=== PATIENT | female | born 2000 | race Caucasian/White ===

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

== ENCOUNTER → 2018-01-20 12:46 | Outpatient (CLI) | payer BC, SELFPAY ==
--- NOTE | 2018-01-20 12:46 | DT_ITS ---
This patient was seen during an EMR downtime January 18, 2018 - January 25, 2018. This patient may have a combination of paper and electronic documentation or all paper documentation. All documentation is viewable within the e-chart portion of [employer] for each patient visit.
[2018-01-23 13:07] LABS: Chlamydia Trachomatis by PCR Negative (Negative); Neisserai gonorrhoeae by PCR Negative (Negative); Probe Check PASS; Sample Adequacy Control PASS; Specimen Processing Control PASS
== END ==
PROVIDERS: Visit Provider Nurse Practitioner Women's Health
DX: R30.0 Dysuria (principal); N89.8 Other specified noninflammatory disorders of vagina
CPT/HCPCS: 87070; 87086; 87205; 87491; 87591

== ENCOUNTER → 2018-04-21 18:37 | Outpatient (CLI) | payer BC, SELFPAY | PROVIDERS: Family Provider Family Medicine; PCP Family Medicine; Visit Provider Nurse Practitioner Women's Health | DX: N76.0 Acute vaginitis (principal) | CPT/HCPCS: 87070; 87077; 87186; 87205 ==

== ENCOUNTER → 2018-07-06 14:50 | Outpatient (CLI) | payer BC, SELFPAY ==
[2018-04-29 12:59] VITALS: BMI 19.3
== END ==
PROVIDERS: Family Provider Family Medicine; PCP Family Medicine; Referring Provider Nurse Practitioner Adult Health; Visit Provider Nurse Practitioner Adult Health
DX: R30.0 Dysuria (principal)
CPT/HCPCS: 87070; 87081; 87205

== ENCOUNTER → 2018-07-15 11:22 | Outpatient (CLI) | payer BC, SELFPAY ==
[2018-07-15 15:30] LABS: Color, Urine Yellow (Yellow); Glucose, Dipstick Normal (Normal); Ketone-Dipstick Negative (Negative); Leukocyte Esterase-Dipstick 100 /ul (Negative); Nitrite-Dipstick Negative (Negative); Occult Blood-Urine 150 /ul (Negative); Protein-Dipstick 15 mg/dl (Negative); Urine Bilirubin Dipstick Negative (Negative); Urine Clarity Sl. Cloudy (Clear); Urine Urobilinogen Normal (Normal)
--- OUTSIDE RECORDS SUMMARY | 2018-09-09 14:13 | XMS RPT_ITS | Clinical Summary ---
:2000 Author Organization [facility] Address [address] [place] [address] Phone Care Team Providers Name Role Phone NICKY Nowak RN, Eleanor Thomas Unavailable Unavailable Conditions or Problems Problem Name Problem Onset Status Entry Provider Comment Standard Annotate Code Date Date Description Recurrent UTI 561372912 Active Magdalena Kim Recurrent (SNOMED 04/21 04/[address]) MD tract infection Vaginal [id number] Active Magdalena E Vaginal discharge (SNOMED 04/21 04/[address]) Condyloma 550119531 Active Magdalena Kim Genital acuminata, (SNOMED 04/21 04/[address]) MD Encounter for [id number] Active Magdalena E Gynecologic gynecological (SNOMED 04/21 04/[address]) (general) (routine) with abnormal findings Medications Medication Instructions Start Stop Generic Name NDC Provider Date Date DEPO-PROVERA im q 3 months MEDROXYPROGESTERONE [id number] Magdalena Kim 150 MG/ML /05 ACETATE Marcanthony SUSP DEPO-PROVERA MEDROXYPROGESTERONE [id number] Kallie Malagon 150 MG/ML /05 ACETATE Crowder SUSP Medications Administered No information available. Allergies, Adverse Reactions, Alerts Observed no known allergies at Results Date Name Value Unit Range Flag Description Office Visit: est annual HEMOCCULT not done Hemoglobin.gastrointestinal [Presence] in Stool FALLRSAGNES No Fall risk assessment MEDS REVIEW Done Documentation of current medications (procedure) SMOK STATUS Current every day Tobacco use [facility] smoker Microbiology: (P) Culture, Genital Comprehensive [id number] . GE use only - for [employer] import when terms are not otherwise specified Plan of Care Type Date Detail Pending order *CUV - Culture, VAG/CX Comprehensive Pending order *CUV - Culture, VAG/CX Comprehensive Procedures Code Procedure Name Date Entry Date [id number] Destruction of lesion(s), vulva; simple Vital Signs Date Name Value Unit Description BMI (Body Mass Index) 22.97 kg/m2 Body Mass Index [Ratio] Body Temperature 98.6 [degF] temperature E&M Body Temperature 37.00 Darlene temperature in centigrade E&M BP Diastolic 82 mm[Hg] blood pressure, diastolic - 8462-4 BP Systolic 124 mm[Hg] blood pressure, systolic - 8480-6 Heart Rate 93 /min pulse rate E&M - 8867-4 Height 62 [in_us] height E&M - 8302-2 Height 157.48 cm height in centimeters E&M Respiratory Rate 16 /min respiratory rate E&M - 9279-1 Weight Measured 125.6 [lb_av] weight E&M - 3141-9 Weight Measured 56.97 kg weight in kilograms E&M
--- OUTSIDE RECORDS SUMMARY | 2018-09-09 14:13 | XMS RPT_ITS ---
:2000 Author Organization OHIP Support Name Relationship Address Phone NABIL CHAND Unavailable [address] + [place] [address] JERRYS BAR GRILLE Unavailable [address] + [place] [address] JAGRUTI, NABIL Unavailable [address] + [place] [address] JERRYS CAFE BAR Unavailable [address] + [place] [address] JAGRUTI, NABIL Unavailable [address] + [place] [address] JERRYS BAR GRILLE Unavailable [address] + [place] [address] JAGRUTI, NABIL Unavailable [address] + [place] [address] JERRYS BAR GRILLE Unavailable [address] + [place] [address] JAGRUTI, NABIL Unavailable [address] + [place] [address] JERRYS BAR GRILLE Unavailable [address] + [place] [address] JAGRUTI, NABIL Unavailable [address] + [place] [address] ULTA BEAUTY Unavailable [address] + [place] [address] U Unavailable Unavailable Unavailable JAGRUTI, NABIL Unavailable [address] + [place] [address] ULTA BEAUTY Unavailable [address] + [place] [address] ULTA BEAUTY Un[address] + [place] [address] ULTA BEAUTY Un[address] + [place] [address] ULTA BEAUTY Unavailable [address] + [place] [address] JAGRUTI, NABIL Unavailable [address] + [place] [address] JAGRUTI, NABIL Unavailable [address] + [address] [place] [address] JAGRUTI, NABIL Unavailable [address] + [place] [address] JAGRUTI, NABIL Unavailable [address] + [place] [address] JAGRUTI, NABIL Unavailable [address] + [address] [place] [address] JAGRUTI, NABIL Unavailable [address] + [place] [address] JAGRUTI, NABIL Unavailable [address] + [place] [address] JAGRUTI, NABIL Unavailable [address] + [address] [place] [address] JAGRUTI, NABIL Unavailable [address] + [place] [address] JAGRUTI, NABIL Unavailable [address] + [place] [address] JAGRUTI, NABIL Unavailable [address] + [address] [place] [address] JAGRUTI, NABIL Unavailable [address] + [place] [address] [address]TA BEAUTY Un[address] + [place] [address] ULTA BEAUTY Un[address] + [place] [address] JAGRUTI, NABIL Unavailable [address] + [place] [address] JAGRUTI, NABIL Unavailable [address] + [address] [place] [address] JAGRUTI, NABIL Unavailable [address] + [place] [address] ULTA BEAUTY Unavailable [address] + [place] [address] ULTA BEAUTY Un[address] + [place] [address] ULTA BEAUTY Un[address] + [place] [address] JAGRUTI, NABIL Unavailable [address] + [place] [address] JAGRUTI, NABIL Unavailable [address] + [address] [place] [address] JAGRUTI, NABIL Unavailable [address] + [place] [address] Care Team Providers Name Role Phone MINESH GASPAR, DR. NOAH Vo Primary Care Unavailable LEDA YANEZ Attending Unavailable JAREK DONIS MD, JR. Attending Unavailable MINESH GASPAR, DR. NOAH Vo Primary Care Unavailable KAYE ROJAS, DR. RAMIREZ Attending Unavailable MINESH GASPAR, DR. NOAH Vo Primary Care Unavailable KAYE ROJAS, DR. RAMIREZ Attending Unavailable MINESH GASPAR, DR. NOAH Vo Primary Care Unavailable JAREK DONIS MD, JR. Attending Unavailable MINESH GASPAR, DR. NOAH Vo Primary Care Unavailable DAMIAN GASPAR, DR. ZAMUDIO Attending Unavailable DAMIAN GASPAR, DR. ZAMUDIO Referring Unavailable MINESH , DR. NOAH Vo Primary Care Unavailable Robotham, Jennie Attending Unavailable Robotseema, Jennie Referring Unavailable Jarek Donis Jr. Primary Care Unavailable Robotham, Jennie Attending Unavailable Robotham, Jennie Referring Unavailable Jarek Donis Jr. Primary Care Unavailable Magdalena Quintanilla Attending Unavailable Nicholas, Diaz Referring Unavailable Nicholas, Diaz Primary Care Unavailable Magdalena Quintanilla Attending Unavailable Nicholas, Diaz Primary Care Unavailable Corina Pedersen Attending Unavailable NuviaCorina fink Attending Unavailable Nicholas, Diaz Referring Unavailable Nicholas, Diaz Primary Care Unavailable NuviaCorina fink Attending Unavailable Nicholas, Diaz Referring Unavailable Nicholas, Diaz Primary Care Unavailable NuviaCorina fink Attending Unavailable Nicholas, Diaz Primary Care Unavailable [place], Corina Referring Unavailable Raza Otoole Attending Unavailable Nicholas, Diaz Referring Unavailable Nicholas, Diaz Primary Care Unavailable Elisa Painting Attending Unavailable Tickton, Elisa Referring Unavailable Diaz Nicholas Primary Care Unavailable Tickton, Elisa Attending Unavailable RorolicocareyMala Primary Care Unavailable Nuvia, Corina Attending Unavailable Diaz Nicholas Referring Unavailable Nuvia, Corina Attending Unavailable Nuvia, Corina Referring Unavailable Stevan Valdes, Jarek Primary Care Unavailable Robotham, Jennie Attending Unavailable Robotham, Jennie Referring Unavailable Stevan Valdse, Jarek Primary Care Unavailable Robotham, Jennie Attending Unavailable Stevan Valdes, Jarek Referring Unavailable PROBLEMS PROBLEMS DATE TYPE CONDITION / CODE ATTENDING STATUS SOURCE 07/20/2018 Unknown R59.9 - Enlarged Nuvia, Corina Active [place] lymph nodes, Community unspecified / Hospital R59.9(ICD-10) Repository 07/06/2018 Unknown R30.0 - Dysuria / [place]ick[place], Active [place] R30.0(ICD-10) [facility] Repository 04/29/2018 Unknown J32.9 - Chronic WyRaza gomez Active [place] sinusitis, Community unspecified / Hospital J32.9(ICD-10) Repository 04/22/2018 Unknown N76.0 - Acute [place], Corina Active [place] vaginitis / Community N76.0(ICD-10) Hospital Repository 09/29/2017 Unknown N89.8 - Other Marcanthony, Active [place] specified [facility] disorders of vagina / Repository N89.8(ICD-10) PROCEDURES PROCEDURES No Procedure Records FoundRESULTS RESULTS OPERATIVE REPORT - Observed: 08/02/2018 Status: F Source: [place] [facility] 10:46 AM [facility] REPOSITORY [facility] Medical Records Department [address] [place] [address] Operative Report - Endoscopy MR#: [id number] Acct: [id number] Name: KAYCE CHAND Rep #: [id number] : 2000 18 From: Jennie Okeefe MD PCP: Jarek Donis Jr., MD Status: [facility] Patient Name: Kayce Chand Procedure Date: 08/02/2018 10:17 AM Date of : 2000 Age: 18 Procedure: Colonoscopy Indications: Weight loss, bilateral inguinal adenopathy Providers: Jennie Okeefe MD Referring MD: Jarek Donis Jr. Patient Profile: This is a 18 year old female. Last Colonoscopy: none. The patient's first colonoscopy is today. Complications: No immediate complications. Procedure: Pre-Anesthesia Assessment: - Prior to the procedure, a History and Physical was performed, and patient medications and allergies were reviewed. The patient's tolerance of previous anesthesia was also reviewed. The risks and benefits of the procedure and the sedation options and risks were discussed with the patient. All questions were answered, and informed consent was obtained. Prior Anticoagulants: The patient has taken no previous anticoagulant or antiplatelet agents. ASA Grade Assessment: I - A normal, healthy patient. After reviewing the risks and benefits, the patient was deemed in satisfactory condition to undergo the procedure. After I obtained informed consent, the scope was passed under direct vision. Throughout the procedure, the patient's blood pressure, pulse, and oxygen saturations were monitored continuously. The pediatric colonoscope was introduced through the anus and advanced to the cecum, identified by the appendiceal orifice, IC valve and transillumination. The colonoscopy was performed without difficulty. The patient tolerated the procedure well. The quality of the bowel preparation was good. Scope In: 10:18:54 AM Scope Withdrawal Time 0 hours 5 minutes 36 seconds Scope Out: 10:35:34 AM Total Procedure Duration Time 0 hours 16 minutes 40 seconds Findings: The perianal and digital rectal examinations were normal. The entire examined colon appeared normal on direct and retroflexion views. Impression: - The entire examined colon is normal on direct and retroflexion views. - No specimens collected. Recommendation: - Discharge patient to home. - Continue present medications. - Repeat colonoscopy at age 45/50 for screening depending on what the screening age is in the future for screening purposes. Procedure Code(s): --- Professional --- 85862, Colonoscopy, flexible; diagnostic, including collection of specimen(s) by brushing or washing, when performed (separate procedure) Diagnosis Code(s): --- Professional --- R63.4, Abnormal weight loss CPT copyright 2017 [employer] [place] [employer]. All rights reserved. The codes documented in this report are preliminary and upon energy efficient site manager review may be revised to meet current compliance requirements. MD Jennie Ruffin MD 08/02/2018 10:45:48 AM This report has been signed electronically. Number of Addenda: 0 Note Initiated On: 08/02/2018 10:17 AM 08/02/18 1046 Date Jennie Okeefe MD Cosigner Signature: Date (if indicated) CC: Jarek Donis Jr., MD; Jennie Okeefe MD Date Dictated: 08/02/18 1017 Date Transcribed: Feeder Driver: TR Signed OPERATIVE REPORT - Observed: 08/02/2018 Status: F Source: [place] [facility] 10:42 AM [facility] REPOSITORY [facility] Medical Records Department [address] [place] [address] Operative Report - Endoscopy MR#: [id number] Acct: [id number] Name: KAYCE CHAND Rep #: [id number] : 2000 18 From: Jennie Okeefe MD PCP: Jarek Donis Jr., MD Status: REG [facility] Patient Name: Kayce Chand Procedure Date: 08/02/2018 10:01 AM Date of : 2000 Age: 18 Procedure: Upper GI endoscopy Indications: Weight loss Providers: Jennie Okeefe MD Referring MD: Jarek Donis Jr. Medicines: Monitored Anesthesia Care Patient Profile: This is a 18 year old female. Complications: No immediate complications. Procedure: Pre-Anesthesia Assessment: - Prior to the procedure, a History and Physical was performed, and patient medications and allergies were reviewed. The patient's tolerance of previous anesthesia was also reviewed. The risks and benefits of the procedure and the sedation options and risks were discussed with the patient. All questions were answered, and informed consent was obtained. Prior Anticoagulants: The patient has taken no previous anticoagulant or antiplatelet agents. ASA Grade Assessment: I - A normal, healthy patient. After reviewing the risks and benefits, the patient was deemed in satisfactory condition to undergo the procedure. After obtaining informed consent, the endoscope was passed under direct vision. Throughout the procedure, the patient's blood pressure, pulse, and oxygen saturations were monitored continuously. The gastroscope was introduced through the mouth, and advanced to the second part of duodenum. The upper GI endoscopy was accomplished without difficulty. The patient tolerated the procedure well. Scope In: 10:09:57 AM Scope Out: 10:14:43 AM Total Procedure Duration Time 0 hours 4 minutes 46 seconds Findings: Biopsies for histology were taken with a cold forceps in the second portion of the duodenum for evaluation of celiac disease. Minimal inflammation characterized by erythema was found in the gastric antrum. Biopsies were taken with a cold forceps for histology. Biopsies were taken with a cold forceps for Helicobacter pylori cultures. The esophagus was normal. The exam was otherwise without abnormality. Impression: - Gastritis. Biopsied. - Normal esophagus. - The examination was otherwise normal. - Biopsies were taken with a cold forceps for evaluation of celiac disease. Recommendation: - Await pathology results. - Discharge patient to home. - Continue present medications. Procedure Code(s): --- Professional --- 13104, Esophagogastroduodenoscopy, flexible, transoral; with biopsy, single or multiple Diagnosis Code(s): --- Professional --- K29.70, Gastritis, unspecified, without bleeding R63.4, Abnormal weight loss CPT copyright 2017 [employer] [place] [employer]. All rights reserved. The codes documented in this report are preliminary and upon energy efficient site manager review may be revised to meet current compliance requirements. MD Jennie Ruffin MD 08/02/2018 10:41:33 AM This report has been signed electronically. Number of Addenda: 0 Note Initiated On: 08/02/2018 10:01 AM 08/02/18 1041 Date Jennie Okeefe MD Cosigner Signature: Date (if indicated) CC: Jarek Donis Jr., MD; Jennie Okeefe MD Date Dictated: 08/02/18 1001 Date Transcribed: Feeder Driver: TR Signed EGD (PICK SITE) Observed: 08/02/2018 Status: F Source: [place] 10:15 AM [facility] REPOSITORY Patient: KAYCE CHAND : 2000 () Acct Num: [id number] Phys: Sary LO,Jennie Unit Num: [id number] Loc: EN Specimen: [id number] Received: 08/02/18 - 1323 Spec Type: EGD BIOPSY TISSUES 1 TISSUES: A. Duodenum, NOS B. Gastric mucous membrane COMMENT A. There is no evidence of celiac sprue. B. The results of immunohistochemistry for Helicobacter pylori will be reported separately ([id number]). GROSS DESCRIPTION A - Received in fixative is one container labeled with the patient's name and designated duodenal biopsy. The specimen consists of one irregular fragment of light cordero soft tissue that measures 0.5 x 0.3 x 0.1 cm. The specimen is totally submitted in one cassette. B - Received in fixative is one container labeled with the patient's name and designated antral biopsy. The specimen consists of one irregular fragment of light cordero soft tissue that measures 0.2 x 0.2 x 0.1 cm. The specimen is totally submitted in one cassette. / AM:amadeo 08/02/18 TC:5 CPT: 56456 x2 HEADER OPERATION: Colonoscopy, EGD ([facility]) PRE-OP DIAGNOSIS: Weight loss TISSUE SUBMITTED: A. Duodenal biopsy, rule out celiac and rule out sprue, B. Antral biopsy MICROSCOPIC DESCRIPTION Slides are reviewed. MICROSCOPIC DIAGNOSIS A. Duodenum, biopsy: No pathologic change. See comment. B. Gastric antrum, biopsy: Mild chronic inflammation. AM:amadeo 08/03/18 Signed Hector Ivey, DO 08/03/18 <signature on file> Performed By: #### PEGD #### [facility] [place], [address] ,URINE Collected: 08/02/2018 Status: F Source: [place] 9:10 AM [facility] REPOSITORY TYPE CODE TESTS RESULT OUT OF REFERENCE UNITS RANGE LAB L400.8000 Negative Normal HCGUQUAL Negative Result Comment: Very dilute urine specimens, as indicated by a low specific gravity, may not contain customer service representative teller levels of hCG. If is still suspected, a first morning urine specimen should be collected 48 hours later and tested. Performed By: #### L400.7600 #### [facility] [address] [place], [address] EXT NON VASC Observed: 07/26/2018 Status: F Source: [place] LIMITED/SOFT TISS 11:08 AM [facility] REPOSITORY [facility] Imaging Services [address] [place] [address] Ext Non Vasc Limited/Soft Tiss MR#: [id number] Acct: [id number] Name: KAYCE CHAND Rep #: [id number] : 2000 F 18 From: Raza Dick MD PCP: Jarek Donis Jr., MD Status: REG CLI Study: Ext Non Vasc Limited/Soft Tiss Date of Exam: 07/26/18 Exam# [id number] Ordering Dr: Jennie Okeefe MD STUDY: SUPERFICIAL ULTRASOUND - BILATERAL INGUINAL REGIONS. REASON FOR EXAM: Female, 18 years old. Inguinal lymphadenopathy. TECHNIQUE: A superficial ultrasound was performed with real- time and static gaytan-scale imaging. COMPARISON: None. FINDINGS: There is a 1.4 x 1.4 cm lymph node in the left inguinal region at the site of the patient's palpable lump. There is a 2.0 x 1.3 cm adjacent left inguinal lymph node. There are 2 lymph nodes noted in the right inguinal region, measuring 1.9 x 1.2 cm and 1.2 x 0.7 cm. US/Ext Non Vasc Limited/Soft Tiss IMPRESSION: Mild bilateral inguinal lymphadenopathy. Electronically Signed: Raza Dick, at 22:00 EST Tel , Service support , CC: Jarek Donis Jr., MD; Jennie Okeefe MD Feeder Driver: Signed SURGERY VISIT REPORT Observed: 07/26/2018 Status: F Source: [place] 8:12 AM [facility] REPOSITORY [facility] [address] [place] [address] OFFICE VISIT Date of Service: 07/23/18 MR#: [id number] Acct: [id number] Name: KAYCE CHAND Rep #: [id number] : 2000 Provider: Jennie Okeefe MD Age/Sex: 18/F Location: [facility] Status: Signed Intake Vital Signs07/23/18 Body Mass Index (BMI) 19.3 07/23/18 Height 5 ft 2 in 07/23/18 Weight: 106 lb Intake Visit Reasons: Enlarged groin lymph nodes Chief Complaint: congestion Doggy Daycare Activities Director Required: No Is patient in pain?: No Allergies erythromycin base Adverse Reaction (Intermediate, Verified 07/23/18 11:10) stomach pain, vomiting Medications tizanidine 4 mg capsule 4 mg PO TID PRN 04/21/18 [History Confirmed 07/23/18] metronidazole 500 mg tablet 500 mg PO BID #14 tab 04/23/18 [Rx Confirmed 07/23/18] medroxyprogesterone 150 mg/mL intramuscular syringe 150 mg IM [id number] #1 ml 06/08/18 [Rx Confirmed 07/23/18] nystatin 100,000 unit/gram topical cream 1 applic TOPICAL BID PRN #15 g 07/20/18 [Rx Confirmed 07/23/18] triamcinolone acetonide 0.5 % topical cream 1 applic TOPICAL BID #15 g 07/20/18 [Rx Confirmed 07/23/18] [facility] Medical History Hemorrhoids (Acute) Constipation (Acute) Nausea (Acute) Abdominal pain (Acute) Anxiety and depression (Acute) sudden weight loss (Acute) Fatigue (Acute) unexplained bruises (Acute) neck/back pain (Acute) Severe headache (Acute) Surgical History History of ear surgery (Resolved) H/O sinus surgery (Resolved) History of esophagogastroduodenoscopy (EGD) (Resolved) Social History Smoking Status: Current every day smoker alcohol intake: never substance use type: does not use caffeine: Yes what type of physical activity do you participate in: aerobics frequency: 1-2 times per week seatbelt use: always do you feel safe at home: Yes additional 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 Patient states that she noticed the right groin lump about 1 month ago but states is gotten a little bit larger. On 07/06 patient was diagnosed with a UTI and seen her PCP and was given a shot of Rocephin along with a Z-Rodney and Flagyl. Patient did follow-up and on the she was also given Bactrim for her UTI. A couple days ago patient did go see Dr. Akhil Gaitan and again had a urine culture and other cultures done. The urine culture only showed lactobacillus and is only 50-80,000 she still states she has a little bit of hesitation denies any blood in her urine denies any increased frequency. Patient states her pain in her lower abdomen is about 3/10 which is better and she is also been taking cranberry. She does come to feel somewhat of a vaginal heaviness. Patient had a vaginal culture that stayed normal vaginal stef isolated no yeast and Gardnerella are neisseria or beta hemolytic streptococcus isolated. states she has bowel movements about every other day denies any blood states she has a hemorrhoid. Patient and her mother also concern of her weight loss that has been unintentional. Patient used to weigh between 125 and 130 currently she is 106 and about a 2-month. Patient states that she does eat she is little bit of a picky eater but does eat an appropriate amount of food. Patient has not had an ultrasound done of her inguinal nodes. Has never had a colonoscopy or EGD and denies any family history of colon cancer or GI cancer. ROS General General: Yes weight change and fatigue; no colon cancer or breast cancer Gastro Gastrointestinal: Yes abdominal pain, No diarrhea, Yes constipation, No blood in stool, No acid reflux, Yes hemorrhoids, No ulcers, No gallbladder problem, No black,tarry stools, Yes nausea or vomiting (No vomiting) Exam Const General: cooperative, comfortable, no acute distress [facility] Head: atraumatic GI Inspection: non-distended Palpation: soft, no guarding, no hernias, tender (Mild tenderness palpation of the lower appendectomy), other (Patient does have bilateral inguinal adenopathy with the largest nodes being on the left to about 1 cm in width maybe about half a centimeter in height) Skin Other: No abnormal skin lesions that by member feed her on her legs or abdomen there is a very small mid back mole was about 5 mm slightly raised Assessment AND Plan Problems 1. Inguinal lymphadenopathy R59.0 2. Weight loss, non-intentional R63.4 Plan Patient's previous U TI appears to be adequately treated as her last culture only showed 50-80K lactobacillus. Will review other cultures taken by Dr. Quintanilla as well. We will schedule an ultrasound of bilateral inguinal lymph nodes. I have discussed the above with the patient. I have offered the patient EGD colonoscopy for evaluation weight loss. We will plan to schedule once the ultrasound inguinal lymph nodes are resulted. I have explained the risks/benefits of the procedure and described the procedure. I have discussed the risks with the patient, including but not limited to: infection, bleeding, perforation of the GI tract requiring emergency surgery, inability to complete the procedure, injury to any internal organs, complications of anesthesia, etc. - the patient understands and agrees to proceed. I have answered all the patient's questions to the patient's satisfaction and the patient has no further questions. The patient has been given instructions for the colon cleansing preparation. 1 day clears, MiraLAX Dulcolax Jennie Okeefe M.D. Pager: [phone] [facility] [address] [place] [address], [facility], [address] [place] [address] Office: [phone] Plan Detail Follow Up We will schedule bilateral inguinal ultrasound and plan for an EGD and colonoscopy due to her weight loss Coding Level of Care Code Off vis,new,level 4 Diagnoses Inguinal lymphadenopathy R59.0 Weight loss, non-intentional R63.4 Time Spent (min) 45 07/26/18 0812 <Electronically signed by Jennie Okeefe MD> Date Jennie Okeefe MD Cosigner Signature: Date (if applicable) CC: Jarek Donis Jr., MD; Magdalena Quintanilla MD CT/NG [facility] BY PCR Collected: 07/20/2018 Status: F Source: [place] 6:41 PM [facility] REPOSITORY TYPE CODE TESTS RESULT OUT OF RANGE REFERENCE UNITS LAB L8200.2100 Negative Normal Chlam Negative Trac PCR LAB L8200.2200 Negative Normal NG by Negative PCR Performed By: #### L8200.2000 #### [facility] [address] [place], [place], [address] Observed: 07/20/2018 Status: F Source: [place] CULTURE, GENITAL 6:41 PM [facility] COMPREHENSIVE REPOSITORY Reason for Exam: vaginitis Gram Stain Score = 1 Interpretation: 0-3 Normal, 4-6 Intermediate, 7-10 Positive BV Gram Stain 4+ Gram positive rods Rare Gram negative rods No Gram negative diplococci No Yeast Like Organisms 1+ White Blood Cells Gent Cult Comp Normal vaginal stef isolated. No yeast, Gardnerella, Neisseria or beta-hemolytic Streptococcus isolated. Performed By: #### M100.1600 #### [facility] [address] [place], [address] Observed: 07/20/2018 Status: F Source: [place] CULTURE, URINE 6:41 PM [facility] REPOSITORY Urine Culture There are no CLSI standards for interpretation of this Drug/Organism combination. ORGANISM 1: Lactobacillus species [place] Count 50,000-80,000 Performed By: #### M100.0650 #### [facility] [address] [place], [address] VISUAL COMMUNICATIONS INSTRUCTOR OFFICE VISIT Observed: 07/20/2018 Status: F Source: [place] REPORT 2:48 PM [facility] REPOSITORY [facility] [address] [place], [place] [address] OFFICE VISIT Date of Service: 07/20/18 MR#: [id number] Acct: [id number] Name: KAYCE CHAND Rep #: [id number] : 2000 Provider: TANNER Pedersen Age/Sex: 18/F Location: [facility] Status: Signed Intake Vital Signs07/20/18 Body Mass Index (BMI) 19.3 07/20/18 Height 5 ft 2 in 07/20/18 Weight: 106 lb 07/20/18 Body Mass Index (BMI) 19.3 07/20/18 Blood Pressure 118/80 Intake Visit Reasons: Issue with yeast infection/UTI/Swollen lymph Doggy Daycare Activities Director Required: No Accompanied by: Mother Is patient in pain?: Yes (aching, burning, itching and pressure) Pain scale (1-10): 7 Allergies erythromycin base Adverse Reaction (Intermediate, Verified 07/20/18 13:53) stomach pain, vomiting Medications tizanidine 4 mg capsule 4 mg PO TID PRN 04/21/18 [History Confirmed 04/29/18] metronidazole 500 mg tablet 500 mg PO BID #14 tab 04/23/18 [Rx Confirmed 04/29/18] medroxyprogesterone 150 mg/mL intramuscular syringe 150 mg IM [id number] #1 ml 06/08/18 [Rx] nystatin 100,000 unit/gram topical cream 1 applic TOPICAL BID PRN #15 g 07/20/18 [Rx Confirmed 07/20/18] triamcinolone acetonide 0.5 % topical cream 1 applic TOPICAL BID #15 g 07/20/18 [Rx Confirmed 07/20/18] Is last menstrual period known: No Post menopausal: No Patient : No : No PFSH Medical History Anxiety and depression (Acute) Fatigue (Acute) Severe headache (Acute) neck/back pain (Acute) sudden weight loss (Acute) unexplained bruises (Acute) Surgical History H/O sinus surgery (Resolved) History of ear surgery (Resolved) History of esophagogastroduodenoscopy (EGD) (Resolved) Social History Smoking Status: Current every day smoker alcohol intake: never substance use type: does not use caffeine: Yes what type of physical activity do you participate in: aerobics frequency: 1-2 times per week seatbelt use: always do you feel safe at home: Yes 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 She was seen 07/06/18 by this office and had negative vaginal cultures but due to significance of symptoms treated for yeast. She then went to PCP for worsening vaginal irritation with cracking of skin and the enlarged lymph node. States no cultures or serum testing was done but was given antibiotic by enjection-thinks rocephin and also EryC. She had vomiting from EryC. She then was given Bactrim for UTI. She is still taking Bactrim. She has had new sexual partner in last 2 months. Pregancy History 0 Elective abortions Hx Para Spontaneous abortions Exam Const General: no acute distress Nutritional Appearance: well nourished Orientation: oriented x3 General: bladder normal to palpation External Female Exam: normal external appearance, normal appearance of the urethra Urethra: normal appearance of the urethra Speculum Exam - Vagina: normal appearance of the vagina (minimal erythema with small amount yellow to white milky discharge), normal vaginal discharge, nontender, no lesions Speculum Exam - Cervix: normal appearance of the cervix, other (smooth, nonfriable) Bimanual Exam- Vagina AND Uterus: bladder normal to palpation, normal bimanual exam, uterine size normal, uterine shape normal, uterine mobility normal, uterus non-tender Bimanual Exam- Adnexa, other: normal adnexae, no adnexal masses, adnexae non-tender Other: 2cm enlarged lymph node left groin Assessment AND Plan Problems 1. Vaginal itching N89.8 2. Screen for STD (sexually transmitted disease) Z11.3 3. Enlarged lymph node R59.9 Plan Sesar BV, trich, GCC and comp vaginal culture. Call results tomorrow CBC Triamcinilone and nystatin Rx RTO prn Orders Orders: Medications New: Coding Level of Care Code Off vis,est,level 3 Diagnoses Vaginal itching N89.8 Screen for STD (sexually transmitted disease) Z11.3 Enlarged lymph node R59.9 07/20/18 1448 <Electronically signed by Corina DUNCANC> Date Corina Pedersen NP-C Cosigner Signature: Date (if applicable) CC: CBC W/DIFF, AUTOMATED Collected: 07/20/2018 Status: F Source: [place] 2:32 PM [facility] REPOSITORY TYPE CODE TESTS RESULT OUT OF RANGE REFERENCE UNITS LAB L100.1000 4.4-11.0 K/mm3 Normal WBC 5.5 LAB L100.1200 4.2-5.4 M/mm3 Normal RBC 4.99 LAB L100.1300 12.0-15.0 g/dl Normal HGB 15.0 LAB L100.1400 37-47 % Normal HCT 45.2 LAB L100.1500 81-99 fL Normal MCV 90.6 LAB L100.1600 27.0-32.0 pg Normal MCH 30.1 LAB L100.1700 32-36 g/gl Normal MCHC 33.2 LAB L100.1810 11.6-14.6 % Normal RDW CV 13.4 LAB L100.1820 35.1-43.9 fl High RDW SD 44.1 LAB L100.1900 150-450 K/mm3 Normal PLT 244 LAB L100.2000 6.2-12.0 fl Normal MPV 9.9 LAB L100.2100 47-70 % Low NEUT% 42.3 LAB L100.2200 19-41 % High LY% 45.3 LAB L100.2300 0-10 % Normal MONO% 9.3 LAB L100.2400 0-5 % Normal EO% 2.2 LAB L100.2500 0-1 % Normal BASO% 0.7 LAB L100.2550 0.0-0.9 % Normal IM GRAN % 0.200 Result Comment: IG% - Immature Granulocytes (promyelocytes, myelocytes and metamyelocytes) > 1% indicates that a LEFT SHIFT is Present. LAB L100.2620 2.0-7.7 X10 3/uL Normal Absolute Neut 2.3 LAB L100.2720 0.83-4.51 X10 3/ul Normal Absolute Lymph 2.49 Performed By: #### L100.0100 #### [facility] [address]. [place], [place], [address] URINALYSIS, ROUTINE Collected: 07/15/2018 Status: F Source: [place] (DIPSTICK) 11:32 AM [facility] REPOSITORY Order Comment: How was Urine Obtained? DRILL PRESS OPERATOR TO SPECIFY TYPE CODE TESTS RESULT OUT OF RANGE REFERENCE UNITS LAB L400.3000 Yellow COLOR Normal Yellow LAB L400.3050 Clear Normal CLARITY Sl. Cloudy LAB L400.3200 Normal mg/dl Normal GLUCOSE, UR Normal LAB L400.3300 Negative mg/dL Normal BILIRUBIN URINE Negative LAB L400.3400 Negative mg/dl Normal KETONE UR Negative LAB L400.3465 1.002-1.030 Normal SP.GR. DIPSTX 1.020 LAB L400.3550 5.0 - 8.0 pH UR Normal 6.0 LAB L400.3600 Negative mg/dl High PROT 15 DIPSTX LAB L400.3700 Normal mg/dl Normal UROBILI Normal LAB L400.3750 Negative Normal NITRITE UR Negative LAB L400.3780 Negative /ul High OCCULT BLOOD-UR 150 LAB L400.3800 Negative /ul High LEUK ESTERASE 100 Performed By: #### L400.2010 #### [facility] [address] [place], [place], [address] Observed: 07/06/2018 Status: F Source: [place] CULTURE, GENITAL 11:20 AM [facility] COMPREHENSIVE REPOSITORY Gram Stain Score = 0 Interpretation: 0-3 Normal, 4-6 Intermediate, 7-10 Positive BV Gram Stain 4+ Gram positive rods No Gram negative diplococci No Yeast Like Organisms No White Blood Cells Gent Cult Comp Normal vaginal stef isolated. No yeast, Gardnerella, Neisseria or beta-hemolytic Streptococcus isolated. Performed By: #### M100.1600 #### [facility] [address] [place], [place], [address] URGENT CARE VISIT Observed: 04/29/2018 Status: F Source: [place] REPORT 1:22 PM [facility] REPOSITORY [facility] [address] [place] [address] OFFICE VISIT Date of Service: 04/29/18 MR#: [id number] Acct: [id number] Name: KAYCE CHAND Rep #: [id number] : 2000 Provider: Raza RUCKER Age/Sex: 18/F Location: [facility] Status: Signed Intake Vital Signs04/29/18 Height 5 ft 2 in 04/29/18 Weight: 106 lb 04/29/18 Body Mass Index (BMI) 19.3 04/29/18 Blood Pressure 108/74 Intake Visit Reasons: SORE THROAT, FEVER, COUGH Chief Complaint: congestion Doggy Daycare Activities Director Required: No Accompanied by: mother Is patient in pain?: No Allergies No Known Allergies Allergy (Verified 04/29/18 13:02) Medications medroxyprogesterone 150 mg/mL intramuscular syringe 150 mg IM [id number] 09/28/17 [History Confirmed 04/29/18] tizanidine 4 mg capsule 4 mg PO TID PRN 04/21/18 [History Confirmed 04/29/18] metronidazole 500 mg tablet 500 mg PO BID #14 tab 04/23/18 [Rx Confirmed 04/29/18] amoxicillin 500 mg capsule 1,000 mg PO BID 10 Days #40 cap 04/29/18 [Rx Confirmed 04/29/18] [facility] Medical History Anxiety and depression (Acute) Fatigue (Acute) Severe headache (Acute) neck/back pain (Acute) sudden weight loss (Acute) unexplained bruises (Acute) Surgical History H/O sinus surgery (Resolved) History of ear surgery (Resolved) History of esophagogastroduodenoscopy (EGD) (Resolved) Social History Smoking Status: Current every day smoker alcohol intake: never substance use type: does not use caffeine: Yes what type of physical activity do you participate in: aerobics frequency: 1-2 times per week seatbelt use: always do you feel safe at home: Yes 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 No complaints of fever, sweats, rash, chest pain/shortness of breath, cough. No other members in household with similar signs or symptoms. She is a non-smoker with immunizations up-to-date as she so notes. Additionally, patient notes having history of approximately 20 pound weight loss over the course of the last 6 months for unexplained reasons. She states she has been trying to eat more and attempt to gain weight but only continues to lose weight. She states she has been evaluated by her primary care physician as well as drapery examiner to include diagnostics and lab work all of which reveal unremarkable and noncontributory results regarding her weight loss, she so states. He only chronic medication that she is currently on is Depo-Provera which she states she started about a year and half ago. Additionally, she does note having history of scalp psoriasis but is unsure if she was worked up from a rheumatologic standpoint. She notes no new anxiety/stressors/mental health issues as well. ROS Const Constitutional: No other (ROS negative 10 other than as noted above) Exam Const General: cooperative, healthy appearing, no acute distress Nutritional Appearance: average body habitus Orientation: alert, awake, oriented x3 HENMT Head: normal to inspection Ears: hearing grossly normal bilaterally, external ears normal, TM's normal bilaterally, EAC's normal Nose: external nose normal, nares normal, septum normal, no nasal discharge Face and sinus: normal facial exam, face symmetric, sinus tenderness frontal Mouth: oral mucosae normal, lip normal, oropharynx normal, tongue normal Teeth and gingiva: dentition normal, gingiva normal Throat: uvula midline, tonsils normal, posterior oropharynx normal, postnasal drainage (Scant purulent) Eyes General: appearance normal, both eyes and all related structures Neck Neck: normal visual inspection, full ROM, no meningeal signs, supple, lymphadenopathy (Bilateral anterior cervical nodes tender to palpation with trace swelling) Neck mass: No Thyroid: thyroid normal Chest Chest palpation AND inspection: normal inspection of the chest Resp Effort AND Inspection: normal respiratory effort, able to speak in complete sentences, symmetric chest movement, no cough Auscultation: Bilateral: Clear to Auscultation Cardio Palpation: normal PMI Rate: regular rate Rhythm: regular rhythm Heart Sounds: S1 normal, S2 normal, no gallops, no murmurs, no rubs Pulses: radial pulses present GI Inspection: normal to inspection Palpation: soft, nontender, no guarding Skin General: no rashes or lesions noted Neuro General: alert, awake, oriented x3, gait normal Cognition: normal cognition Speech: speech normal Gait: normal gait Motor: muscle tone normal throughout Sensory Exam: no sensory deficits noted Extrem General: normal to inspection Psych Appearance: grossly normal Mental Status: mental status grossly normal Mood: congruent mood Affect: normal affect Speech and Movement: speech and movement normal Attitude: cooperative Thought Process: normal Thought Content: normal Judgment: judgment good Assessment AND Plan Problems 1. Sinusitis J32.9 Plan Oxacillin as prescribed today. Clear fluids, rest, Tylenol, warm facial compresses as needed for symptomatic relief Follow-up PCP in 3-5 days should symptoms not improve, sooner should symptoms worsen or any other concerns develop. Regarding weight loss as patient and mother described, recommend patient to inquire with PCP or drapery examiner for additional diagnostics and testing which would be appropriate in their recommendations. Patient and mom state acknowledging understanding all the above. This note was generated with [employer] dictation software. It may contain incorrect words, spelling, and punctuation that were not noted in checking the note before signing. Medications New: Coding Level of Care Code Off vis,new,level 3 Diagnoses Sinusitis J32.9 04/29/18 1322 <Electronically signed by Raza RUCKER> Date Raaz RUCKER Cosigner Signature: Date (if applicable) CC: Observed: 04/21/2018 Status: F Source: [place] CULTURE, GENITAL 6:37 PM [facility] REPOSITORY Reason for Exam: vulvovaginitis Gram Stain Score = 0 Interpretation: 0-3 Normal, 4-6 Intermediate, 7-10 Positive BV Gram Stain 1+ White Blood Cells 4+ Gram positive rods Gent Cult Comp NEISSERIA GONORRHOEAE is NOT isolated. ORGANISM 1: Streptococcus agalactiae (B) Amount Growth Rare ORGANISM 2: Gardnerella vaginalis Amount Growth 3+ Streptococcus agalactiae (B): REACTION Ampicillin $ <=0.25 S Benzylpenicillin NF <=0.06 S Ceftriaxone $ <=0.12 S Clindamycin $$ >=1 R Inducable Clindamycin Resistan - Linezolid $$$$ <=2 S Vancomycin $ 0.5 S (NF) indicates non-formulary drug at [facility]. Approval by Infectious Disease Specialist required before non-formulary drugs may be ordered and/or dispensed. * CLSI guidelines does not recommend testing of cephalosporins. This interpretation is deduced from Beta-lactam/penicillin results. Performed By: #### M100.1600 #### [facility] [address] [place], [address] VISUAL COMMUNICATIONS INSTRUCTOR OFFICE VISIT Observed: 04/21/2018 Status: F Source: [place] REPORT 2:27 PM [facility] REPOSITORY [facility] [address] [place] [address] OFFICE VISIT Date of Service: 04/21/18 MR#: [id number] Acct: [id number] Name: KAYCE CHAND Rep #: [id number] : 2000 Provider: TANNER Pedersen Age/Sex: 18/F Location[place] [facility] [place] Status: Signed Intake Vital Signs04/21/18 Height 5 ft 2 in 04/21/18 Weight: 107 lb 6 oz 04/21/18 Body Mass Index (BMI) 19.6 04/21/18 Blood Pressure 101/71 Intake Visit Reasons: YEAST INFECTION? Doggy Daycare Activities Director Required: No Is patient in pain?: Yes Pain scale (1-10): 7 Allergies No Known Allergies Allergy (Verified 04/21/18 13:47) Medications medroxyprogesterone 150 mg/mL intramuscular syringe 150 mg IM [id number] 09/28/17 [History Confirmed 04/21/18] tizanidine 4 mg capsule 4 mg PO TID PRN 04/21/18 [History Confirmed 04/21/18] Is last menstrual period known: No Post menopausal: No Patient : No : No PFSH Medical History Anxiety and depression (Acute) Surgical History H/O sinus surgery (Resolved) History of ear surgery (Resolved) History of esophagogastroduodenoscopy (EGD) (Resolved) Social History Smoking Status: Current every day smoker alcohol intake: never substance use type: does not use caffeine: Yes what type of physical activity do you participate in: aerobics frequency: 1-2 times per week seatbelt use: always do you feel safe at home: Yes 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 OTC monistat caused increased burning. She took 1 tablet of her mom's diflucan yesterday without improvement. States not sexually active since prior to STD testing done in January 2018-negative. Pregancy History 0 Elective abortions Hx Para Spontaneous abortions Exam External Female Exam: erythema Speculum Exam - Vagina: abnormal vaginal discharge white, vaginal erythema Speculum Exam - Cervix: normal appearance of the cervix Bimanual Exam- Vagina AND Uterus: normal bimanual exam, uterine size normal, uterus non-tender Bimanual Exam- Adnexa, other: normal adnexae, no adnexal masses, adnexae non-tender Assessment AND Plan Problems 1. Vulvovaginitis N76.0 Plan SESAR BV, trich and comp vag culture OTC cortaid, A AND D ointment prn Call culture results. Medications Discontinued: Coding Level of Care Code Off vis,est,level 3 Diagnoses Vulvovaginitis N76.0 04/21/18 1427 <Electronically signed by Corina NORIEGA> Date Corina Pedersen [employer]MON [employer] VESSEL OPERATOR-C Cosigner Signature: Date (if applicable) CC: FINAL SURGICAL Observed: 03/08/2018 Status: F Source: [facility] PATHOLOGY REPORT 11:58 [facility] [place] REPOSITORY . Pathology Reports Accession: Collected Date/Time: Received Date/Time: Pathologist: [id number] 03/08/2018 11:58 EDT 03/09/2018 08:10 EDT MD SOPHY GRACE Final Surgical Pathology Report DIAGNOSIS: A) DUODENUM, BIOPSY -- SMALL INTESTINAL EPITHELIUM WITH FOCAL, MILD CHRONIC INFLAMMATION AND VERY FOCAL SUBTOTAL VILLOUS BLUNTING (SEE COMMENT). Comment: Overall the villous architecture is normal with only very rare foci of villous blunting. Very early celiac disease cannot be entirely excluded and clinical correlation with serologic studies is recommended. There is no morphologic evidence of Whipple's disease. B) STOMACH, BIOPSY -- FOCAL, VERY MILD NONSPECIFIC CHRONIC GASTRITIS. IMMUNOHISTOCHEMICAL STAIN (WITH APPROPRIATE CONTROL) FOR H. PYLORI ORGANISMS IS NEGATIVE COMMENT: [facility]# [id number] CLINICAL INFORMATION: Procedure: EGD WITH GASTRIC AND DUODENAL BIOPSIES Preoperative diagnosis: WEIGHT LOSS / EPIGASTRIC PAIN Postoperative diagnosis: SAME SPECIMEN: A DUODENUM, BX - R/O CELIAC/WHIPPLE B STOM, BX - GASTRIC - R/O GASTRITIS GROSS DESCRIPTION: A. Received in formalin labeled duodenal biopsies are 4 cordero glistening soft tissues ranging from 0.2-0.6 cm. TS -1 B. Received in formalin labeled gastric biopsies are 2 cordero glistening soft tissues, 0.3 and 0.5 cm. TS -1 Dictated by Michelle RUCKER ([facility]) MICROSCOPIC DESCRIPTION: A&B) Slides reviewed. Electronically Signed by Pathology Report verified by [facility] Electronically signed by SOPHY GRACE MD Sign out Date: 03/10/2018 16:19 Performing Lab: [facility], [address] [place] [address] Performed By: #### SPFR #### [place] [address] [address] [place] [address] XR SPINE CERVICAL 2 Observed: 03/02/2018 Status: F Source: [facility] OR 3 VIEWS 11:37 AM [facility] REPOSITORY ORIGINAL XR SPINE CERVICAL 2 OR 3 VIEWS CLINICAL STATEMENT: pain COMPARISON: None FINDINGS:No acute fracture or subluxation is identified. Vertebral body alignment is maintained. The disc spaces are maintained. No facet arthropathy is identified. The atlantoaxial relationship is norm al. The prevertebral soft tissues are unremarkable. IMPRESSION:Normal exam. Interpreted By: Richelle Diaz MD Preliminary Report By: Richelle Diaz MD Electronically Signed By: Richelle Diaz MD Dictated Date: 03/02/2018 3:09:23 PM Prelim Date: 03/02/2018 3:09:23 PM Sign Date: 03/02/2018 3:10:51 PM CMP Collected: 2018 Status: F Source: [facility] 11:29 AM [facility] REPOSITORY TYPE CODE TESTS RESULT OUT OF REFERENCE UNITS RANGE LAB GLU(LOINC) 70-105 mg/dL Glucose Level 104 LAB NA(LOINC) 136-146 mEq/L Sodium Level 140 LAB K(LOINC) 3.5-5.1 mEq/L Potassium Level 4.7 LAB CL(LOINC) 98-107 mEq/L Chloride 106 LAB CO2(LOINC) 22-29 mEq/L CO2 22 LAB EBAL(LOINC mEq/L ) Electrolyte Balance 12.0 LAB BUN(LOINC) 7.0-18.0 mg/dL BUN High 21.7 LAB CRE(LOINC) 0.6-1.2 mg/dL Creatinine Lvl (s) 0.8 LAB BC(LOINC) 7-27 ratio BUN/Creatinine 27 Ratio LAB CA(LOINC) 8.4-10.2 mg/dL Calcium Lvl 9.8 LAB PROT(LOINC 6.0-8.3 G/dL ) Total Protein 7.1 LAB ALB(LOINC) 3.5-5.0 G/dL Albumin Level 5.0 LAB GLB(LOINC) G/dL Globulin 2.1 LAB AG(LOINC) 1.1-2.5 ratio A/G Ratio 2.4 LAB BILT(LOINC 0.2-1.0 mg/dL ) Bili Total 0.4 LAB AP(LOINC) 40-135 IU/L Alk Phos 56 LAB AST(LOINC) 10-40 IU/L AST/SGOT 12 LAB ALT(LOINC) 10-35 IU/L ALT/SGPT 19 Performed By: #### AMARILYS FARFAND, CRP #### [address] [address] #### GFR, CMP #### [address] [address] .GFR Collected: 2018 Status: F Source: [facility] 11:29 AM [facility] REPOSITORY TYPE CODE TESTS RESULT OUT OF REFERENCE UNITS RANGE LAB GFRAA(LOINC ml/min/1.73 ) sqm GFR >60 Citizen Of The [place] Result Comment: GFR Population mean for , Non- Americans Ages 20-29 = 116 mL/min/1.73 sq.m. Ages 30-39 = 107 mL/min/1.73 sq.m. Ages 40-49 = 99 mL/min/1.73 sq.m. Ages 50-59 = 93 mL/min/1.73 sq.m. Ages 60-69 = 85 mL/min/1.73 sq.m. Ages 70+ = 75 mL/min/1.73 sq.m. Chronic Kidney Disease: Less than 60 mL/min/1.73 square meters End Stage Renal Disease: Less than 15 mL/min/1.73 square meters LAB GFRNO(LOINC) ml/min/1.73sqm GFR Non- >60 Result Comment: GFR Population mean for , Non- Americans Ages 20-29 = 116 mL/min/1.73 sq.m. Ages 30-39 = 107 mL/min/1.73 sq.m. Ages 40-49 = 99 mL/min/1.73 sq.m. Ages 50-59 = 93 mL/min/1.73 sq.m. Ages 60-69 = 85 mL/min/1.73 sq.m. Ages 70+ = 75 mL/min/1.73 sq.m. Chronic Kidney Disease: Less than 60 mL/min/1.73 square meters End Stage Renal Disease: Less than 15 mL/min/1.73 square meters Performed By: #### ENDO, GLIAD, CRP #### [place] [address] #### GFR, CMP #### [address] [address] ENDO Collected: 2018 Status: F Source: [facility] 11:29 AM [facility] REPOSITORY TYPE CODE TESTS RESULT OUT OF RANGE REFERENCE UNITS LAB ENDO(LOINC) TGT Ab <20.0 (IGA) Result Comment: Effective 05/10/2007: Evaluation of Transglutaminase Ab (IgA) results: Negative: Less than 20 Weak positive: 20 to 30 Positive: Greater than 30 Transglutaminase Ab is present in approximately 95% to 100% of patients with celiac disease and 80% of patients with dermatitis herpetiformis. The antibody is rarely found in other conditions. Transglutaminase Ab levels will decrease or increase depending on the removal or reintroduction of gluten into the diet. Patients who are IgA deficient develop celiac disease more frequently than individuals who have an intact IgA system. Therefore, gliadin and transglutaminase IgA antibodies may be absent in patients with celiac disease. IgG antibodies to gliadin are especially helpful in IgA deficient patients. These test results were obtained with the [employer] QUANTA Lite h-tTG IgA OSCAR. h-tTG IgA values obtained with different manufacturers' assay methods may not be used interchangeably. Performed By: #### ENDO, GLIAD, CRP #### [place] [address] #### GFR, CMP #### [address] [address] CRP Collected: 2018 Status: F Source: [facility] 11:29 [facility] [place] REPOSITORY TYPE CODE TESTS RESULT OUT OF REFERENCE UNITS RANGE LAB CRP(LOINC) <=0.80 mg/dL C-Reactive 0.11 Protein Performed By: #### ENDO, GLIAD, CRP #### [place] [address] #### GFR, CMP #### [address] [address] GLIAD Collected: 2018 Status: F Source: [facility] 11:29 [facility] [place] REPOSITORY TYPE CODE TESTS RESULT OUT OF REFERENCE UNITS RANGE LAB GLG(LOINC) Gliadin Ab IgG <20 Result Comment: Gliadin IgG and IgA Ab Interpretation (effective 07/12/07): Result Units Negative <20 Weak Positive 20-30 Moderate to Strong Positive >30 Both IgG and IgA antibodies to gliadin are present in most patients with celiac disease (CD). However, antibody to gliadin may be present in Crohn's disease, dermatitis herpetiformis or in subjects with no clinical evidence of intestinal disease. In healthy individuals with a family history of CD, the antibodies may precede the clinical onset of disease in approximately 25% of the subjects. Gliadin antibody levels will decrease or increase depending on the removal or reintroduction of gluten into the diet. Patients who are IgA deficient develop celiac disease more frequently than individuals who have an intact IgA system. Therefore, gliadin and transglutaminase IgA antibodies may be absent in patients with celiac disease. IgG antibodies to gliadin are especially helpful in IgA deficient patients. A negative result indicates no gliadin antibody or levels below the negative cut-off of the assay. Results of this assay should be used in conjunction with clinical findings and other serological tests. These test results were obtained with the [employer] QUANTA Lite Gliadin IgG II and Gliadin IgA II. Gliadin values obtained with different manufacturers' assay methods may not be used interchangeably. LAB GLA(LOINC) Gliadin Ab IgA <20 Result Comment: Gliadin IgG and IgA Ab Interpretation (effective 07/12/07): Result Units Negative <20 Weak Positive 20-30 Moderate to Strong Positive >30 Both IgG and IgA antibodies to gliadin are present in most patients with celiac disease (CD). However, antibody to gliadin may be present in Crohn's disease, dermatitis herpetiformis or in subjects with no clinical evidence of intestinal disease. In healthy individuals with a family history of CD, the antibodies may precede the clinical onset of disease in approximately 25% of the subjects. Gliadin antibody levels will decrease or increase depending on the removal or reintroduction of gluten into the diet. Patients who are IgA deficient develop celiac disease more frequently than individuals who have an intact IgA system. Therefore, gliadin and transglutaminase IgA antibodies may be absent in patients with celiac disease. IgG antibodies to gliadin are especially helpful in IgA deficient patients. A negative result indicates no gliadin antibody or levels below the negative cut-off of the assay. Results of this assay should be used in conjunction with clinical findings and other serological tests. These test results were obtained with the [employer] QUANTA Lite Gliadin IgG II and Gliadin IgA II. Gliadin values obtained with different manufacturers' assay methods may not be used interchangeably. Performed By: ####

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
--- OUTSIDE RECORDS SUMMARY | 2018-09-09 14:13 | XMS RPT_ITS ---
:2000 Author Organization [facility], [facility] Address [address] [place] [address] Phone Care Team Providers Name Role Phone Magdalena Quintanilla MD Unavailable Conditions or Problems Problem Name Problem Onset Status Entry Provider Comment Standard Annotate Code Date Date Description Recurrent UTI [id number] Active Magdalena Kim Recurrent (SNOMED 04/21 04/[address]) tract infection Vaginal 223500434 Active Magdalena Kim Vaginal discharge (SNOMED 04/21 04/[address]) Condyloma 252494432 Active Magdalena Kim Genital acuminata, (SNOMED 04/21 04/[address] [place] [address]) MD Encounter for [id number] Active Magdalena Kim Gynecologic gynecological (SNOMED 04/21 04/[address] [place] [address]) (general) (routine) with abnormal findings Medications Medication Instructions Start Stop Generic Name [facility] Provider Date Date DEPO-PROVERA im q 3 months MEDROXYPROGESTERONE [id number] Magdalena Kim 150 MG/ML /05 ACETATE [place] SUSP DEPO-PROVERA MEDROXYPROGESTERONE [phone] Kallie Malagon 150 MG/ML /05 ACETATE Crowder SUSP Medications Administered No information available. Allergies, Adverse Reactions, Alerts Observed no known allergies at Results Date Name Value Unit Range Flag Description Office Visit: est annual HEMOCCULT not done Hemoglobin.gastrointestinal [Presence] in Stool FALLRSKASSES No Fall risk assessment MEDS REVIEW Done Documentation of current medications (procedure) SMOK STATUS Current every day Tobacco use [facility] smoker Plan of Care Type Date Detail Appointment 02:10 PM Magdalena Quintanilla MD, [address], [place], [address], Pending order *CUV - Culture, VAG/CX Comprehensive Procedures Code Procedure Name Date Entry Date CPT-04380 Destruction of lesion(s), vulva; simple Vital Signs [...]
--- OUTSIDE RECORDS SUMMARY | 2018-09-09 14:13 | XMS RPT_ITS | Clinical Summary ---
:2000 Author Organization [facility] Address [address] [place] [address] Phone Care Team Providers Name Role Phone NICKY Nowak RN, Eleanor Thomas Unavailable Unavailable Conditions or Problems Problem Name Problem Onset Status Entry Provider Comment Standard Annotate Code Date Date Description Recurrent UTI [id number] Active Magdalena Kim Recurrent (SNOMED 04/21 04/[address]) MD tract infection Vaginal 060685516 Active Magdalena E Vaginal discharge (SNOMED 04/21 04/[address]) Condyloma 813730078 Active Magdalena Kim Genital acuminata, (SNOMED 04/21 04/[address]) MD Encounter for [id number] Active Magdalena E Gynecologic gynecological (SNOMED 04/21 04/[address] [address]) (general) (routine) with abnormal findings Medications Medication Instructions Start Stop Generic Name NDC Provider Date Date DEPO-PROVERA im q 3 months MEDROXYPROGESTERONE [id number] Magdalena Kim 150 MG/ML /05 ACETATE Marcanthony SUSP DEPO-PROVERA MEDROXYPROGESTERONE [phone] Kallie Malagon 150 MG/ML /05 ACETATE Crowder SUSP Medications Administered No information available. Allergies, Adverse Reactions, Alerts Observed no known allergies at Results Date Name Value Unit Range Flag Description Office Visit: est annual HEMOCCULT not done Hemoglobin.gastrointestinal [Presence] in Stool FALLRSAGNES No Fall risk assessment MEDS REVIEW Done Documentation of current medications (procedure) SMOK STATUS Current every day Tobacco use [facility] smoker Microbiology: Culture, Genital Comprehensive ZZ-GE-unk Neisseria or beta-hemolytic GE use only - for Streptococcus isolated. LinkLogic import when terms are not otherwise specified Plan of Care Type Date Detail Pending order *CUV - Culture, VAG/CX Comprehensive Pending order *CUV - Culture, VAG/CX Comprehensive Procedures Code Procedure Name Date Entry Date CPT-40974 Destruction of lesion(s), vulva; simple Vital Signs [...]
--- OUTSIDE RECORDS SUMMARY | 2018-09-09 14:13 | XMS RPT_ITS | Clinical Summary ---
:2000 Author Organization [facility], [facility] Address [address] [place] [address] Phone Care Team Providers Name Role Phone Magdalena Quintanilla MD Unavailable Conditions or Problems Problem Name Problem Onset Status Entry Provider Comment Standard Annotate Code Date Date Description Recurrent UTI [id number] Active Magdalena Kim Recurrent (SNOMED 04/21 04/[address]) tract infection Vaginal 756812962 Active Magdalena Kim Vaginal discharge (SNOMED 04/21 04/[address]) Condyloma 278722629 Active Magdalena Kim Genital acuminata, (SNOMED 04/21 04/[address]) MD Encounter for 76330499 Active Magdalena Kim Gynecologic gynecological (SNOMED 04/21 04/[address] [place] [address]) (general) (routine) with abnormal findings Medications Medication Instructions Start Stop Generic Name [facility] Provider Date Date DEPO-PROVERA im q 3 months MEDROXYPROGESTERONE [id number] Magdalena Kim 150 MG/ML /05 ACETATE Shemaranthjacinto SUSP DEPO-PROVERA MEDROXYPROGESTERONE [phone] Kallie Malagon 150 MG/ML /05 ACETATE Crowder SUSP Medications Administered No information available. Allergies, Adverse Reactions, Alerts Observed no known allergies at Results Date Name Value Unit Range Flag Description Office Visit: est annual HEMOCCULT not done Hemoglobin.gastrointestinal [Presence] in Stool FALLRSKASSES No Fall risk assessment MEDS REVIEW Done Documentation of current medications (procedure) SMOK STATUS Current every day Tobacco use [facility] smoker Microbiology: (P) Culture, Genital Comprehensive SHIRAZ-GILBERT-shruthik . GE use only - for LinkLogic import when terms are not otherwise specified Plan of Care Type Date Detail Pending order *CUV - Culture, VAG/CX Comprehensive Pending order *CUV - Culture, VAG/CX Comprehensive Procedures Code Procedure Name Date Entry Date CPT-61001 Destruction of lesion(s), vulva; simple Vital Signs [...]
== END ==
PROVIDERS: Nurse Practitioner Family; Family Provider Family Medicine; PCP Family Medicine; Visit Provider Nurse Practitioner Adult Health
DX: N39.0 Urinary tract infection, site not specified (principal)
CPT/HCPCS: 81002

== ENCOUNTER → 2018-07-20 14:26 | Outpatient (CLI) | payer BC, SELFPAY ==
[2018-07-20 13:55] VITALS: BMI 19.3
[2018-07-20 14:53] LABS: Absolute Lymphocyte Count 2.49 X10^3/ul (0.83-4.51); Absolute Neutrophil Count 2.3 X10^3/uL (2.0-7.7); Basophil# 0.04 X10^3/uL; Basophil% 0.7 % (0-1); Eosinophil# 0.12 X10^3/uL; Eosinophils% 2.2 % (0-5); Hematocrit 45.2 % (37-47); Lymphocyte # 2.49 X10^3/ul (4.0); Lymphocyte % 45.3 % (19-41); Mean Corp Hgb Conc 33.2 g/gl (32-36); Mean Corpuscular Hgb 30.1 pg (27.0-32.0); Mean Corpuscular Volume 90.6 fL (81-99); Mean Platelet Vol. 9.9 fl (6.2-12.0); Monocyte# 0.51 X10^3/uL; Monocyte% 9.3 % (0-10); Neutrophil # 2.33 X10^3/uL (2.7-7.7); Neutrophil % 42.3 % (47-70); POSITIVE COUNT NO; POSITIVE DIFFERENTIAL NO; POSITIVE MORPHOLOGY NO; Platelet Count 244 K/mm3 (150-450); RBC Distribution Width CV 13.4 % (11.6-14.6); RBC Distribution Width SD 44.1 fl (35.1-43.9); Red Blood Count 4.99 M/mm3 (4.2-5.4); White Blood Count 5.5 K/mm3 (4.4-11.0)
[2018-07-20 21:26] LABS: Chlamydia Trachomatis by PCR Negative (Negative); Neisserai gonorrhoeae by PCR Negative (Negative); Probe Check PASS; Sample Adequacy Control PASS; Specimen Processing Control PASS
== END ==
PROVIDERS: Family Provider Internal Medicine; PCP Internal Medicine; Referring Provider Nurse Practitioner Women's Health; Visit Provider Nurse Practitioner Women's Health
DX: R59.9 Enlarged lymph nodes, unspecified (principal); N89.8 Other specified noninflammatory disorders of vagina; Z11.3 Encounter for screening for infections with a predominantly sexual mode of transmission
CPT/HCPCS: 36415; 85025; 87070; 87086; 87088; 87205; 87491; 87591

== ENCOUNTER → 2018-07-26 11:07 | Outpatient (CLI) | payer BC, SELFPAY ==
[2018-07-20 13:55] VITALS: BMI 19.3
[2018-07-23 11:16] VITALS: BMI 19.3
--- NOTE | 2018-07-26 11:08 | US_ITS ---
STUDY: SUPERFICIAL ULTRASOUND - BILATERAL INGUINAL REGIONS. REASON FOR EXAM: Female, 18 years old. Inguinal lymphadenopathy. TECHNIQUE: A superficial ultrasound was performed with real-time and static gaytan-scale imaging. COMPARISON: None. FINDINGS: There is a 1.4 x 1.4 cm lymph node in the left inguinal region at the site of the patient's palpable lump. There is a 2.0 x 1.3 cm adjacent left inguinal lymph node. There are 2 lymph nodes noted in the right inguinal region, measuring 1.9 x 1.2 cm and 1.2 x 0.7 cm. US/Ext Non Vasc Limited/Soft Tiss IMPRESSION: Mild bilateral inguinal lymphadenopathy. Electronically Signed: Raza Dick, at 22:00 EST Tel , Service support ,
== END ==
PROVIDERS: Family Provider Internal Medicine; PCP Internal Medicine; Referring Provider Surgery; Visit Provider Surgery
DX: R59.9 Enlarged lymph nodes, unspecified (principal)
CPT/HCPCS: 76882

== ENCOUNTER 2018-08-02 08:54 | Day surgery (SDC) | payer BC, SELFPAY ==
--- NOTE | 2018-08-02 | IMM_PTH ---
PATIENT: EZE HERNADEZ LOC: EN U#:[id number] AGE/SX: 18/F ROOM: RE08/02/[address]: Dr. Jennie Okeefe MD : 2000 BED: DIS: 08/02/2018 SPEC #: [id number] RECD: 08/03/18 13:33 STATUS: KATIE REQ #: [id number] BRAULIO: 08/02/18 00:[address]: Jennie Okeefe DEPT: IMMUNOHISTOCHEMISTRY RECD BY: Katlyn Atkinson ENTERED: 08/03/18 13:34 SP TYPE: IMMUNO OTHR DR: Dr. Jarek Calles Jr., MD Tissues: B - Stomach, NOS Procedures: H Pylori (initial) PHYSICIAN & INSTITUTION [place] [address] SPECIMEN INFORMATION: Tissue Source: B - Antral biopsy Clinical Info: Weight loss Specimen Number: [id number] CPT code: 38517 METHODOLOGY: Deparaffinized sections of prefer/formalin-fixed tissue or PAP/DQ stained slides are incubated with monoclonal/polyclonal antibodies/oligonucleotide probes. Localization is made via biotin free immunoperoxidase method. Appropriate controls are performed and reacted as expected. Results on target cell population are indicated in the following table: RESULTS: ANTIBODY / CLONE RESULT Block B H Pylori (polyclonal) negative These tests were developed and their performance characteristics determined by [facility]. They may not have been cleared or approved by the U.S. Food and Drug Administration. The FDA has determined that such clearance or approval is not necessary. INTERPRETATION: A. Antral biopsy: Negative for Helicobacter pylori organisms. AM:amadeo 08/05/18
[2018-08-02 09:26] VITALS: BP 110/66; PULSE 89; RESP 16; TEMP 37; O2SAT 99; BMI 18.8
[2018-08-02 09:47] LABS: Internal QC Validated? YES +Cl - CLEAR BKGD; Pregnancy, Urine Negative Negative
--- NOTE | 2018-08-02 10:15 | EGD_PTH ---
PATIENT: EZE HERNADEZ LOC: EN U#:[id number] AGE/SX: 18/F ROOM: RE08/02/[address]: [address]. Jennie Okeefe MD : 2000 BED: DIS: 08/02/2018 SPEC #: [id number] RECD: 08/02/18 13:23 STATUS: KATIE LISA #: [id number] BRAULIO: 08/02/18 10:[address]: Jennie Okeefe DEPT: SURGICAL PATHOLOGY RECD BY: Yelena Rudolph ENTERED: 08/02/18 13:38 SP TYPE: EGD BIOPSY JAMARI DR: Dr. Jarek Calles Jr., MD Tissues: A - Duodenum, NOS B - Gastric mucous membrane Procedures: Surgery Specimen Level IV HEADER OPERATION: Colonoscopy, EGD ([facility]) PRE-OP DIAGNOSIS: Weight loss TISSUE SUBMITTED: A. Duodenal biopsy, rule out celiac and rule out elpidio BBalbir Antral biopsy MICROSCOPIC DIAGNOSIS A. Duodenum, biopsy: No pathologic change. See comment. B. Gastric antrum, biopsy: Mild chronic inflammation. AM:amadeo 08/03/18 COMMENT A. There is no evidence of celiac sprue. B. The results of immunohistochemistry for Helicobacter pylori will be reported separately ([id number]). MICROSCOPIC DESCRIPTION Slides are reviewed. GROSS DESCRIPTION A - Received in fixative is one container labeled with the patient's name and designated duodenal biopsy. The specimen consists of one irregular fragment of light cordero soft tissue that measures 0.5 x 0.3 x 0.1 cm. The specimen is totally submitted in one cassette. B - Received in fixative is one container labeled with the patient's name and designated antral biopsy. The specimen consists of one irregular fragment of light cordero soft tissue that measures 0.2 x 0.2 x 0.1 cm. The specimen is totally submitted in one cassette. / AM:amadeo 08/02/18 TC:5 CPT: 13516 x2
[2018-08-02 10:40] VITALS: BP 110/66; BP 126/73; PULSE 87; RESP 16; TEMP 36.2; O2SAT 100
--- NOTE | 2018-08-02 10:42 | OP.ENDO_ITS ---
Patient Name: Kayce Haq Procedure Date: 08/02/2018 10:01 AM Date of : 2000 Age: 18 Procedure: Upper GI endoscopy Indications: Weight loss Providers: Jennie Okeefe MD Referring MD: Jarek Calles Jr. Medicines: Monitored Anesthesia Care Patient Profile: This is a 18 year old female. Complications: No immediate complications. Procedure: Pre-Anesthesia Assessment: - Prior to the procedure, a History and Physical was performed, and patient medications and allergies were reviewed. The patient's tolerance of previous anesthesia was also reviewed. The risks and benefits of the procedure and the sedation options and risks were discussed with the patient. All questions were answered, and informed consent was obtained. Prior Anticoagulants: The patient has taken no previous anticoagulant or antiplatelet agents. ASA Grade Assessment: I - A normal, healthy patient. After reviewing the risks and benefits, the patient was deemed in satisfactory condition to undergo the procedure. After obtaining informed consent, the endoscope was passed under direct vision. Throughout the procedure, the patient's blood pressure, pulse, and oxygen saturations were monitored continuously. The gastroscope was introduced through the mouth, and advanced to the second part of duodenum. The upper GI endoscopy was accomplished without difficulty. The patient tolerated the procedure well. Scope In: 10:09:57 AM Scope Out: 10:14:43 AM Total Procedure Duration Time 0 hours 4 minutes 46 seconds Findings: Biopsies for histology were taken with a cold forceps in the second portion of the duodenum for evaluation of celiac disease. Minimal inflammation characterized by erythema was found in the gastric antrum. Biopsies were taken with a cold forceps for histology. Biopsies were taken with a cold forceps for Helicobacter pylori cultures. The esophagus was normal. The exam was otherwise without abnormality. Impression: - Gastritis. Biopsied. - Normal esophagus. - The examination was otherwise normal. - Biopsies were taken with a cold forceps for evaluation of celiac disease. Recommendation: - Await pathology results. - Discharge patient to home. - Continue present medications. Procedure Code(s): --- Professional --- 92771, Esophagogastroduodenoscopy, flexible, transoral; with biopsy, single or multiple Diagnosis Code(s): --- Professional --- K29.70, Gastritis, unspecified, without bleeding R63.4, Abnormal weight loss CPT copyright 2017 [employer]. All rights reserved. The codes documented in this report are preliminary and upon death surveys coder review may be revised to meet current compliance requirements. MD Jennie Ruffin MD 08/02/2018 10:41:33 AM This report has been signed electronically. Number of Addenda: 0 Note Initiated On: 08/02/2018 10:01 AM
[2018-08-02 10:45] VITALS: BP 108/68; BP 110/66; PULSE 84; RESP 16; O2SAT 98
--- NOTE | 2018-08-02 10:46 | OP.ENDO_ITS ---
Patient Name: Kayce Haq Procedure Date: 08/02/2018 10:17 AM Date of : 2000 Age: 18 Procedure: Colonoscopy Indications: Weight loss, bilateral inguinal adenopathy Providers: Jennie Okeefe MD Referring MD: Jarek Calles Jr. Patient Profile: This is a 18 year old female. Last Colonoscopy: none. The patient's first colonoscopy is today. Complications: No immediate complications. Procedure: Pre-Anesthesia Assessment: - Prior to the procedure, a History and Physical was performed, and patient medications and allergies were reviewed. The patient's tolerance of previous anesthesia was also reviewed. The risks and benefits of the procedure and the sedation options and risks were discussed with the patient. All questions were answered, and informed consent was obtained. Prior Anticoagulants: The patient has taken no previous anticoagulant or antiplatelet agents. ASA Grade Assessment: I - A normal, healthy patient. After reviewing the risks and benefits, the patient was deemed in satisfactory condition to undergo the procedure. After I obtained informed consent, the scope was passed under direct vision. Throughout the procedure, the patient's blood pressure, pulse, and oxygen saturations were monitored continuously. The pediatric colonoscope was introduced through the anus and advanced to the cecum, identified by the appendiceal orifice, IC valve and transillumination. The colonoscopy was performed without difficulty. The patient tolerated the procedure well. The quality of the bowel preparation was good. Scope In: 10:18:54 AM Scope Withdrawal Time 0 hours 5 minutes 36 seconds Scope Out: 10:35:34 AM Total Procedure Duration Time 0 hours 16 minutes 40 seconds Findings: The perianal and digital rectal examinations were normal. The entire examined colon appeared normal on direct and retroflexion views. Impression: - The entire examined colon is normal on direct and retroflexion views. - No specimens collected. Recommendation: - Discharge patient to home. - Continue present medications. - Repeat colonoscopy at age 45/50 for screening depending on what the screening age is in the future for screening purposes. Procedure Code(s): --- Professional --- 41173, Colonoscopy, flexible; diagnostic, including collection of specimen(s) by brushing or washing, when performed (separate procedure) Diagnosis Code(s): --- Professional --- R63.4, Abnormal weight loss CPT copyright 2017 [employer]. All rights reserved. The codes documented in this report are preliminary and upon personal financial advisor review may be revised to meet current compliance requirements. MD Jennie Ruffin MD 08/02/2018 10:45:48 AM This report has been signed electronically. Number of Addenda: 0 Note Initiated On: 08/02/2018 10:17 AM
[2018-08-02 10:50] VITALS: BP 103/66; BP 110/66; PULSE 79; RESP 16; O2SAT 100
[2018-08-02 10:55] VITALS: BP 108/64; BP 110/66; PULSE 77; RESP 16; TEMP 36.2; O2SAT 100
[2018-08-02 11:13] VITALS: BP 110/66
--- OUTSIDE RECORDS SUMMARY | 2018-11-03 20:10 | XMS RPT_ITS | Clinical Summary ---
:2000 Author Organization [facility], [facility] Address [address] [place] [address] Phone Care Team Providers Name Role Phone Magdalena Quintanilla MD Unavailable Conditions or Problems Problem Name Problem Onset Status Entry Provider Comment Standard Annotate Code Date Date Description Recurrent UTI [id number] Active Magdalena Kim Recurrent (SNOMED 04/21 04/[address]) tract infection Vaginal 690127233 Active Magdalena Kim Vaginal discharge (SNOMED 04/21 04/[address]) Condyloma 029403163 Active Magdalena Kim Genital acuminata, (SNOMED 04/21 04/[address]) MD Encounter for [id number] Active Magdalena Kim Gynecologic gynecological (SNOMED 04/21 04/[address] [place] [address]) (general) (routine) with abnormal findings Medications Medication Instructions Start Stop Generic Name [facility] Provider Date Date DEPO-PROVERA im q 3 months MEDROXYPROGESTERONE [id number] Magdalena Kim 150 MG/ML /05 ACETATE Shemaranthjacinto SUSP DEPO-PROVERA MEDROXYPROGESTERONE [phone] Kallie Malagon 150 MG/ML /05 ACETATE Crowder SUSP Medications Administered No information available. Allergies, Adverse Reactions, Alerts Observed no known allergies at Results Date Name Value Unit Range Flag Description Office Visit: est annual HEMOCCULT not done Hemoglobin.gastrointestinal [Presence] in Stool FALLRSKASSES No Fall risk assessment MEDS REVIEW Done Documentation of current medications (procedure) SMOK STATUS Current every day Tobacco use [facility] smoker Microbiology: (P) Culture, Genital Comprehensive ZBrandon-GILBERT-shruthik . GE use only - for LinkLogic import when terms are not otherwise specified Plan of Care Type Date Detail Pending order *CUV - Culture, VAG/CX Comprehensive Pending order *CUV - Culture, VAG/CX Comprehensive Procedures Code Procedure Name Date Entry Date CPT-30166 Destruction of lesion(s), vulva; simple Vital Signs [...]
--- OUTSIDE RECORDS SUMMARY | 2018-11-03 20:10 | XMS RPT_ITS | Clinical Summary ---
:2000 Author Organization [facility], [facility] Address [address] [place] [address] Phone Care Team Providers Name Role Phone Magdalena Quintanilla MD Unavailable Conditions or Problems Problem Name Problem Onset Status Entry Provider Comment Standard Annotate Code Date Date Description Recurrent UTI 015970227 Active Magdalena Kim Recurrent (SNOMED 04/21 04/[address]) tract infection Vaginal 512689138 Active Magdalena Kim Vaginal discharge (SNOMED 04/21 04/[address]) Condyloma 235467920 Active Magdalena Kim Genital acuminata, (SNOMED 04/21 04/[address] [place] [address]) MD Encounter for 02033286 Active Magdalena Kim Gynecologic gynecological (SNOMED 04/21 04/[address] [place] [address]) (general) (routine) with abnormal findings Medications Medication Instructions Start Stop Generic Name [facility] Provider Date Date DEPO-PROVERA im q 3 months MEDROXYPROGESTERONE [id number] Magdalena Kim 150 MG/ML /05 ACETATE [place] SUSP DEPO-PROVERA MEDROXYPROGESTERONE [id number] Kallie Malagon 150 MG/ML /05 ACETATE Crowder SUSP Medications Administered No information available. Allergies, Adverse Reactions, Alerts Observed no known allergies at Results Date Name Value Unit Range Flag Description Office Visit: est annual HEMOCCULT not done Hemoglobin.gastrointestinal [Presence] in Stool FALLRSKASSES No Fall risk assessment MEDS REVIEW Done Documentation of current medications (procedure) SMOK STATUS Current every day Tobacco use [facility] smoker Plan of Care Type Date Detail Appointment 02:10 PM Magdalena Quintanilla MD, [address], [place], [address], Pending order *CUV - Culture, VAG/CX Comprehensive Procedures Code Procedure Name Date Entry Date CPT-04480 Destruction of lesion(s), vulva; simple Vital Signs [...]
--- OUTSIDE RECORDS SUMMARY | 2018-11-03 20:10 | XMS RPT_ITS | Clinical Summary ---
:[address] [facility] Address [address] [place] [address] Phone Care Team Providers Name Role Phone NICKY Nowak RN, Eleanor Thomas Unavailable Unavailable Conditions or Problems Problem Name Problem Onset Status Entry Provider Comment Standard Annotate Code Date Date Description Recurrent UTI [id number] Active Magdalena Kim Recurrent (SNOMED 04/21 04/[address]) MD tract infection Vaginal 081649449 Active Magdalena E Vaginal discharge (SNOMED 04/21 04/[address]) Condyloma 548507604 Active Magdalena Kim Genital acuminata, (SNOMED 04/21 04/[address]) MD Encounter for 03952141 Active Magdalena E Gynecologic gynecological (SNOMED 04/21 04/[address] [address]) (general) (routine) with abnormal findings Medications Medication Instructions Start Stop Generic Name NDC Provider Date Date DEPO-PROVERA im q 3 months MEDROXYPROGESTERONE [id number] Magdalena Kim 150 MG/ML /05 ACETATE Marcanthony SUSP DEPO-PROVERA MEDROXYPROGESTERONE [id number] Kallie Malagon 150 MG/ML /05 ACETATE Crowder SUSP Medications Administered No information available. Allergies, Adverse Reactions, Alerts Observed no known allergies at Results Date Name Value Unit Range Flag Description Office Visit: est annual HEMOCCULT not done Hemoglobin.gastrointestinal [Presence] in Stool FALLRSAGNES No Fall risk assessment MEDS REVIEW Done Documentation of current medications (procedure) SMOK STATUS Current every day Tobacco use [facility] smoker Microbiology: (P) Culture, Genital Comprehensive ZZ-GE-unk . GE use only - for LinkLogic import when terms are not otherwise specified Plan of Care Type Date Detail Pending order *CUV - Culture, VAG/CX Comprehensive Pending order *CUV - Culture, VAG/CX Comprehensive Procedures Code Procedure Name Date Entry Date CPT-32362 Destruction of lesion(s), vulva; simple Vital Signs [...]
--- OUTSIDE RECORDS SUMMARY | 2018-11-03 20:10 | XMS RPT_ITS | Clinical Summary ---
:2000 Author Organization [facility], [facility] Address [address] [place] [address] Phone Care Team Providers Name Role Phone Magdalena Quintanilla MD Unavailable Conditions or Problems Problem Name Problem Onset Status Entry Provider Comment Standard Annotate Code Date Date Description Recurrent UTI 294437525 Active Magdalena Kim Recurrent (SNOMED 04/21 04/[address]) tract infection Vaginal 678169392 Active Magdalena Kim Vaginal discharge (SNOMED 04/21 04/[address]) Condyloma 242500026 Active Magdalena Kim Genital acuminata, (SNOMED 04/21 04/[address]) MD Encounter for 62237423 Active Magdalena Kim Gynecologic gynecological (SNOMED 04/21 04/[address] [place] [address]) (general) (routine) with abnormal findings Medications Medication Instructions Start Stop Generic Name [facility] Provider Date Date DEPO-PROVERA im q 3 months MEDROXYPROGESTERONE [id number] Magdalena Kim 150 MG/ML /05 ACETATE Shemaranthjacinto SUSP DEPO-PROVERA MEDROXYPROGESTERONE [phone] Kallie Malagon 150 MG/ML /05 ACETATE Crowder SUSP Medications Administered No information available. Allergies, Adverse Reactions, Alerts Observed no known allergies at Results Date Name Value Unit Range Flag Description Office Visit: est annual HEMOCCULT not done Hemoglobin.gastrointestinal [Presence] in Stool FALLRSKASSES No Fall risk assessment MEDS REVIEW Done Documentation of current medications (procedure) SMOK STATUS Current every day Tobacco use [facility] smoker Microbiology: (P) Culture, Genital Comprehensive SHIRAZ-GILBERT-shruthik . GE use only - for LinkLogic import when terms are not otherwise specified Plan of Care Type Date Detail Pending order *CUV - Culture, VAG/CX Comprehensive Pending order *CUV - Culture, VAG/CX Comprehensive Procedures Code Procedure Name Date Entry Date CPT-11178 Destruction of lesion(s), vulva; simple Vital Signs [...]
--- OUTSIDE RECORDS SUMMARY | 2018-11-03 20:10 | XMS RPT_ITS | Clinical Summary ---
:2000 Author Organization [facility] Address [address] [place] [address] Phone Care Team Providers Name Role Phone NICKY Nowak RN, Eleanor Thomas Unavailable Unavailable Conditions or Problems Problem Name Problem Onset Status Entry Provider Comment Standard Annotate Code Date Date Description Recurrent UTI 776920959 Active Magdalena Kim Recurrent (SNOMED 04/21 04/[address]) MD tract infection Vaginal 768488014 Active Magdalena E Vaginal discharge (SNOMED 04/21 04/[address]) Condyloma 027870750 Active Magdalena Kim Genital acuminata, (SNOMED 04/21 04/[address]) MD Encounter for 18809923 Active Magdalena E Gynecologic gynecological (SNOMED 04/21 04/[address] [address]) (general) (routine) with abnormal findings Medications Medication Instructions Start Stop Generic Name N[facility] Provider Date Date DEPO-PROVERA im q 3 months MEDROXYPROGESTERONE [id number] Magdalena Kim 150 MG/ML /05 ACETATE Marcanthony SUSP DEPO-PROVERA MEDROXYPROGESTERONE [id number] Kallie Malagon 150 MG/ML /05 ACETATE Crowder SUSP Medications Administered No information available. Allergies, Adverse Reactions, Alerts Observed no known allergies at Results Date Name Value Unit Range Flag Description Office Visit: est annual HEMOCCULT not done Hemoglobin.gastrointestinal [Presence] in Stool FALLRSAGNES No Fall risk assessment MEDS REVIEW Done Documentation of current medications (procedure) SMOK STATUS Current every day Tobacco use [facility] smoker Microbiology: Culture, Genital Comprehensive ZZ-GE-unk Neisseria or beta-hemolytic GE use only - for Streptococcus isolated. LinkLogic import when terms are not otherwise specified Plan of Care Type Date Detail Pending order *CUV - Culture, VAG/CX Comprehensive Pending order *CUV - Culture, VAG/CX Comprehensive Procedures Code Procedure Name Date Entry Date CPT-91484 Destruction of lesion(s), vulva; simple Vital Signs [...]
--- OUTSIDE RECORDS SUMMARY | 2018-11-03 20:11 | XMS RPT_ITS ---
:2000 Author Organization [place] Support Name Relationship Address Phone NABIL CHAND Unavailable [address] + [place] [address] JERRYS BAR GRILLE Unavailable [address] + [place] [address] JAGRUTI, NABIL Unavailable [address] + [place] [address] JERRYS BAR GRILLE Unavailable [address] + [place] [address] JAGRUTI, NABIL Unavailable [address] [facility] [address] + [place] [address] JERRYS BAR GRILLE Unavailable [address] + [place] [address] JAGRUTI, NABIL Unavailable [address] + [place] [address] JERRYS BAR GRILLE Unavailable [address] + [place] [address] JAGRUTI, NABIL Unavailable [address] + [place] [address] JERRYS BAR GRILLE Unavailable [address] + [place] [address] JAGRUTI, NABIL Unavailable [address] + [place] [address] JERRYS BAR GRILLE Unavailable [address] + [place] [address] JAGRUTI, NABIL Unavailable [address] + [place] [address] JERRYS BAR GRILLE Unavailable [address] + [place] [address] JAGRUTI, NABIL Unavailable [address] + [place] [address] JERRYS BAR GRILLE Unavailable [address] + [place] [address] JAGRUTI, NABIL Unavailable [address] + [place] [address] JERRYS BAR GRILLE Unavailable [address] + [place] [address] JAGRUTI, NABIL Unavailable [address] + [place] [address] JERRYS CAFE BAR Unavailable [address] + [place] [address] JAGRUTI, NABIL Unavailable [address] + [place] [address] JERRYS CAFE BAR Unavailable [address] + [place] [address] JAGRUTI, NABIL Unavailable [address] + [place] [address] JERRYS BAR GRILLE Unavailable [address] + [place] [address] JAGRUTI, NABIL Unavailable [address] + [place] [address] JERRYS BAR GRILLE Unavailable [address] + [place] [address] JAGRUTI, NABIL Unavailable [address] + [place] [address] JERRYS BAR GRILLE Unavailable [address] + [place] [address] JAGRUTI, NABIL Unavailable [address] + [place] [address] ULTA BEAUTY Unavailable [address] + [place] [address] U Unavailable Unavailable Unavailable JAGRUTI, NABIL Unavailable [address] + [place] [address] [address]TA BE[address]Y Un[address] + [place] [address] [address] BE[address]Y Un[address] + [place] [address] [address]TA BE[address]Y Un[address] + [place] [address] [address] BE[address]Y Un[address] + [place] [address] JAGRUTI, NABIL Unavailable [address] + [place] [address] JAGRUTI, NABIL Unavailable [address] + [address] [place] [address] JAGRUTI, NABIL Unavailable [address] + [place] [address] JAGRUTI, NABIL Unavailable [address] + [place] [address] JAGRUTI, NABIL Unavailable [address] + [address] [place] [address] JAGRUTI, NABIL Unavailable [address] + [place] [address] JAGRUTI, NABIL Unavailable [address] + [place] [address] JAGRUTI, NABIL Unavailable [address] + [address] [place] [address] JAGRUTI, NABIL Unavailable [address] + [place] [address] JAGRUTI, NABIL Unavailable [address] + [place] [address] JAGRUTI, NABIL Unavailable [address] + [address] [place] [address] JAGRUTI, NABIL Unavailable [address] + [place] [address] ULTA BEAUTY Unavailable [address] + [place] [address] [address]Y Un[address] + [place] [address] JAGRUTI, NABIL Unavailable [address] + [place] [address] JAGRUTI, NABIL Unavailable [address] + [address] [place] [address] JAGRUTI, NABIL Unavailable [address] + [place] [address] ULTA BEAUTY Unavailable [address] + [place] [address] ULTA BEAUTY Unavailable [address] + [place] [address] ULTA BEAUTY Unavailable [address] + [place] [address] Care Team Providers Name Role Phone GAGANDEEP LO, TRAVIS Swanson JR. Attending Unavailable MINESH DO, DR. NOAH Vo Primary Care Unavailable KAYE ROJAS, DR. RAMIREZ Attending Unavailable MINESH DO, DR. NOAH Vo Primary Care Unavailable KAYE ROJAS, DR. RAMIREZ Attending Unavailable MINESH DO, DR. NOAH Vo Primary Care Unavailable TRAVIS DONIS MD, JR. Attending Unavailable MINESH DO, DR. NOAH Vo Primary Care Unavailable KNAPIC DO, DR. ZAMUDIO Attending Unavailable KNAPIC DO, DR. ZAMUDIO Referring Unavailable MINESH DO, DR. NOAH Vo Primary Care Unavailable Robotham, Jennie Attending Unavailable Robotham, Jennie Referring Unavailable Donis Jr., Travis Primary Care Unavailable Robotham, Jennie Attending Unavailable Robotham, Jennie Referring Unavailable Donis Jr., Travis Primary Care Unavailable Robotham, Jennie Attending Unavailable Robotham, Jennie Referring Unavailable Donis Jr., Travis Primary Care Unavailable Robotham, Jennie Consulting Unavailable Robotham, Jennie Attending Unavailable Robotham, Jennie Attending Unavailable Robotham, Jennie Referring Unavailable Donis Jr., Travis Primary Care Unavailable Rei Renteria Attending Unavailable Donis Jr., Travis Referring Unavailable DexterRei albright Attending Unavailable Dexter, Rei Referring Unavailable Donis Jr., Travis Primary Care Unavailable Robotham, Jennie Attending Unavailable Robotham, Jennie Referring Unavailable Donis Jr., Travis Primary Care Unavailable Rei Renteria Consulting Unavailable Dexter Rei Attending Unavailable Donis Jr., Travis Referring Unavailable DexterRei albright Attending Unavailable Dexter, Rei Referring Unavailable Donis Jr., Travis Primary Care Unavailable Donis Jr., Travis Primary Care Unavailable Lynsey Dillonus Attending Unavailable Magdalena Quintanilla Attending Unavailable Nicholas, Diaz Referring Unavailable Nicholas, Diaz Primary Care Unavailable Magdalena Quintanilla Attending Unavailable Nicholas, Diaz Primary Care Unavailable Corina Pedersen Attending Unavailable Corina Pedersen Attending Unavailable Nicholas, Diaz Referring Unavailable Nicholas, Diaz Primary Care Unavailable Nuvia, Corina Attending Unavailable Nicholas, Diaz Referring Unavailable Nicholas, Daiz Primary Care Unavailable [place], Corina Attending Unavailable Nicholas, Diaz Primary Care Unavailable [place], Corina Referring Unavailable Raza Otoole Attending Unavailable Nicholas, Diaz Referring Unavailable Nicholas, Diaz Primary Care Unavailable Tickton, Elisa Attending Unavailable Tickton, Elisa Referring Unavailable Nicholas, Diaz Primary Care Unavailable Tickton, Elisa Attending Unavailable Jollcarey, Mala Primary Care Unavailable [place], Corina Attending Unavailable Nicholas, Diaz Referring Unavailable [place], Corina Attending Unavailable Nuvia, Corina Referring Unavailable Donis Jr., Travis Primary Care Unavailable Robotham, Jennie Attending Unavailable Robotham, Jennie Referring Unavailable Donis Jr., Travis Primary Care Unavailable Robotham, Jennie Attending Unavailable Donis Jr., Travis Referring Unavailable PROBLEMS PROBLEMS DATE TYPE CONDITION / CODE ATTENDING STATUS SOURCE 09/02/2018 Unknown R10.9 - Unspecified Ungur, Remus Active [facility] abdominal pain / Community R10.9(ICD-10) Hospital Repository 08/30/2018 Unknown R63.4 - Abnormal Dexter, Rei Active [facility] weight loss / Community R63.4(ICD-10) Hospital Repository 08/30/2018 Unknown J90 - Pleural Dexter, Rei Active [facility] effusion, not Community elsewhere classified Hospital / J90(ICD-10) Repository 08/30/2018 Unknown R59.1 - Generalized Dexter, Rei Active [place] enlarged lymph nodes Community / R59.1(ICD-10) Hospital Repository 08/18/2018 Unknown 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.0 - Pleural Dexter, Rei Active [facility]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 Community of asbestos / Hospital J92.0(ICD-10) Repository 08/05/2018 Unknown K29.70 - Gastritis, Robotham, Active [place] unspecified, without Jennie Community bleeding / Hospital K29.70(ICD-10) Repository 07/20/2018 Unknown R59.9 - Enlarged Nuvia, Corina Active [place] lymph nodes, Community unspecified / Hospital R59.9(ICD-10) Repository 07/06/2018 Unknown R30.0 - Dysuria / Tickton, Active [place] R30.0(ICD-10) [facility] Hospital Repository 04/29/2018 Unknown J32.9 - Chronic Raza Otoole Active [place] sinusitis, Community unspecified / Hospital J32.9(ICD-10) Repository 04/22/2018 Unknown N76.0 - Acute Nuvia, Molly Active [facility] vaginitis / Community N76.0(ICD-10) Hospital Repository 09/29/2017 Unknown N89.8 - Other Marcanthony, Active [facility] disorders of vagina / Repository N89.8(ICD-10) PROCEDURES PROCEDURES No Procedure Records FoundRESULTS RESULTS 12 LEAD ELECTROCARDIOGRAM Observed: 09/06/2018 Status: F Source: [place] 9:21 AM [facility] Cardiovascular Services [address] [place] [address] 12 Lead EKG 09/02/18 1243 MR#: [id number] Acct: [id number] Name: KAYCE CHAND Rep #: [id number] : 2000 18 From: Denton Gaitan MD Attending Dr: Status: DEP ER Ordering Dr: Derek Dillon DO Date: 09/02/18 Location: ED Sex: F C Admitted: Test Reason : CP Blood Pressure : / mmHG Vent. Rate : 073 BPM Atrial Rate : 073 BPM P-R Int : 122 ms QRS Dur : 080 ms QT Int : 386 ms P-R-T Axes : 059 093 065 degrees QTc Int : 425 ms Normal sinus rhythm with sinus arrhythmia Rightward axis Borderline ECG Confirmed by BRIAN LO, DENTON ([id number]), graphics editor SILVIA GALINDO ([id number]) on 09/06/2018 9:20:54 AM Referred By: GAEL Confirmed By:DENTON GAITAN MD 09/06/18919 Date Denton Gaitan MD CC: Travis Donis Jr., MD; Derek Dillon DO Signed DISCHARGE INSTRUCTION Observed: 09/02/2018 Status: F Source: [place] 4:30 PM [facility] Medical Records Department [address] [place] [address] Discharge Instruction 09/02/18 1628 MR#: [id number] Acct: [id number] Name: KAYCE CHAND Rep #: [id number] : 2000 18 From: Derek Dillon DO PCP: Travis Donis Jr., MD Status: REG ER ED Disposition - Plan for ED Patient: Chief Complaint: Chest Other Instructions: ED Abdominal Pain Unkn Cause, ED Neck Back Pain General Prescriptions: Hydrocodone Bitart/Apap 5-325 [[place] 5MG-325MG] 1 tab PO Q4H PRN PRN 2 Days #10 tab PRN Reason: Pain Referrals: Travis Donis Jr., MD [Primary Care Provider] - Rei Renteria MD [STAFF PHYSICIAN] - 3-5 Days What to do if you have Problems For any increased pain, shortness of breath, bleeding, nausea or vomiting, chest pain, or any unexpected problems, contact your Primary Care Provider. Call [facility] ([phone]) or report to the closest Emergency Room. Call 911 if necessary. 09/02/18 1630 <Electronically signed by Derek Dillon DO> Date Derek Dillon DO Cosigner Signature (If Indicated): Date CC: Travis Donis Jr., MD EMERGENCY DEPARTMENT Observed: 09/02/2018 Status: F Source: [place] SUMMARY 4:28 PM [facility] REPOSITORY [facility] Medical Records Department [address] [place] [address] Emergency Department Summary 09/02/18 1621 MR#: [id number] Acct: [id number] Name: KAYCE CHAND Rep #: [id number] : 2000 18 From: Derek Dillon DO PCP: Travis Donis Jr., MD Status: REG ER - ER Visit Summary Date of Service: 09/02/18 Chief Complaint: [Abdominal pain] History of Present Illness: The patient is a 18 F [since the emergency department complaint of 3-day history of worsening pain in her abdomen and back. 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 The biopsy was done via CT guidance by Dr. Vázquez. Patient tells me that she is lost about 40 pounds over the last 6 or 7 months. Patient has had some swollen lymph nodes in her groin that were biopsied and were benign. Patient has been evaluated by [employer] and has had testing for gonorrhea and chlamydia. Patient also has been seen by general surgery and is had a EGD and colonoscopy. Patient currently being evaluated and seen by Dr. Renteria. Over the last 3 days she tells me she is had worsening pain diffusely across her back and she said pain that radiates to her right shoulder. Patient complains of diffuse abdominal pain and nausea but no vomiting. Patient's not been sleeping due to the amount of pain. She has had no fevers.] Physical Examination: [HEENT-PERRLA, EOMI. Cranial nerves II through XII grossly intact. TMs clear. Mucous membranes moist. No adenopathy. Cardiovascular-regular rate and rhythm without murmur or ectopy Lungs-clear to auscultation, chest wall stable without crepitus or subcu emphysema Abdomen-normoactive bowel sounds, soft. Patient has diffuse tenderness over the right upper quadrant and diffusely about the abdomen. There is guarding. There is no rebound, rigidity, or perineal signs. Back exam-patient has diffuse tenderness palpation over the thoracic and lumbar spine. Patient has diffuse tenderness over the paraspinal musculature. Negative straight leg raises. Deep tendon reflexes are plus 2 out of 4 bilaterally at the patella and Achilles. Extremities-intact 4, normal range of motion, normal pulses, atraumatic] Test Results: [CBC with differential obtained showed a normal white count of 5.8, hemoglobin 14.9, hematocrit 46, platelets 262. Chemistries were normal. LFTs were normal. Urinalysis was normal. HCG was negative. TSH was 1.06. Tox ecology was negative. Chest x-ray was normal. CT scan of the abdomen pelvis showed decrease in size of the cystic mass that was biopsied. Patient had results noted of that biopsy that came back mostly blood and no evidence of neoplasm.] Emergency Department Course and Treatment: [Patient was medicated with Dilaudid and Zofran. Patient did feel improved with the pain medication. At this point the etiology of her symptoms are unclear she also had a TSH study that showed a level of 1.06. Her toxicology screen was negative. I offered to transfer them to tertiary care center for further workup and evaluation as at this point given all the extensive testing that she is had no etiologies been found for her symptomatology. Patient and her mother would prefer to go home and try to continue follow-up as an outpatient] Treatment Plan: [Patient will be given a prescription for [place] for pain and advised to follow-up with her physicians as an outpatient.] Disposition: [Discharged home in stable condition] Impression: [Abdominal pain-etiology uncertain Back pain] This note was generated with [employer] software. It may contain incorrect words, spelling, and punctuation that were not noted in review of the chart prior to signing ED Disposition - Plan for ED Patient: Chief Complaint: Chest Other Referrals: Travis Donis Jr., MD [Primary Care Provider] - What to do if you have Problems For any increased pain, shortness of breath, bleeding, nausea or vomiting, chest pain, or any unexpected problems, contact your Primary Care Provider. Call [facility] ([phone]) or report to the closest Emergency Room. Call 911 if necessary. 09/02/18 1628 <Electronically signed by Derek Dillon DO> Date Derek Dillon DO Cosigner Signature (If Indicated): Date CC: Travis Donis Jr., MD URINALYSIS, COMPLETE Collected: 09/02/2018 Status: F Source: [place] 2:00 PM [facility] REPOSITORY Order Comment: Order Date: 09/02/18 How was Urine Obtained? CLEAN CATCH TYPE CODE TESTS RESULT OUT OF RANGE REFERENCE UNITS LAB L400.3000 Yellow COLOR Normal Straw LAB L400.3050 Clear Normal CLARITY Clear LAB L400.3200 Normal mg/dl Normal GLUCOSE, UR Normal LAB L400.3300 Negative mg/dL Normal BILIRUBIN URINE Negative LAB L400.3400 Negative mg/dl Normal KETONE UR Negative LAB L400.3465 1.002-1.030 Normal SP.GR. DIPSTX 1.010 LAB L400.3550 5.0 - 8.0 pH UR Normal 6.5 LAB L400.3600 Negative mg/dl PROT Normal DIPSTX Negative LAB L400.3700 Normal mg/dl Normal UROBILI Normal LAB L400.3750 Negative Normal NITRITE UR Negative LAB L400.3780 Negative /ul Normal OCCULT BLOOD-UR Negative LAB L400.3800 Negative /ul High LEUK ESTERASE 100 LAB L400.4050 0-5 /hpf WBC Normal 0-5 SEEN LAB L400.4100 0-5 /hpf Normal RBC-UA 0-5 SEEN LAB L400.4150 5-10 /hpf SQUAM 0 Normal EPI SEEN LAB L400.4300 None Seen /hpf 0 Normal BACTERIA SEEN LAB L400.4350 <or=2+ /hpf 0 Normal MUCUS, URINE SEEN Performed By: #### L400.0001 #### [facility] [address] [place], [address] URINE DRUG SCREEN Collected: 09/02/2018 Status: F Source: [place] ([email or web address]) 2:00 PM [facility] REPOSITORY TYPE CODE TESTS RESULT OUT OF RANGE REFERENCE UNITS LAB L505.0075 TO BE Normal CONFIRMED Result Comment: CONFIRMATORY TESTING FOR ALL POSITIVE URINE DRUG SCREEN RESULTS WILL ONLY BE SENT OUT UPON PHYSICIAN ORDER. VISTA Urine Drug Screen methods provide only preliminary analytical test results. A more specific alternate chemical method must be used in order to obtain a confirmed analytical result. Gas chromatography/mass spectrometery (GC/MS) is the preferred confirmatory method. Clinical consideration and professional judgement should be applied to any drug of abuse test result, particularly when preliminary positive results are used. URINE TCA TESTING MUST BE ORDERED SEPARATELY. USE TEST MNEMONIC: [facility] LAB L505.5005 VISTA UDS PH 6 Normal LAB L505.5015 <1000 ng/mL AMPHETAMINES Normal NEGATIVE LAB L505.5025 < 200 ng/mL BARBITIURATES Normal NEGATIVE LAB L505.5035 < 200 ng/mL BENZODIAZIPINE Normal NEGATIVE LAB L505.5045 < 300 ng/mL COCAINE Normal NEGATIVE LAB L505.5055 < 500 ng/mL ECSTACY Normal NEGATIVE LAB L505.5065 < 300 ng/mL METHADONE Normal NEGATIVE LAB L505.5075 < 300 ng/mL OPIATES Normal NEGATIVE LAB L505.5085 < 25 ng/mL PCP Normal NEGATIVE LAB L505.5095 < 50 ng/mL THC Normal NEGATIVE Performed By: #### L505.5000 #### [facility] [place], [address] COMPREHENSIVE METABOLIC Collected: 09/02/2018 Status: F Source: [place] [facility] 1:05 PM [facility] REPOSITORY TYPE CODE TESTS RESULT OUT OF RANGE REFERENCE UNITS LAB L501.0100 74-106 mg/dL Normal GLU 76 Result Comment: Please note revised GLUCOSE reference range effective 2017. LAB L501.1000 7-18 mg/dL Normal BUN 16 LAB L501.1100 0.55-1.02 mg/dL Normal CREAT,SERUM 0.83 Result Comment: The validity of the calculated GFR AND GFRAA in patients over 70 years has not been determined. Clinical correlation is essential. LAB L501.1110 >60 mL/min Normal EST GFR 92 Result Comment: Non- GFR Calc LAB L501.1115 >60 mL/min Normal EST GFR - AA 112 Result Comment: GFR Calc LAB L501.1255 ml/min Normal Estimated CRCL 82.84 LAB L501.1300 10-20 RATIO Normal BUN/CRE 19.2 LAB L501.1500 6.4-8. g/dL Normal 2 T PROT 7.4 LAB L501.1800 3.2-5. g/dL Normal 0 ALB 4.4 LAB L501.1950 2.2-4. g/dL Normal 2 GLOB 3.0 LAB L501.2000 0.9-2. RATIO Normal 4 A/G 1.5 LAB L501.2200 8.5-10 mg/dL Normal .1 CA 9.2 LAB L501.4100 15-37 U/L Low AST 13 LAB L501.4305 45-117 U/L Normal ALK P 53 LAB L501.4405 13-56 U/L Normal ALT 28 LAB L501.4600 0.20-1 mg/dL Normal .00 T BILI 0.60 LAB L501.5300 136-14 mmol/L Normal 5 NA 142 LAB L501.5600 3.5-5. mmol/L Normal 1 K 3.9 LAB L501.5900 98-107 mmol/L High CL 112 LAB L501.6100 21.0-3 mmol/L Normal 2.0 CO2 23.0 LAB L501.6200 5-15 Normal GAP 7 Performed By: #### L500.4050, L501.2450 #### [facility] [address] [facility] [place], [address] LIPASE Collected: 09/02/2018 Status: F Source: [place] 1:05 [facility] REPOSITORY TYPE CODE TESTS RESULT OUT OF RANGE REFERENCE UNITS LAB L501.2450 73-393 U/L Normal LIPASE 180 Performed By: #### L500.4050, L501.2450 #### [facility] [address] [facility] [place], [address] CBC W/DIFF, AUTOMATED Collected: 09/02/2018 Status: F Source: [place] 1:05 [facility] REPOSITORY TYPE CODE TESTS RESULT OUT OF RANGE REFERENCE UNITS LAB L100.1000 4.4-11.0 K/mm3 Normal WBC 5.8 LAB L100.1200 4.2-5.4 M/mm3 Normal RBC 5.07 LAB L100.1300 12.0-15.0 g/dl Normal HGB 14.9 LAB L100.1400 37-47 % Normal HCT 46.3 LAB L100.1500 81-99 fL Normal MCV 91.3 LAB L100.1600 27.0-32.0 pg Normal MCH 29.4 LAB L100.1700 32-36 g/gl Normal MCHC 32.2 LAB L100.1810 11.6-14.6 % Normal RDW CV 13.6 LAB L100.1820 35.1-43.9 fl High RDW SD 44.7 LAB L100.1900 150-450 K/mm3 Normal PLT 202 LAB L100.2000 6.2-12.0 fl Normal MPV 9.5 LAB L100.2100 47-70 % Normal NEUT% 49.4 LAB L100.2200 19-41 % Normal LY% 39.6 LAB L100.2300 0-10 % Normal MONO% 8.5 LAB L100.2400 0-5 % Normal EO% 2.2 LAB L100.2500 0-1 % Normal BASO% 0.3 LAB L100.2550 0.0-0.9 % Normal IM GRAN % 0.000 Result Comment: IG% - Immature Granulocytes (promyelocytes, myelocytes and metamyelocytes) > 1% indicates that a LEFT SHIFT is Present. LAB L100.2620 2.0-7.7 X10 3/uL Normal Absolute Neut 2.9 LAB L100.2720 0.83-4.51 X10 3/ul Normal Absolute Lymph 2.29 Performed By: #### L100.0100 #### [facility] [address] [place], [address] ,SERUM,HCG QUALI. Collected: Status: F Source: [place] 09/02/2018 1:05 PM [facility] REPOSITORY TYPE CODE TESTS RESULT OUT OF REFERENCE UNITS RANGE LAB L700.6700 =>Qualitative mIU/mL Normal HCG Qual < 1 triggr LAB L700.7000 0-9 Nonpreg Negative Normal HCGSQUAL NEGATIVE Performed By: #### L700.6800 #### [facility] [place], [place], [address] THYROID STIM HORMONE Collected: 09/02/2018 Status: F Source: [place] (T[facility]) 1:05 PM [facility] REPOSITORY TYPE CODE TESTS RESULT OUT OF RANGE REFERENCE UNITS LAB L501.9520 0.358-3.74 uIU/mL Normal TSH 1.06 Performed By: #### L501.9520 #### [facility] [place], [address] ABDOMEN/PELVIS W IV CONT Observed: 09/02/2018 Status: F Source: [place] ONLY 12:54 PM [facility] REPOSITORY [facility] Imaging Services [address] [place] [address] Abdomen/Pelvis W IV Cont ONLY MR#: [id number] Acct: [id number] Name: KAYCE CHAND Jose Carlos Rep #: [id number] : 2000 F 18 From: Joseph Stephens MD PCP: Travis Donis Jr., MD Status: REG ER Study: Abdomen/Pelvis W IV Cont ONLY Date of Exam: 09/02/18 Exam# [id number] Ordering Dr: Derek Dillon DO STUDY: CT ABDOMEN AND PELVIS WITH CONTRAST REASON FOR EXAM: Female, 18 years old. Right side abdominal pain. RADIATION DOSAGE (If Supplied By Facility): CTDIvol = ( 6.45 ) mGy, DLP = ( 285.56 ) mGycm TECHNIQUE: Transaxial images were obtained from the dome of the diaphragm to the symphysis pubis without oral contrast. 100 ml of Isovue 300 contrast was administered. Sagittal and coronal images were reconstructed. Individualized dose optimization techniques were used for this CT. COMPARISON: CT abdomen and pelvis August 16, 2018. FINDINGS: The visualized lung bases are unremarkable. Small anterior right pleural/paracardial fluid collection is decreased in size following CT-guided core biopsy/partial drainage August 30, 2018. The visualized portions of the heart are within normal limits. Normal liver. The patent portal vein diameter is 16 mm. Normal gallbladder and extrahepatic biliary system. The diameter of the bile duct in the head of the pancreas is 4 mm. Normal spleen. Normal size and contour of the pancreas. There is 3-4 mm ectasia of the central pancreatic duct. Normal bilateral adrenal glands. Normal right kidney. The left kidney is mildly rotated on its longitudinal axis, the mildly distended/extrarenal pelvis projecting anteriorly. No hydronephrosis. Normal visualized stomach. Normal small intestine. Normal colon. The appendix is visualized and appears normal. Normal abdominal aorta. Normal inferior vena cava. Normal retroperitoneum. Normal urinary bladder. Normal visualized uterus. Heterogeneous densities in the bilateral adnexa consistent with normal follicular cysts. Normal abdominal wall. Incidental notice of a limbus vertebra at the anterior superior margin of L4, an anatomic variant. There is spina bifida occulta at S1. CT/Abdomen/Pelvis W IV Cont ONLY IMPRESSION: 1. Decreased size of small anterior right pleural/paracardial fluid collection since August 16, 2018. 2. No new demonstrated abdominal/pelvic mass or fluid collection. Electronically Signed: Dustin Stephens MD at 14:39 EST , Service support , CC: Travis Donis Jr., MD; Derek Dillon DO Production Superintendent: Signed CHEST 1 VIEW Observed: 09/02/2018 Status: F Source: [place] (PORTABLE) 12:54 PM [facility] [place] [facility] Imaging Services [address] [place] [address] Chest 1 View (Portable) MR#: [id number] Acct: [id number] Name: KAYCE CHAND Rep #: [id number] : 2000 F 18 From: Joseph Stephens MD PCP: Travis Donis Jr., MD Status: REG ER Study: Chest 1 View (Portable) Date of Exam: 09/02/18 Exam# [id number] Ordering Dr: Derek Dillon DO STUDY: X-RAY CHEST REASON FOR EXAM: Female, 18 years old. Chest pain. TECHNIQUE: Single AP portable view of the chest. COMPARISON: Portable AP upright inspiratory and expiratory views of the chest postbiopsy August 30, 2018. FINDINGS: The lungs are clear and expanded. There is no demonstrated pleural abnormality. Normal size heart. Normal mediastinum and marisol. Normal visualized pulmonary arteries. Normal visualized aortic arch and descending thoracic aorta. There is a stable slight scoliosis of the upper to midthoracic spine. Normal visualized ribs, clavicles, and shoulders. There is no demonstrated abnormality of the visualized soft tissue structures of the upper abdomen. RAD/Chest 1 View (Portable) IMPRESSION: No acute cardiopulmonary disease. Electronically Signed: Dustin Stephens MD at 14:40 EST , Service support , CC: Travis Donis Jr., MD; Derek Dillon DO Production Superintendent: Signed CHEST INSP/EXP 2 VIEW Observed: 08/30/2018 Status: F Source: [place] 10:46 AM [facility] [place] [facility] Imaging Services [address] [place] [address] Chest Insp/Exp 2 View MR#: [id number] Acct: [id number] Name: KAYCE CHAND Rep #: [id number] : 2000 F 18 From: Marshall Vázquez MD PCP: Travis Donis Jr., MD Status: REG CLI Study: Chest Insp/Exp 2 View Date of Exam: 08/30/18 Exam# [id number] Ordering Dr: Marshall Vázquez MD STUDY: X-RAY CHEST REASON FOR EXAM: Female, 18 years old. Status post percutaneous drainage of a right lower thorax fluid collection. TECHNIQUE: AP inspiration and expiration views. COMPARISON: None. FINDINGS: EKG electrodes are seen. The lungs are clear and expanded. There is no demonstrated pleural abnormality. Normal size heart. Normal mediastinum and marisol. Normal visualized pulmonary arteries. Normal visualized aortic arch and descending thoracic aorta. Normal visualized thoracic spine. Normal visualized ribs, clavicles, and shoulders. There is no demonstrated abnormality of the visualized soft tissue structures of the upper abdomen. RAD/Chest Insp/Exp 2 View IMPRESSION: Normal x-ray examination of the chest. Electronically Signed: Marshall Vázqeuz MD at 15:07 EST Tel [phone], Service support , CC: Travis Donis Jr., MD; Marshall Vázquez MD Production Superintendent: Signed PROTEIN, BODY FLUID Collected: 08/30/2018 Status: F Source: [place] 10:18 AM [facility] [place] Order Comment: Specimen Source: ASPIRATE TYPE CODE TESTS RESULT OUT OF RANGE REFERENCE UNITS LAB L503.0300 Not Establ. g/dL Normal 1.8 PROTEIN,BF Performed By: #### L503.0300, L504.0250 #### [facility] [address] [facility] [place], [address] LDH,BODY FLUID Collected: 08/30/2018 Status: F Source: [place] 10:18 AM [facility] [place] [facility] Order Comment: Specimen Source: ASPIRATE TYPE CODE TESTS RESULT OUT OF RANGE REFERENCE UNITS LAB L504.0250 Not Establ. Units/l Normal LDH,BF 118 Performed By: #### L503.0300, L504.0250 #### [facility] [address] [facility] [place], [address] Observed: 08/30/2018 Status: F Source: [place] CULTURE, BODY FLUID 10:18 AM [facility] [place] [facility] CANCEL CYTOLOGY. QNS. PER TREVIN Winter @ DR. RENTERIA. List Antibiotics Last 48 Hours? UNK List Antibiotics to be Started? UNK Gram Stain Gram Stain No organisms seen Body Fluid Cult Culture exhibits no growth. Cult, Anaerobic No growth in 5 days. Performed By: #### M100.1300 #### [facility] [address] [place], [place], [address] CT GUIDANCE ABSCESS Observed: 08/30/2018 Status: F Source: [place] DRG W/CATH 9:05 AM [facility] [place] [facility] Imaging Services [address] [place] [address] Guidance Abscess Drg w/Cath MR#: [id number] Acct: [id number] Name: KAYCE CHAND Rep #: [id number] : 2000 F 18 From: Marshall Vázquez MD PCP: Travis Donis Jr., MD Status: REG CLI Study: CT Guidance Abscess Drg w/Cath Date of Exam: 08/30/18 Exam# [id number] Ordering Dr: Rei Renteria MD PROCEDURE: CT GUIDED CORE NEEDLE BIOPSY OF A small fluid collection in the right paracardiac region and anterior right lower lobe. INDICATION: Female, 18 years old. Unexplained weight loss. PHYSICIAN: Dr. Vázquez. CONSENT: Written informed consent was obtained having explained the risks, benefits and alternatives in detail with the patient who accepted the risks and agreed to proceed. Laboratory review and clinical assessment was performed. CONSCIOUS SEDATION PROTOCOL: The Drugs used were: 2 mg Versed, IV., and 50 mcg Fentanyl, IV. The sedation time was: 19 minutes. Conscious sedation was started at 10:04 AM and terminated at 10:23 AM. The conscious sedation protocol was independently monitored. RADIATION DOSAGE (If Supplied By Facility): CTDIvol = ( 25 ) mGy, DLP = ( 595.16 ) mGycm Individualized dose optimization techniques were used for this CT. TECHNIQUE: The patient was placed in the supine position. A noncontrast CT was performed to localize the lesion in the right paracardiac and lower lobe . The skin surface was prepped and draped in a sterile fashion. 1% lidocaine was used for local anesthesia. Using CT guidance, a 20-gauge coaxial biopsy device was advanced to the periphery of the lesion. A total of 2 core specimens were obtained. 6 cc of preston-colored fluid was removed. The specimens were placed in a formalin solution. A post procedure CT demonstrated no adverse sequelae or pneumothorax. The patient tolerated the procedure well without adverse event. A negative biopsy does not exclude malignancy. Further imaging or clinical followup based on patient condition and degree of clinical suspicion for malignancy. Suggest rebiopsy, if biopsy results do not match with clinical scenario. CT/CT Guidance Abscess Drg w/Cath IMPRESSION: 1. CT directed core needle biopsy of the right paramediastinal fluid collection using CT image guidance with image documentation as described. Pathology results are pending. 2. Conscious Sedation protocol utilized with independent monitoring. Electronically Signed: Marshall Vázquez MD at 13:36 EST Tel [phone], Service support , CC: Travis Donis Jr., MD; Rei Renteria MD Production Superintendent: Signed FLUID/WASHING Observed: 08/30/2018 Status: F Source: [place] 12:00 AM [facility] [place] [facility] Patient: KAYCE CHAND : 2000 (18/) Acct Num: [id number] Phys: Dexter LO,Rei Unit Num: [id number] Loc: CT Specimen: [id number] Received: 08/30/18 - 1419 Spec Type: Fluid TISSUES 1 TISSUES: Liver, NOS COMMENT The specimen primarily contains blood. Clinical correlation is suggested. CYTOLOGY GROSS Received is 20 ml of preston-colored fluid labeled with the patient's name and and designated per the requisition as right cystic mass above liver. Submitted for cytology preparation including cell block. / 08/30/18 TC:5 CPT: 57471, [address]0919 CYTOLOGY STUDY Slides are reviewed. DIAGNOSIS CYTOLOGY Right cystic mass above liver, fine needle aspiration (cytospin and cell block): Negative for malignant cells. See comment. AM:rg 08/31/18 HEADER OPERATION: CT-guided right cystic mass above liver PRE-OP DIAGNOSIS: Right cystic mass above liver TISSUE SUBMITTED: Right cystic mass above liver FNA Signed Hector Ivey, DO 08/31/18 <signature on file> Performed By: #### PFLU #### [facility] [facility]. [place], [place], [id number] PULMONARY VISIT REPORT Observed: 08/24/2018 Status: F Source: [place] 2:25 PM [facility] [place] [facility] Pul[facility] Medicine of [address] [place], [place] [address] OFFICE VISIT Date of Service: 08/24/18 MR#: [id number] Acct: [id number] Name: KAYCE CHAND Rep #: [id number] : 2000 Provider: Rei Renteria MD Age/Sex: 18/F Location: [facility] [place].[facility] Status: Signed Assessment AND Plan Problems 1. Pleural effusion J90 2. Unintentional weight loss of more than 10 pounds in 90 days R63.4 3. Lymphadenopathy R59.1 Plan Patient does not have mediastinal lymphadenopathy to suggest sarcoidosis. Lung parenchyma appears to be within normal limits. Patient does have this fluid noted in the base of the lung that appears to abut the pleura. These images were personally reviewed with radiology. After review, this is amenable to a CT-guided drainage. Will send for cytology, culture and thoracentesis labs. Do not believe patient's pelvic fullness is related to an abscess formation. Given patient's axillary tender lymphadenopathy, there is a possibility of a subacute infection of a cardiogenic cyst. Lower clinical suspicion for poor absorption given normal albumin levels. Obtain CT-guided drainage of lung fluid level. Labs as ordered. Patient will follow up after test results are available Orders Orders: Plan Detail Follow Up Following test results HPI 1 W FU: Chief Complaint: Test results Details: Patient is a 18-year-old female, currently under the care of Dr. Donis, who presents for evaluation secondary recent test results. Since last visit, patient denies any ER visits, hospitalizations or prednisone burst. Patient does state that over the last 24 hours she has noted some increasing swelling in her lower abdomen. Patient states this is not painful, but she has noted it. Patient's mother says that it seems almost like bloating. This was not described as fluctuant, associated with a rash/drainage or pruritus. Patient continues to report daytime fatigue. No significant weight loss has been reported between visits. Patient has not tried a gluten-free diet and does not think this is going to be helpful. Patient presents with both of her parents. Patient's parents report that they have been thinking through this at length. 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 Repeat imaging showed no change, so no intervention was completed. The family does not have this imaging available for comparison. Personally reviewed with the patient Lab work (08/18/18): INR 1.2, PTT 28.6, CMP within normal limits except for decreased bicarb of 20. LDH 145. Imaging personally reviewed with the patient CT chest (08/23/2018): Vague density in the right middle lobe that measures 7.7 x 2.1 x 1.7 cm it is directly anterior to the liver. Hounsfield units are suggestive of simple fluid HPI Comments Details: Intake Vital Signs08/24/18 Height 5 ft 2 in 08/24/18 Weight: 48.081 kg Intake Visit Reasons: 1 W FU Accompanied by: Family / Other Allergies erythromycin base Adverse Reaction (Intermediate, Verified 08/24/18 12:49) stomach pain, vomiting Medications tizanidine 4 mg capsule 4 mg PO TID PRN 04/21/18 [History Confirmed 08/24/18] Ibuprofen 200 mg PO PRN PRN 07/29/18 [History Confirmed 08/24/18] MedroxyPROGESTERone [Depo-Provera] 150 mg IM .[id number] 07/29/18 [History Confirmed 08/24/18] [facility] Medical History Hemorrhoids (Acute) Constipation (Acute) Nausea (Acute) Abdominal pain (Acute) Anxiety and depression (Acute) sudden weight loss (Acute) Fatigue (Acute) unexplained bruises (Acute) neck/back pain (Acute) Severe headache (Acute) Depression with anxiety (Acute) Surgical History History of ear surgery (Resolved) H/O sinus surgery (Resolved) History of esophagogastroduodenoscopy (EGD) (Resolved) history orif right orbital fracture (Acute) history right ear reconstruction (Acute) history right myringotomy with tubes (Acute) Social History Smoking Status: Current every day smoker alcohol intake: never substance use type: does not use caffeine: Yes what type of physical activity do you participate in: aerobics frequency: 1-2 times per week seatbelt use: always do you feel safe at home: Yes additional social history: Single- [employer] Review of Systems Const CONSTITUTIONAL: Positive weight loss, fatigue and weight loss; negative anorexia, body ache, chills, daytime sleepiness, fever(s), night sweats, oral thrush, stops breathing during sleep, sleeping in chair, weight gain, frequent colds, seasonal allergies, other, headache(s) or orthopnea EETM Ear Nose Throat Mouth: Positive hearing normal; negative hard of hearing, hoarseness, dry mouth in morning, change in vision, itchy eyes, eye pain, swallowing Difficulty, ear pain, nose bleed, headache(s), mouth pain, nasal congestion, nasal discharge, post nasal drip, sinus pain, sinus pressure, sore throat or other Cardio Cardiovascular: Negative chest pain, chest pain at rest, chest pain with activity, irregular heart rhythm, edema, shortness of breath when lying down, palpitations, murmur or other Resp Respiratory: Positive as per HPI and shortness of breath; negative pain with cough, wheezing, chest congestion, cough, chest tightness, pain on inspiration, inhalers, increase use of rescue inhalers, snoring, apnea or other Gastro Gastrointestional: Negative bloody stools, change in appetite, difficulty swallowing, reflux, hematemesis, melena stool, loose stool, constipation or other Genitourinary: Negative blood in urine, nocturia, pain with urination or other Musc Musculoskeletal: Negative body pain, back pain, neck pain or other Skin/Breast Skin/Breast: Negative dry skin, itching, rash, unusual bruising, breast lump or other Neuro Neurological: Negative restless legs, confusion, weakness or other Psych Psychocological: Negative abnormal sleep pattern, anxiety, thoughts of hurting self/others, hopelessness or other Lymph Lymphatic: Positive swollen lymph nodes (Inguinal); negative easy bleeding, easy bruising or other Exam Const Constitutional: Positive conversant, cooperative, in no acute respiratory distress, healthy appearing, well developed, well nourished, good hygiene and thin; negative dyspenic or smells of smoke Head Head: Positive normocephalic and atraumatic; negative cyanosis of lips/distal nose, frontal sinus tenderness or maxillary sinus tenderness Eyes Eye: Positive clear conjunctiva; negative nystagmus, scleral abnormality or cataract present Ears Ear: Positive hearing normal and external ears normal; negative hard of hearing Nose Nose: Positive external nose normal, septum normal and no nasal discharge; negative epistaxis or nasal polyp Mouth Mouth: Positive oral mucosae normal, no lesions and posterior oropharynx is adequate; negative post nasal drip, malodorous breath, oral thrush present or good dentition Mallampati Score: II: Mallampati Score Neck Neck: Positive normal visual inspection, full ROM and trachea midline; negative lymphadenopathy or JVD Chest Wall Chest: Positive normal inspection of the chest and symmetric chest movement; negative crepitus or tenderness Resp lung sounds: Positive clear to auscultation, good air exchange, normal expiratory time and normal respiratory effort; negative wheezes, rhonchi, rales, use of accessory muscles, wheeze present on forced exhalation or dullness to percussion Cardio Cardiac: Positive regular rate, regular rhythm, S1 normal and S2 normal; negative murmur, rub or gallop GI GI: Positive normal to inspection and normal bowel sounds; negative distended, ascites or epigastric tenderness Genitourinary: Positive deferred Musc Musculoskeletal: Positive steady gait; negative using an assistive device for ambulation, kyphosis or scoliosis Skin Pulmonary Skin Exam: Positive intact; negative rash, lesion, ulcers, erythema or dermal atrophy Pulses Pulse: Yes radial pulses present Extremities Extremities: Yes capillary refill normal, No clubbing, No cyanosis, No edema Neuro Neurologic: Yes conversant, Yes no focal neuro deficits, Yes normal concentration, Yes understands questions, Yes cooperative, Yes normal cognition, Yes normal coordination Lymph Lymphatic: Yes lymphadenopathy (Inguinal) Patient did have tender palpation in the axillary chain on the left Psych Appearance: Positive grossly normal Mental Status: Positive mental status grossly normal Mood: Positive congruent mood Affect: Positive normal affect Coding Level of Care Code Off vis,est,level 4 Diagnoses Pleural effusion J90 Unintentional weight loss of more than 10 pounds in 90 days R63.4 Lymphadenopathy R59.1 Time Spent (min) 45 08/24/18 1425 <Electronically signed by Rei Renteria MD> Date Rei Renteria MD Cosigner Signature: Date (if applicable) CC: Travis Donis Jr., MD; Magdalena Quintanilla MD; Jennie Okeefe MD CHEST WITH CONTRAST Observed: 08/23/2018 Status: F Source: [place] 1:37 PM [facility] [facility] Imaging Services [address] [place] [address] Chest WITH Contrast MR#: [id number] Acct: [id number] Name: KAYCE CHAND Rep #: [id number] : 2000 F 18 From: Nu Lorenzo MD PCP: Travis Donis Jr., MD Status: REG CLI Study: Chest WITH Contrast Date of Exam: 08/23/18 Exam# [id number] Ordering Dr: Jennie Okeefe MD STUDY: CT CHEST WITH CONTRAST REASON FOR EXAM: Female, 18 years old. 40 pound weight loss. Pleural effusion RADIATION DOSAGE (If Supplied By Facility): CTDIvol = ( 12.20 ) mGy, DLP = ( 155.87 ) mGycm TECHNIQUE: Transaxial imaging was performed following intravenous administration of 100 ml of Isovue 300 contrast material. Multiplanar coronal and sagittal images were reformatted. Individualized dose optimization techniques were used for this CT. COMPARISON: August 16, 2018 CT scan abdomen and pelvis FINDINGS: There is a vague focus of density within the right middle lobe that measures 2.6 mm. Anterior to the left hepatic lobe there is a well-circumscribed ovoid cystic structure measuring 7.7 x 2.1 x 1.7. This appears to be directly anterior to the liver best seen on the sagittal view. It is somewhat difficult to visualize the diaphragm on the right side indicating this space. The Hounsfield units are in the range of low density simple fluid. Normal heart and pericardium. Normal mediastinum. Normal hilar regions. Normal enhanced pulmonary arteries. Normal aorta arch and descending thoracic aorta. Normal osseous structures. There is minimal effacement of the liver dated the large cystic mass. CT/Chest WITH Contrast IMPRESSION: There is a cystic mass measuring 7.7 x 2.1 x 1.7 cm anterior to the liver bordering the right side of the heart. The differential includes pericardial cyst, bronchogenic cyst, lymphangioma. Recommend follow-up MRI of the chest which may be helpful for diagnosis. No evidence of acute focal infiltrate. Vague focal nonspecific 2 to 3 mm density in the right middle lobe. Electronically Signed: Nu Lorenzo MD at 16:59 EST Tel , Service support , CC: Travis Donis Jr., MD; Jennie Okeefe MD Production Superintendent: Signed PULMONARY VISIT REPORT Observed: 08/18/2018 Status: F Source: [place] 11:54 AM [facility] [place] [facility] [place] [address] [place] [address] OFFICE VISIT Date of Service: 08/18/18 MR#: [id number] Acct: [id number] Name: KAYCE CHAND Rep #: [id number] : 2000 Provider: Rei Renteria MD Age/Sex: 18/F Location: [facility] [place].[facility] Status: Signed Assessment AND Plan Problems 1. Pleural effusion J90 2. Unintentional weight loss of more than 10 pounds in 90 days R63.4 3. Lymphadenopathy R59.1 Plan Unclear etiology at this time. Did spend over 60 minutes in [id number] discussion discussing with the patient and her mother about the possible diagnoses. Patient is to have her CT scan of the chest on Thursday for evaluation of mediastinal lymphadenopathy and possible worsening of pleural effusion. Differential diagnosis would include sarcoidosis, celiac disease, lymphoma or autoimmune etiology. If patient's pleural effusion is able to be tapped, investigation performed versus any today would be helpful. We will also evaluate CT scan for possible sarcoidosis. Patient understands a bronchoscopy may be necessary. Will obtain liver function studies for evaluation of transudative etiology. Obtain labs as ordered. Await CT scan. Recommended initiation of gluten-free diet. Orders Orders: Medications Discontinued: metronidazole (Flagyl) Discontinued [id number] mg PO BID 14 tabs 0RF : Order Completed nystatin Discontinued Reason: Order Compl1 applic Topical BID PRN 15 grams 2RF itchin eted g Plan Detail Follow Up 1 Week (BWA) HPI PLEURAL EFFUSION: Chief Complaint: Unintentional weight loss Details: Patient is a 18-year-old female, referred by Dr. España, who presents for evaluation secondary to unintentional weight loss and a pleural effusion. Patient reportedly started to notice weight loss approximately 7 months ago. Patient's primary care physician had ordered some preliminary studies with thyroid function were reportedly normal. Approximately 2 months ago, patient reportedly had noted some groin swelling. Patient was treated for multiple UTIs and yeast infections without improvement. In all, patient feels that she has lost approximately 35 pounds unintentionally. Patient is very distraught about her weight loss. Patient has had a groin biopsy that was read as normal. Patient reports that this had recurrent very quickly after removal by the surgeon. Patient also had a CT scan of the abdomen that showed a possible loculated diaphragmatic versus perihepatic fluid collection. Patient denies any recent fever, chills, vomiting or diarrhea. No melena has been noted. Patient has had an EGD and colonoscopy that were reportedly normal. Patient's mother reports that she had a similar type presentation and was eventually found to have celiac disease. Patient reports an overwhelming sense of fatigue. Patient states that she spends most of her time in bed when she is not at work. 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 Patient believes that her p.o. intake has been consistent. Patient states that she tends to pick a lot while she is at work, but does not believe that she has had significant change in her overall intake. Patient reports that she smokes 3-4 cigarettes/day. Patient denies any history of UTI, HIV, illicit drug use or other pelvic disorders. Patient has not noted any significant lower extremity swelling. Patient has had urinalysis that shows no proteinuria and patient denies any periorbital edema. Documentation personally reviewed 14 pages of documentation were reviewed stating the patient had a right groin lump approximately 1 month ago. Patient has been treated with antibiotics with no improvement. Patient has lost approximately 20 pounds over the last 2 months despite eating an appropriate amount of food. Testing personally reviewed CT abdomen (08/16/2018): Small amount of perihepatic fluid. No pleural effusion appreciated. Groin lymph node (08/04/2018): Lymph node tissue favoring benign HPI Comments Details: Intake Vital Signs08/18/18 Height 5 ft 2 in 08/18/18 Weight: 47.627 kg Intake Visit Reasons: PLEURAL EFFUSION Chief Complaint: congestion Accompanied by: Mother Allergies erythromycin base Adverse Reaction (Intermediate, Verified 08/18/18 10:05) stomach pain, vomiting Medications tizanidine 4 mg capsule 4 mg PO TID PRN 04/21/18 [History Confirmed 08/18/18] medroxyprogesterone 150 mg/mL intramuscular syringe 150 mg IM [id number] #1 ml 06/08/18 [Rx Confirmed 08/18/18] Ibuprofen 200 mg PO PRN PRN 07/29/18 [History Confirmed 08/18/18] MedroxyPROGESTERone [Depo-Provera] 150 mg IM .[id number] 07/29/18 [History Confirmed 08/18/18] PFSH Medical History Hemorrhoids (Acute) Constipation (Acute) Nausea (Acute) Abdominal pain (Acute) Anxiety and depression (Acute) sudden weight loss (Acute) Fatigue (Acute) unexplained bruises (Acute) neck/back pain (Acute) Severe headache (Acute) Depression with anxiety (Acute) Surgical History History of ear surgery (Resolved) H/O sinus surgery (Resolved) History of esophagogastroduodenoscopy (EGD) (Resolved) history orif right orbital fracture (Acute) history right ear reconstruction (Acute) history right myringotomy with tubes (Acute) Social History Smoking Status: Current every day smoker alcohol intake: never substance use type: does not use caffeine: Yes what type of physical activity do you participate in: aerobics frequency: 1-2 times per week seatbelt use: always do you feel safe at home: Yes additional social history: Single- [employer] Review of Systems Const CONSTITUTIONAL: Positive daytime sleepiness, fatigue and weight loss (unexpected wt loss); negative anorexia, body ache, chills, fever(s), night sweats, oral thrush, stops breathing during sleep, weight loss, sleeping in chair, weight gain, frequent colds, seasonal allergies, other, headache(s) or orthopnea EETM Ear Nose Throat Mouth: Positive hearing normal; negative hoarseness, dry mouth in morning, change in vision, itchy eyes, eye pain, swallowing Difficulty, ear pain, headache(s), mouth pain, nasal congestion, nasal discharge, sinus pain, sinus pressure, sore throat, other, hard of hearing, nose bleed or post nasal drip Cardio Cardiovascular: Negative chest pain, chest pain at rest, chest pain with activity, irregular heart rhythm, edema, shortness of breath when lying down, palpitations, other or murmur Resp Respiratory: Positive as per HPI and shortness of breath shortness of breath: Positive with activity; negative pain with cough, wheezing, chest congestion, cough, chest tightness, pain on inspiration, inhalers, increase use of rescue inhalers, snoring, apnea or other Gastro Gastrointestional: Negative bloody stools, change in appetite, difficulty swallowing, reflux, hematemesis, melena stool, loose stool, constipation or other Genitourinary: Negative blood in urine, nocturia, pain with urination or other Musc Musculoskeletal: Negative body pain, back pain, neck pain or other Skin/Breast Skin/Breast: Negative dry skin, itching, unusual bruising, breast lump, other or rash Neuro Neurological: Negative restless legs, confusion, weakness or other Psych Psychocological: Negative abnormal sleep pattern, anxiety, thoughts of hurting self/others, hopelessness or other Lymph Lymphatic: Positive swollen lymph nodes; negative easy bleeding, easy bruising or other Exam Const Constitutional: Positive conversant, cooperative, in no acute respiratory distress, well developed, good hygiene, frail appearing and thin; negative dyspenic or ill appearing Head Head: Positive normocephalic and atraumatic; negative cyanosis of lips/distal nose, frontal sinus tenderness or maxillary sinus tenderness Eyes Eye: Positive clear conjunctiva; negative nystagmus, scleral abnormality or cataract present Ears Ear: Positive hearing normal and external ears normal; negative hard of hearing Nose Nose: Positive external nose normal, septum normal and no nasal discharge; negative epistaxis or nasal polyp Mouth Mouth: Positive oral mucosae normal, no lesions and posterior oropharynx is adequate; negative post nasal drip, malodorous breath or oral thrush present Mallampati Score: II: Mallampati Score Neck Neck: Positive normal visual inspection, full ROM and trachea midline; negative lymphadenopathy or JVD Chest Wall Chest: Positive normal inspection of the chest and symmetric chest movement; negative crepitus or tenderness Resp lung sounds: Positive clear to auscultation, good air exchange, normal expiratory time and normal respiratory effort; negative wheezes, rhonchi, rales, use of accessory muscles, wheeze present on forced exhalation or dullness to percussion Cardio Cardiac: Positive regular rate, regular rhythm, S1 normal and S2 normal; negative murmur, rub or gallop GI GI: Positive normal to inspection and normal bowel sounds; negative distended, ascites or epigastric tenderness Genitourinary: Positive deferred Musc Musculoskeletal: Positive steady gait; negative using an assistive device for ambulation, kyphosis or scoliosis Skin Pulmonary Skin Exam: Positive intact; negative rash, lesion, ulcers, erythema, scaly or dermal atrophy Pulses Pulse: Yes radial pulses present Extremities Extremities: Yes capillary refill normal, No clubbing, No cyanosis, No edema, No stasis dermatitis Neuro Neurologic: Yes conversant, Yes no focal neuro deficits, Yes normal concentration, Yes understands questions, Yes cooperative, Yes normal cognition, Yes normal coordination Lymph Lymphatic: Yes lymphadenopathy Psych Appearance: Positive grossly normal Mental Status: Positive mental status grossly normal Mood: Positive congruent mood Affect: Positive normal affect Coding Level of Care Code Off vis,new,level 5 Diagnoses Pleural effusion J90 Unintentional weight loss of more than 10 pounds in 90 days R63.4 Lymphadenopathy R59.1 Time Spent (min) 60 08/18/18 1154 <Electronically signed by Rei Renteria MD> Date Rei Renteria MD Cosigner Signature: Date (if applicable) CC: Travis Donis Jr., MD; Magdalena Quintanilla MD; Jennie Okeefe MD PROTHROMBIN TIME W/INR Collected: 08/18/2018 Status: F Source: [place] 11:36 AM [facility] REPOSITORY TYPE CODE TESTS RESULT OUT OF RANGE REFERENCE UNITS LAB L300.4150 11.7-14.9 SECONDS Normal PROTIME 14.8 LAB L300.4200 Normal INR 1.2 Performed By: #### L300.3900, L300.4310 #### [facility] [address] [place], [place], [address] PARTIAL THROMBOPLAST Collected: 08/18/2018 Status: F Source: [place] TIME 11:36 AM [facility] REPOSITORY TYPE CODE TESTS RESULT OUT OF RANGE REFERENCE UNITS LAB L300.4310 24.1-36.2 Seconds Normal PTT 28.6 Performed By: #### L300.3900, L300.4310 #### [facility] [address] [place], [address] COMPREHENSIVE METABOLIC Collected: 08/18/2018 Status: F Source: [place] 11:36 AM [facility] REPOSITORY Order Comment: Serial Specimen #1, #2 or #3? 1 TYPE CODE TESTS RESULT OUT OF RANGE REFERENCE UNITS LAB L501.0100 74-106 mg/dL Normal GLU 96 Result Comment: Please note revised GLUCOSE reference range effective 2017. LAB L501.1000 7-18 mg/dL Normal BUN 17 LAB L501.1100 0.55-1.02 mg/dL Normal CREAT,SERUM 0.86 Result Comment: The validity of the calculated GFR AND GFRAA in patients over 70 years has not been determined. Clinical correlation is essential. LAB L501.1110 >60 mL/min Normal EST GFR 89 Result Comment: Non- GFR Calc LAB L501.1115 >60 mL/min Normal EST GFR - AA 108 Result Comment: GFR Calc LAB L501.1300 10-20 RATIO Normal BUN/CRE 19.8 LAB L501.1500 6.4-8.2 g/dL T Normal PROT 7.6 LAB L501.1800 3.2-5.0 g/dL Normal ALB 4.5 LAB L501.1950 2.2-4.2 g/dL Normal GLOB 3.1 LAB L501.2000 0.9-2.4 RATIO Normal A/G 1.5 LAB L501.2200 8.5-10.1 mg/dL CA Normal 9.1 LAB L501.4100 15-37 U/L Low AST 13 LAB L501.4305 45-117 U/L Normal ALK P 57 LAB L501.4405 13-56 U/L Normal ALT 27 LAB L501.4600 0.20-1.00 mg/dL T Normal BILI 0.90 LAB L501.5300 136-145 mmol/L NA Normal 140 LAB L501.5600 3.5-5.1 mmol/L K Normal 4.1 LAB L501.5900 98-107 mmol/L High CL 110 LAB L501.6100 21.0-32.0 mmol/L Low CO2 20.0 LAB L501.6200 5-15 Normal GAP 10 Performed By: #### L500.4050, L504.2610 #### [facility] [address] [place], [address] LDH Collected: 08/18/2018 Status: F Source: [place] 11:36 AM [facility] REPOSITORY Order Comment: Serial Specimen #1, #2 or #3? 1 TYPE CODE TESTS RESULT OUT OF RANGE REFERENCE UNITS LAB L504.2610 84-246 U/L Normal LDH 145 Performed By: #### L500.4050, L504.2610 #### [facility] [address] [place], [address] ABDOMEN/PELVIS WITH Observed: 08/16/2018 Status: F Source: [place] CONTRAST 9:08 AM [facility] REPOSITORY [facility] Imaging Services [address] [place] [address] Abdomen/Pelvis WITH Contrast MR#: [id number] Acct: [id number] Name: KAYCE CHAND F Rep #: [id number] : 2000 F 18 From: Marshall Vázquez MD PCP: Travis Donis Jr., MD Status: REG CLI Study: Abdomen/Pelvis WITH Contrast Date of Exam: 08/16/18 Exam# [id number] Ordering Dr: Jennie Okeefe MD STUDY: CT ABDOMEN AND PELVIS WITH CONTRAST REASON FOR EXAM: Female, 18 years old. 40 pound weight loss. RADIATION DOSAGE (If Supplied By Facility): CTDIvol = ( 9.39 ) mGy, DLP = ( 254.99 ) mGycm TECHNIQUE: Transaxial images were obtained from the dome of the diaphragm to the symphysis pubis with oral contrast. 100 ml of Isovue 300 contrast was administered. Sagittal and coronal images were reconstructed. Individualized dose optimization techniques were used for this CT. COMPARISON: None. FINDINGS: The visualized lung bases are unremarkable. The visualized portions of the heart are within normal limits. Normal liver. Small amount of the perihepatic fluid. Normal gallbladder and extrahepatic biliary system. Normal spleen. Normal pancreas. Normal bilateral adrenal glands. Normal right kidney. Mild dilatation of the left renal pelvis. There is malrotation of the left kidney. Normal visualized stomach. Normal small intestine. Normal colon. The appendix is visualized and appears normal. Normal abdominal aorta. Normal inferior vena cava. Normal retroperitoneum. Normal urinary bladder. Small follicles are seen in both ovaries. Normal abdominal wall. Small benign-appearing bilateral inguinal lymph nodes. Normal osseous structures. CT/Abdomen/Pelvis WITH Contrast IMPRESSION: Small amount of perihepatic fluid. Electronically Signed: Marshall Vázquez MD at 9:48 EST Tel [phone], Service support , CC: Travis Donis Jr., MD; Jennie Okeefe MD Production Superintendent: Signed OPERATIVE REPORT Observed: 08/04/2018 Status: F Source: [place] 9:43 AM [facility] REPOSITORY [facility] Medical Records Department [address] [place] [address] Operative Report 08/04/18 0934 MR#: [id number] Acct: [id number] Name: KAYCE CHAND Rep #: [id number] : 2000 18 From: Jennie Okeefe MD PCP: Travis Donis Jr., MD Status: REG CLI Y Location: US Operative Report Date of Procedure: 08/04/18 Reviewed the ultrasound with patient and her mother and discussed plan for fine-needle aspiration of lymph node. Reviewed the procedure of fine- needle aspiration. Patient has been counseled to the risks/benefits of the procedure. I have explained the risks of the procedure, including but not limited to: infection, bleeding, injury to any blood vessels, not able to get a definitive pathology, further surgery, etc. - the patient understands and agrees to proceed. I have answered all of the patient's questions to her satisfaction and she has no further questions. Signed consent is completed. Procedure: ultrasound-guided fine-needle aspiration of the left inguinal lymph for lymphadenopathy Description of procedure: Patient was brought into the ultrasound room in the left groin was marked. A timeout was completed verifying correct patient, procedure, site, specially, prior to beginning procedure. The left groin was prepped and draped in usual sterile fashion and using local anesthesia was obtained with 2% lidocaine. The lesion was located with the ultrasound. Pathology was also present during the procedure. A 22-gauge spinal needle was used and several passes were made through the larger palpable lymph node in the left groin. This was handed off to pathology and 3 separate needles were used to collect specimen. Pathology did state they saw a good amount lymphocytes. Upon completion procedure hemostasis was obtained and a Band- Aid was placed. The patient tolerated the procedure well and left radiology in good condition. Complications: None 08/04/18 0943 <Electronically signed by Jennie Okeefe MD> Date Jennie Okeefe MD CC: Travis Donis Jr., MD; Jennie Okeefe MD Signed ULTRA NEEDLE BX/LYMPH Observed: 08/04/2018 Status: F Source: [place] NODE 7:44 AM [facility] REPOSITORY [facility] Imaging Services [address] [place] [address] Ultra Needle BX/Lymph Node MR#: [id number] Acct: [id number] Name: KAYCE CHAND Rep #: [id number] : 2000 F 18 From: Marshall Vázquez MD PCP: Travis Donis Jr., MD Status: [facility] Study: Ultra Needle BX/Lymph Node Date of Exam: 08/04/18 Exam# [id number] Ordering Dr: Jennie Okeefe MD PROCEDURE: Ultrasound Guided biopsy of the lymph node in the left groin. CLINICAL HISTORY: Female, 18 years old. Enlarged lymph node in the left groin. Under direct sonographic guidance, the surgeon performed 3 core biopsies of the enlarged lymph node in the left groin. US/Ultra Needle BX/Lymph Node IMPRESSION: Ultrasound guided biopsy of the lymph node in the left groin. Electronically Signed: Marshall Vázquez MD at 12:59 EST Tel [phone], Service support , CC: Travis Donis Jr., MD; Jennie Okeefe MD Production Superintendent: Signed ASP RADIOLOGY (FLUID) Observed: 08/04/2018 Status: F Source: [place] 12:00 AM [facility] REPOSITORY Patient: KAYCE CHAND : 2000 () Acct Num: [id number] Phys: Sary LO,Jennie Unit Num: [id number] Loc: Specimen: [id number] Received: 08/04/18 - 1005 Spec Type: ASP OUT TISSUES 1 TISSUES: LYMPH NODE BIOPSY COMMENT The specimen is evaluated at the time of ultrasound-guided FNA by Dr. Stafford. Immediate Evaluation = Lymphocytes noted. Immunohistochemistry ([id number]) supports the above diagnosis. CYTOLOGY GROSS Received in two passes is 0.2 ml of bloody fluid labeled with the patient's name , and designated left groin lymph node. Three imprints and two paps are made from the submitted fluid and the rest is added to [employer]to[employer] for cell block preparation. Specimen from 1 pass is submitted for flow cytometry studies. Submitted for cytology study. KAELYN:amadeo 08/04/18 TC:5 CPT: 63000 CYTOLOGY STUDY Slides are reviewed. The specimen consists of mature small and large lymphocytes. DIAGNOSIS CYTOLOGY Left groin lymph node, ultrasound guided FNA (smears and cell block): Negative for involvement by malignancy, granuloma or lymphoma. Flow cytometry study from [facility] shows the low cell yield (590 events acquired ) hinders accurate interpretation; however, in the viable cell population the analysis reveals a mixed population of B and T lymphocytes with mostly T cells. No park T cell antigen deletion or B cell light chain restriction is detected. The complete report is viewable in patient's EMR. See cytology study and comment. KAELYN:amadeo 08/09/18 HEADER OPERATION: Ultrasound-guided lymph node biopsy PRE-OP DIAGNOSIS: Left groin lymph node TISSUE SUBMITTED: Left groin lymph node Signed Nas Stafford MD 08/09/18 <signature on file> Performed By: #### PASPIG #### [facility] [address] [place] [address]. [place], [place], [id number] IMMUNOHISTOCHEMISTRY Observed: 08/04/2018 Status: F Source: [place] 12:00 AM [facility] REPOSITORY Patient: KAYCE CHAND : 2000 () Acct Num: [id number] Phys: Sary LO,[facility] Unit Num: [id number] Loc: Specimen: [id number] Received: 08/05/181030 Spec Type: IMMUNO TISSUES 1 TISSUES: Inguinal lymph node, NOS SPECIMEN INFORMATION: Tissue Source: Left groin lymph node Clinical Info: Left groin lymph node Specimen Number: [id number] CPT code: 18469, 25742 x4 METHODOLOGY: Deparaffinized sections of prefer/formalin-fixed tissue or PAP/DQ stained slides are incubated with monoclonal/polyclonal antibodies/oligonucleotide probes. Localization is made via biotin free immunoperoxidase method. Appropriate controls are performed and reacted as expected. Results on target cell population are indicated in the following table: RESULTS: ANTIBODY / CLONE RESULT CD3 (PS1) positive CD5 (SP10) positive CD20 (L26) positive CD45 (RP2/18) positive CD79a (11E3) positive These tests were developed and their performance characteristics determined by [facility]. They may not have been cleared or approved by the U.S. Food and Drug Administration. The FDA has determined that such clearance or approval is not necessary. INTERPRETATION: Left groin lymph node, ultrasound-guided biopsy: Lymph node tissue, polytypic in nature, favor benign. SJ:amadeo 08/06/18 PHYSICIAN AND INSTITUTION [address] [address] Signed Nas Stafford MD 08/09/18 <signature on file> Performed By: #### PIMM #### [facility] [address] [place], [place] [address], [address] OPERATIVE REPORT - Observed: 08/02/2018 Status: F Source: [place] ENDOSCOPY 10:46 AM [facility] REPOSITORY [facility] Medical Records Department [address] [place] [address] Operative Report - Endoscopy MR#: [id number] Acct: [id number] Name: KAYCE CHAND Rep #: [id number] : 2000 18 From: Jennie Okeefe MD PCP: Travis Donis Jr., MD Status: REG [facility] Patient Name: Kayce Chand Procedure Date: 08/02/2018 10:17 AM Date of : 2000 Age: 18 Procedure: Colonoscopy Indications: Weight loss, bilateral inguinal adenopathy Providers: Jennie Okeefe MD Referring MD: Travis Donis Jr. Patient Profile: This is a [...] screening purposes. Procedure Code(s): --- Professional --- 08815, Colonoscopy, flexible; diagnostic, including collection of specimen(s) by brushing or washing, when performed (separate procedure) Diagnosis Code(s): --- Professional --- R63.4, Abnormal weight loss CPT copyright 2017 [employer]. All rights reserved. The codes documented in this report are preliminary and upon cpc coder review may be revised to meet current compliance requirements. MD Jennie Ruffin MD 08/02/2018 10:45:48 AM This report has been signed electronically. Number of Addenda: 0 Note Initiated On: 08/02/2018 10:17 AM 08/02/18 1046 Date Jennie Okeefe MD Cosigner Signature: Date (if indicated) CC: Travis Donis Jr., MD; Jennie Okeefe MD Date Dictated: 08/02/18 1017 Date Transcribed: Production Superintendent: TR Signed OPERATIVE REPORT - Observed: 08/02/2018 Status: F Source: [place] [facility]OSCOPY 10:42 AM [facility] REPOSITORY [facility] Medical Records Department [address] [place] [address] Operative Report - Endoscopy MR#: [id number] Acct: [id number] Name: KAYCE CHAND Rep #: [id number] : 2000 18 From: Jennie Okeefe MD PCP: Travis Donis Jr., MD Status: REG [facility] Patient Name: Kayce Chand Procedure Date: 08/02/2018 10:01 AM Date of : 2000 Age: 18 Procedure: Upper GI endoscopy Indications: Weight loss Providers: Jennie Okeefe MD Referring MD: Travis Donis Jr. Medicines: Monitored Anesthesia Care Patient [...] present medications. Procedure Code(s): --- Professional --- 21060, Esophagogastroduodenoscopy, flexible, transoral; with biopsy, single or multiple Diagnosis Code(s): --- Professional --- K29.70, Gastritis, unspecified, without bleeding R63.4, Abnormal weight loss CPT copyright 2017 [employer]. All rights reserved. The codes documented in this report are preliminary and upon cpc coder review may be revised to meet current compliance requirements. MD Jennie Ruffin MD 08/02/2018 10:41:33 AM This report has been signed electronically. Number of Addenda: 0 Note Initiated On: 08/02/2018 10:01 AM 08/02/18 1041 Date Jennie Okeefe MD Cosigner Signature: Date (if indicated) CC: Travis Donis Jr., MD; Jennie Okeefe MD Date Dictated: 08/02/18 1001 Date Transcribed: Production Superintendent: MARLENE Signed EGD ([facility] S[facility]) Observed: 08/02/2018 Status: F Source: [place] 10:15 AM [facility] REPOSITORY Patient: KAYCE CHAND : 2000 () Acct Num: [id number] Phys: Sary LO,Jennie Unit Num: [id number] Loc: EN Specimen: [id number] Received: 08/02/18 - 3 Spec Type: EGD BIOPSY TISSUES 1 TISSUES: A. Duodenum, NOS B. Gastric mucous membrane COMMENT A. There is no evidence of celiac sprue. B. The results of immunohistochemistry for Helicobacter pylori will be reported separately ([id number]). GROSS DESCRIPTION A - Received in fixative [...] is totally submitted in one cassette. / AM:rg 08/02/18 TC:5 CPT: 82724 x2 HEADER OPERATION: Colonoscopy, EGD ([facility]) PRE-OP DIAGNOSIS: Weight loss TISSUE SUBMITTED: A. Duodenal biopsy, rule out celiac and rule out sprue, B. Antral biopsy MICROSCOPIC DESCRIPTION Slides are reviewed. MICROSCOPIC DIAGNOSIS A. Duodenum, biopsy: No pathologic change. See comment. B. Gastric antrum, biopsy: Mild chronic inflammation. AM:amadeo 08/03/18 Signed Hector Uche, 08/03/18 <signature on file> Performed By: #### PEGD #### [facility] [address] [place], [address] ,URINE Collected: 08/02/2018 Status: F Source: [place] 9:10 AM [facility] REPOSITORY TYPE CODE TESTS RESULT OUT OF REFERENCE UNITS RANGE LAB L400.8000 Negative Normal HCGUQUAL Negative Result Comment: Very dilute urine specimens, as indicated by a low specific gravity, may not contain sales account representative levels of hCG. If is still suspected, a first morning urine specimen should be collected 48 hours later and tested. Performed By: #### L400.7600 #### [facility] [address] [place], [address] IMMUNOHISTOCHEMISTRY Observed: 08/02/2018 Status: F Source: [place] 12:00 AM [facility] REPOSITORY Patient: KAYCE CHAND : 2000 () Acct Num: [id number] Phys: Jennie Okeefe MD Unit Num: [id number] Loc: EN Specimen: [id number] Received: 08/03/181332 Spec Type: IMMUNO TISSUES 1 TISSUES: B. Stomach, NOS SPECIMEN INFORMATION: Tissue Source: B - Antral biopsy Clinical Info: Weight loss Specimen Number: [id number] CPT code: 17361 METHODOLOGY: Deparaffinized sections of prefer/formalin-fixed tissue or PAP/DQ stained slides are incubated with monoclonal/polyclonal antibodies/oligonucleotide probes. Localization is made via biotin free immunoperoxidase method. Appropriate controls are performed and reacted as expected. Results on target cell population are indicated in the following table: RESULTS: ANTIBODY / CLONE RESULT Block B H Pylori (polyclonal) negative These tests were developed and their performance characteristics determined by [facility]. They may not have been cleared or approved by the U.S. Food and Drug Administration. The FDA has determined that such clearance or approval is not necessary. INTERPRETATION: A. Antral biopsy: Negative for Helicobacter pylori organisms. AM:amadeo 08/05/18 PHYSICIAN AND INSTITUTION [facility] [address] [place] [address] Signed Hector Ivey, 08/05/18 <signature on file> Performed By: #### PIMM #### [facility] [address] [place] [address]. [place], [address] EXT NON VASC Observed: 07/26/2018 Status: F Source: [place] LIMITED/SOFT TISS 11:08 [facility] REPOSITORY [facility] Imaging Services [address] [place] [address] Ext Non Vasc Limited/Soft Tiss MR#: [id number] Acct: [id number] Name: KAYCE CHAND Rep #: [id number] : 2000 F 18 From: Raza Dick MD PCP: Travis Dnois Jr., MD Status: REG CLI Study: Ext Non Vasc Limited/Soft Tiss Date of Exam: 07/26/18 Exam# [id number] Ordering Dr: Jennie Okeefe MD STUDY: SUPERFICIAL [...] EST Tel , Service support , CC: Travis Donis Jr., MD; Jennie Okeefe MD Production Superintendent: Signed SURGERY VISIT REPORT Observed: 07/26/2018 Status: F Source: [place] 8:12 AM [facility] REPOSITORY [facility] [address] [place] [address] [address] [place] [address] OFFICE VISIT Date of Service: 07/23/18 MR#: [id number] Acct: [id number] Name: KAYCE CHAND Rep #: [id number] : 2000 Provider: Jennie Okeefe MD Age/Sex: 18/F Location: [facility] Status: Signed Intake Vital Signs07/23/18 Body Mass Index (BMI) 19.3 07/23/18 Height 5 ft 2 in 07/23/18 Weight: 106 lb Intake Visit Reasons: Enlarged groin lymph nodes Chief Complaint: congestion Field Nurse Case Manager Required: No Is patient in pain?: No Allergies erythromycin base Adverse Reaction (Intermediate, Verified 07/23/18 11:10) stomach pain, vomiting Medications tizanidine 4 mg capsule 4 mg PO TID PRN 04/21/18 [History Confirmed 07/23/18] metronidazole 500 mg tablet 500 mg PO BID #14 tab 04/23/18 [Rx Confirmed 07/23/18] medroxyprogesterone 150 mg/mL intramuscular syringe 150 mg IM [id number] #1 ml 06/08/18 [Rx Confirmed 07/23/18] nystatin 100,000 unit/gram topical cream 1 applic TOPICAL BID PRN #15 g 07/20/18 [Rx Confirmed 07/23/18] triamcinolone acetonide 0.5 % topical cream 1 applic TOPICAL BID #15 g 07/20/18 [Rx Confirmed 07/23/18] PFSH Medical History Hemorrhoids (Acute) Constipation (Acute) Nausea [...] additional social history: Single- [employer] and [employer] at [facility] HPI: KAYCE CHAND, is a 18 F [...] Const General: cooperative, comfortable, no acute distress HENVT Head: atraumatic GI Inspection: non-distended Palpation: soft, [...] clears, MiraLAX Dulcolax Jennie Okeefe M.D. Pager: [phone] [facility] [address] [place] [address], [address] [place] [address] Office: [phone] Plan Detail Follow Up We will schedule bilateral inguinal ultrasound and plan for an EGD and colonoscopy due to her weight loss Coding Level of Care Code Off vis,new,level 4 Diagnoses Inguinal lymphadenopathy R59.0 Weight loss, non-intentional R63.4 Time Spent (min) 45 07/26/18 0812 <Electronically signed by Jennie Okeefe MD> Date Jennie Okeefe MD Cosigner Signature: Date (if applicable) CC: Travis Donis Jr., MD; Magdalena Quintanilla MD CT/NG [facility] BY PCR Collected: 07/20/2018 Status: F Source: [place] 6:41 PM [facility] REPOSITORY TYPE CODE TESTS RESULT OUT OF RANGE REFERENCE UNITS LAB L8200.2100 Negative Normal Chlam Negative Trac PCR LAB L8200.2200 Negative Normal NG by Negative PCR Performed By: #### L8200.2000 #### [facility] [address] [place], [place], [address] Observed: 07/20/2018 Status: F Source: [place] CULTURE, GENITAL 6:41 PM [facility] COMPREHENSIVE REPOSITORY Reason for Exam: vaginitis Gram Stain Score = 1 Interpretation: 0-3 Normal, 4-6 Intermediate, 7-10 Positive BV Gram Stain 4+ Gram positive rods Rare Gram negative rods No Gram negative diplococci No Yeast Like Organisms 1+ White Blood Cells Gent Cult Comp Normal vaginal stef isolated. No yeast, Gardnerella, Neisseria or beta-hemolytic Streptococcus isolated. Performed By: #### M100.1600 #### [facility] [address] [place], [address] Observed: 07/20/2018 Status: F Source: [place] CULTURE, URINE 6:41 PM [facility] REPOSITORY Urine Culture There are no CLSI standards for interpretation of this Drug/Organism combination. ORGANISM 1: Lactobacillus species Fairlee Count 50,000-80,000 Performed By: #### M100.0650 #### [facility] [address] [place], [address] DIRECTOR OF LEADERSHIP DEVELOPMENT OFFICE VISIT Observed: 07/20/2018 Status: F Source: [place] REPORT 2:48 PM [facility] REPOSITORY [facility] [address] [place] [address] OFFICE VISIT Date of Service: 07/20/18 MR#: [id number] Acct: [id number] Name: KAYCE CHAND Rep #: [id number] : 2000 Provider: TANNER Pedersen Age/Sex: 18/F Location: [facility] Status: Signed Intake Vital Signs07/20/18 Body Mass Index (BMI) 19.3 07/20/18 Height 5 ft 2 in 07/20/18 Weight: 106 lb 07/20/18 Body Mass Index (BMI) 19.3 07/20/18 Blood Pressure 118/80 Intake Visit Reasons: Issue with yeast infection/UTI/Swollen lymph Field Nurse Case Manager Required: No Accompanied by: Mother Is patient [...] 150 mg/mL intramuscular syringe 150 mg IM [id number] #1 ml 06/08/18 [Rx] nystatin 100,000 unit/gram topical cream 1 applic TOPICAL BID PRN #15 g 07/20/18 [Rx Confirmed 07/20/18] triamcinolone acetonide 0.5 % topical cream 1 applic TOPICAL BID #15 g 07/20/18 [Rx Confirmed 07/20/18] Is last menstrual period known: No Post menopausal: No Patient : No : No [facility] Medical History Anxiety and depression (Acute) Fatigue [...] additional social history: 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 Enlarged lymph node R59.9 Plan Armen BV, trich, GCC and comp vaginal culture. Call results tomorrow CBC Triamcinilone and nystatin Rx RTO prn Orders Orders: Medications New: Coding Level of Care Code Off vis,est,level 3 Diagnoses Vaginal itching N89.8 Screen for STD (sexually transmitted disease) Z11.3 Enlarged lymph node R59.9 12 1448 <Electronically signed by Corina Pedersen NP-C> Date Corina Pedersen TENDER LABOR-C Cosigner Signature: Date (if applicable) CC: CBC W/DIFF, AUTOMATED Collected: 07/20/2018 Status: F Source: [place] 2:32 PM [facility] REPOSITORY TYPE CODE TESTS RESULT OUT OF [...] Lymph 2.49 Performed By: #### L100.0100 #### [facility] [address] [place], [address] URINALYSIS, ROUTINE Collected: 07/15/2018 Status: F Source: [place] (DIPSTICK) 11:32 AM [facility] REPOSITORY Order Comment: How was 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 No yeast, Gardnerella, Neisseria or beta-hemolytic Streptococcus isolated. Performed By: #### M100.1600 #### [facility] [address] [place], [address] URGENT CARE VISIT Observed: 04/29/2018 Status: F Source: [place] REPORT 1:22 PM [facility] REPOSITORY [facility] [address] [place] [address] [address] [place], [place] [address] OFFICE VISIT Date of Service: 04/29/18 MR#: [id number] Acct: [id number] Name: KAYCE CHAND Rep #: [id number] : 2000 Provider: Raza RUCKER Age/Sex: 18/F Location: [facility] Status: Signed Intake Vital Signs04/29/18 Height 5 ft 2 in 04/29/18 Weight: 106 lb 04/29/18 Body Mass Index (BMI) 19.3 04/29/18 Blood Pressure 108/74 Intake Visit Reasons: SORE THROAT, FEVER, COUGH Chief Complaint: congestion Field Nurse Case Manager Required: No Accompanied by: mother Is patient in pain?: No Allergies No Known Allergies Allergy (Verified 04/29/18 13:02) Medications medroxyprogesterone 150 mg/mL intramuscular syringe 150 mg IM [id number] 09/28/17 [History Confirmed 04/29/18] tizanidine 4 mg capsule 4 mg PO TID PRN 04/21/18 [History Confirmed 04/29/18] metronidazole 500 mg tablet 500 mg PO BID #14 tab 04/23/18 [Rx Confirmed 04/29/18] amoxicillin 500 mg capsule 1,000 mg PO BID 10 Days #40 cap 04/29/18 [Rx Confirmed 04/29/18] PFSH Medical History Anxiety and depression (Acute) [...] additional social history: Single- [employer] and [employer] at [employer] HPI Chief Complaint: congestion Details: KAYCE CHAND, is [...] her primary care physician as well as photographer to include diagnostics and lab work all [...] recommend patient to inquire with PCP or photographer for additional diagnostics and testing which would be appropriate in their recommendations. Patient and mom state acknowledging understanding all the above. This note was generated with CircleUp dictation software. It may contain incorrect words, spelling, and punctuation that were not noted in checking the note before signing. Medications New: Coding Level of Care Code Off vis,new,level 3 Diagnoses Sinusitis J32.9 04/29/18 1322 <Electronically signed by Raza RUCKER> Date Raza Hermosillo Signature: Date (if applicable) CC: Observed: 04/21/2018 Status: F Source: [place] CULTURE, GENITAL 6:37 PM [facility] COMPREHENSIVE REPOSITORY Reason for Exam: vulvovaginitis Gram [...] 0.5 S (NF) indicates non-formulary drug at [facility]. Approval by Infectious Disease Specialist required before non-formulary drugs may be ordered and/or dispensed. * CLSI guidelines does not recommend testing of cephalosporins. This interpretation is deduced from Beta-lactam/penicillin results. Performed By: #### M100.1600 #### [facility] [address] [place], [place], [address] DIRECTOR OF LEADERSHIP DEVELOPMENT OFFICE VISIT Observed: 04/21/2018 Status: F Source: [place] REPORT 2:27 PM [facility] REPOSITORY [facility] [address] [place] [address] OFFICE VISIT Date of Service: 04/21/18 MR#: [id number] Acct: [id number] Name: KAYCE CHAND Rep #: [id number] : 2000 Provider: TANNER Pedersen Age/Sex: 18/F Location: [facility] Status: Signed Intake Vital Signs04/21/18 Height 5 ft 2 in 04/21/18 Weight: 107 lb 6 oz 04/21/18 Body Mass Index (BMI) 19.6 04/21/18 Blood Pressure 101/71 Intake Visit Reasons: YEAST INFECTION? 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 Vulvovaginitis N76.0 Plan ARMEN BV, trich and comp vag culture OTC cortaid, A AND D ointment prn Call culture results. Medications Discontinued: Coding Level of Care Code Off vis,est,level 3 Diagnoses Vulvovaginitis N76.0 04/21/18 1427 <Electronically signed by Corina NORIEGA> Date Corina NORIEGA Cosigner Signature: Date (if applicable) CC: FINAL SURGICAL Observed: 03/08/2018 Status: F Source: [facility] PATHOLOGY REPORT 11:58 AM [facility] REPOSITORY . Pathology Reports Accession: Collected Date/Time: Received Date/Time: Pathologist: [id number] 03/08/2018 11:58 EDT 03/09/2018 08:10 EDT MD [...] FOR H. PYLORI ORGANISMS IS NEGATIVE COMMENT: [facility]# [id number]_ CLINICAL INFORMATION: Procedure: EGD WITH GASTRIC [...] cm. TS -1 Dictated by Michelle RUCKER ([facility]) MICROSCOPIC DESCRIPTION: A&B) Slides reviewed. Electronically Signed by Pathology Report verified by [facility] Electronically signed by SOPHY GRACE MD Sign out Date: 03/10/2018 16:19 Performing Lab: [facility], [address] [place] [address] Performed By: #### SPFR #### [place] [address] XR SPINE CERVICAL 2 Observed: 03/02/2018 Status: F Source: [facility] OR 3 VIEWS 11:37 AM [facility] REPOSITORY ORIGINAL XR SPINE CERVICAL 2 OR [...] PM CMP Collected: 2018 Status: F Source: [facility] 11:29 AM [facility] REPOSITORY TYPE CODE TESTS RESULT OUT OF [...] 10-35 IU/L ALT/SGPT 19 Performed By: #### CMP, GFR #### [place] [address] [place], [place] [address] #### ENDO, CRP, GLIAD #### [address] [address] .GFR Collected: 2018 Status: F Source: [facility] 11:29 AM [facility] REPOSITORY TYPE CODE TESTS RESULT OUT OF REFERENCE UNITS RANGE LAB GFRAA(LOINC ml/min/1.73 ) sqm GFR >60 Congolese Result Comment: GFR Population mean for , [...] 15 mL/min/1.73 square meters Performed By: #### CMP, GFR #### [place] [address] [place], [place] [address] #### ENDO, CRP, GLIAD #### [address] [address] ENDO Collected: 2018 Status: F Source: [facility] 11:29 AM [facility] REPOSITORY TYPE CODE TESTS RESULT OUT OF [...] These test results were obtained with the [employer] QUANTA Lite h-tTG IgA OSCAR. h-tTG IgA values obtained with different manufacturers' assay methods may not be used interchangeably. Performed By: #### CMP, GFR #### [address] [address] #### ENDO, CRP, GLIAD #### [address] [address] CRP Collected: 2018 Status: F [facility] 11:29 AM [facility] REPOSITORY TYPE CODE TESTS RESULT OUT OF REFERENCE UNITS RANGE LAB CRP(LOINC) <=0.80 mg/dL C-Reactive 0.11 Protein Performed By: #### CMP, GFR #### [facility] [address] [place], [place] [address] #### ENDO, CRP, GLIAD #### [facility] [address] [place] [address] GLIAD Collected: 2018 Status: F [facility] 11:29 AM [facility] REPOSITORY TYPE CODE TESTS [...] These test results were obtained with the [employer] QUANTA Lite Gliadin IgG II and Gliadin [...] These test results were obtained with the [place] QUANTA Lite Gliadin IgG II and Gliadin IgA II. Gliadin values obtained with different manufacturers' assay methods may not be used interchangeably. Performed By: #### CMP, GFR #### [facility] [address] [place], [place] [address] #### ENDO, CRP, GLIAD #### [address] [address] DOWNTIME REPORT Observed: 02/04/2018 Status: F Source: [place] 1:12 PM [facility] Medical Records Department [address] [place] [address] [place] [address] Downtime Report MR#: [id number] Acct: [id number] Name: KAYCE CHAND Rep #: [id number] : 2000 17 From: Ronnie Nicholas PCP: Status: REG CLI This patient was seen during an EMR downtime January 18, 2018 - January 25, 2018. This patient may have a combination of paper and electronic documentation or all paper documentation. All documentation is viewable within the e-chart portion of [facility] for each patient visit. CT/NG [facility] BY PCR Collected: 01/20/2018 Status: F Source: [place] 12:48 PM [facility] REPOSITORY TYPE CODE TESTS RESULT OUT OF RANGE REFERENCE UNITS LAB L8200.2100 Negative Normal Chlam Negative Trac PCR LAB L8200.2200 Negative Normal NG by Negative PCR Performed By: #### L8200.1999 #### [facility] [address] [place], [address] Observed: 01/20/2018 Status: F Source: [place] CULTURE, URINE 12:48 PM [facility] REPOSITORY Urine Culture Culture exhibits no growth. Performed By: #### M100.0650 #### [facility] [address] [place], [address] Observed: 01/20/2018 Status: F Source: [place] CULTURE, GENITAL 12:47 PM [facility] COMPREHENSIVE REPOSITORY Gram Stain Score = 8 Interpretation: 0-3 Normal, 4-6 Intermediate, 7-10 Positive BV Gram Stain 3+ Epithelial cells 2+ Clue Cells 4+ Gram variable teena No Gram negative diplococci Gent Cult Comp No yeast, Neisseria or beta-hemolytic Streptococcus isolated. ORGANISM 1: G. vaginalis (Presumptive) Amount Growth 2+ Performed By: #### M100.1600 #### [facility] [address] [place], [address] CBC Collected: 12/28/2017 Status: F Source: [facility] 12:34 [facility] REPOSITORY TYPE CODE TESTS RESULT OUT OF [...] 7.4-10.4 fL MPV 8.7 Performed By: #### CBC, ADIFF, ANEU, GFR, TSH, FT4, CMP #### [place] [address] [place], [place] [address] .AUTO DIFF Collected: 12/28/2017 Status: F Source: [facility] 12:34 [facility] REPOSITORY TYPE CODE TESTS RESULT OUT OF [...] ) Basophil, 0.10 Absolute Performed By: #### CBC, ADIFF, ANEU, GFR, TSH, FT4, CMP #### [address] [address] .NEUABS Collected: 12/28/2017 Status: F Source: [facility] 12:34 [facility] REPOSITORY TYPE CODE TESTS RESULT OUT OF REFERENCE UNITS RANGE LAB ANEU(LOINC) 2.85-6.16 10 3/mcL Neutrophil, 4.90 Absolute Performed By: #### CBC, ADIFF, ANEU, GFR, TSH, FT4, CMP #### [address] [address] .GFR Collected: 12/28/2017 Status: F Source: [facility] 12:34 [facility] REPOSITORY TYPE CODE TESTS RESULT OUT OF REFERENCE UNITS RANGE LAB GFRAA(LOINC ml/min/1.73 ) sqm GFR 116 Congolese Result Comment: GFR Population mean for , [...] 15 mL/min/1.73 square meters Performed By: #### CBC, ADIFF, ANEU, GFR, TSH, FT4, CMP #### [address] [address] TSH Collected: 12/28/2017 Status: F Source: [facility] 12:34 [facility] REPOSITORY TYPE CODE TESTS RESULT OUT OF RANGE REFERENCE UNITS LAB TSH(LOINC) 0.27-4.20 mcIU/mL TSH 1.28 Performed By: #### CBC, ADIFF, ANEU, GFR, TSH, FT4, CMP #### [address] [address] FT4 Collected: 12/28/2017 Status: F Source: [facility] 12:34 [facility] REPOSITORY TYPE CODE TESTS RESULT OUT OF RANGE REFERENCE UNITS LAB FT4(LOINC) 0.6-1.7 ng/mL Free T4 1.5 Performed By: #### CBC, ADIFF, ANEU, GFR, TSH, FT4, CMP #### [address] [address] CMP Collected: 12/28/2017 Status: F Source: [facility] 12:34 [facility] REPOSITORY TYPE CODE TESTS RESULT OUT OF [...] 10-35 IU/L ALT/SGPT 19 Performed By: #### CBC, ADIFF, ANEU, GFR, TSH, FT4, CMP #### [address] [address] Observed: 09/28/2017 Status: F Source: [place] CULTURE, GENITAL 9:49 PM [facility] COMPREHENSIVE REPOSITORY NO COLLECTION INFORMATION GIVEN Gram Stain Score = 0 Interpretation: 0-3 Normal, 4-6 Intermediate, 7-10 Positive BV Gram Stain 4+ Gram positive rods 2+ White Blood Cells No Gram negative diplococci No Yeast Like Organisms Gent Cult Comp No yeast, Gardnerella, Neisseria or beta-hemolytic Streptococcus isolated. Performed By: #### M100.1600 #### [place] [facility] [address] [place], [address] DIRECTOR OF LEADERSHIP DEVELOPMENT OFFICE VISIT Observed: 09/28/2017 Status: F Source: [place] REPORT 10:55 AM [facility] REPOSITORY [facility] [address] [place] [address] OFFICE VISIT Date of Service: 09/28/17 MR#: [id number] Acct: [id number] Name: KAYCE CHAND Rep #: [id number] : 2000 Provider: Magdalena Quintanilla MD Age/Sex: 17/F Location: [facility] Status: Signed with Addenda ADDENDUM by Kallie Crowder on 09/28/17 at 1055 OFFICE PROCEDURES Office Procedure Documentation entered by Kallie Crowder 09/28/17 10:55: Office Meds Depo-Provera Performing Provider: Magdalena Quintanilla MD Administered by: Kallie Crowder on 09/28/17 10:54 Dose Route Admin Location Lot Number Expiration Date NDC Crew Leader 150 mg IM left gluteal [id number] 11/16/19 [address]-0 [facility] 09/28/17 1055 <Electronically signed by Kallie Crowder [...] 150 mg/mL intramuscular syringe 150 mg IM [id number] 09/28/17 [History Confirmed 09/28/17] Is last menstrual [...] safe at home: Yes additional social history: [employer] in [place] HPI skin tag: Details: KAYCE CHAND is a [...] signed by Magdalena Quintanilla MD> Date Magdalena Hermosillo Signature: Date (if applicable) CC: ALLERGIES ALLERGIES DATE TYPE / CODE NAME / CODE REACTION SEVERITY SOURCE 09/02/2018 Drug erythromycin stomach pain, [place] Allergy/416 base/[id number](RXN vomiting Community [address] ED [facility]) Repository 07/29/2018 Drug No Known Unknown [place] Allergy/416 Allergies/[id number] [facility] 406672([address]) Repository ENCOUNTERS ENCOUNTERS ADMIT/DISCHARGE ACCOUNT NUMBER ADMITTING ENCOUNTER LOCATION SOURCE CLASS 09/02/2018/09/02/19 [id number] Emergency [address] ding:ED Repository 08/30/2018 [id number] Ambulatory [facility] ding:CT Repository 08/24/2018/08/24/19 [id number] Ambulatory BMSBuilding: [place] [facility] Repository 08/23/2018 [id number] Ambulatory [facility] ding:CT Repository 08/18/2018 [id number] Ambulatory [facility] ding:PAVLAB Repository 08/18/2018/08/18/19 [id number] Ambulatory BMSBuilding: [place] [facility] Repository 08/16/2018 [id number] Ambulatory [facility] ding:CT Repository 08/04/2018 [id number] Ambulatory BMSBuilding: [place] BMS..[facility] Repository 08/04/2018 [id number] Ambulatory [facility] ding:US Repository 08/02/2018/08/02/20 [id number] Ambulatory [address] ding:ENRoom: Repository AC04 08/02/2018/08/02/20 [id number] Ambulatory BMSBuilding: [place] 18 [facility]MS.[facility] Repository 07/26/2018 [id number] Ambulatory [facility] ding:US Repository 07/23/2018/07/23/20 [id number] Ambulatory BMSBuilding: [place] 18 [facility]MS.[facility] Repository 07/20/2018 [id number] Ambulatory [facility] ding:PAVLAB Repository 07/20/2018/07/20/20 [id number] Ambulatory BMSBuilding: [place] 18 BMS.[facility] Repository 07/15/2018 [id number] Ambulatory [facility] ding:LABSPEC Repository 07/06/2018 [id number] Ambulatory [facility] ding:LABSPEC Repository 04/29/2018/04/29/20 [id number] Ambulatory BMSBuilding: [place] 18 BMS.[facility] Repository 04/21/2018 [id number] Ambulatory [facility] ding:LABSPEC Repository 04/21/2018/04/21/20 [id number] Ambulatory BMSBuilding: [place] 18 BMS.[facility] Repository 03/29/2018/06/09/20 [id number] Ambulatory BBuilding:[place] [address] Repository 03/08/2018/03/08/20 [id number] Ambulatory BBuilding:[place] [facility] Repository 03/02/2018/03/02/20 [id number] Ambulatory [address] ding:[facility] Repository 02/26/2018/02/27/20 [id number] Ambulatory [address] [address] ding:OLAB [facility] Repository 01/20/2018 [id number] Ambulatory [facility] ding:LABSPEC Repository 01/20/2018/01/21/20 [id number] Ambulatory BMSBuilding: [place] 18 BMS.[facility] Repository 12/28/2017/12/29/19 [id number] Ambulatory [place] [address] [facility] ding:[facility] Repository 09/28/2017 [id number] Ambulatory [place] [facility] ding:LABSPEC Repository 09/28/2017/09/28/19 [id number] Ambulatory BMSBuilding: [place] 18 BMS.[facility] Repository PAYERS PAYERS ENCOUNTER GUARANTOR PAYER SUBSCRIBER SOURCE 09/02/2018 KAY[place] [address] Primary NABIL M [place] [id number] N Insurance:ANTHEMPolicy HUEBNERDOB: [facility] Number: [id number] [id number] Repository [address]Tkz: [phone]) Date:3365-88-88SE [phone] () [id number], [place] [address]OG: 09/02/2018 Secondary NOT GIVENUNK [place] Insurance:SELF PAY [place] Number: Effective Repository Date:2018-09-02 08/30/2018 KAYCE Branch Primary NABIL M [place] [id number] N Insurance:ANTHEMPolicy HUEBNERDOB: [facility] Number: [id number], [place] [id number] Repository [address]Smn: [phone]) Date:[id number] [phone] () [place], [place] [address]HS: 08/30/2018 Secondary NOT GIVENUNK [place] Insurance:SELF PAY [place] Number: Effective Repository Date:2018-08-24 08/24/2018 KAYCE Branch Primary NABIL M [place] [id number] N Insurance:ANTHEMPolicy HUEBNERDOB: [facility] Number: [id number], [place] [id number] Repository [address]Qku: [phone]) Date:0516-33-30BR [phone] () [id number], [place] [address]WL: 08/24/2018 Secondary NOT GIVENUNK [place] Insurance:SELF PAY [place] Number: Effective Repository Date:2018-08-20 08/23/2018 KAYCE F Primary NABIL M Kadeem [id number] N Insurance:ANTHEMPolicy HUEBNERDOB: [facility] Number: [id number], [place] [id number] Repository [address]Pbw: (330) Date:5039-65-82QN [phone] () [id number] HAMILTON 83365VZ: 08/23/2018 Secondary NOT GIVENUNK [place] Insurance:SELF PAY [place] Number: Effective Repository Date:2018-08-16 08/18/2018 KAYCE F Primary NABIL M [place] [id number] Insurance:ANTHEMPolicy [place]UE[place]DOB[place] [facility] [place]: [id number] [id number] Repository [address]Hvx: (330) Date:1379-79-54QS [phone] () 926255AIFYROVHALEY HAMILTON 89172MO: 08/18/2018 Secondary NOT GIVENUNK [place] Insurance:SELF PAY [place] Number: Effective Repository Date:2018-08-18 08/18/2018 KAYCE F Primary NABIL M Kadeem [id number] Insurance:ANTHEMPolicy HUEBNERDOB: [facility] [place]: [id number], [place] [id number] Repository [address]5923Ydu: (330) Date:8337-21-45NN [phone] () [id number], [place] [address]TN: 08/18/2018 Secondary NOT GIVENUNK Kadeem Insurance:SELF PAY [place] Number: Effective Repository Date:2018-08-18 08/16/2018 KAYCE F Primary NABIL M Kadeem [id number] Insurance:ANTHEMPolicy HUEBNERDOB: [facility] [place]: [id number] [id number] Repository [address]31Vja: (330) Date:1443-23-53BT [phone] () [id number] HAMILTON 55092VU: 08/16/2018 Secondary NOT GIVENUNK Kade[place] Insurance:SELF PAY [facility]: Effective Repository Date:2018-08-12 08/04/2018 KAYCE F Primary NABIL M Kadeem [id number] Insurance:ANTHEMPolicy HUEBNERDOB: [facility] [place]: [id number], [place] [id number] Repository [address]Ehl: (330) Date:4527-78-74WF [phone] () 506222OTCVBZLHALEY HAMILTON [address]CC: 08/04/2018 Secondary NOT GIVENUNK Kadeem Insurance:SELF PAY [place] Number: Effective Repository Date:2018-08-04 08/04/2018 KAYCE F Primary NABIL M [place] [id number] Insurance:ANTHEMPolicy HUEBNERDOB: [facility] [place]: [id number] [id number] Repository 27[address]Jtq: (330) Date:3311-10-36JM [phone] () 791937KSYFZBW, [place] [address]GE: 08/04/2018 Secondary NOT GIVENUNK Kadeem Insurance:SELF PAY [place] Number: Effective Repository Date:2018-07-30 08/02/2018 KAYCE F Primary NABIL M Kadeem [id number] Insurance:ANTHEMPolicy HUEBNERDOB: [facility] [place]: [id number], [place] [id number] Repository [address]Crs: (330) Date:2196-95-22OA [phone] () 895240XJRHBHCHALEY HAMILTON [address]26[address]TF: 08/02/2018 Secondary NOT GIVENUNK Kadeem Insurance:SELF PAY [place] Number: Effective Repository Date:2018-07-27 08/02/2018 KAYCE F Primary NABIL M Kadeem [id number] Insurance:ANTHEMPolicy HUEBNERDOB: [facility] [place]: [id number], [place] [id number] Repository [address]2507Cfb: (330) Date:2460-18-29TO [phone] () HALEY WARNER [address]QX: 08/02/2018 Secondary NOT GIVENUNK K[place] Insurance:SELF PAY [facility] Number: Effective Repository Date:2018-08-02 07/26/2018 KAYCE Primary NABIL M [place] [id number] Insurance:ANTHEMPolicy HUEBNERDOB: Community [place] Number: [id number], [place] [id number] Repository [address]Yzc: (330) Date:8204-25-67NV [phone] () 237420MVBNAMOHALEY HAMILTON [address]88[address]NM: 07/26/2018 Secondary NOT GIVENUNK [place] Insurance:SELF PAY [facility] Number: Effective Repository Date:2018-07-23 07/23/2018 KAYCE Primary NABIL M [place] [id number] Insurance:ANTHEMPolicy HUEBNERDOB: Community [place] Number: [id number], [place] [id number] Repository [address]32Ris: (330) Date:0030-38-65OF [phone] () 671319XSOWNOT, [place] [address]YV: 07/23/2018 Secondary NOT GIVENUNK Kadeem Insurance:SELF PAY [facility] Number: Effective Repository Date:2018-07-23 07/20/2018 KAYCE F Primary NABIL M [place] [id number] Insurance:ANTHEMPolicy HUEBNERDOB: Community [place] Number: [id number], [place] [id number] Repository 200[address]Zba: (330) Date:4152-21-04VM [phone] () 011573DVYKKYFHALEY HAMILTON [address]UB: 07/20/2018 Secondary NOT GIVENUNK Kadeem Insurance:SELF PAY [facility] Number: Effective Repository Date:2018-07-20 07/20/2018 KAYCE F Primary NABIL M Kadeem [id number] N Insurance:ANTHEMPolicy HUEBNERDOB: [place] Number: [id number], [place] [id number] Repository [address]Spf: (330) Date:1278-24-33UA [phone] () [id number], [place] [address]ZJ: 07/20/2018 Secondary NOT GIVENUNK [place] Insurance:SELF PAY [facility]: Effective Repository Date:2018-07-20 07/15/2018 KAYCE F Primary NABIL M Kadeem [id number] N Insurance:ANTHEMPolicy HUEBNERDOB: [place] Number: [id number], [place] [id number] Repository 15[address]Jxp: (330) Date:0204-56-57XV [phone] () 717764VHCSYCE, [place] [address]BW: 07/15/2018 Secondary NOT GIVENUNK Kadeem Insurance:SELF PAY [place] Number: Effective Repository Date:2018-07-15 07/06/2018 KAYCE F Primary NABIL M Kadeem [id number] Insurance:ANTHEMPolicy HUEBNERDOB: Community [place] Number: [id number], [place] [id number] Repository 67[address]Uzp: (330) Date:8310-53-43VH [phone] () 429374HPREFQE, [place] [address]KV: 07/06/2018 Secondary NOT GIVENUNK [place] Insurance:SELF PAY [place] Number: Effective Repository Date:2018-07-06 04/29/2018 KAYCE F Primary NABIL M Kadeem [id number] Insurance:ANTHEMPolicy HUEBNERDOB: [facility] [place] Number: [id number], [place] [id number] Repository [address]23[address]Jhh: (330) Date:8887-34-48UW [phone] (HP) 029807CAPKCYW, [place] [address]ZX: 04/29/2018 Secondary NOT GIVENUNK Kadeem Insurance:SELF PAY [place] Number: Effective Repository Date:2018-04-29 04/21/2018 KAYCE F Primary NABIL M Kadeem [id number] Insurance:ANTHEMPolicy [facility]UEBNERDOB: [facility] [place] [id number], [place] [id number] Repository 45[address]Mcm: (330) Date:4654-86-05VS [phone] () 714460VQJQDHR, [place] [address]XM: 04/21/2018 Secondary NOT GIVENUNK [place] Insurance:SELF PAY [place] Number: Effective Repository Date:2018-04-21 04/21/2018 KAYCE Primary [facility]IL [id number] Insurance:ANTHEMPolicy HUEBNERDOB: [facility] [place]: [id number], [place] [id number] Repository 58012Xxp: (330) Date:6377-79-64OJ [phone] () 734705XRAVEWX, [place] [address]JB: 04/21/2018 Secondary NOT GIVENUNK [place] Insurance:SELF PAY [place] Number: Effective Repository Date:2018-04-21 03/29/2018 [facility] [id number] [facility] [id number] Repository [place] Number: [place], [place] [id number] [place], [place] [address]Nkg: 330) Date:2018-03-22 55845Bus: 5106-87-52Uxyx [phone] ()Tel: ([phone]) Name:[facility] YAIR () () [id number], [place] 000-0000 () 833[address]ZH: 03/08/2018 [facility]: [facility]: [facility] COMM[facility]CIALPolh[facility] [id number] Repository SON Number: PAULINE BILLS [id number] [place] [address]Jrc: (330) Date:2018Tel: 6174-35-12Snji [phone] (HP)Tel: (330) Name:BPO BOX (HP) (WP) 123494Kagucqx, [place] 000-0000 (WP) [address]OG: 03/02/2018 K[facility]CE [facility]: [facility]:ANTHEM BLUE EBNERDOB: [facility] COMMERCIALHonorhealth [facility] CenterGoldbely [id number] Repository SON Number: PAULINE BILLS [id number] [place] [address]Zkj: (330) Date:2018-03-02Tel: 4316-13-27Rods [phone] (HP)Tel: (330) Name:BPO BOX (HP) (WP) [id number], [place] 000-0000 (WP) 18668SR: 2018 [facility]: Insurance:ANTHEM BLUE HUEBNERDOB: [facility] CROSS COMMERCIALPolBill-[employer] [id number] Repository SON Number: PAULINE BILLS [id number] [place] [address]Aur: (330) Date:2018-02-2677565Uoq: 7300-85-08Ayaf [phone] (HP)Tel: (330) Name:BPO BOX (HP) (WP) [id number], [place] 000-0000 () [address]OR: 01/20/2018 KAYCE [facility] Primary NABIL M [place] [id number] Insurance:ANTHEMPolicy HUEBNERDOB: [facility] SON Number: [id number], [place] [id number] Repository [address]Qqi: (330) Date:0490-06-47RA [phone] () [address] [place] [address] [place] [address]NK: 01/20/2018 Secondary NOT GIVENUNK [place] Insurance:SELF PAY [facility] Number: Effective Repository Date:2018-01-20 01/20/2018 KAYCE [facility] Primary NABIL M Kadeem [id number] Insurance:ANTHEMPolicy HUEBNERDOB: [facility] [place]: [id number], [place] [id number] Repository 93[address]Ipj: (330) Date:5721-28-14KW [phone] () [address] [place] [address]SV: 01/20/2018 Secondary NOT GIVENUNK Kadeem Insurance:SELF PAY [place] Number: Effective Repository Date:2018-01-29 12/28/2017 KAYCE [facility] Primary NABIL M [facility]: Insurance:ANTHEM BLUE VERÓNICAEBNERDOB: [facility] CROSS COMMERCIALPenn State Healthy [id number] Repository [place] Number: S[place], [place] [id number] [place], [place] [address]Ptj: (330) Date:2017-12-28 47611Xml: [id number] [phone] ()Tel: (330) Name:[place] MAZARIEGOS () () [id number], [place] 000-0000 () [address]WQ: 09/28/2017 KAYCE Branch Primary NABIL M [place] [id number] Insurance:ANTHEMPolicy HUEBNERDOB: [facility] [place]: [id number], [place] [id number] Repository [address]Nna: (330) Date:5284-48-04TF [phone] () 926413HPCOOAH, [place] [address]YC: 09/28/2017 Secondary NOT GIVENUNK [place] Insurance:SELF PAY [place] Number: Effective Repository Date:2017-09-28 09/28/2017 KAYCE [id number] Insurance:Licha MCCOYB: [facility] [place]: [id number], [place] [id number] Repository [address]Iof: (330) Date:6553-43-13SN [phone] () 349733TDNJKTJ, [place] [address]CQ: 09/28/2017 Secondary NOT GIVENUNK [place] Insurance:SELF PAY [place] Number: Effective Repository Date:2017-09-28
== END 2018-08-02 11:14 | disposition home or self-care (01) ==
LOC: EN 08:55 → AC 09:09
PROVIDERS: Anesthesiology; Family Provider Internal Medicine; PCP Internal Medicine; Referring Provider Surgery; Visit Provider Surgery
PROC: 0DJD8ZZ Inspection of Lower Intestinal Tract, Via Natural or Artificial Opening Endoscopic (ICD-10-PCS; CPT 45378; principal; 2018-08-02 10:10)
DX: K29.70 Gastritis, unspecified, without bleeding (principal); R63.4 Abnormal weight loss; R59.0 Localized enlarged lymph nodes; F17.200 Nicotine dependence, unspecified, uncomplicated
CPT/HCPCS: 43239; 45378; 81025; 88305; 88342; J7120

== ENCOUNTER → 2018-08-04 07:57 | Outpatient (CLI) | payer BC, SELFPAY ==
[2018-07-23 11:16] VITALS: BMI 19.3
--- NOTE | 2018-08-04 | ASPIG_PTH ---
PATIENT: EZE HERNADEZ LOC: U#:[id number] AGE/SX: 25/F ROOM: RE08/04/[address]: Dr. Jennie Okeefe MD : 2000 BED: DIS: SPEC #: [id number] RECD: 08/04/18 10:05 STATUS: KATIE LISA #: [id number] BRAULIO: 08/04/18 00:[address]: Jennie Okeefe DEPT: CYTOLOGY RECD BY: Yovani Johnson ENTERED: 08/04/18 10:07 SP TYPE: ASP OUT OTHR DR: Dr. Jarek Calles Jr., MD Tissues: LYMPH NODE BIOPSY Procedures: FNA Specimen Adequacy Pap Stain (control) Special Stain Group II Surgery Specimen Level IV Diff Quik Stain (control) Cell Block Cytology Other HEADER OPERATION: Ultrasound-guided lymph node biopsy PRE-OP DIAGNOSIS: Left groin lymph node TISSUE SUBMITTED: Left groin lymph node DIAGNOSIS CYTOLOGY Left groin lymph node, ultrasound guided FNA (smears and cell block): Negative for involvement by malignancy, granuloma or lymphoma. Flow cytometry study from [facility] shows the low cell yield (590 events acquired) hinders accurate interpretation; however, in the viable cell population the analysis reveals a mixed population of B and T lymphocytes with mostly T cells. No park T cell antigen deletion or B cell light chain restriction is detected. The complete report is viewable in patient's EMR. See cytology study and comment. SJ:amadoe 08/09/18 COMMENT The specimen is evaluated at the time of ultrasound-guided FNA by Dr. Stafford. Immediate Evaluation = Lymphocytes noted. Immunohistochemistry ([id number]) supports the above diagnosis. CYTOLOGY STUDY Slides are reviewed. The specimen consists of mature small and large lymphocytes. CYTOLOGY GROSS Received in two passes is 0.2 ml of bloody fluid labeled with the patient's name, and designated left groin lymph node. Three imprints and two paps are made from the submitted fluid and the rest is added to [employer]to[employer] for cell block preparation. Specimen from 1 pass is submitted for flow cytometry studies. Submitted for cytology study. KAELYN:amadeo 08/04/18 TC:5 CPT: 82228
--- NOTE | 2018-08-04 | IMM_PTH ---
PATIENT: EZE HERNADEZ LOC: [facility]#:[id number] AGE/SX: 25/F ROOM: RE08/04/[address]: Dr. Jennie Okeefe MD : 2000 BED: DIS: SPEC #: [id number] RECD: 08/05/18 10:31 STATUS: KATIE REOsman #: [id number] BRAULIO: 08/04/18 00:[address]: Jennie Okeefe DEPT: IMMUNOHISTOCHEMISTRY RECD BY: Katlyn Atkinson ENTERED: 08/05/18 10:33 SP TYPE: IMMUNO OTHR DR: Dr. Jarek Calles Jr., MD Tissues: Inguinal lymph node, NOS Procedures: CD20 (add) CD45 (add) CD5 (add) CD79A (add) CD3 (initial) PHYSICIAN & INSTITUTION [place] [address] SPECIMEN INFORMATION: Tissue Source: Left groin lymph node Clinical Info: Left groin lymph node Specimen Number: [id number] CPT code: 16154, 78829 x4 METHODOLOGY: Deparaffinized sections of prefer/formalin-fixed tissue or PAP/DQ stained slides are incubated with monoclonal/polyclonal antibodies/oligonucleotide probes. Localization is made via biotin free immunoperoxidase method. Appropriate controls are performed and reacted as expected. Results on target cell population are indicated in the following table: RESULTS: ANTIBODY / CLONE RESULT CD3 (PS1) positive CD5 (SP10) positive CD20 (L26) positive CD45 (RP2/18) positive CD79a (11E3) positive These tests were developed and their performance characteristics determined by [facility]. They may not have been cleared or approved by the U.S. Food and Drug Administration. The FDA has determined that such clearance or approval is not necessary. INTERPRETATION: Left groin lymph node, ultrasound-guided biopsy: Lymph node tissue, polytypic in nature, favor benign. SJ:amadeo 08/06/18
--- NOTE | 2018-08-04 08:30 | US_ITS ---
PROCEDURE: Ultrasound Guided biopsy of the lymph node in the left groin. CLINICAL HISTORY: Female, 18 years old. Enlarged lymph node in the left groin. Under direct sonographic guidance, the surgeon performed 3 core biopsies of the enlarged lymph node in the left groin. US/Ultra Needle BX/Lymph Node IMPRESSION: Ultrasound guided biopsy of the lymph node in the left groin. Electronically Signed: Marshall Vázquez MD at 12:59 EST Tel [phone], Service support ,
--- NOTE | 2018-08-04 09:43 | OP.PCM_ITS ---
Operative Report Date of Procedure: 08/04/18 Reviewed the ultrasound with patient and her mother and discussed plan for fine- needle aspiration of lymph node. Reviewed the procedure of fine-needle aspiration. Patient has been counseled to the risks/benefits of the procedure. I have explained the risks of the procedure, including but not limited to: infection, bleeding, injury to any blood vessels, not able to get a definitive pathology, further surgery, etc. - the patient understands and agrees to proceed. I have answered all of the patient's questions to her satisfaction and she has no further questions. Signed consent is completed. Procedure: ultrasound-guided fine-needle aspiration of the left inguinal lymph for lymphadenopathy Description of procedure: Patient was brought into the ultrasound room in the left groin was marked. A timeout was completed verifying correct patient, procedure, site, specially, prior to beginning procedure. The left groin was prepped and draped in usual sterile fashion and using local anesthesia was obtained with 2% lidocaine. The lesion was located with the ultrasound. Pathology was also present during the procedure. A 22-gauge spinal needle was used and several passes were made through the larger palpable lymph node in the left groin. This was handed off to pathology and 3 separate needles were used to collect specimen. Pathology did state they saw a good amount lymphocytes. Upon completion procedure hemostasis was obtained and a Band-Aid was placed. The patient tolerated the procedure well and left radiology in good condition. Complications: None
--- OUTSIDE RECORDS SUMMARY | 2018-11-05 08:17 | XMS RPT_ITS ---
:2000 Author Organization OHIP Support Name Relationship Address Phone NABIL CHAND Unavailable [address] + [place] [address] ABENA CHANDHER Unavailable [address] + [address] [place] [address] JAGRUTI, NABIL Unavailable [address] + [place] [address] JAGRUTI, NABIL Unavailable [address] + [place] [address] JERRYS BAR GRILLE Unavailable [address] + [place] [address] JARGUTI, NABIL Unavailable [address] + [place] [address] JERRYS BAR GRILLE Unavailable [address] + [place] [address] JAGRUTI, NABIL Unavailable [address] + [place] [address] JERRYS BAR GRILLE Unavailable [address] + [place] [address] JAGRUTI, NABIL Unavailable [address] + [place] [address] JERRYS BAR GRILLE Unavailable [address] + [place] [address] JAGRUTI, NABIL Unavailable [address] + [place] [address] JERRYS BAR GRILLE Unavailable [address] + [place] [address] JAGRUTI, NABIL Unavailable [address] + [place] [address] JERRYS BAR GRILLE Unavailable [address] + [place] [address] JAGRUTI, NABIL Unavailable [address] + [place] [address] JERRYS BAR GRILLE Unavailable [address] + [place] [address] JAGRUTI, NABIL Unavailable [address] + [place] [address] JERRYS BAR GRILLE Unavailable [address] + [place] [address] JAGRUTI, NABIL Unavailable [address] + [place] [address] JERRYS BAR GRILLE Unavailable [address] + [place] [address] JAGRUTI, NABIL Unavailable [address] + [place] [address] JERRYS CAFE BAR Unavailable [address] + [place] [address] JAGRUTI, NABIL Unavailable [address] + [place] [address] JERRYS CAFE BAR Unavailable [address] + [place] [address] JAGRUTI, NABIL Unavailable [address] + [place] [address] JERRYS BAR GRILLE Unavailable [address] + [place] [address] JAGRUTI, NABIL Unavailable [address] + [place] [address] JERRYS BAR GRILLE Unavailable [address] + [place] [address] JAGRUTI, NABIL Unavailable [address] + [place] [address] JERRYS BAR GRILLE Unavailable [address] + [place] [address] JAGRUTI, NABIL Unavailable [address] + [place] [address] ULTA BEAUTY Unavailable [address] + [place] [address] U Unavailable Unavailable Unavailable JAGRUTI, NABIL Unavailable [address] + [place] [address] [address]TA BE[address]Y Un[address] + [place] [address] [address] BE[address]Y Un[address] + [place] [address] [address]TA BEAUTY Un[address] + [place] [address] ULTA BEAUTY Un[address] + [place] [address] JAGRUTI, NABIL Unavailable [address] + [place] [address] JAGRUTI, NABIL Unavailable [address] + [address] [place] [address] JAGRUTI, NABIL Unavailable [address] + [place] [address] JAGRUTI, NABIL Unavailable [address] + [place] [address] JAGRUTI, NABIL Unavailable [address] + [address] [place] [address] JAGRUTI, NABIL Unavailable [address] + [place] [address] JAGRUTI, NABIL Unavailable [address] + [place] [address] JAGRUTI, NABIL Unavailable [address] + [address] [place] [address] JAGRUTI, NABIL Unavailable [address] + [place] [address] JAGRUTI, NABIL Unavailable [address] + [place] [address] JAGRUTI, NABIL Unavailable [address] + [address] [place] [address] JAGRUTI, NABIL Unavailable [address] + [place] [address] ULTA BEAUTY Unavailable [address] + [place] [address] [address]TA BEAUTY Un[address] + [place] [address] JAGRUTI, NABIL Unavailable [address] + [place] [address] JAGRUTI, NABIL Unavailable [address] + [address] [place] [address] JAGRUTI, NABIL Unavailable [address] + [place] [address] ULTA BEAUTY Unavailable [address] + [place] [address] [address]TA BE[address]Y Un[address] + [place] [address] ULTA BEAUTY Unavailable [address] + [place] [address] Care Team Providers Name Role Phone TRAVIS DONIS MD, JR. Attending Unavailable MINESH GASPAR, DR. NOAH Vo Primary Care Unavailable KAYE ROJAS, DR. RAMIREZ Attending Unavailable MINESH GASPAR, DR. NOAH oV Primary Care Unavailable KAYE ROJAS, DR. RAMIREZ Attending Unavailable MINESH GASPAR, DR. NOAH Vo Primary Care Unavailable TRAVIS DONIS MD, JR. Attending Unavailable MINESH GASPAR, DR. NOAH Vo Primary Care Unavailable DAMIAN GASPAR, DR. ZAMUDIO Attending Unavailable DAMIAN GASPAR, DR. ZAMUDIO Referring Unavailable MINESH GASPAR, DR. NOAH Vo Primary Care Unavailable TRAVIS DONIS MD, JR. Attending Unavailable MINESH GASPAR, DR. NOAH Vo Primary Care Unavailable Robotham, Jennie Attending Unavailable Robotham, Jennie Referring Unavailable Travis Donis Jr. Primary Care Unavailable Robotham, Jennie Attending Unavailable Robotham, Jennie Referring Unavailable Travis Donis Jr. Primary Care Unavailable Robotham, Jennie Attending Unavailable Robotham, Jennie Referring Unavailable Travis Donis Jr. Primary Care Unavailable Robotham, Jennie Consulting Unavailable Robotham, Jennie Attending Unavailable Robotham, Jennie Attending Unavailable Robotham, Jennie Referring Unavailable Travis Donis Jr. Primary Care Unavailable Rei Renteria Attending Unavailable Travis Donis Jr. Referring Unavailable Magdalena Quintanilla Attending Unavailable Diaz Nicholas Referring Unavailable Diaz Nicholas Primary Care Unavailable Magdalena Quintanilla Attending Unavailable Diaz Nicholas Primary Care Unavailable Corina Pedersen Attending Unavailable Rei Renteria Attending Unavailable Dexter, Rei Referring Unavailable Donis Jr., Travis Primary Care Unavailable Robotham, Jennie Attending Unavailable Robotham, Jennie Referring Unavailable Donis Jr., Travis Primary Care Unavailable Dexter, Rei Consulting Unavailable Dexter, Rei Attending Unavailable Donis Jr., Travis Referring Unavailable Dexter, Rei Attending Unavailable Dexter, Rei Referring Unavailable Donis Jr., Travis Primary Care Unavailable Donis Jr., Travis Primary Care Unavailable Ungur, Remus Attending Unavailable Nuvia, Corina Attending Unavailable Nicholas, Diaz Referring Unavailable Nicholas, Diaz Primary Care Unavailable [place], Corina Attending Unavailable Nicholas, Diaz Referring Unavailable Nicholas, Diaz Primary Care Unavailable [place], Corina Attending Unavailable Nicholas, Diaz Primary Care Unavailable Nuvia, Corina Referring Unavailable Wyles, Raza Attending Unavailable Nicholas, Diaz Referring Unavailable Nicholas, Diaz Primary Care Unavailable Tickton, Elisa Attending Unavailable Tickton, Elisa Referring Unavailable Nicholas, Diaz Primary Care Unavailable Tickton, Elisa Attending Unavailable Jolliff, Mala Primary Care Unavailable Nuvia, Corina Attending Unavailable Nicholas, Diaz Referring Unavailable Nuvia, Corina Attending Unavailable [place], Corina Referring Unavailable Donis Jr., Travis Primary Care Unavailable Robotham, Jennie Attending Unavailable Robotham, Jennie Referring Unavailable Donis Jr., Travis Primary Care Unavailable Robotham, Jennie Attending Unavailable Donis Jr., Travis Referring Unavailable PROBLEMS PROBLEMS DATE TYPE CONDITION / CODE ATTENDING STATUS SOURCE 09/02/2018 Unknown R10.9 - Unspecified Ungur, Remus Active [place] abdominal pain / Community R10.9(ICD-10) Hospital Repository 08/30/2018 Unknown R63.4 - Abnormal Dexter, Rei Active [place] weight loss / Community R63.4(ICD-10) Hospital Repository 08/30/2018 Unknown J90 - Pleural Dexter, Rei Active [place] effusion, not Community elsewhere classified Hospital / J90(ICD-10) Repository 08/30/2018 Unknown R59.1 - Generalized Dexter, Rei Active [place] enlarged lymph nodes Community / R59.1(ICD-10) Hospital Repository 08/18/2018 Unknown J92.0 - Pleural Dexter, Rei Active [place]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 Community of asbestos / Hospital J92.0(ICD-10) Repository 08/05/2018 Unknown K29.70 - Gastritis, Robotham, Active [place] unspecified, without Jennie Community bleeding / Hospital K29.70(ICD-10) Repository 07/20/2018 Unknown R59.9 - Enlarged [place], Corina Active [place] lymph nodes, Community unspecified / Hospital R59.9(ICD-10) Repository 07/06/2018 Unknown R30.0 - Dysuria / [place], Active [place] R30.0(ICD-10) [facility] Repository 04/29/2018 Unknown J32.9 - Chronic WyRaza gomez Active [place] sinusitis, Community unspecified / Hospital J32.9(ICD-10) Repository 04/22/2018 Unknown N76.0 - Acute [place], Corina Active [place] vaginitis / Community N76.0(ICD-10) Hospital Repository 09/29/2017 Unknown N89.8 - Other Marcanthony, Active [place] specified [facility] noninflammasurgical specialty center Hospital disorders of vagina / Repository N89.8(ICD-10) PROCEDURES PROCEDURES No Procedure Records FoundRESULTS RESULTS CK Collected: 09/10/2018 Status: F Source: [facility] 9:39 AM [facility] REPOSITORY TYPE CODE TESTS RESULT OUT OF RANGE REFERENCE UNITS LAB CK(LOINC) 26-192 U/L CPK 55 Performed By: #### CK #### [place] [address] 12 LEAD ELECTROCARDIOGRAM Observed: 09/06/2018 Status: F Source: [place] 9:21 AM [facility] REPOSITORY [facility] Cardiovascular Services [address] [place] [address] 12 Lead EKG 09/02/18 1243 MR#: [id number] Acct: [id number] Name: KAYCE CHAND Rep #: [id number] : 2000 18 From: Denton Gaitan MD [...] ECG Confirmed by BRIAN LO, DENTON ([id number]), editorial specialist SILVIA GALINDO ([id number]) on 09/06/2018 9:20:54 AM Referred By: GAEL Confirmed By:DENTON GAITAN MD 09/06/18 0920 Date Denton Gaitan MD CC: Travis Donis Jr., MD; Derek Dillon DO Signed DISCHARGE INSTRUCTION Observed: 09/02/2018 Status: F Source: [place] 4:30 PM [facility] REPOSITORY [facility] Medical Records Department [address] [place] [address] Discharge Instruction 09/02/18 1628 MR#: [id number] Acct: [id number] Name: KAYCE CHAND Rep #: [id number] : 2000 18 From: Derek iDllon DO PCP: Travis Donis Jr., MD Status: REG ER ED Disposition - Plan for ED Patient: Chief Complaint: Chest Other Instructions: ED Abdominal Pain Unkn Cause, ED Neck Back Pain General Prescriptions: Hydrocodone Bitart/Apap 5-325 [[place] 5MG-325MG] 1 tab PO Q4H PRN PRN 2 Days #10 tab PRN Reason: Pain Referrals: Travis Donis Jr., MD [Primary Care Provider] - Rei Renteria MD [STAFF PHYSICIAN] - 3-5 Days What to do if you have Problems For any increased pain, shortness of breath, bleeding, nausea or vomiting, chest pain, or any unexpected problems, contact your Primary Care Provider. Call [facility] ([phone]) or report to the closest Emergency Room. Call 911 if necessary. 09/02/18 1630 <Electronically signed by Derek Dillon DO> Date Derek Dillon DO Cosigner Signature (If Indicated): Date CC: Travis Donis Jr., MD EMERGENCY DEPARTMENT Observed: 09/02/2018 Status: F Source: [place] SUMMARY 4:28 PM [facility] REPOSITORY [facility] Medical Records Department [address] [place] [address] Emergency Department Summary 09/02/18 1621 MR#: [id number] Acct: [id number] Name: KAYCE CHAND Rep #: [id number] : 2000 18 From: Derek Dillon DO [...] were benign. Patient has been evaluated by [facility] and has had testing for gonorrhea and [...] [Patient will be given a prescription for [place] for pain and advised to follow-up with her physicians as an outpatient.] Disposition: [Discharged home in stable condition] Impression: [Abdominal pain-etiology uncertain Back pain] This note was generated with [employer] dictation software. It may contain incorrect words, [...] problems, contact your Primary Care Provider. Call [facility] ([phone]) or report to the closest Emergency Room. Call 911 if necessary. 09/02/18 9462 <Electronically signed by Derek Dillon DO> Date Remus Ungnatalee DO Isaiigner Signature (If Indicated): Date CC: Travis Donis Jr., MD URINALYSIS, COMPLETE Collected: 09/02/2018 Status: F Source: [place] 2:00 PM [facility] REPOSITORY Order Comment: Order Date: 09/02/18 How [...] URINE SEEN Performed By: #### L400.0001 #### [facility] [address] [place], [id number] URINE DRUG SCREEN Collected: 09/02/2018 Status: F Source: [place] (KAREN) 2:00 PM [facility] REPOSITORY TYPE CODE TESTS RESULT OUT OF [...] Normal NEGATIVE Performed By: #### L505.5000 #### [facility] [address] [place], [place], [address] COMPREHENSIVE METABOLIC Collected: 09/02/2018 Status: F Source: [facility] 1:05 PM [facility] REPOSITORY TYPE CODE TESTS RESULT OUT OF [...] 7 Performed By: #### L500.4050, L501.2450 #### [facility] [address] [place], [address] LIPASE Collected: 09/02/2018 Status: F Source: [place] 1:05 [facility] REPOSITORY TYPE CODE TESTS RESULT OUT OF RANGE REFERENCE UNITS LAB L501.2450 73-393 U/L Normal LIPASE 180 Performed By: #### L500.4050, L501.2450 #### [facility] [address] [place], [address] CBC W/DIFF, AUTOMATED Collected: 09/02/2018 Status: F Source: [place] 1:05 [facility] REPOSITORY TYPE CODE TESTS RESULT OUT [...] Lymph 2.29 Performed By: #### L100.0100 #### [facility] [address] [place] [address], [address] ,SERUM,HCG QUALI. Collected: Status: F Source: [place] 09/02/2018 1:05 PM [facility] REPOSITORY TYPE CODE TESTS RESULT OUT OF REFERENCE UNITS RANGE LAB L700.6700 =>Qualitative mIU/mL Normal HCG Qual < 1 triggr LAB L700.7000 0-9 Nonpreg Negative Normal HCGSQUAL NEGATIVE Performed By: #### L700.6800 #### [facility] [address] [facility]. [place], [place], [address] THYROID STIM HORMONE Collected: 09/02/2018 Status: F Source: [place] (TSH) 1:05 PM [facility] REPOSITORY TYPE CODE TESTS RESULT OUT OF RANGE REFERENCE UNITS LAB L501.9520 0.358-3.74 uIU/mL Normal TSH 1.06 Performed By: #### L501.9520 #### [facility] [address] [place], [address] ABDOMEN/PELVIS W IV CONT Observed: 09/02/2018 Status: F Source: [place] ONLY 12:54 PM [facility] REPOSITORY [facility] Imaging Services [address] [place] [address] Abdomen/Pelvis W IV Cont ONLY MR#: [id number] Acct: [id number] Name: KAYCE CHAND F Rep #: [id number] : 2000 F 18 From: Joseph Stephens MD PCP: Travis Donis Jr., MD Status: REG ER Study: Abdomen/Pelvis W IV Cont ONLY Date of Exam: 09/02/18 Exam# [id number] Ordering Dr: Derek Dillon DO STUDY: CT [...] Travis Donis Jr., MD; Derek Dillon DO [place] Ald[place]: Signed CHEST 1 VIEW Observed: 09/02/2018 Status: F Source: [place] (PORTABLE) 12:54 PM [facility] REPOSITORY [facility] Imaging Services [address] [place] [address] Chest 1 View (Portable) MR#: [id number] Acct: [id number] Name: KAYCE CHAND Jose Carlos Rep #: [id number] : 2000 F 18 From: Joseph Stephens MD PCP: Travis Donis Jr., MD Status: REG ER Study: Chest 1 View (Portable) Date of Exam: 09/02/18 Exam# [id number] Ordering Dr: Derek Dillon DO STUDY: X-RAY [...] Travis Donis Jr., MD; Derek Dillon DO [place]: Signed CHEST INSP/EXP 2 VIEW Observed: 08/30/2018 Status: F Source: [place] 10:46 AM [facility] REPOSITORY [facility] Imaging Services [address] [place] [address] Chest Insp/Exp 2 View MR#: [id number] Acct: [id number] Name: KAYCE CHAND Rep #: [id number] : 2000 F 18 From: Marshall Vázquez MD PCP: Travis Donis Jr., MD Status: REG CLI Study: Chest Insp/Exp 2 View Date of Exam: 08/30/18 Exam# [id number] Ordering Dr: Marshall Vázquez MD STUDY: X-RAY [...] examination of the chest. Electronically Signed: Marshall Vázquez MD at 15:07 EST Tel [phone], Service support , CC: Travis Donis Jr., MD; Marshall Vázquez MD [place]: Signed PROTEIN, BODY FLUID Collected: 08/30/2018 Status: F Source: [place] 10:18 AM [facility] REPOSITORY Order Comment: Specimen Source: [facility] TYPE CODE TESTS RESULT OUT OF RANGE REFERENCE UNITS LAB L503.0300 Not Establ. g/dL Normal 1.8 PROTEIN,BF Performed By: #### L503.0300, L504.0250 #### [facility] [address] [place], [place], [address] LDH,BODY FLUID Collected: 08/30/2018 Status: F Source: [place] 10:18 AM [facility] REPOSITORY Order Comment: Specimen Source: [place] TYPE CODE TESTS RESULT OUT OF RANGE REFERENCE UNITS LAB L504.0250 Not Establ. Units/l Normal LDH,BF 118 Performed By: #### L503.0300, L504.0250 #### [facility] [address] [place], [address] Observed: 08/30/2018 Status: F Source: [place] CULTURE, BODY FLUID 10:18 AM [facility] REPOSITORY CANCEL CYTOLOGY. QNS. PER TREVIN Winter @ DR. RENTERIA. List Antibiotics Last 48 Hours? UNK List Antibiotics to be Started? UNK Gram Stain Gram Stain No organisms seen Body Fluid Cult Culture exhibits no growth. Cult, Anaerobic No growth in 5 days. Performed By: #### M100.1300 #### [facility] [address] [place], [place], [address] CT GUIDANCE ABSCESS Observed: 08/30/2018 Status: F Source: [place] DRG W/CATH 9:05 AM [facility] REPOSITORY [facility] Imaging Services [address] [place] [address] CT Guidance Abscess Drg w/Cath MR#: [id number] Acct: [id number] Name: KAYCE CHAND Rep #: [id number] : 2000 F 18 From: Marshall Vázquez MD PCP: Travis Donis Jr., MD Status: REG CLI Study: CT Guidance Abscess Drg w/Cath Date of Exam: 08/30/18 Exam# [id number] Ordering Dr: Rei Renteria MD PROCEDURE: CT [...] Marshall Vázquez MD at 13:36 EST Tel [phone], Service support , CC: Travis Donis Jr., MD; Rei Renteria MD [place]: Signed FLUID/WASHING Observed: 08/30/2018 Status: F Source: [place] 12:00 AM [facility] REPOSITORY Patient: KAYCE CHAND : 2000 () Acct Num: [id number] Phys: Dexter LO,Rei Unit Num: [id number] Loc: CT Specimen: [id number] Received: 08/30/18 - 1419 Spec Type: Fluid TISSUES 1 TISSUES: Liver, NOS COMMENT The specimen primarily contains blood. Clinical correlation is suggested. CYTOLOGY GROSS Received is 20 ml of preston-colored fluid labeled with the patient's name and and designated per the requisition as right cystic mass above liver. Submitted for cytology preparation including cell block. / 08/30/18 TC:5 CPT: 59931, 38835 CYTOLOGY STUDY Slides are reviewed. DIAGNOSIS CYTOLOGY Right cystic mass above liver, fine needle aspiration (cytospin and cell block): Negative for malignant cells. See comment. AM:amadeo 08/31/18 HEADER OPERATION: CT-guided right cystic mass above liver PRE-OP DIAGNOSIS: Right cystic mass above liver TISSUE SUBMITTED: Right cystic mass above liver FNA Signed Hector Ivey, 08/31/18 <signature on file> Performed By: #### PFLU #### [facility] [address] [place], [address] PULMONARY VISIT REPORT Observed: 08/24/2018 Status: F Source: [place] 2:25 PM [facility] REPOSITORY [facility] [place] [address] [place] [address] OFFICE VISIT Date of Service: 08/24/18 MR#: [id number] Acct: [id number] Name: KAYCE CHAND Rep #: [id number] : 2000 Provider: Rei Renteria MD Age/Sex: 18/F Location: [facility] Status: Signed Assessment AND Plan Problems [...] Confirmed 08/24/18] MedroxyPROGESTERone [Depo-Provera] 150 mg IM .[id number] 07/29/18 [History Confirmed 08/24/18] [facility] Medical History Hemorrhoids (Acute) Constipation (Acute) Nausea [...] additional social history: Single- [employer] and [employer] at [employer] Review of Systems Const CONSTITUTIONAL: Positive weight [...] Rei Renteria MD> Date Rei Renteria MD [facility] Signature: Date (if applicable) CC: Travis Donis Jr., MD; Magdalena Quintanilla MD; Jennie Okeefe MD CHEST WITH CONTRAST Observed: 08/23/2018 Status: F Source: [place] 1:37 PM [facility] REPOSITORY [facility] Imaging Services [address] [place] [address] Chest WITH Contrast MR#: [id number] Acct: [id number] Name: KAYCE CHAND Rep #: [id number] : 2000 F 18 From: Nu Lorenzo MD PCP: Travis Donis Jr., MD Status: REG CLI Study: Chest WITH Contrast Date of Exam: 08/23/18 Exam# [id number] Ordering Dr: Jennie Okeefe MD STUDY: CT [...] Travis Donis Jr., MD; Jennie Okeefe MD [place]: Signed PULMONARY VISIT REPORT Observed: 08/18/2018 Status: F Source: [place] 11:54 AM [facility] REPOSITORY [facility] of [address] [place] [address] OFFICE VISIT Date of Service: 08/18/18 MR#: [id number] Acct: [id number] Name: KAYCE CHAND Rep #: [id number] : 2000 Provider: Rei Renteria MD Age/Sex: 18/F Location: [facility] Status: Signed Assessment AND Plan Problems 1. Pleural effusion J90 2. Unintentional weight loss of more than 10 pounds in 90 days R63.4 3. Lymphadenopathy R59.1 Plan Unclear etiology at this time. Did spend over 60 minutes in [id number] discussion discussing with the patient and her [...] Orders Orders: Medications Discontinued: metronidazole (Flagyl) Discontinued Lxnaul529 mg PO BID 14 tabs 0RF : [...] not at work. 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, [address] PARTIAL THROMBOPLAST Collected: 08/18/2018 Status: F Source: [place] TIME 11:36 AM [facility] REPOSITORY TYPE CODE TESTS RESULT OUT OF RANGE REFERENCE UNITS LAB L300.4310 24.1-36.2 Seconds Normal PTT 28.6 Performed By: #### L300.3900, L300.4310 #### [facility] [address] [place], [place], [address] COMPREHENSIVE METABOLIC Collected: 08/18/2018 Status: F Source: [place] PROFIL 11:36 AM [facility] REPOSITORY Order Comment: Serial Specimen #1, #2 [...] 10 Performed By: #### L500.4050, L504.2610 #### [facility] [address] [facility] [place], [address] LDH Collected: 08/18/2018 Status: F Source: [place] 11:36 AM [facility] REPOSITORY Order Comment: Serial Specimen #1, #2 or #3? 1 TYPE CODE TESTS RESULT OUT OF RANGE REFERENCE UNITS LAB L504.2610 84-246 U/L Normal LDH 145 Performed By: #### L500.4050, L504.2610 #### [facility] [address] [place], [address] ABDOMEN/PELVIS WITH Observed: 08/16/2018 Status: F Source: [place] CONTRAST 9:08 AM [facility] REPOSITORY [facility] Imaging Services [address] [place] [address] Abdomen/Pelvis WITH Contrast MR#: [id number] Acct: [id number] Name: KAYCE CHAND Rep #: [id number] : 2000 F 18 From: Marshall Vázquez MD PCP: Travis Donis Jr., MD Status: REG CLI Study: Abdomen/Pelvis WITH Contrast Date of Exam: 08/16/18 Exam# [id number] Ordering Dr: Jennie Okeefe MD STUDY: CT [...] Marshall Vázquez MD at 9:48 EST Tel [phone], Service support , CC: Travis Donis Jr., MD; Jennie Okeefe MD [place]: Signed OPERATIVE REPORT Observed: 08/04/2018 Status: F Source: [place] 9:43 AM [facility] REPOSITORY [facility] Medical Records Department [address] [place] [address] [place] [address] Operative Report 08/04/18 0934 MR#: [id number] Acct: [id number] Name: KAYCE CHAND Rep #: [id number] : 2000 18 From: Jennie Okeefe MD [...] NEEDLE BX/LYMPH Observed: 08/04/2018 Status: F Source: [place] 7:44 AM [facility] REPOSITORY [facility] Imaging Services [address] [place] [address] Ultra Needle BX/Lymph Node MR#: [id number] Acct: [id number] Name: JAGRUTIJERED PATELRA Branch Rep #: [id number] : 2000 F 18 From: Marshall Vázquez MD PCP: Travis Donis Jr., MD Status: REG CLI Study: Ultra Needle BX/Lymph Node Date of Exam: 08/04/18 Exam# [id number] Ordering Dr: Jennie Okeefe MD PROCEDURE: Ultrasound [...] Marshall Vázquez MD at 12:59 EST Tel [phone], Service support , CC: Travis Donis Jr., MD; Jennie Okeefe MD City Alderman: Signed ASP RADIOLOGY (FLUID) Observed: 08/04/2018 Status: F Source: [place] 12:00 AM [facility] REPOSITORY Patient: KAYCE CHAND : 2000 () Acct Num: [id number] Phys: Sary LO,Jennie Unit Num: [id number] Loc: US Specimen: [id number] Received: 08/04/18 - 1005 Spec Type: ASP OUT TISSUES 1 TISSUES: LYMPH NODE BIOPSY COMMENT The specimen is evaluated at the time of ultrasound-guided FNA by Dr. Stafford. Immediate Evaluation = Lymphocytes noted. Immunohistochemistry ([id number]) supports the above diagnosis. CYTOLOGY GROSS Received [...] for cytology study. KAELYN:amadeo 08/04/18 TC:5 CPT: 61231 CYTOLOGY STUDY Slides are reviewed. The specimen consists of mature small and large lymphocytes. DIAGNOSIS CYTOLOGY Left groin lymph node, ultrasound guided FNA (smears and cell block): Negative for involvement by malignancy, granuloma or lymphoma. Flow cytometry study from [facility] shows the low cell yield (590 events acquired ) hinders accurate interpretation; however, in the viable cell population the analysis reveals a mixed population of B and T lymphocytes with mostly T cells. No park T cell antigen deletion or B cell light chain restriction is detected. The complete report is viewable in patient's EMR. See cytology study and comment. SJ:amadeo 08/09/18 HEADER OPERATION: Ultrasound-guided lymph node biopsy PRE-OP DIAGNOSIS: Left groin lymph node TISSUE SUBMITTED: Left groin lymph node Signed Nas Stafford MD 08/09/18 <signature on file> Performed By: #### PASPIG #### [facility] [address] [place] [address]. [place], [address] IMMUNOHISTOCHEMISTRY Observed: 08/04/2018 Status: F Source: [place] 12:00 AM [facility] REPOSITORY Patient: KAYCE CHAND : 2000 () Acct Num: [id number] Phys: Sary LO,Jennie Unit Num: [id number] Loc: Specimen: [id number] Received: 08/05/18 - 1031 Spec Type: IMMUNO TISSUES 1 TISSUES: Inguinal lymph node, NOS SPECIMEN INFORMATION: Tissue Source: Left groin lymph node Clinical Info: Left groin lymph node Specimen Number: [id number] CPT code: 42998, 70457 x4 METHODOLOGY: Deparaffinized sections of prefer/formalin-fixed tissue [...] developed and their performance characteristics determined by [facility]. They may not have been cleared or approved by the U.S. Food and Drug Administration. The FDA has determined that such clearance or approval is not necessary. INTERPRETATION: Left groin lymph node, ultrasound-guided biopsy: Lymph node tissue, polytypic in nature, favor benign. SJ:amadeo 08/06/18 PHYSICIAN AND INSTITUTION [address] [address] Signed Nas Stafford MD 08/09/18 <signature on file> Performed By: #### PIMM #### [facility] [address] [place] [address]. [place], [address] OPERATIVE REPORT - Observed: 08/02/2018 Status: F Source: [place] ENDOSCOPY 10:46 AM [facility] REPOSITORY [facility] Medical Records Department [address] [place] [address] Operative Report - Endoscopy MR#: [id number] Acct: [id number] Name: KAYCE CHAND Rep #: [id number] : 2000 18 From: Jennie Okeefe MD PCP: Travis Donis Jr., MD Status: [facility] Patient Name: Kayce Chand Procedure Date: 08/02/2018 [...] screening purposes. Procedure Code(s): --- Professional --- 70256, Colonoscopy, flexible; diagnostic, including collection of specimen(s) by brushing or washing, when performed (separate procedure) Diagnosis Code(s): --- Professional --- R63.4, Abnormal weight loss CPT copyright 2017 [employer]. All rights reserved. The codes documented in this report are preliminary and upon party plan salesperson review may be revised to meet current compliance requirements. MD Jennie Ruffin MD 08/02/2018 10:45:48 AM This report has been signed electronically. Number of Addenda: 0 Note Initiated On: 08/02/2018 10:17 AM 08/02/18 1046 Date Jennie Okeefe MD Cosigner Signature: Date (if indicated) CC: Travis Donis Jr., MD; Jennie Okeefe MD Date Dictated: 08/02/18 1017 Date Transcribed: City Alderman: TR Signed OPERATIVE REPORT - Observed: 08/02/2018 Status: F Source: [place] [facility]OSCOPY 10:42 AM [facility] REPOSITORY [facility] Medical Records Department [address] [place] [address] Operative Report - Endoscopy MR#: [id number] Acct: [id number] Name: KAYCE CHAND Rep #: [id number] : 2000 18 From: Jennie Okeefe MD PCP: Travis Donis Jr., MD Status: [place] [facility] Patient Name: Kayce Chand Procedure Date: 08/02/2018 [...] present medications. Procedure Code(s): --- Professional --- 23372, Esophagogastroduodenoscopy, flexible, transoral; with biopsy, single or multiple Diagnosis Code(s): --- Professional --- K29.70, Gastritis, unspecified, without bleeding R63.4, Abnormal weight loss CPT copyright 2017 [employer]. All rights reserved. The codes documented in this report are preliminary and upon party plan salesperson review may be revised to meet current compliance requirements. MD Jennie Ruffin MD 08/02/2018 10:41:33 AM This report has been signed electronically. Number of Addenda: 0 Note Initiated On: 08/02/2018 10:01 AM 08/02/18 1041 Date Jennie Okeefe MD Cosigner Signature: Date (if indicated) CC: Travis Donis Jr., MD; Jennie Okeefe MD Date Dictated: 08/02/18 1001 Date Transcribed: City Alderman: MARLENE Signed EGD ([facility]) Observed: 08/02/2018 Status: F Source: [place] 10:15 AM [facility] REPOSITORY Patient: KAYCE CHAND : 2000 () Acct Num: [id number] Phys: Sray LO,Jennie Unit Num: [id number] Loc: EN Specimen: [id number] Received: 08/02/18 - 1323 Spec Type: EGD BIOPSY TISSUES 1 TISSUES: A. Duodenum, NOS B. Gastric mucous membrane COMMENT A. There is no evidence of celiac sprue. B. The results of immunohistochemistry for Helicobacter pylori will be reported separately ([id number]). GROSS DESCRIPTION A - Received in fixative [...] is totally submitted in one cassette. / AM: 08/02/18 TC:5 CPT: 57172 x2 HEADER OPERATION: Colonoscopy, [place] [place] PRE-OP DIAGNOSIS: Weight loss TISSUE SUBMITTED: A. Duodenal biopsy, rule out celiac and rule out sprue, B. Antral biopsy MICROSCOPIC DESCRIPTION Slides are reviewed. MICROSCOPIC DIAGNOSIS A. Duodenum, biopsy: No pathologic change. See comment. B. Gastric antrum, biopsy: Mild chronic inflammation. AM: 08/03/18 Signed Hector Ivey DO 08/03/18 <signature on file> Performed By: #### PEGD #### [facility] [address] [facility]. [place], [place], [address] ,URINE Collected: 08/02/2018 Status: F Source: [place] 9:10 AM [facility] REPOSITORY TYPE CODE TESTS RESULT OUT OF REFERENCE UNITS RANGE LAB L400.8000 Negative Normal HCGUQUAL Negative Result Comment: Very dilute urine specimens, as indicated by a low specific gravity, may not contain outreach representative levels of hCG. If is still suspected, a first morning urine specimen should be collected 48 hours later and tested. Performed By: #### L400.7600 #### [facility] [address] [facility] [place], [address] IMMUNOHISTOCHEMISTRY Observed: 08/02/2018 Status: F Source: [place] 12:00 AM [facility] REPOSITORY Patient: KAYCE CHAND : 2000 () Acct Num: [id number] Phys: Sary LO,[facility] Unit Num: [id number] Loc: EN Specimen: [id number] Received: 08/03/181332 Spec Type: IMMUNO TISSUES 1 TISSUES: B. Stomach, NOS SPECIMEN INFORMATION: Tissue Source: B - Antral biopsy Clinical Info: Weight loss Specimen Number: [id number] CPT code: 61939 METHODOLOGY: Deparaffinized sections of prefer/formalin-fixed tissue or [...] developed and their performance characteristics determined by [facility]. They may not have been cleared or approved by the U.S. Food and Drug Administration. The FDA has determined that such clearance or approval is not necessary. INTERPRETATION: A. Antral biopsy: Negative for Helicobacter pylori organisms. AM:amadeo 08/05/18 PHYSICIAN AND INSTITUTION [place] [address] Signed Hector Ivey, DO 08/05/18 <signature on file> Performed By: #### PIMM #### [facility] [address] [place] [address]. [place], [place], [id number] EXT NON VASC Observed: 07/26/2018 Status: F Source: [place] LIMITED/SOFT TISS 11:08 AM [facility] REPOSITORY [facility] Imaging Services [address] [place] [address] Ext Non Vasc Limited/Soft Tiss MR#: [id number] Acct: [id number] Name: KAYCE CHAND Rep #: [id number] : 2000 F 18 From: Raza Dick MD PCP: Travis Donis Jr., MD Status: REG CLI Study: Ext Non Vasc Limited/Soft Tiss Date of Exam: 07/26/18 Exam# [id number] Ordering Dr: Jennie Okeefe MD STUDY: SUPERFICIAL ULTRASOUND - BILATERAL INGUINAL REGIONS. REASON FOR EXAM: Female, 18 years old. Inguinal lymphadenopathy. TECHNIQUE: A superficial ultrasound was performed with real- time and static gyatan-scale imaging. COMPARISON: None. FINDINGS: There is a [...] Travis Donis Jr., MD; Jennie Okeefe MD City Alderman: Signed SURGERY VISIT REPORT Observed: 07/26/2018 Status: F Source: [place] 8:12 AM [facility] [address] [place] [address] [address] [place] [address] OFFICE VISIT Date of Service: 07/23/18 MR#: [id number] Acct: [id number] Name: KAYCE CHAND Rep #: [id number] : 2000 Provider: Jennie Okeefe MD Age/Sex: 18/F Location: [facility] Status: Signed Intake Vital Signs07/23/18 Body Mass Index (BMI) 19.3 07/23/18 Height 5 ft 2 in 07/23/18 Weight: 106 lb Intake Visit Reasons: Enlarged groin lymph nodes Chief Complaint: congestion Lead Shipper Required: No Is patient in pain?: No Allergies erythromycin base Adverse Reaction (Intermediate, Verified 07/23/18 11:10) stomach pain, vomiting Medications tizanidine 4 mg capsule 4 mg PO TID PRN 04/21/18 [History Confirmed 07/23/18] metronidazole 500 mg tablet 500 mg PO BID #14 tab 04/23/18 [Rx Confirmed 07/23/18] medroxyprogesterone 150 mg/mL intramuscular syringe 150 mg IM [id number] #1 ml 06/08/18 [Rx Confirmed 07/23/18] nystatin 100,000 unit/gram topical cream 1 applic TOPICAL BID PRN #15 g 07/20/18 [Rx Confirmed 07/23/18] triamcinolone acetonide 0.5 % topical cream 1 applic TOPICAL BID #15 g 07/20/18 [Rx Confirmed 07/23/18] [facility] Medical History Hemorrhoids (Acute) Constipation (Acute) Nausea [...] 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 HPI HPI: KAYCE CHAND, is a 18 [...] Const General: cooperative, comfortable, no acute distress HENLA Head: atraumatic GI Inspection: non-distended Palpation: soft, [...] clears, MiraLAX Dulcolax Jennie Okeefe M.D. Pager: [phone] [facility] [address] [place] [address] [address] [place] [address] Office: [phone] Plan Detail Follow Up We will schedule [...] Donis Jr., MD; Magdalena Quintanilla MD CT/NG [facility] BY PCR Collected: 07/20/2018 Status: F Source: [place] 6:41 PM [facility] REPOSITORY TYPE CODE TESTS RESULT OUT OF RANGE REFERENCE UNITS LAB L8200.2100 Negative Normal Chlam Negative Trac PCR LAB L8200.2200 Negative Normal NG by Negative PCR Performed By: #### L8200.1999 #### [facility] [address] [place] [address]. [place], [address] Observed: 07/20/2018 Status: F Source: [place] CULTURE, GENITAL 6:41 PM [facility] COMPREHENSIVE REPOSITORY Reason for Exam: vaginitis Gram Stain Score = 1 Interpretation: 0-3 Normal, 4-6 Intermediate, 7-10 Positive BV Gram Stain 4+ Gram positive rods Rare Gram negative rods No Gram negative diplococci No Yeast Like Organisms 1+ White Blood Cells Gent Cult Comp Normal vaginal stef isolated. No yeast, Gardnerella, Neisseria or beta-hemolytic Streptococcus isolated. Performed By: #### M100.1600 #### [facility] [address] [place], [address] Observed: 07/20/2018 Status: F Source: [place] CULTURE, URINE 6:41 PM [facility] REPOSITORY Urine Culture There are no CLSI standards for interpretation of this Drug/Organism combination. ORGANISM 1: Lactobacillus species [place] Count 50,000-80,000 Performed By: #### M100.0650 #### [facility] [address] [place], [address] CASINO SUPERVISOR OFFICE VISIT Observed: 07/20/2018 Status: F Source: [place] REPORT 2:48 PM [facility] REPOSITORY [facility] [address] [place] [address] OFFICE VISIT Date of Service: 07/20/18 MR#: [id number] Acct: [id number] Name: KAYCE CHAND Rep #: [id number] : 2000 Provider: TANNER Pedersen Age/Sex: 18/F [place] [facility] Status: Signed Intake Vital Signs07/20/18 Body Mass Index (BMI) 19.3 07/20/18 Height 5 ft 2 in 07/20/18 Weight: 106 lb 07/20/18 Body Mass Index (BMI) 19.3 07/20/18 Blood Pressure 118/80 Intake Visit Reasons: Issue with yeast infection/UTI/Swollen lymph Lead Shipper Required: No Accompanied by: Mother Is patient [...] 150 mg/mL intramuscular syringe 150 mg IM [id number] #1 ml 06/08/18 [Rx] nystatin 100,000 unit/gram [...] 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 Issue with yeast infection/UTI/Swollen lymph: Details: KAYCE [...] R59.9 07/20/18 1448 <Electronically signed by Corina NORIEGA> Date Corina DUNCANC Cosigner Signature: Date (if applicable) CC: CBC W/DIFF, AUTOMATED Collected: 07/20/2018 Status: F Source: [place] 2:32 PM [facility] REPOSITORY TYPE CODE TESTS RESULT OUT OF [...] Lymph 2.49 Performed By: #### L100.0100 #### [facility] [address] [place], [place], [address] URINALYSIS, ROUTINE Collected: 07/15/2018 Status: F Source: [place] (DIPSTICK) 11:32 AM [facility] REPOSITORY Order Comment: How was Urine Obtained? CINNAMON GRINDER TO SPECIFY TYPE CODE TESTS RESULT OUT [...] ESTERASE 100 Performed By: #### L400.2010 #### [facility] [address] [facility] [place] [address] Observed: 07/06/2018 Status: F Source: [place] CULTURE, GENITAL 11:20 AM [facility] COMPREHENSIVE REPOSITORY Gram Stain Score = 0 Interpretation: 0-3 Normal, 4-6 Intermediate, 7-10 Positive BV Gram Stain 4+ Gram positive rods No Gram negative diplococci No Yeast Like Organisms No White Blood Cells Gent Cult Comp Normal vaginal stef isolated. No yeast, Gardnerella, Neisseria or beta-hemolytic Streptococcus isolated. Performed By: #### M100.1599 #### [facility] [address] [facility]. [place], [place], [address] URGENT CARE VISIT Observed: 04/29/2018 Status: F Source: [place] REPORT 1:22 PM [facility] REPOSIT[facility] [address] [place] [address] [address] [place], [place] [address] OFFICE VISIT Date of Service: 04/29/18 MR#: [id number] Acct: [id number] Name: KAYCE CHAND Rep #: [id number] : 2000 Provider: Raza RUCKER Age/Sex: 18/F [place] [facility] Status: Signed Intake Vital Signs04/29/18 Height 5 ft 2 in 04/29/18 Weight: 106 lb 04/29/18 Body Mass Index (BMI) 19.3 04/29/18 Blood Pressure 108/74 Intake Visit Reasons: SORE THROAT, FEVER, COUGH Chief Complaint: congestion Lead Shipper Required: No Accompanied by: mother Is patient in pain?: No Allergies No Known Allergies Allergy (Verified 04/29/18 13:02) Medications medroxyprogesterone 150 mg/mL intramuscular syringe 150 mg IM [id number] 09/28/17 [History Confirmed 04/29/18] tizanidine 4 mg capsule 4 mg PO TID PRN 04/21/18 [History Confirmed 04/29/18] metronidazole 500 mg tablet 500 mg PO BID #14 tab 04/23/18 [Rx Confirmed 04/29/18] amoxicillin 500 mg capsule 1,000 mg PO BID 10 Days #40 cap 04/29/18 [Rx Confirmed 04/29/18] [facility] Medical History Anxiety and depression (Acute) Fatigue [...] 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 Patient and mom state acknowledging understanding all the above. This note was generated with [employer] dictation software. It may contain incorrect words, spelling, and punctuation that were not noted in checking the note before signing. Medications New: Coding Level of Care Code Off vis,new,level 3 Diagnoses Sinusitis J32.9 04/29/18 1322 <Electronically signed by Raza RUCKER> Date Raza RUCKER Cosigner Signature: Date (if applicable) CC: Observed: 04/21/2018 Status: F Source: [facility], GENITAL 6:37 PM [facility] COMPREHENSIVE REPOSITORY Reason for Exam: vulvovaginitis Gram [...] 0.5 S (NF) indicates non-formulary drug at [facility]. Approval by Infectious Disease Specialist required before non-formulary drugs may be ordered and/or dispensed. * CLSI guidelines does not recommend testing of cephalosporins. This interpretation is deduced from Beta-lactam/penicillin results. Performed By: #### M100.1600 #### [facility] [address] [place], [address] CASINO SUPERVISOR OFFICE VISIT Observed: 04/21/2018 Status: F Source: [place] REPORT 2:27 PM [facility] REPOSITORY [facility] [address] [place] [place] [address] OFFICE VISIT Date of Service: 04/21/18 MR#: [id number] Acct: [id number] Name: KAYCE CHAND Rep #: [id number] : 2000 Provider: TANNER Pedersen Age/Sex: 18/F [place] [facility] Status: Signed Intake Vital Signs04/21/18 Height 5 ft 2 in 04/21/18 Weight: 107 lb 6 oz 04/21/18 Body Mass Index (BMI) 19.6 04/21/18 Blood Pressure 101/71 Intake Visit Reasons: YEAST INFECTION? 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 YEAST INFECTION?: Details: KAYCE CHAND is a [...] FINAL SURGICAL Observed: 03/08/2018 Status: F Source: [facility] PATHOLOGY REPORT 11:58 AM [facility] REPOSITORY . Pathology Reports Accession: Collected Date/Time: Received Date/Time: Pathologist: [id number] 03/08/2018 11:58 EDT 03/09/2018 08:10 EDT MD [...] FOR H. PYLORI ORGANISMS IS NEGATIVE COMMENT: [facility]# [id number] CLINICAL INFORMATION: Procedure: EGD WITH GASTRIC [...] cm. TS -1 Dictated by Michelle RUCKER ([facility]) MICROSCOPIC DESCRIPTION: A&B) Slides reviewed. Electronically Signed by Pathology Report verified by [facility] Electronically signed by SOPHY GRACE MD Sign out Date: 03/10/2018 16:19 Performing Lab: [facility], [address] [place] [address] Performed By: #### SPFR #### [place] [address] XR SPINE CERVICAL 2 Observed: 03/02/2018 Status: F Source: [facility] OR 3 VIEWS 11:37 AM [facility] REPOSITORY ORIGINAL XR SPINE CERVICAL 2 OR [...] PM CMP Collected: 2018 Status: F Source: [facility] 11:29 AM [facility] REPOSITORY TYPE CODE TESTS RESULT OUT [...] 19 Performed By: #### CMP, GFR #### [address] [address] #### ENDO, CRP, GLIAD #### [address] [address] .GFR Collected: 2018 Status: F Source: [facility] 11:29 AM [facility] REPOSITORY TYPE CODE TESTS RESULT OUT OF REFERENCE UNITS RANGE LAB GFRAA(LOINC ml/min/1.73 ) sqm GFR >60 [place] Result Comment: GFR Population mean for , [...] meters Performed By: #### CMP, GFR #### [address] [address] #### ENDO, CRP, GLIAD #### [address] [address] ENDO Collected: 2018 Status: F Source: [facility] 11:29 AM [facility] REPOSITORY TYPE CODE [...] These test results were obtained with the [employer]án[employer] QUANTA Lite h-tTG IgA OSCAR. h-tTG IgA values obtained with different manufacturers' assay methods may not be used interchangeably. Performed By: #### CMP, GFR #### [address] [address] #### ENDO, CRP, GLIAD #### [place] [id number] CRP Collected: 2018 Status: F Source: [facility] 11:29 [facility] REPOSITORY TYPE CODE TESTS RESULT OUT OF REFERENCE UNITS RANGE LAB CRP(LOINC) <=0.80 mg/dL C-Reactive 0.11 Protein Performed By: #### CMP, GFR #### [address] [address] #### ENDO, CRP, GLIAD #### [address] [address] GLIAD Collected: 2018 Status: F Source: [facility] 11:29 [facility] REPOSITORY TYPE CODE TESTS RESULT [...] These test results were obtained with the [employer] QUANTA Lite Gliadin IgG II and Gliadin [...] interchangeably. Performed By: #### CMP, GFR #### [place] [address] [place], [place] [address] #### ENDO, CRP, GLIAD #### [place] [address] DOWNTIME REPORT Observed: 02/04/2018 Status: F Source: [place] 1:12 PM [facility] REPOSITORY [facility] Medical Records Department [address] [place] [address] Downtime Report MR#: [id number] Acct: [id number] Name: KAYCE CHAND Rep #: [id number] : 2000 17 From: Ronnie Nicholas PCP: Status: REG CLI This patient was seen during an EMR downtime January 18, 2018 - January 25, 2018. This patient may have a combination of paper and electronic documentation or all paper documentation. All documentation is viewable within the e-chart portion of [employer] for each patient visit. CT/NG [facility] BY PCR Collected: 01/20/2018 Status: F Source: [place] 12:48 PM [facility] REPOSITORY TYPE CODE TESTS RESULT OUT OF RANGE REFERENCE UNITS LAB L8200.2100 Negative Normal Chlam Negative Trac PCR LAB L8200.2200 Negative Normal NG by Negative PCR Performed By: #### L8200.2000 #### [facility] [address] [facility] [place], [address] Observed: 01/20/2018 Status: F Source: [place] CULTURE, URINE 12:48 PM [facility] REPOSITORY Urine Culture Culture exhibits no growth. Performed By: #### M100.0650 #### [facility] [address] [place], [place], [address] Observed: 01/20/2018 Status: F Source: [place] CULTURE, GENITAL 12:47 PM [facility] COMPREHENSIVE REPOSITORY Gram Stain Score = 8 Interpretation: 0-3 Normal, 4-6 Intermediate, 7-10 Positive BV Gram Stain 3+ Epithelial cells 2+ Clue Cells 4+ Gram variable teena No Gram negative diplococci Gent Cult Comp No yeast, Neisseria or beta-hemolytic Streptococcus isolated. ORGANISM 1: G. vaginalis (Presumptive) Amount Growth 2+ Performed By: #### M100.1600 #### [facility] [address] [place], [place], [address] CBC Collected: 12/28/2017 Status: F Source: [facility] 12:34 PM [facility] REPOSITORY TYPE CODE TESTS RESULT OUT [...] ADIFF, ANEU, GFR, TSH, FT4, CMP #### [address] [address] .AUTO DIFF Collected: 12/28/2017 Status: F Source: [facility] 12:34 PM [facility] REPOSITORY TYPE CODE TESTS RESULT OUT [...] ADIFF, ANEU, GFR, TSH, FT4, CMP #### [address] [address] .NEUABS Collected: 12/28/2017 Status: F Source: [facility] 12:34 PM [facility] REPOSITORY TYPE CODE TESTS RESULT OUT OF REFERENCE UNITS RANGE LAB ANEU(LOINC) 2.85-6.16 10 3/mcL Neutrophil, 4.90 Absolute Performed By: #### CBC, ADIFF, ANEU, GFR, TSH, FT4, CMP #### [address] [address] .GFR Collected: 12/28/2017 Status: F Source: [facility] 12:34 PM [facility] REPOSITORY TYPE CODE TESTS RESULT OUT OF REFERENCE UNITS RANGE LAB GFRAA(LOINC ml/min/1.73 ) sqm GFR 116 [place] Result Comment: GFR Population mean for , [...] ANEU, GFR, TSH, FT4, CMP #### Yvette [address] [address] TSH Collected: 12/28/2017 Status: F Source: [facility] 12:34 [facility] REPOSITORY TYPE CODE TESTS RESULT OUT OF RANGE REFERENCE UNITS LAB TSH(LOINC) 0.27-4.20 mcIU/mL TSH 1.28 Performed By: #### CBC, ADIFF, ANEU, GFR, TSH, FT4, CMP #### Yvette [address] [address] FT4 Collected: 12/28/2017 Status: F Source: [facility] 12:34 PM [facility] REPOSITORY TYPE CODE TESTS RESULT OUT OF RANGE REFERENCE UNITS LAB FT4(LOINC) 0.6-1.7 ng/mL Free T4 1.5 Performed By: #### CBC, ADIFF, ANEU, GFR, TSH, FT4, CMP #### [address] [address] CMP Collected: 12/28/2017 Status: F Source: [facility] 12:34 PM [facility] REPOSITORY TYPE CODE TESTS RESULT OUT [...] ADIFF, ANEU, GFR, TSH, FT4, CMP #### [address] [address] Observed: 09/28/2017 Status: F Source: [place] CULTURE, GENITAL 9:49 PM [facility] COMPREHENSIVE REPOSITORY NO COLLECTION INFORMATION GIVEN Gram Stain Score = 0 Interpretation: 0-3 Normal, 4-6 Intermediate, 7-10 Positive BV Gram Stain 4+ Gram positive rods 2+ White Blood Cells No Gram negative diplococci No Yeast Like Organisms Gent Cult Comp No yeast, Gardnerella, Neisseria or beta-hemolytic Streptococcus isolated. Performed By: #### M100.1600 #### [facility] [address] [place], [address] CASINO SUPERVISOR OFFICE VISIT Observed: 09/28/2017 Status: F Source: [place] REPORT 10:55 AM [facility] REPOSITORY [facility] [address] [place] [address] OFFICE VISIT Date of Service: 09/28/17 MR#: [id number] Acct: [id number] Name: KAYCE CHAND Rep #: [id number] : 2000 Provider: Magdalena Quintanilla MD Age/Sex: 17/F Location[facility] Status: Signed with Addenda ADDENDUM by Kallie Crowder on 09/28/17 at 1055 OFFICE PROCEDURES Office Procedure Documentation entered by Kallie Crowder 09/28/17 10:55: Office Meds Depo-Provera Performing Provider: Magdalena Quintanilla MD Administered by: Kallie Crowder on 09/28/17 10:54 Dose Route Admin Location Lot Number Expiration Date NDC Car Wiper 150 mg IM left gluteal [id number] 11/16/19 [address]-2 [facility] 09/28/17 1055 <Electronically signed by Kallie [...] 150 mg/mL intramuscular syringe 150 mg IM [id number] 09/28/17 [History Confirmed 09/28/17] Is last menstrual [...] at home: Yes additional social history: Single- [employer] in [place] HPI skin tag: Details: KAYCE CHAND is [...] Nutritional Appearance: average body habitus Orientation: alert HENLA Head: normal to inspection, normocephalic Neck Neck: [...] MD Cosigner Signature: Date (if applicable) CC: ALLERGIES ALLERGIES DATE TYPE / CODE NAME / CODE REACTION SEVERITY SOURCE 09/02/2018 Drug erythromycin stomach pain, [place] Allergy/416 base/[id number](RXN vomiting [facility] 341347([facility] ED CT) Repository 07/29/2018 Drug No Known Unknown [place] Allergy/416 Allergies/[id number] [place] [address]([facility]ository ENCOUNTERS ENCOUNTERS ADMIT/DISCHARGE ACCOUNT NUMBER ADMITTING ENCOUNTER LOCATION SOURCE CLASS 09/10/2018 [id number] Ambulatory BBuilding: [facility] Repository 09/02/2018/09/02/19 [id number] Emergency [address] ding:ED Repository 08/30/2018 [id number] Ambulatory [facility] ding:CT Repository 08/24/2018/08/24/19 [id number] Ambulatory BMSBuilding: [address] Repository 08/23/[id number] [facility] Hospital ding:CT Repository 08/18/[id number] [facility] Hospital ding:PAVLAB Repository 08/18/2018/08/18/19 [id number] Ambulatory BMSBuilding: [place] 19 BMS.[facility] Hospital Repository 08/16/[id number] [facility] Hospital ding:CT Repository 08/04/2018 [id number] Ambulatory BMSBuilding: [place] BMS.CF.Critical access hospital Hospital Repository 08/04/[id number] [facility] Hospital ding:US Repository 08/02/2018/08/02/20 [id number] Ambulatory [address] ding:ENRoom: [facility]ository [facility] 08/02/2018/08/02/20 [id number] Ambulatory BMSBuilding: [place] 18 BMS.CF.[facility] Repository 07/26/[id number] [facility] Hospital ding:US Repository 07/23/2018/07/23/20 [id number] Ambulatory BMSBuilding: [place] 18 BMS.[facility] Repository 07/20/[id number] [facility] Hospital ding:PAVLAB Repository 07/20/2018/07/20/20 [id number] Ambulatory BMSBuilding: [place] 18 BMS.[facility] Repository 07/15/[id number] [facility] Hospital ding:LABSPEC Repository 07/06/[id number] [facility] Hospital ding:LABSPEC Repository 04/29/2018/04/29/20 [id number] Ambulatory BMSBuilding: [place] 18 BMS.[facility] Repository 04/21/[id number] [facility] Hospital ding:LABSPEC Repository 04/21/2018/04/21/20 [id number] Ambulatory BMSBuilding: [place] 18 BMS.[facility] Repository 03/29/2018/06/09/20 [id number] Ambulatory BBuilding:PH [place] 18 [facility] Repository 03/08/2018/03/08/20 [id number] Ambulatory BBuilding:MS [place] 18 [facility] Repository 03/02/2018/03/02/20 [id number] Ambulatory YVETTE [address] ding:[facility] Foundation Repository 02/26/2018/02/27/20 [id number] Ambulatory [address] ding:OLAB [facility] Repository 01/20/2018 [id number] Ambulatory [facility] ding:LABSPEC Repository 01/20/2018/01/21/20 [id number] Ambulatory BMSBuilding: [place] 18 BMS.[facility] Repository 12/28/2017/12/29/19 [id number] Ambulatory [address] ding:[facility] Repository 09/28/2017 [id number] Ambulatory [facility] ding:LABSPEC Repository 09/28/2017/09/28/19 [id number] Ambulatory BMSBuilding: [place] 18 BMS.[facility] Repository PAYERS PAYERS ENCOUNTER GUARANTOR PAYER SUBSCRIBER SOURCE 09/10/2018 KAYCE Arredondo [facility]: Insurance:[facility]: [facility] [id number] [place] IN[employer]olic [id number] [facility] Number: [place], [place] [id number] [place], [place] [address]Nkm: 330) Date:2018-09-10 07592Yjq: 1221-68-49Qrdq [phone] ()Tel: ([phone]) Name:DENVER MAZARIEGOS () () [id number], [place] 000-0000 (WP) [address]PW: 09/02/2018 KAYCE Branch Primary [facility] [facility] Insurance:ANTHEMPolicHu Hu Kam Memorial HospitalB: [facility] Number: 1970 [id number] Repository [address]Uhw: (330) Date:0559-73-71FL [phone] () HALEY WARNER [address]VY: 09/02/2018 Secondary NOT GIVENUNK [place] Insurance:SELF PAY [facility] Number: Effective Repository Date:2018-09-02 08/30/2018 KAYCE F Primary NABIL M [place] [id number] N Insurance:ANTHEMPolicy HUEBNERDOB: [facility] Number: [id number], [place] [id number] Repository [address]Ewe: (330) Date:4982-07-00FM [phone] () HALEY WARNER [address]YH: 08/30/2018 Secondary NOT GIVENUNK [place] Insurance:SELF PAY [facility] Number: Effective Repository Date:2018-08-24 08/24/2018 KAYCE F Primary NABIL M [place] [id number] N Insurance:ANTHEMPolicy HUEBNERDOB: [facility] Number: [id number], [place] [id number] Repository [address]Oou: (330) Date:6368-01-88IB [phone] () HALEY WARNER [address]RD: 08/24/2018 Secondary NOT GIVENUNK [place] Insurance:SELF PAY [facility] Number: Effective Repository Date:2018-08-20 08/23/2018 KAYCE F Primary NABIL M [place] [id number] N Insurance:ANTHEMPolicy HUEBNERDOB: [facility] Number: [id number], [place] [id number] Repository [address]Lla: (330) Date:0138-47-57LN [phone] () 888619GMDHKMVHALEY ARIZA [address]TV: 08/23/2018 Secondary NOT GIVENUNK [place] Insurance:SELF PAY [facility] Number: Effective Repository Date:2018-08-16 08/18/2018 KAYCE Branch Primary NABIL M [place] [id number] Insurance:ANTHEMPolicy HUEBNERDOB: Community S[place] Number: [id number], [place] [id number] Repository [address]Mym: (330) Date:0308-86-34FE [phone] () 725784UDVTZLD [place] [address]RA: 08/18/2018 Secondary NOT GIVENUNK [place] Insurance:SELF PAY [facility] Number: Effective Repository Date:2018-08-18 08/18/2018 KAYCE Branch Primary NABIL [place] [id number] Insurance:ANTHEMPolicy HUEBNERDOB: [facility] Number: [id number], [place] [id number] Repository [address]Scn: (330) Date:2082-02-16CT [phone] () 969111UUVGPCY, [place] [address]JR: 08/18/2018 Secondary NOT GIVENUNK [place] Insurance:SELF PAY [facility] Number: Effective Repository Date:2018-08-18 08/16/2018 KAYCE F Primary NABIL M [place] [id number] Insurance:ANTHEMPolicy HUEBNERDOB: [facility] Number: [id number], [place] [id number] Repository [address]Sem: (330) Date:4819-98-60PI [phone] () 528[address]PHZZHUZ [place] [address]BN: 08/16/2018 Secondary NOT GIVENUNK [place] Insurance:SELF PAY [facility] Number: Effective Repository Date:2018-08-12 08/04/2018 KAYCE F Primary NABIL M [place] [id number] Insurance:ANTHEMPolicy HUEBNERDOB: [facility] Number: [id number], [place] [id number] Repository [address]Euu: (330) Date:0950-48-76GP [phone] () 890183KEWLGUSHALEY ARIZA [address]OA: 08/04/2018 Secondary NOT GIVENUNK [place] Insurance:SELF PAY [facility] Number: Effective Repository Date:2018-08-04 08/04/2018 KAYCE F Primary NABIL [place] [id number] Insurance:ANTHEMPolicy HUEBNERDOB: Community [place] Number: [id number], [place] [id number] Repository [address]Mex: (330) Date:9837-96-13PR [phone] () HALEY WARNER [address]HW: 08/04/2018 Secondary NOT GIVENUNK [place] Insurance:SELF PAY [facility] Number: Effective Repository Date:2018-07-30 08/02/2018 KAYCE F Primary NABIL M [place] [id number] Insurance:ANTHEMPolicy HUEBNERDOB: Community [place] Number: [id number], [place] [id number] Repository [address]Nhv: (330) Date:5650-70-26VX [phone] () 348170KTUGMNP, [place] [address]NR: 08/02/2018 Secondary NOT GIVENUNK [place] Insurance:SELF PAY [facility] Number: Effective Repository Date:2018-07-27 08/02/2018 KAYCE F Primary NABIL [place] [id number] Insurance:ANTHEMPolicy HUEBNERDOB: Community [place] Number: [id number], [place] [id number] Repository [address]Gpw: (330) Date:9794-80-93JO [phone] () HALEY WARNER [address]UW: 08/02/2018 Secondary NOT GIVENUNK [place] Insurance:SELF PAY [facility] Number: Effective Repository Date:2018-08-02 07/26/2018 KAYCE Primary NABIL [place] [id number] Insurance:ANTHEMPolicy HUEBNERDOB: Community [place] Number: [id number], [place] [id number] Repository [address]Svk: (330) Date:5383-74-41NF [phone] () 899844IIXSRLSHALEY ARIZA [address]PK: 07/26/2018 Secondary NOT GIVENUNK [place] Insurance:SELF PAY [facility] Number: Effective Repository Date:2018-07-23 07/23/2018 KAYCE Primary NABIL M [place] [id number] Insurance:ANTHEMPolicy HUEBNERDOB: [facility] Number: [id number], [place] [id number] Repository [address]Wpe: (330) Date:8520-55-11MP [phone] () 177492PAKELZPHALEY ARIZA [address]QE: 07/23/2018 Secondary NOT GIVENUNK [place] Insurance:SELF PAY [facility] Number: Effective Repository Date:2018-07-23 07/20/2018 KAYCE F Primary NABIL M [place] [id number] Insurance:ANTHEMPolicy HUEBNERDOB: [facility] Number: [id number], [place] [id number] Repository [address]Gen: (330) Date:5956-52-07FY [phone] () 956443FFJNZHKHALEY ARIZA [address]AQ: 07/20/2018 Secondary NOT GIVENUNK [place] Insurance:SELF PAY [facility] Number: Effective Repository Date:2018-07-20 07/20/2018 KAYCE F Primary NABIL M [place] [id number] N Insurance:ANTHEMPolicy HUEBNERDOB: [facility] Number: [id number], [place] [id number] Repository [address]Uei: (330) Date:3723-02-66LK [phone] () 870587SNMOCVZHALEY ARIZA [address]LK: 07/20/2018 Secondary NOT GIVENUNK [place] Insurance:SELF PAY [facility] Number: Effective Repository Date:2018-07-20 07/15/2018 KAYCE Branch Primary NABIL M [place] [id number] N Insurance:ANTHEMPolicy HUEBNERDOB: Community [place] Number: [id number], [place] [id number] Repository [address]Fop: (330) Date:8538-69-41YF [phone] () [id number] [place] [address]GS: 07/15/2018 Secondary NOT GIVENUNK [place] Insurance:SELF PAY [facility] Number: Effective Repository Date:2018-07-15 07/06/2018 KAYCE Branch Primary NABIL M [place] [id number] Insurance:ANTHEMPolicy HUEBNERDOB: Community [place] Number: [id number], [place] [id number] Repository [address]Udc: (330) Date:9663-09-87CE [phone] () 776351DIUBGYU, [place] [address]RJ: 07/06/2018 Secondary NOT GIVENUNK [place] Insurance:SELF PAY [facility] Number: Effective Repository Date:2018-07-06 04/29/2018 KAYCE Branch Primary NABIL M [place] [id number] Insurance:ANTHEMPolicy HUEBNERDOB: Community [place] Number: [id number], [place] [id number] Repository [address]Bug: (330) Date:8819-07-86PU [phone] () 044829UHGZRYP [place] [address]RL: 04/29/2018 Secondary NOT GIVENUNK [place] Insurance:SELF PAY [facility] Number: Effective Repository Date:2018-04-29 04/21/2018 KAYCE F Primary NABIL M [place] [id number] Insurance:ANTHEMPolicy HUEBNERDOB: Community [place] Number: [id number], [place] [id number] Repository [address]Jqs: (330) Date:8359-50-91EC [phone] (HP) 521191XGSTIQR, [place] [address]TF: 04/21/2018 Secondary NOT GIVENUNK [place] Insurance:SELF PAY [facility] Number: Effective Repository Date:2018-04-21 04/21/[address] [id number] Insurance:[facility] Center[facility]BNERDOB: [facility] Number: [id number] Hospital ALEXANDERADEOLA in [id number] Repository [address]Ypl: (330) Date:5977-68-93CI [phone] (HP) 769970WBVCTXF, [place] [address]JL: 04/21/2018 Secondary NOT GIVENUNK [place] Insurance:SELF PAY [facility] Number: Effective Repository Date:2018-04-21 03/29/2018 [facility] Primary [facility]: Insurance:ANTHDEIDRA BLUE HUEBNERDOB: [facility] [id number] Repository SON Number: PAULINE BILLS [id number] [place], [place] [address]Sei: (330) Date:2018-03-22 65[address]Fqt: 4357-24-74Ydcs [phone] (HP)Tel: (330) Name:Remberto MAZARIEGOS () () [id number] Ariza 000-0000 () [address]MS: 03/08/2018 KAYCE Primary [facility] Hospital[facility]BNERDOB: Insurance:ANTHEM NATALY HUEBNERDOB: [facility] [place] COMMERCIALPolmercy[facility] [id number] Repository SON Number: PAULINE BILLS [id number] [place] [address]Ktt: (330) Date:2018 345[address]Oek: 8912-25-42Qcev [phone] (HP)Tel: (330) Name:BPO BOX (HP) (WP) [id number], [place] 000[address] (WP) [address]NO: 03/02/2018 [facility] Insurance:ANTHEM BLUE [facility]ALESTERNERDOB: [facility] [id number] Repository SON Number: [place] [id number] [place], [place] [address]Drl: (330) Date:2018-03-02 [address]Xok: 3025-99-95Bbbd [phone] (HP)Tel: (330) Name:BPO BOX (HP) (WP) [id number], [place] 000[address]0000 (WP) [address]ZV: 2018 [facility]B: Insurance:[facility] BLUE [facility]: [facility] [id number] [facility] Number: [facility] [place] [id number] [place], [place] [address]Lvu: (330) Date:2018 [address]Kbw: 1821-20-17Qmrs [id number] (HP)Tel: (330) Name:BPO BOX (HP) (WP) [id number], [place] 000-0000 (WP) [address]CJ: 01/20/2018 [place] [address] Insurance:ANTHEMPolicy [facility]ALESTERNERDOB: [facility] Number: [id number] [facility] [place] in [id number] Repository [address]Yoy: (330) Date:4078-96-24JR [phone] (HP) [id number], [place] [address]HM: 01/20/2018 Secondary NOT GIVENUNK [place] Insurance:SELF PAY [facility] Number: Effective Repository Date:2018-01-20 01/20/2018 KAYCE Branch Primary NABIL M [place] [id number] Insurance:ANTHEMPolicy HUEBNERDOB: Community [place] Number: [id number], [place] [id number] Repository [address]Tjs: (330) Date:8464-63-72HF [phone] () [address] [place] [address]ZT: 01/20/2018 Secondary NOT GIVENUNK [place] Insurance:SELF PAY [facility] Number: Effective Repository Date:2018-01-29 12/28/2017 KAYCE Branch Primary NABIL M [facility]: Insurance:ANTHEM BLUE HUEBNERDOB: [facility] [id number] Repository SON Number: [place] [id number] [place], [place] [address]Rkb: 330) Date:2017-12-28 34279Tne: 0437-63-21Plon [phone] ()Tel: [phone]) Name:[facility] YAIR () () [address] [place] [address] [place] 000[address] () [address]QQ: 09/28/2017 KAYCE Branch Primary NABIL M [place] [id number] Insurance:ANTHEMPolicy HUEBNERDOB: [facility] Number: [id number], [place] [id number] Repository [address]Uad: 330) Date:8407-83-82SK [phone] () [address] [place] [address] 399[address]QR: 09/28/2017 Secondary NOT GIVENUNK [place] Insurance:SELF PAY [facility] Number: Effective Repository Date:2017-09-28 09/28/2017 KAYCE Branch Primary NABIL [place] [id number] Insurance:ANTHEMPolicjennifer MCCOYB: [facility] Number: [id number], [place] [id number] Repository [address]Mgn: (330) Date:3258-78-86EL [phone] () 934354TOLJRIV, [place] [address]PF: 09/28/2017 Secondary NOT GIVENIRMA [place] Insurance:SELF PAY [facility] Number: Effective Repository Date:2017-09-28
== END ==
PROVIDERS: Family Provider Internal Medicine; PCP Internal Medicine; Referring Provider Surgery; Visit Provider Surgery
DX: R59.0 Localized enlarged lymph nodes (principal)
CPT/HCPCS: 49180; 76942; 88161; 88172; 88305; 88313; 88341; 88342

== ENCOUNTER → 2018-08-16 09:05 | Outpatient (CLI) | payer BC, SELFPAY ==
[2018-08-12 12:44] VITALS: BMI 19.3
--- NOTE | 2018-08-16 09:07 | CT_ITS ---
STUDY: CT ABDOMEN AND PELVIS WITH CONTRAST REASON FOR EXAM: Female, 18 years old. 40 pound weight loss. RADIATION DOSAGE (If Supplied By Facility): CTDIvol = ( 9.39 ) mGy, DLP = ( 254.99 ) mGycm TECHNIQUE: Transaxial images were obtained from the dome of the diaphragm to the symphysis pubis with oral contrast. 100 ml of Isovue 300 contrast was administered. Sagittal and coronal images were reconstructed. Individualized dose optimization techniques were used for this CT. COMPARISON: None. FINDINGS: The visualized lung bases are unremarkable. The visualized portions of the heart are within normal limits. Normal liver. Small amount of the perihepatic fluid. Normal gallbladder and extrahepatic biliary system. Normal spleen. Normal pancreas. Normal bilateral adrenal glands. Normal right kidney. Mild dilatation of the left renal pelvis. There is malrotation of the left kidney. Normal visualized stomach. Normal small intestine. Normal colon. The appendix is visualized and appears normal. Normal abdominal aorta. Normal inferior vena cava. Normal retroperitoneum. Normal urinary bladder. Small follicles are seen in both ovaries. Normal abdominal wall. Small benign-appearing bilateral inguinal lymph nodes. Normal osseous structures. CT/Abdomen/Pelvis WITH Contrast IMPRESSION: Small amount of perihepatic fluid. Electronically Signed: Marshall Vázquez MD at 9:48 EST Tel [phone], Service support ,
== END ==
PROVIDERS: Family Provider Internal Medicine; PCP Internal Medicine; Referring Provider Surgery; Visit Provider Surgery
DX: R59.0 Localized enlarged lymph nodes (principal); R63.4 Abnormal weight loss
CPT/HCPCS: 74177; Q9967

== ENCOUNTER → 2018-08-18 11:30 | Outpatient (CLI) | payer BC, SELFPAY ==
[2018-08-18 10:00] VITALS: BMI 19.2
[2018-08-18 11:56] LABS: International Normalized Ratio 1.2; Prothrombin Time (Protime)PT. 14.8 SECONDS (11.7-14.9)
[2018-08-18 11:57] LABS: Partial Thromboplast Time 28.6 Seconds (24.1-36.2)
[2018-08-18 12:10] LABS: ALB/GLOB Ratio 1.5 RATIO (0.9-2.4); AST(SGOT) 13 U/L (15-37); Alanine Aminotransfer ALT/SGPT 27 U/L (13-56); Albumin, Serum 4.5 g/dL (3.2-5.0); Alkaline Phosphatase 57 U/L (45-117); Anion Gap 10 (5-15); BUN 17 mg/dL (7-18); BUN/Creat Ratio 19.8 RATIO (10-20); Calcium,Total 9.1 mg/dL (8.5-10.1); Chloride 110 mmol/L (98-107); Creatinine, Serum 0.86 mg/dL (0.55-1.02); EST Glomerular Filtration Rate 89 mL/min (>60); Est Glom Filt Rate - Afr Amer 108 mL/min (>60); Globulin 3.1 g/dL (2.2-4.2); Glucose 96 mg/dL (74-106); LDH 145 U/L (84-246); Potassium 4.1 mmol/L (3.5-5.1); Protein, Total 7.6 g/dL (6.4-8.2); Sodium Level 140 mmol/L (136-145)
== END ==
PROVIDERS: Family Provider Internal Medicine; PCP Internal Medicine; Referring Provider Internal Medicine Critical Care Medicine; Visit Provider Internal Medicine Critical Care Medicine
DX: R59.1 Generalized enlarged lymph nodes (principal); R63.4 Abnormal weight loss; J90 Pleural effusion, not elsewhere classified
CPT/HCPCS: 36415; 80053; 83615; 85610; 85730

== ENCOUNTER → 2018-08-23 13:35 | Outpatient (CLI) | payer BC, SELFPAY ==
[2018-08-12 12:44] VITALS: BMI 19.3
[2018-08-18 10:00] VITALS: BMI 19.2
--- NOTE | 2018-08-23 13:37 | CT_ITS ---
STUDY: CT CHEST WITH CONTRAST REASON FOR EXAM: Female, 18 years old. 40 pound weight loss. Pleural effusion RADIATION DOSAGE (If Supplied By Facility): CTDIvol = ( 12.20 ) mGy, DLP = ( 155.87 ) mGycm TECHNIQUE: Transaxial imaging was performed following intravenous administration of 100 ml of Isovue 300 contrast material. Multiplanar coronal and sagittal images were reformatted. Individualized dose optimization techniques were used for this CT. COMPARISON: August 16, 2018 CT scan abdomen and pelvis FINDINGS: There is a vague focus of density within the right middle lobe that measures 2.6 mm. Anterior to the left hepatic lobe there is a well-circumscribed ovoid cystic structure measuring 7.7 x 2.1 x 1.7. This appears to be directly anterior to the liver best seen on the sagittal view. It is somewhat difficult to visualize the diaphragm on the right side indicating this space. The Hounsfield units are in the range of low density simple fluid. Normal heart and pericardium. Normal mediastinum. Normal hilar regions. Normal enhanced pulmonary arteries. Normal aorta arch and descending thoracic aorta. Normal osseous structures. There is minimal effacement of the liver dated the large cystic mass. CT/Chest WITH Contrast IMPRESSION: There is a cystic mass measuring 7.7 x 2.1 x 1.7 cm anterior to the liver bordering the right side of the heart. The differential includes pericardial cyst, bronchogenic cyst, lymphangioma. Recommend follow-up MRI of the chest which may be helpful for diagnosis. No evidence of acute focal infiltrate. Vague focal nonspecific 2 to 3 mm density in the right middle lobe. Electronically Signed: Nu Lorenzo MD at 16:59 EST Tel , Service support ,
== END ==
PROVIDERS: Family Provider Internal Medicine; PCP Internal Medicine; Referring Provider Surgery; Visit Provider Surgery
DX: J90 Pleural effusion, not elsewhere classified (principal); R63.4 Abnormal weight loss
CPT/HCPCS: 71260; Q9967

== ENCOUNTER → 2018-08-30 08:57 | Outpatient (CLI) | payer BC, SELFPAY ==
[2018-08-24 12:48] VITALS: BMI 19.3
[2018-08-30] VITALS (10 sets, daily range): BP systolic 100–135; BP diastolic 50–89; PULSE 67–120; RESP 12–17; TEMP 37.2; O2SAT 95–100; BMI 19.2
--- NOTE | 2018-08-30 | FLU_PTH ---
PATIENT: EZE HERNADEZ LOC: CT U#:[id number] AGE/SX: 25/F ROOM: RE08/30/[address]: Dr. Rei Renteria MD : 2000 BED: DIS: SPEC #: [id number] RECD: 08/30/18 14:19 STATUS: KATIE LISA #: [id number] BRAULIO: 08/30/18 00:[address]: Rei Renteria DEPT: CYTOLOGY RECD BY: Talat Rutherford ENTERED: 08/30/18 14:19 SP TYPE: Fluid OTHR DR: Dr. Jarek Calles Jr., MD Tissues: Liver, NOS Procedures: Pap Stain (control) Special Stain Group II Surgery Specimen Level IV Cell Block Cytospin Fluid HEADER OPERATION: CT-guided right cystic mass above liver PRE-OP DIAGNOSIS: Right cystic mass above liver TISSUE SUBMITTED: Right cystic mass above liver FNA DIAGNOSIS CYTOLOGY Right cystic mass above liver, fine needle aspiration (cytospin and cell block): Negative for malignant cells. See comment. AM:rg 08/31/18 COMMENT The specimen primarily contains blood. Clinical correlation is suggested. CYTOLOGY STUDY Slides are reviewed. CYTOLOGY GROSS Received is 20 ml of preston-colored fluid labeled with the patient's name and and designated per the requisition as right cystic mass above liver. Submitted for cytology preparation including cell block. / 08/30/18 TC:5 CPT: 64809, 81383
--- NOTE | 2018-08-30 09:05 | CT_ITS ---
PROCEDURE: CT GUIDED CORE NEEDLE BIOPSY OF A small fluid collection in the right paracardiac region and anterior right lower lobe. INDICATION: Female, 18 years old. Unexplained weight loss. PHYSICIAN: Dr. Vázquez. CONSENT: Written informed consent was obtained having explained the risks, benefits and alternatives in detail with the patient who accepted the risks and agreed to proceed. Laboratory review and clinical assessment was performed. CONSCIOUS SEDATION PROTOCOL: The Drugs used were: 2 mg Versed, IV., and 50 mcg Fentanyl, IV. The sedation time was: 19 minutes. Conscious sedation was started at 10:04 AM and terminated at 10:23 AM. The conscious sedation protocol was independently monitored. RADIATION DOSAGE (If Supplied By Facility): CTDIvol = ( 25 ) mGy, DLP = ( 595.16 ) mGycm Individualized dose optimization techniques were used for this CT. TECHNIQUE: The patient was placed in the supine position. A noncontrast CT was performed to localize the lesion in the right paracardiac and lower lobe . The skin surface was prepped and draped in a sterile fashion. 1% lidocaine was used for local anesthesia. Using CT guidance, a 20-gauge coaxial biopsy device was advanced to the periphery of the lesion. A total of 2 core specimens were obtained. 6 cc of preston-colored fluid was removed. The specimens were placed in a formalin solution. A post procedure CT demonstrated no adverse sequelae or pneumothorax. The patient tolerated the procedure well without adverse event. A negative biopsy does not exclude malignancy. Further imaging or clinical followup based on patient condition and degree of clinical suspicion for malignancy. Suggest rebiopsy, if biopsy results do not match with clinical scenario. CT/CT Guidance Abscess Drg w/Cath IMPRESSION: 1. CT directed core needle biopsy of the right paramediastinal fluid collection using CT image guidance with image documentation as described. Pathology results are pending. 2. Conscious Sedation protocol utilized with independent monitoring. Electronically Signed: Marshall Vázquez MD at 13:36 EST Tel [phone], Service support ,
[2018-08-30] MEDS: Midazolam 2 MG/2 ML Syringe IV ×2 (10:04→11:37)
[2018-08-30] MEDS: fentaNYL 100 MCG/2 ML Ampul IV ×2 (10:04→11:37)
--- NOTE | 2018-08-30 10:40 | NURSING ---
PT VERY TEARFUL. C/O PAIN IN RT CHEST/SHOULDER 04/26. PT REFUSED FOOD/DRINK/ICE PACK. LYING SUPINE WITH BLANKETS ON AND CALL LIGHT ON BED RAIL. MOTHER AND FAMILY AT BEDSIDE. NURSE CONTINUES TO MONITOR PAIN AND VS AT BEDSIDE.
--- NOTE | 2018-08-30 10:48 | RAD_ITS ---
STUDY: X-RAY CHEST REASON FOR EXAM: Female, 18 years old. Status post percutaneous drainage of a right lower thorax fluid collection. TECHNIQUE: AP inspiration and expiration views. COMPARISON: None. FINDINGS: EKG electrodes are seen. The lungs are clear and expanded. There is no demonstrated pleural abnormality. Normal size heart. Normal mediastinum and marisol. Normal visualized pulmonary arteries. Normal visualized aortic arch and descending thoracic aorta. Normal visualized thoracic spine. Normal visualized ribs, clavicles, and shoulders. There is no demonstrated abnormality of the visualized soft tissue structures of the upper abdomen. RAD/Chest Insp/Exp 2 View IMPRESSION: Normal x-ray examination of the chest. Electronically Signed: Marshall Vázquez MD at 15:07 EST Tel [phone], Service support ,
[2018-08-30 11:42] LABS: LDH,Body Fluid 118 Units/l (Not Establ.); Protein, Body Fluid 1.8 g/dL (Not Establ.)
== END ==
PROVIDERS: Family Provider Internal Medicine; PCP Internal Medicine; Referring Provider Internal Medicine Critical Care Medicine; Visit Provider Internal Medicine Critical Care Medicine
DX: J90 Pleural effusion, not elsewhere classified (principal); Q44.6 Cystic disease of liver; R59.1 Generalized enlarged lymph nodes; R63.4 Abnormal weight loss
CPT/HCPCS: 47000; 77012; 71046; 75989; 83615; 84157; 87070; 87075; 87205; 88108; 88305; 88307; 88313; 99156; 99157; J7040; A4216

== ENCOUNTER 2018-09-02 12:12 | Emergency (ER) | payer BC, SELFPAY ==
[2018-08-30 09:19] VITALS: BMI 19.2
[2018-09-02 12:14] VITALS: BP 104/72; PULSE 118; RESP 18; TEMP 37; O2SAT 98; BMI 19.5
[2018-09-02 12:33] VITALS: BP 106/73; PULSE 86; RESP 13; O2SAT 99
--- NOTE | 2018-09-02 12:52 | CT_ITS ---
STUDY: CT ABDOMEN AND PELVIS WITH CONTRAST REASON FOR EXAM: Female, 18 years old. Right side abdominal pain. RADIATION DOSAGE (If Supplied By Facility): CTDIvol = ( 6.45 ) mGy, DLP = ( 285.56 ) mGycm TECHNIQUE: Transaxial images were obtained from the dome of the diaphragm to the symphysis pubis without oral contrast. 100 ml of Isovue 300 contrast was administered. Sagittal and coronal images were reconstructed. Individualized dose optimization techniques were used for this CT. COMPARISON: CT abdomen and pelvis August 16, 2018. FINDINGS: The visualized lung bases are unremarkable. Small anterior right pleural/paracardial fluid collection is decreased in size following CT-guided core biopsy/partial drainage August 30, 2018. The visualized portions of the heart are within normal limits. Normal liver. The patent portal vein diameter is 16 mm. Normal gallbladder and extrahepatic biliary system. The diameter of the bile duct in the head of the pancreas is 4 mm. Normal spleen. Normal size and contour of the pancreas. There is 3-4 mm ectasia of the central pancreatic duct. Normal bilateral adrenal glands. Normal right kidney. The left kidney is mildly rotated on its longitudinal axis, the mildly distended/extrarenal pelvis projecting anteriorly. No hydronephrosis. Normal visualized stomach. Normal small intestine. Normal colon. The appendix is visualized and appears normal. Normal abdominal aorta. Normal inferior vena cava. Normal retroperitoneum. Normal urinary bladder. Normal visualized uterus. Heterogeneous densities in the bilateral adnexa consistent with normal follicular cysts. Normal abdominal wall. Incidental notice of a limbus vertebra at the anterior superior margin of L4, an anatomic variant. There is spina bifida occulta at S1. CT/Abdomen/Pelvis W IV Cont ONLY IMPRESSION: 1. Decreased size of small anterior right pleural/paracardial fluid collection since August 16, 2018. 2. No new demonstrated abdominal/pelvic mass or fluid collection. Electronically Signed: Dustin Stephens MD at 14:39 EST , Service support ,
--- NOTE | 2018-09-02 12:52 | EKG12_ITS ---
Test Reason : CP Blood Pressure : / mmHG Vent. Rate : 073 BPM Atrial Rate : 073 BPM P-R Int : 122 ms QRS Dur : 080 ms QT Int : 386 ms P-R-T Axes : 059 093 065 degrees QTc Int : 425 ms Normal sinus rhythm with sinus arrhythmia Rightward axis Borderline ECG Confirmed by BRIAN LO, JANINA ([id number]), assistant editor SILVIA GALINDO ([id number]) on 09/06/2018 9:20:54 AM Referred By: LINCOLN/NENA Confirmed By:JANINA TORRES MD
--- NOTE | 2018-09-02 12:52 | RAD_ITS ---
STUDY: X-RAY CHEST REASON FOR EXAM: Female, 18 years old. Chest pain. TECHNIQUE: Single AP portable view of the chest. COMPARISON: Portable AP upright inspiratory and expiratory views of the chest postbiopsy August 30, 2018. FINDINGS: The lungs are clear and expanded. There is no demonstrated pleural abnormality. Normal size heart. Normal mediastinum and marisol. Normal visualized pulmonary arteries. Normal visualized aortic arch and descending thoracic aorta. There is a stable slight scoliosis of the upper to midthoracic spine. Normal visualized ribs, clavicles, and shoulders. There is no demonstrated abnormality of the visualized soft tissue structures of the upper abdomen. RAD/Chest 1 View (Portable) IMPRESSION: No acute cardiopulmonary disease. Electronically Signed: Dustin Stephens MD at 14:40 EST , Service support ,
[2018-09-02] MEDS: 0.9% Normal Saline 1,000 ML 150 ML IV (13:09)
[2018-09-02] MEDS: Ondansetron 4 MG/2 ML Vial IV (13:09)
[2018-09-02] MEDS: HYDROmorphone 1 MG/ML Syringe IV ×2 (13:09→14:30)
[2018-09-02 13:13] VITALS: BP 113/69; PULSE 92; RESP 11; O2SAT 99
[2018-09-02 13:30] LABS: ALB/GLOB Ratio 1.5 RATIO (0.9-2.4); AST(SGOT) 13 U/L (15-37); Alanine Aminotransfer ALT/SGPT 28 U/L (13-56); Albumin, Serum 4.4 g/dL (3.2-5.0); Alkaline Phosphatase 53 U/L (45-117); Anion Gap 7 (5-15); BUN 16 mg/dL (7-18); BUN/Creat Ratio 19.2 RATIO (10-20); Calcium,Total 9.2 mg/dL (8.5-10.1); Chloride 112 mmol/L (98-107); Creatinine, Serum 0.83 mg/dL (0.55-1.02); EST Glomerular Filtration Rate 92 mL/min (>60); Est Glom Filt Rate - Afr Amer 112 mL/min (>60); Estimated Creatinine Clearance 82.84 ml/min; Glucose 76 mg/dL (74-106); Lipase 180 U/L (73-393); Potassium 3.9 mmol/L (3.5-5.1); Protein, Total 7.4 g/dL (6.4-8.2); Sodium Level 142 mmol/L (136-145)
[2018-09-02 13:38] LABS: Absolute Lymphocyte Count 2.29 X10^3/ul (0.83-4.51); Absolute Neutrophil Count 2.9 X10^3/uL (2.0-7.7); Basophil# 0.02 X10^3/uL; Basophil% 0.3 % (0-1); Eosinophil# 0.13 X10^3/uL; Eosinophils% 2.2 % (0-5); Hematocrit 46.3 % (37-47); Hemoglobin 14.9 g/dl (12.0-15.0); Lymphocyte # 2.29 X10^3/ul (4.0); Lymphocyte % 39.6 % (19-41); Mean Corp Hgb Conc 32.2 g/gl (32-36); Mean Corpuscular Hgb 29.4 pg (27.0-32.0); Mean Corpuscular Volume 91.3 fL (81-99); Mean Platelet Vol. 9.5 fl (6.2-12.0); Monocyte# 0.49 X10^3/uL; Monocyte% 8.5 % (0-10); Neutrophil # 2.85 X10^3/uL (2.7-7.7); Neutrophil % 49.4 % (47-70); Platelet Count 202 K/mm3 (150-450); RBC Distribution Width CV 13.6 % (11.6-14.6); RBC Distribution Width SD 44.7 fl (35.1-43.9); Red Blood Count 5.07 M/mm3 (4.2-5.4); White Blood Count 5.8 K/mm3 (4.4-11.0)
[2018-09-02 13:40] LABS: POSITIVE COUNT NO; POSITIVE DIFFERENTIAL NO; POSITIVE MORPHOLOGY NO
[2018-09-02 13:50] LABS: Pregnancy, Serum, hCG Quali. NEGATIVE Negative (0-9 Nonpreg)
[2018-09-02 14:11] LABS: Bacteria 0 SEEN /hpf (None Seen); Mucous, Urine 0 SEEN /hpf (<or=2+); Squamous Epithelial Cells - UA 0 SEEN /hpf (5-10)
[2018-09-02 14:13] LABS: Color, Urine Straw (Yellow); Glucose, Dipstick Normal (Normal); Ketone-Dipstick Negative (Negative); Leukocyte Esterase-Dipstick 100 /ul (Negative); Nitrite-Dipstick Negative (Negative); Occult Blood-Urine Negative /ul (Negative); Protein-Dipstick Negative (Negative); Urine Bilirubin Dipstick Negative (Negative); Urine Clarity Clear (Clear); Urine Urobilinogen Normal (Normal); Urine pH 6.5 (5.0 - 8.0)
[2018-09-02 14:24] LABS: Red Blood Cells-Urine 0-5 SEEN /hpf (0-5); White Blood Cells 0-5 SEEN /hpf (0-5)
[2018-09-02 14:34] VITALS: BP 109/70; PULSE 63; RESP 18; O2SAT 99
[2018-09-02 15:31] VITALS: BP 125/63; PULSE 90; O2SAT 95
[2018-09-02 15:38] LABS: Thyroid Stim Hormone (TSH) 1.06 uIU/mL (0.358-3.74)
[2018-09-02 16:14] LABS: Amphetamine Urine VISTA NEGATIVE (<1000 ng/mL); Barbiturate Urine VISTA NEGATIVE (< 200 ng/mL); Benzodiazepine Urine VISTA NEGATIVE (< 200 ng/mL); Cocaine Urine VISTA NEGATIVE (< 300 ng/mL); Ecstacy Urine VISTA NEGATIVE (< 500 ng/mL); Methadone Urine VISTA NEGATIVE (< 300 ng/mL); PCP Urine VISTA NEGATIVE (< 25 ng/mL); THC Urine VISTA NEGATIVE (< 50 ng/mL); Vista UDS pH Range 6
--- NOTE | 2018-09-02 16:28 | ED.DCSUM_ITS ---
- ER Visit Summary Date of Service: 09/02/18 Chief Complaint: [Abdominal pain] History of Present Illness: The patient is a 18 F [since the emergency department complaint of 3-day history of worsening pain in her abdomen and back. 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 The biopsy was done via CT guidance by Dr. Vázquez. Patient tells me that she is lost about 40 pounds over the last 6 or 7 months. Patient has had some swollen lymph nodes in her groin that were biopsied and were benign. Patient has been evaluated by [facility] and has had testing for gonorrhea and chlamydia. Patient also has been seen by general surgery and is had a EGD and colonoscopy. Patient currently being evaluated and seen by Dr. Renteria. Over the last 3 days she tells me she is had worsening pain diffusely across her back and she said pain that radiates to her right shoulder. Patient complains of diffuse abdominal pain and nausea but no vomiting. Patient's not been sleeping due to the amount of pain. She has had no fevers.] Physical Examination: [HEENT-PERRLA, EOMI. Cranial nerves II through XII grossly intact. TMs clear. Mucous membranes moist. No adenopathy. Cardiovascular-regular rate and rhythm without murmur or ectopy Lungs-clear to auscultation, chest wall stable without crepitus or subcu emphysema Abdomen-normoactive bowel sounds, soft. Patient has diffuse tenderness over the right upper quadrant and diffusely about the abdomen. There is guarding. There is no rebound, rigidity, or perineal signs. Back exam-patient has diffuse tenderness palpation over the thoracic and lumbar spine. Patient has diffuse tenderness over the paraspinal musculature. Negative straight leg raises. Deep tendon reflexes are plus 2 out of 4 bilaterally at the patella and Achilles. Extremities-intact ?4, normal range of motion, normal pulses, atraumatic] Test Results: [CBC with differential obtained showed a normal white count of 5.8, hemoglobin 14.9, hematocrit 46, platelets 262. Chemistries were normal. LFTs were normal. Urinalysis was normal. HCG was negative. TSH was 1.06. Tox ecology was negative. Chest x-ray was normal. CT scan of the abdomen pelvis showed decrease in size of the cystic mass that was biopsied. Patient had results noted of that biopsy that came back mostly blood and no evidence of neoplasm.] Emergency Department Course and Treatment: [Patient was medicated with Dilaudid and Zofran. Patient did feel improved with the pain medication. At this point the etiology of her symptoms are unclear she also had a TSH study that showed a level of 1.06. Her toxicology screen was negative. I offered to transfer them to tertiary care center for further workup and evaluation as at this point given all the extensive testing that she is had no etiologies been found for her symptomatology. Patient and her mother would prefer to go home and try to continue follow-up as an outpatient] Treatment Plan: [Patient will be given a prescription for [place] for pain and advised to follow-up with her physicians as an outpatient.] Disposition: [Discharged home in stable condition] Impression: [Abdominal pain-etiology uncertain Back pain] This note was generated with [employer] dictation software. It may contain incorrect words, spelling, and punctuation that were not noted in review of the chart prior to signing ED Disposition - Plan for ED Patient: Chief Complaint: Chest Other Referrals: Jarek Calles Jr., MD [Primary Care Provider] -
--- NOTE | 2018-09-02 16:28 | ED.DEP ---
ED Disposition - Plan for ED Patient: Chief Complaint: Chest Other Instructions: ED Abdominal Pain Unkn Cause, ED Neck Back Pain General Prescriptions: Hydrocodone Bitart/Apap 5-325 [Donna 5MG-325MG] 1 tab PO Q4H PRN PRN 2 Days #10 tab PRN Reason: Pain Referrals: Jarek Calles Jr., MD [Primary Care Provider] - Rei Renteria MD [STAFF PHYSICIAN] - 3-5 Days
[2018-09-02 16:38] VITALS: BP 108/58; PULSE 59; PULSE 64; RESP 18; O2SAT 96
--- OUTSIDE RECORDS SUMMARY | 2018-11-07 08:00 | XMS RPT_ITS ---
:2000 Author Organization OHIP Support Name Relationship Address Phone NABIL CHAND Unavailable [address] + [place] [address] ABENA CHANDHER Unavailable [address] + [address] [place] [address] JAGRUTI, NABIL Unavailable [address] + [place] [address] JAGRUTI, NABIL Unavailable [address] + [place] [address] JERRYS BAR GRILLE Unavailable [address] + [place] [address] JAGRUTI, NABIL Unavailable [address] + [place] [address] JERRYS BAR GRILLE Unavailable [address] + [place] [address] JAGRUTI, NABIL Unavailable [address] + [place] [address] JERRYS BAR GRILLE Unavailable [address] + [place] [address] JAGRUTI, NABIL Unavailable [address] + [place] [address] JERRYS BAR GRILLE Unavailable [address] + [place] [address] JAGRUTI, NABIL Unavailable [address] + [place] [address] JERRYS BAR GRILLE Unavailable [address] + [place] [address] JAGRUTI, NABIL Unavailable [address] + [place] [address] JERRYS BAR GRILLE Unavailable [address] + [place] [address] JAGRUTI, NABIL Unavailable [address] + [place] [address] JERRYS BAR GRILLE Unavailable [address] + [place] [address] JAGRUTI, NABIL Unavailable [address] + [place] [address] JERRYS BAR GRILLE Unavailable [address] + [place] [address] JAGRUTI, NABIL Unavailable [address] + [place] [address] JERRYS BAR GRILLE Unavailable [address] + [place] [address] JAGRUTI, NABIL Unavailable [address] + [place] [address] JERRYS CAFE BAR Unavailable [address] + [place] [address] JAGRUTI, NABIL Unavailable [address] + [place] [address] JERRYS CAFE BAR Unavailable [address] + [place] [address] JAGRUTI, NABIL Unavailable [address] + [place] [address] JERRYS BAR GRILLE Unavailable [address] + [place] [address] JAGRUTI, NABIL Unavailable [address] + [place] [address] JERRYS BAR GRILLE Unavailable [address] + [place] [address] JAGRUTI, NABIL Unavailable [address] + [place] [address] JERRYS BAR GRILLE Unavailable [address] + [place] [address] JAGRUTI, NABIL Unavailable [address] + [place] [address] ULTA BEAUTY Unavailable [address] + [place] [address] U Unavailable Unavailable Unavailable JAGRUTI, NABIL Unavailable [address] + [place] [address] ULTA BEAUTY Unavailable [address] + [place] [address] [address]TA BEAUTY Un[address] + [place] [address] [address]TA BE[address]Y Un[address] + [place] [address] ULTA BEAUTY Unavailable [address] + [place] [address] JAGRUTI, NABIL Unavailable [address] + [place] [address] JAGRUTI, NABIL Unavailable [address] + [address] [place] [address] JAGRUTI, NABIL Unavailable [address] + [place] [address] JAGRUTI, NABIL Unavailable [address] + [place] [address] JAGRUTI, NABIL Unavailable [address] + [address] [place] [address] JAGRUTI, NABIL Unavailable [address] + [place] [address] JAGRUTI, NABIL Unavailable [address] + [place] [address] JAGRUTI, NABIL Unavailable [address] + [address] [place] [address] JAGRUTI, NABIL Unavailable [address] + [place] [address] JAGRUTI, NABIL Unavailable [address] + [place] [address] JAGRUTI, NABIL Unavailable [address] + [address] [place] [address] JAGRUTI, NABIL Unavailable [address] + [place] [address] ULTA BEAUTY Un[address] + [place] [address] ULTA BEAUTY Un[address] + [place] [address] JAGRUTI, NABIL Unavailable [address] + [place] [address] JAGRUTI, NABIL Unavailable [address] + [address] [place] [address] JAGRUTI, NABIL Unavailable [address] + [place] [address] [address]TA BEAUTY Un[address] + [place] [address] [address]TA BEAUTY Un[address] + [place] [address] ULTA BEAUTY Unavailable [address] + [place] [address] Care Team Providers Name Role Phone TRAVIS DONIS MD, JR. Attending Unavailable MINESH , DR. NOAH Vo Primary Care Unavailable KAYE ROJAS, DR. RAMIREZ Attending Unavailable MINESH GASPAR, DR. NOAH Vo Primary Care Unavailable KAYE ROJAS, DR. RAMIREZ Attending Unavailable MINESH , DR. NOAH Vo Primary Care Unavailable TRAVIS DONIS MD, JR. Attending Unavailable MINESH GASPAR, DR. NOAH Vo Primary Care Unavailable DAMIAN GASPAR, DR. ZAMUDIO Attending Unavailable DAMIAN GASPAR, DR. ZAMUDIO Referring Unavailable MINESH GASPAR, DR. NOAH Vo Primary Care Unavailable TRAVIS DONIS MD, JR. Attending Unavailable MINESH , DR. NOAH Vo Primary [...] Attending Unavailable Travis Donis Jr. Referring Unavailable Rei Renteria Attending Unavailable Rei Renteria Referring Unavailable Stevan Valdes, Travis Primary Care Unavailable Robotham, Jennie Attending Unavailable Robotham, Jennie Referring Unavailable Stevan Valdes, Travis Primary Care Unavailable Rei Renteria Consulting Unavailable Dexter, Rei Attending Unavailable Donis Jr., Travis Referring Unavailable Dexter, Rei Attending Unavailable Dexter, Rei Referring Unavailable Donis Jr., Travis Primary Care Unavailable Donis Jr., Travis Primary Care Unavailable Ungur, Remus Attending Unavailable Marcanthony, Magdalena Attending Unavailable Nicholas, Diaz Referring Unavailable Nicholas, Diaz Primary Care Unavailable Marcanthony, Magdalena Attending Unavailable Nicholas, Diaz Primary Care Unavailable [place], Corina Attending Unavailable Nuvia, Corina Attending Unavailable Nicholas, Diaz Referring Unavailable Nicholas, Diaz Primary Care Unavailable [place], Corina Attending Unavailable Nicholas, Diaz Referring Unavailable Nicholas, Diaz Primary Care Unavailable [place], Corina Attending Unavailable Nicholas, Diaz Primary Care Unavailable Nuvia, Corina Referring Unavailable Wyles, Raza Attending Unavailable Nicholas, Diaz Referring Unavailable Nicholas, Diaz Primary Care Unavailable Tickton, Elisa Attending Unavailable Tickton, Elisa Referring Unavailable Nicholas, Diaz Primary Care Unavailable Tickton, Elisa Attending Unavailable Jolliff, Mala Primary Care Unavailable Nuvia, Corina Attending Unavailable Nicholas, Diaz Referring Unavailable Nuvia, Corina Attending Unavailable [place], Corina Referring Unavailable Donis Jr., Travis Primary Care Unavailable Robotham, Jennie Attending Unavailable Robotham, Jennie Referring Unavailable Donis Jr., Travis Primary Care Unavailable Robotham, Jennie Attending Unavailable Donis Jr., Travis Referring Unavailable PROBLEMS PROBLEMS DATE TYPE CONDITION / CODE ATTENDING STATUS SOURCE 09/02/2018 Unknown R10.9 - Unspecified Ungur, Remus Active [facility] abdominal pain / Community R10.9(ICD-10) Hospital Repository 08/30/2018 Unknown R63.4 - Abnormal Dexter, Rei Active [facility] weight loss / Community R63.4(ICD-10) Hospital Repository 08/30/2018 Unknown J90 - Pleural Dexter, Rei Active [place] effusion, not Community elsewhere classified Hospital / J90(ICD-10) Repository 08/30/2018 Unknown R59.1 - Generalized Dexter, Rei Active [facility] enlarged lymph nodes Community / R59.1(ICD-10) Hospital Repository 08/18/2018 Unknown J92.0 - Pleural Dexter, Rei Active [facility]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 Community of asbestos / Hospital J92.0(ICD-10) Repository 08/05/2018 Unknown K29.70 - Gastritis, Robotham, Active [facility] unspecified, without Jennie Community bleeding / Hospital K29.70(ICD-10) Repository 07/20/2018 Unknown R59.9 - Enlarged [place], Corina Active [place] lymph nodes, Community unspecified / Hospital R59.9(ICD-10) Repository 07/06/2018 Unknown R30.0 - Dysuria / Tickton, Active [facility] R30.0(ICD-10) [facility] Repository 04/29/2018 Unknown J32.9 - Chronic WyRaza gomez Active [facility] sinusitis, Community unspecified / Hospital J32.9(ICD-10) Repository 04/22/2018 Unknown N76.0 - Acute [place], Corina Active [facility] vaginitis / Community N76.0(ICD-10) Hospital Repository 09/29/2017 Unknown N89.8 - Other Marcanthony, Active [facility] specified [facility] disorders of vagina / Repository N89.8(ICD-10) PROCEDURES PROCEDURES No Procedure Records FoundRESULTS RESULTS CK Collected: 09/10/2018 Status: F Source: [facility] 9:39 AM [facility] REPOSITORY TYPE CODE TESTS RESULT OUT OF RANGE REFERENCE UNITS LAB CK(LOINC) 26-192 U/L CPK 55 Performed By: #### CK, ESR, CRP #### [place] [address] ESR Collected: 09/10/2018 Status: F Source: [facility] 9:39 AM [facility] [place] REPOSITORY TYPE CODE TESTS RESULT OUT OF REFERENCE UNITS RANGE LAB ESR(LOINC) 0-20 mm/hr Erythrocyte Sed Rate 2 Performed By: #### CK, ESR, CRP #### [place] [address] CRP Collected: 09/10/2018 Status: F Source: [facility] 9:39 AM [facility] [place] REPOSITORY TYPE CODE TESTS RESULT OUT OF REFERENCE UNITS RANGE LAB CRP(LOINC) <=0.80 mg/dL C-Reactive <0.10 Protein Performed By: #### CK, ESR, CRP #### [place] [address] 12 LEAD ELECTROCARDIOGRAM Observed: 09/06/2018 Status: F Source: [place] 9:21 AM [facility] REPOSITORY [facility] Cardiovascular Services [address] [place] [address] 12 Lead EKG 09/02/18 1243 MR#: [id number] Acct: [id number] Name: KAYCE CHAND Rep #: [id number] : 2000 18 From: Denton Gaitan MD [...] arrhythmia Rightward axis Borderline ECG Confirmed by DENTON GAITAN MD ([id number]), commissioning editor SILVIA GALINDO ([id number]) on 09/06/2018 9:20:54 AM Referred By: GAEL Confirmed By:DENTON GAITAN MD 09/06/18 0920 Date Denton Gaitan MD CC: Travis Donis Jr., MD; Derek Dillon DO Signed DISCHARGE INSTRUCTION Observed: 09/02/2018 Status: F Source: [place] 4:30 PM [facility] REPOSITORY [facility] Medical Records Department [address] [place] [address] Discharge Instruction 09/02/18 1628 MR#: [id number] Acct: [id number] Name: KAYCE CHAND Rep #: [id number] : 2000 18 From: Derek Dillon DO PCP: Travis Donis Jr., MD Status: REG ER ED Disposition - Plan for ED Patient: Chief Complaint: Chest Other Instructions: ED Abdominal Pain Unkn Cause, ED Neck Back Pain General Prescriptions: Hydrocodone Bitart/Apap 5-325 [[place] 5MG-325MG] 1 tab PO Q4H PRN PRN 2 Days #10 tab PRN Reason: Pain Referrals: Travis Donis Jr., MD [Primary Care Provider] - Rei Renteria MD [STAFF PHYSICIAN] - 3-5 Days What to do if you have Problems For any increased pain, shortness of breath, bleeding, nausea or vomiting, chest pain, or any unexpected problems, contact your Primary Care Provider. Call [facility] ([phone]) or report to the closest Emergency Room. Call 911 if necessary. 09/02/18 1630 <Electronically signed by Derek Dillon DO> Date Derek Dillon DO Cosigner Signature (If Indicated): Date CC: Travis Donis Jr., MD EMERGENCY DEPARTMENT Observed: 09/02/2018 Status: F Source: [place] SUMMARY 4:28 PM [facility] REPOSITORY [facility] Medical Records Department [address] [facility] [place] [address] Emergency Department Summary 09/02/18 1621 MR#: [id number] Acct: [id number] Name: KAYCE CHAND Rep #: [id number] : 2000 18 From: Derek Dillon DO [...] were benign. Patient has been evaluated by [facility] and has had testing for gonorrhea and [...] [Patient will be given a prescription for [place] for pain and advised to follow-up with her physicians as an outpatient.] Disposition: [Discharged home in stable condition] Impression: [Abdominal pain-etiology uncertain Back pain] This note was generated with [employer] software. It may contain incorrect words, spelling, and punctuation that were not noted in review of the chart prior to signing ED Disposition - Plan for ED Patient: Chief Complaint: Chest Other Referrals: Travis Donsi Jr., MD [Primary Care Provider] - What to do if you have Problems For any increased pain, shortness of breath, bleeding, nausea or vomiting, chest pain, or any unexpected problems, contact your Primary Care Provider. Call [facility] ([phone]) or report to the closest Emergency Room. Call 911 if necessary. 09/02/18 1628 <Electronically signed by Derek Dillon DO> Date Derek Dillon DO Cosigner Signature (If Indicated): Date CC: Travis Donis Jr., MD URINALYSIS, COMPLETE Collected: 09/02/2018 Status: F Source: [place] 2:00 PM [facility] REPOSITORY Order Comment: Order Date: 09/02/18 How [...] URINE SEEN Performed By: #### L400.0001 #### [facility] [address] [place], [place], [id number] URINE DRUG SCREEN Collected: 09/02/2018 Status: F Source: [place] (VISTA) 2:00 PM [facility] REPOSITORY TYPE CODE TESTS RESULT [...] Normal NEGATIVE Performed By: #### L505.5000 #### [facility] [address] [place], [place], [id number] COMPREHENSIVE METABOLIC Collected: 09/02/2018 Status: F Source: [place] PROFIL 1:05 PM [facility] REPOSITORY TYPE CODE TESTS RESULT [...] 7 Performed By: #### L500.4050, L501.2450 #### [facility] [address] [place], [address] LIPASE Collected: 09/02/2018 Status: F Source: [place] 1:05 PM [facility] REPOSITORY TYPE CODE TESTS RESULT OUT OF RANGE REFERENCE UNITS LAB L501.2450 73-393 U/L Normal LIPASE 180 Performed By: #### L500.4050, L501.2450 #### [facility] [address] [place], [place], [address] CBC W/DIFF, AUTOMATED Collected: 09/02/2018 Status: F Source: [place] 1:05 PM [facility] REPOSITORY TYPE CODE TESTS RESULT [...] Lymph 2.29 Performed By: #### L100.0100 #### [facility] [address] [place], [address] ,SERUM,HCG QUALI. Collected: Status: F Source: [place] 09/02/2018 1:05 PM [facility] REPOSITORY TYPE CODE TESTS RESULT OUT OF REFERENCE UNITS RANGE LAB L700.6700 =>Qualitative mIU/mL Normal HCG Qual < 1 triggr LAB L700.7000 0-9 Nonpreg Negative Normal HCGSQUAL NEGATIVE Performed By: #### L700.6800 #### [facility] [address] [place], [address] THYROID STIM HORMONE Collected: 09/02/2018 Status: F Source: [place] (TSH) 1:05 PM [facility] REPOSITORY TYPE CODE TESTS RESULT OUT OF RANGE REFERENCE UNITS LAB L501.9520 0.358-3.74 uIU/mL Normal TSH 1.06 Performed By: #### L501.9520 #### [facility] [address] [place] [address], [address] ABDOMEN/PELVIS W IV CONT Observed: 09/02/2018 Status: F Source: [place] ONLY 12:54 PM [facility] REPOSITORY [facility] Imaging Services [address] [place] [address] Abdomen/Pelvis W IV Cont ONLY MR#: [id number] Acct: [id number] Name: KAYCE CHAND Rep #: [id number] : 2000 F 18 From: Joseph Stephens MD PCP: Travis Donis Jr., MD Status: REG ER Study: Abdomen/Pelvis W IV Cont ONLY Date of Exam: 09/02/18 Exam# [id number] Ordering Dr: Derek Dillon DO STUDY: CT [...] Travis Donis Jr., MD; Derek Dillon DO Study Director: Signed CHEST 1 VIEW Observed: 09/02/2018 Status: F Source: [place] (PORTABLE) 12:54 PM [facility] REPOSITORY [facility] Imaging Services [address] [place] [address] Chest 1 View (Portable) MR#: [id number] Acct: [id number] Name: KAYCE CHAND Rep #: [id number] : 2000 F 18 From: Joseph Stephens MD PCP: Travis Donis Jr., MD Status: REG ER Study: Chest 1 View (Portable) Date of Exam: 09/02/18 Exam# [id number] Ordering Dr: Derek Dillon DO STUDY: X-RAY [...] support , CC: Travis Donis Jr., MD; Deerk Dillon DO Study Director: Signed CHEST INSP/EXP 2 VIEW Observed: 08/30/2018 Status: F Source: [place] 10:46 AM [facility] REPOSITORY [facility] Imaging Services [address] [place] [address] Chest Insp/Exp 2 View MR#: [id number] Acct: [id number] Name: KAYCE CHAND Rep #: [id number] : 2000 F 18 From: [place] Vázquez MD PCP: Travis Donis Jr., MD Status: REG CLI Study: Chest Insp/Exp 2 View Date of Exam: 08/30/18 Exam# [id number] Ordering Dr: [place] Vázquez MD STUDY: X-RAY [...] [place] Vázquez MD at 15:07 EST Tel [phone], Service support , CC: Travis Donis Jr., MD; [place] Vázquez MD Study Director: Signed PROTEIN, BODY FLUID Collected: 08/30/2018 Status: F Source: [place] 10:18 AM [facility] REPOSITORY Order Comment: Specimen Source: ASPIRATE TYPE CODE TESTS RESULT OUT OF RANGE REFERENCE UNITS LAB L503.0300 Not Establ. g/dL Normal 1.8 PROTEIN,BF Performed By: #### L503.0300, L504.0250 #### [place] [facility] [address] [place], [place], [id number] LDH,BODY FLUID Collected: 08/30/2018 Status: F Source: [place] 10:18 AM [facility] REPOSITORY Order Comment: Specimen Source: ASPIRATE TYPE CODE TESTS RESULT OUT OF RANGE REFERENCE UNITS LAB L504.0250 Not Establ. Units/l Normal LDH,BF 118 Performed By: #### L503.0300, L504.0250 #### [facility] [address] [place], [address] Observed: 08/30/2018 Status: F Source: [place] CULTURE, BODY FLUID 10:18 AM [facility] REPOSITORY CANCEL CYTOLOGY. QNS. PER TREVIN ConnollyBalbir @ DR. RENTERIA. List Antibiotics Last 48 Hours? UNK List Antibiotics to be Started? UNK Gram Stain Gram Stain No organisms seen Body Fluid Cult Culture exhibits no growth. Cult, Anaerobic No growth in 5 days. Performed By: #### M100.1300 #### [facility] [address] [place], [address] CT GUIDANCE ABSCESS Observed: 08/30/2018 Status: F Source: [place] DRG W/CATH 9:05 AM [facility] REPOSITORY [facility] Imaging Services [address] [facility] [place] [address] CT Guidance Abscess Drg w/Cath MR#: [id number] Acct: [id number] Name: KAYCE CHAND Rep #: [id number] : 2000 F 18 From: [place] Vázquez MD PCP: Travis Donis Jr., MD Status: REG CLI Study: CT Guidance Abscess Drg w/Cath Date of Exam: 08/30/18 Exam# [id number] Ordering Dr: Rei Renteria MD PROCEDURE: CT [...] [place] Vázquez MD at 13:36 EST Tel [phone], Service support , CC: Travis Donis Jr., MD; Rei Renteria MD Study Director: Signed FLUID/WASHING Observed: 08/30/2018 Status: F Source: [place] 12:00 AM [facility] REPOSITORY Patient: KAYCE CHAND : 2000 (/) Acct Num: [id number] Phys: Rei Renteria MD Unit Num: [id number] Loc: CT Specimen: [id number] Received: 08/30/18 - 1419 Spec Type: Fluid TISSUES 1 TISSUES: Liver, NOS COMMENT The specimen primarily contains blood. Clinical correlation is suggested. CYTOLOGY GROSS Received is 20 ml of preston-colored fluid labeled with the patient's name and and designated per the requisition as right cystic mass above liver. Submitted for cytology preparation including cell block. / 08/30/18 TC:5 CPT: 46683, [address] CYTOLOGY STUDY Slides are reviewed. DIAGNOSIS CYTOLOGY Right cystic mass above liver, fine needle aspiration (cytospin and cell block): Negative for malignant cells. See comment. AM:[place] 08/31/18 HEADER OPERATION: CT-guided right cystic mass above liver PRE-OP DIAGNOSIS: Right cystic mass above liver TISSUE SUBMITTED: Right cystic mass above liver FNA Signed Hector Ivey DO 08/31/18 <signature on file> Performed By: #### PFLU #### [facility] [address] [place], [address] PULMONARY VISIT REPORT Observed: 08/24/2018 Status: F Source: [place] 2:25 PM [facility] REPOSITORY [facility] Pulmonary Medicine of [address] [place] [address] OFFICE VISIT Date of Service: 08/24/18 MR#: [id number] Acct: [id number] Name: KAYCE CHAND Rep #: [id number] : 2000 Provider: Rei Renteria MD Age/Sex: 18/F Location: [place].[facility] Status: Signed Assessment AND Plan Problems 1. [...] Confirmed 08/24/18] MedroxyPROGESTERone [Depo-Provera] 150 mg IM .[id number] 07/29/18 [History Confirmed 08/24/18] [facility] Medical History Hemorrhoids (Acute) Constipation (Acute) [...] additional social history: Single- [employer] at [employer] Systems Const CONSTITUTIONAL: Positive weight [...] WITH CONTRAST Observed: 08/23/2018 Status: F Source: [place] 1:37 PM [facility] REPOSITORY [facility] Imaging Services [address] [place] [address] Chest WITH Contrast MR#: [id number] Acct: [id number] Name: KAYCE CHAND Rep #: [id number] : 2000 F 18 From: Nu Lorenzo MD PCP: Travis Donis Jr., MD Status: REG CLI Study: Chest WITH Contrast Date of Exam: 08/23/18 Exam# [id number] Ordering Dr: Jennie Okeefe MD STUDY: CT [...] Travis Donis Jr., MD; Jennie Okeefe MD Study Director: Signed PULMONARY VISIT REPORT Observed: 08/18/2018 Status: F Source: [place] 11:54 AM [facility] REPOSITORY [facility] Pulmonary Medicine of [address] [place] [address] OFFICE VISIT Date of Service: 08/18/18 MR#: [id number] Acct: [id number] Name: KAYCE CHAND Rep #: [id number] : 2000 Provider: Rei Renteria MD Age/Sex: 18/F Location: [place].[facility] Status: Signed Assessment AND Plan Problems 1. Pleural effusion J90 2. Unintentional weight loss of more than 10 pounds in 90 days R63.4 3. Lymphadenopathy R59.1 Plan Unclear etiology at this time. Did spend over 60 minutes in [id number] discussion discussing with the patient and her [...] Orders Orders: Medications Discontinued: metronidazole (Flagyl) Discontinued [id number] mg PO BID 14 tabs 0RF : [...] not at work. 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9 SECONDS Normal PROTIME 14.8 LAB L300.4200 Normal INR 1.2 Performed By: #### L300.3900, L300.4310 #### [facility] [address] [place], [place], [address] PARTIAL THROMBOPLAST Collected: 08/18/2018 Status: F Source: [place] TIME 11:36 AM [facility] REPOSITORY TYPE CODE TESTS RESULT OUT OF RANGE REFERENCE UNITS LAB L300.4310 24.1-36.2 Seconds Normal PTT 28.6 Performed By: #### L300.3900, L300.4310 #### [facility] [address] [place], [address] COMPREHENSIVE METABOLIC Collected: 08/18/2018 Status: F Source: [place] PROFIL 11:36 AM [facility] REPOSITORY Order Comment: Serial Specimen #1, #2 [...] 10 Performed By: #### L500.4050, L504.2610 #### [facility] [address] [place], [place], [address] LDH Collected: 08/18/2018 Status: F Source: [place] 11:36 AM [facility] REPOSITORY Order Comment: Serial Specimen #1, #2 or #3? 1 TYPE CODE TESTS RESULT OUT OF RANGE REFERENCE UNITS LAB L504.2610 84-246 U/L Normal LDH 145 Performed By: #### L500.4050, L504.2610 #### [facility] [address] [facility] [place], [address] ABDOMEN/PELVIS WITH Observed: 08/16/2018 Status: F Source: [place] CONTRAST 9:08 AM [facility] REPOSITORY [facility] Imaging Services [address] [place] [address] Abdomen/Pelvis WITH Contrast MR#: [id number] Acct: [id number] Name: KAYCE CHAND Rep #: [id number] : 2000 F 18 From: [place] Vázquez MD PCP: Travis Donis Jr., MD Status: REG CLI Study: Abdomen/Pelvis WITH Contrast Date of Exam: 08/16/18 Exam# [id number] Ordering Dr: Jennie Okeefe MD STUDY: CT [...] Marshall Vázquez MD at 9:48 EST Tel [phone], Service support , CC: Travis Donis Jr., MD; Jennie Okeefe MD Study Director: Signed OPERATIVE REPORT Observed: 08/04/2018 Status: F Source: [place] 9:43 AM [facility]ITORY [facility] Medical Records Department [address] [facility] [place] [address] Operative Report 08/04/18 0934 MR#: [id number] Acct: [id number] Name: KAYCE CHAND Rep #: [id number] : 2000 18 From: Jennie Okeefe MD [...] Status: F Source: [place] NODE 7:44 AM [facility] REPOSITORY [facility] Imaging Services [address] [place] [address] Ultra Needle BX/Lymph Node MR#: [id number] Acct: [id number] Name: KAYCE CHAND Rep #: [id number] : 2000 F 18 From: Marshall Vázquez MD PCP: Travis Donis Jr., MD Status: [facility] CLI Study: Ultra Needle BX/Lymph Node Date of Exam: 08/04/18 Exam# [id number] Ordering Dr: Jennie Okeefe MD PROCEDURE: Ultrasound [...] Marshall Vázquez MD at 12:59 EST Tel [phone], Service support , CC: Travis Donsi Jr., MD; Jennie Okeefe MD Study Director: Signed ASP RADIOLOGY (FLUID) Observed: 08/04/2018 Status: F Source: [place] 12:00 AM [facility] REPOSITORY Patient: KAYCE CHAND : 2000 () Acct Num: [id number] Phys: Jennie Okeefe MD Unit Num: [id number] Loc: US Specimen: [id number] Received: 08/04/18 - 1005 Spec Type: ASP OUT TISSUES 1 TISSUES: LYMPH NODE BIOPSY COMMENT The specimen is evaluated at the time of ultrasound-guided FNA by Dr. Stafford. Immediate Evaluation = Lymphocytes noted. Immunohistochemistry ([id number]) supports the above diagnosis. CYTOLOGY GROSS Received [...] flow cytometry studies. Submitted for cytology study. SJ:amadeo 08/04/18 TC:5 CPT: 15122 CYTOLOGY STUDY Slides are reviewed. The specimen [...] on file> Performed By: #### PASPIG #### [facility] [address] [place], [place], [address] IMMUNOHISTOCHEMISTRY Observed: 08/04/2018 Status: F Source: [place] 12:00 AM [facility] REPOSITORY Patient: KAYCE CHAND : 2000 (18/) Acct Num: [id number] Phys: Jennie Okeefe MD Unit Num: [id number] Loc: US Specimen: [id number] Received: 08/05/18 - 1031 Spec Type: IMMUNO TISSUES 1 TISSUES: Inguinal lymph node, NOS SPECIMEN INFORMATION: Tissue Source: Left groin lymph node Clinical Info: Left groin lymph node Specimen Number: [id number] CPT code: 70105, 43692 x4 METHODOLOGY: Deparaffinized sections of prefer/formalin-fixed tissue [...] developed and their performance characteristics determined by [facility]. They may not have been cleared or approved by the U.S. Food and Drug Administration. The FDA has determined that such clearance or approval is not necessary. INTERPRETATION: Left groin lymph node, ultrasound-guided biopsy: Lymph node tissue, polytypic in nature, favor benign. SJ:amadeo 08/06/18 PHYSICIAN AND INSTITUTION [place] [address] Signed Nas Stafford MD 08/09/18 <signature on file> Performed By: #### PIMM #### [facility] [address] [place] [address]. [place], [place], [address] OPERATIVE REPORT - Observed: 08/02/2018 Status: F Source: [place] ENDOSCOPY 10:46 AM [facility] RE[facility]ITORY [facility] Medical Records Department [address] [place] [address] Operative Report - Endoscopy MR#: [id number] Acct: [id number] Name: KAYCE CHAND Rep #: [id number] : 2000 18 From: Jennie Okeefe MD PCP: Travis Donis Jr., MD Status: [facility] Patient Name: Kayce Chand Procedure Date: 08/02/2018 [...] screening purposes. Procedure Code(s): --- Professional --- 46419, Colonoscopy, flexible; diagnostic, including collection of specimen(s) by brushing or washing, when performed (separate procedure) Diagnosis Code(s): --- Professional --- R63.4, Abnormal weight loss CPT copyright 2017 [employer]. All rights reserved. The codes documented in this report are preliminary and upon medical transcription radiology review may be revised to meet current compliance requirements. MD Jennie Ruffin MD 08/02/2018 10:45:48 AM This report has been signed electronically. Number of Addenda: 0 Note Initiated On: 08/02/2018 10:17 AM 08/02/18 1046 Date Jennie Okeefe MD Cosigner Signature: Date (if indicated) CC: Travis Donis Jr., MD; Jennie Okeefe MD Date Dictated: 08/02/18 1017 Date Transcribed: Study Director: TR Signed OPERATIVE REPORT - Observed: 08/02/2018 Status: F Source: [place] ENDOSCOPY 10:42 AM [facility] REPOSITORY [facility] Medical Records Department [address] [place] [address] Operative Report - Endoscopy MR#: [id number] Acct: [id number] Name: KAYCE CHAND Rep #: [id number] : 2000 18 From: Jennie Okeefe MD PCP: Travis Donis Jr., MD Status: [facility] Patient Name: Kayce Chand Procedure Date: 08/02/2018 [...] present medications. Procedure Code(s): --- Professional --- 02799, Esophagogastroduodenoscopy, flexible, transoral; with biopsy, single or multiple Diagnosis Code(s): --- Professional --- K29.70, Gastritis, unspecified, without bleeding R63.4, Abnormal weight loss CPT copyright 2017 [employer]. All rights reserved. The codes documented in this report are preliminary and upon medical transcription radiology review may be revised to meet current compliance requirements. MD Jennie Ruffin MD 08/02/2018 10:41:33 AM This report has been signed electronically. Number of Addenda: 0 Note Initiated On: 08/02/2018 10:01 AM 08/02/18 1041 Date Jennie Domínguez Signature: Date (if indicated) CC: Travis Donis Jr., MD; Jennie Okeefe MD Date Dictated: 08/02/18 1001 Date Transcribed: Study Director: TR Signed EGD ([facility] SITE) Observed: 08/02/2018 Status: F Source: [place] 10:15 AM [facility] REPOSITORY Patient: KAYCE CHAND : 2000 (18/) Acct Num: [id number] Phys: Sary LO,Jennie Unit Num: [id number] Loc: EN Specimen: [id number] Received: 08/02/18 - 1323 Spec Type: EGD BIOPSY TISSUES 1 TISSUES: A. Duodenum, NOS B. Gastric mucous membrane COMMENT A. There is no evidence of celiac sprue. B. The results of immunohistochemistry for Helicobacter pylori will be reported separately ([id number]). GROSS DESCRIPTION A - Received in fixative [...] one cassette. / AM:amadeo 08/02/18 TC:5 CPT: 91055 x2 HEADER OPERATION: Colonoscopy, EGD ([facility]) PRE-OP DIAGNOSIS: Weight loss TISSUE SUBMITTED: A. Duodenal biopsy, rule out celiac and rule out sprue, B. Antral biopsy MICROSCOPIC DESCRIPTION Slides are reviewed. MICROSCOPIC DIAGNOSIS A. Duodenum, biopsy: No pathologic change. See comment. B. Gastric antrum, biopsy: Mild chronic inflammation. AM:amadeo 08/03/18 Signed Hector Ivey, 08/03/18 <signature on file> Performed By: #### PEGD #### [facility] [place], [place], [address] ,URINE Collected: 08/02/2018 Status: F Source: [place] 9:10 AM [facility] REPOSITORY TYPE CODE TESTS RESULT OUT OF REFERENCE UNITS RANGE LAB L400.8000 Negative Normal HCGUQUAL Negative Result Comment: Very dilute urine specimens, as indicated by a low specific gravity, may not contain retail field representative levels of hCG. If is still suspected, a first morning urine specimen should be collected 48 hours later and tested. Performed By: #### L400.7600 #### [facility] [address] [place] [address]. [place], [place], [address] IMMUNOHISTOCHEMISTRY Observed: 08/02/2018 Status: F Source: [place] 12:00 AM [facility] REPOSITORY Patient: KAYCE CHAND : 2000 () Acct Num: [id number] Phys: Sary LO,Jennie Unit Num: [id number] Loc: EN Specimen: [id number] Received: 08/03/181332 Spec Type: IMMUNO TISSUES 1 TISSUES: B. Stomach, NOS SPECIMEN INFORMATION: Tissue Source: B - Antral biopsy Clinical Info: Weight loss Specimen Number: [id number] CPT code: 75039 METHODOLOGY: Deparaffinized sections of prefer/formalin-fixed tissue or [...] developed and their performance characteristics determined by [facility]. They may not have been cleared or approved by the U.S. Food and Drug Administration. The FDA has determined that such clearance or approval is not necessary. INTERPRETATION: A. Antral biopsy: Negative for Helicobacter pylori organisms. AM:amadeo 08/05/18 PHYSICIAN AND INSTITUTION [address] [address] Signed Hector Ivey DO 08/05/18 <signature on file> Performed By: #### PIMM #### [facility] [address] [place], [address] EXT NON VASC Observed: 07/26/2018 Status: F Source: [place] LIMITED/SOFT TISS 11:08 AM [facility] RE[facility]ITORY [facility] Imaging Services [address] [place] [address] Ext Non Vasc Limited/Soft Tiss MR#: [id number] Acct: [id number] Name: KAYCE CHAND Rep #: [id number] : 2000 F 18 From: Raza Dick MD PCP: Travis Donis Jr., MD Status: REG CLI Study: Ext Non Vasc Limited/Soft Tiss Date of Exam: 07/26/18 Exam# [id number] Ordering Dr: Jennie Okeefe MD STUDY: SUPERFICIAL [...] Travis Donis Jr., MD; Jennie Okeefe MD Study Director: Signed SURGERY VISIT REPORT Observed: 07/26/2018 Status: F Source: [place] 8:12 AM [facility] REPOSITORY [facility] [address] [place], [place] [address] OFFICE VISIT Date of Service: 07/23/18 MR#: [id number] Acct: [id number] Name: KAYCE CHAND Rep #: [id number] : 2000 Provider: Jennie Okeefe MD Age/Sex: 18/F Location: [facility] Status: Signed Intake Vital Signs07/23/18 Body Mass Index (BMI) 19.3 07/23/18 Height 5 ft 2 in 07/23/18 Weight: 106 lb Intake Visit Reasons: Enlarged groin lymph nodes Chief Complaint: congestion Bandsaw Operator Required: No Is patient in pain?: No Allergies erythromycin base Adverse Reaction (Intermediate, Verified 07/23/18 11:10) stomach pain, vomiting Medications tizanidine 4 mg capsule 4 mg PO TID PRN 04/21/18 [History Confirmed 07/23/18] metronidazole 500 mg tablet 500 mg PO BID #14 tab 04/23/18 [Rx Confirmed 07/23/18] medroxyprogesterone 150 mg/mL intramuscular syringe 150 mg IM [id number] #1 ml 06/08/18 [Rx Confirmed 07/23/18] nystatin 100,000 unit/gram topical cream 1 applic TOPICAL BID PRN #15 g 07/20/18 [Rx Confirmed 07/23/18] triamcinolone acetonide 0.5 % topical cream 1 applic TOPICAL BID #15 g 07/20/18 [Rx Confirmed 07/23/18] [facility] Medical History Hemorrhoids (Acute) Constipation (Acute) [...] additional social history: Single- [employer] and [employer] at [employer] [facility] [employer] HPI HPI: KAYCE CHAND, is a 18 [...] ago patient did go see Dr. Akhil aGitan and again had a urine culture and [...] Const General: cooperative, comfortable, no acute distress HENMT Head: atraumatic GI Inspection: non-distended Palpation: soft, [...] clears, MiraLAX Dulcolax Jennie Okeefe M.D. Pager: [phone] [facility] [address] [place] [address], [address] [place] [address] Office: [phone] Plan Detail Follow Up We will schedule [...] BY PCR Collected: 07/20/2018 Status: F Source: [place] 6:41 PM [facility] REPOSITORY TYPE CODE TESTS RESULT OUT OF RANGE REFERENCE UNITS LAB L8200.2100 Negative Normal Chlam Negative Trac PCR LAB L8200.2200 Negative Normal NG by Negative PCR Performed By: #### L8200.2000 #### [facility] [address] [place], [place], [address] Observed: 07/20/2018 Status: F Source: [place] CULTURE, GENITAL 6:41 PM [facility] COMPREHENSIVE REPOSITORY Reason for Exam: vaginitis Gram Stain Score = 1 Interpretation: 0-3 Normal, 4-6 Intermediate, 7-10 Positive BV Gram Stain 4+ Gram positive rods Rare Gram negative rods No Gram negative diplococci No Yeast Like Organisms 1+ White Blood Cells Gent Cult Comp Normal vaginal stef isolated. No yeast, Gardnerella, Neisseria or beta-hemolytic Streptococcus isolated. Performed By: #### M100.1600 #### [facility] [facility] [place], [place], [address] Observed: 07/20/2018 Status: F Source: [place] CULTURE, URINE 6:41 PM [facility] REPOSITORY Urine Culture There are no CLSI standards for interpretation of this Drug/Organism combination. ORGANISM 1: Lactobacillus species [place] Count 50,000-80,000 Performed By: #### M100.0650 #### [facility] [place], [place], [address] HIDE BUYER OFFICE VISIT Observed: 07/20/2018 Status: F Source: [place] REPORT 2:48 PM [facility] REPOSITORY [facility] [address] [place], [place] [address]. [address] [place], [place] [address] OFFICE VISIT Date of Service: 07/20/18 MR#: [id number] Acct: [id number] Name: KAYCE CHAND Rep #: [id number] : 2000 Provider: TANNER Pedersen Age/Sex: 18/F [place] [facility] Status: Signed Intake Vital Signs07/20/18 Body Mass Index (BMI) 19.3 07/20/18 Height 5 ft 2 in 07/20/18 Weight: 106 lb 07/20/18 Body Mass Index (BMI) 19.3 07/20/18 Blood Pressure 118/80 Intake Visit Reasons: Issue with yeast infection/UTI/Swollen lymph Bandsaw Operator Required: No Accompanied by: Mother Is patient [...] 150 mg/mL intramuscular syringe 150 mg IM [id number] #1 ml 06/08/18 [Rx] nystatin 100,000 unit/gram [...] additional social history: Single- [employer] and [employer] at [employer] Issue with yeast infection/UTI/Swollen lymph: Details: KAYCE [...] disease) Z11.3 Enlarged lymph node R59.9 07/20/18 2716 <Electronically signed by Corina Pedersen AGRICULTURAL EQUIPMENT TEST ENGINEER-C> Date Corina Pedersen AGRICULTURAL EQUIPMENT TEST ENGINEER-C Cosigner Signature: Date (if applicable) CC: CBC W/DIFF, AUTOMATED Collected: 07/20/2018 Status: F Source: [place] 2:32 PM [facility] REPOSITORY TYPE CODE TESTS RESULT [...] Lymph 2.49 Performed By: #### L100.0100 #### [facility] [address] [place], [address] URINALYSIS, ROUTINE Collected: 07/15/2018 Status: F Source: [place] (DIPSTICK) 11:32 AM [facility] REPOSITORY Order Comment: How was Urine Obtained? GAS STATION MANAGER TO SPECIFY TYPE CODE TESTS RESULT OUT [...] ESTERASE 100 Performed By: #### L400.2010 #### [facility] [address] [facility] [place], [place], [id number] Observed: 07/06/2018 Status: F Source: [place] CULTURE, GENITAL 11:20 AM [facility] COMPREHENSIVE REPOSITORY Gram Stain Score = 0 Interpretation: 0-3 Normal, 4-6 Intermediate, 7-10 Positive BV Gram Stain 4+ Gram positive rods No Gram negative diplococci No Yeast Like Organisms No White Blood Cells Gent Cult Comp Normal vaginal stef isolated. No yeast, Gardnerella, Neisseria or beta-hemolytic Streptococcus isolated. Performed By: #### M100.1600 #### [facility] [address] [facility] [place], [place], [address] URGENT CARE VISIT Observed: 04/29/2018 Status: F Source: [place] REPORT 1:22 PM [facility] REPOSITORY [facility] [address] [place] [address] [address] [place] [address] OFFICE VISIT Date of Service: 04/29/18 MR#: [id number] Acct: [id number] Name: KAYCE CHAND Rep #: [id number] : 2000 Provider: Raza RUCKER Age/Sex: 18/F Location: [facility] Status: Signed Intake Vital Signs04/29/18 Height 5 ft 2 in 04/29/18 Weight: 106 lb 04/29/18 Body Mass Index (BMI) 19.3 04/29/18 Blood Pressure 108/74 Intake Visit Reasons: SORE THROAT, FEVER, COUGH Chief Complaint: congestion Bandsaw Operator Required: No Accompanied by: mother Is patient in pain?: No Allergies No Known Allergies Allergy (Verified 04/29/18 13:02) Medications medroxyprogesterone 150 mg/mL intramuscular syringe 150 mg IM [id number] 09/28/17 [History Confirmed 04/29/18] tizanidine 4 mg capsule 4 mg PO TID PRN 04/21/18 [History Confirmed 04/29/18] metronidazole 500 mg tablet 500 mg PO BID #14 tab 04/23/18 [Rx Confirmed 04/29/18] amoxicillin 500 mg capsule 1,000 mg PO BID 10 Days #40 cap 04/29/18 [Rx Confirmed 04/29/18] [facility] Medical History Anxiety and depression (Acute) [...] additional social history: Single- [employer] and [employer] at [employer] [employer] HPI Chief Complaint: congestion Details: KAYCE JAGRUTI, is a 18 F who presents to [...] her primary care physician as well as 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 Patient and mom state acknowledging understanding all the above. This note was generated with [employer] dictation software. It may contain incorrect words, spelling, and punctuation that were not noted in checking the note before signing. Medications New: Coding Level of Care Code Off vis,new,level 3 Diagnoses Sinusitis J32.9 04/29/18 1322 <Electronically signed by Raza RUCKER> Date Raza RUCKER Cosigner Signature: Date (if applicable) CC: Observed: 04/21/2018 Status: F Source: [place] CULTURE, GENITAL 6:37 PM [facility] COMPREHENSIVE REPOSITORY Reason for Exam: [...] 0.5 S (NF) indicates non-formulary drug at [facility]. Approval by Infectious Disease Specialist required before non-formulary drugs may be ordered and/or dispensed. * CLSI guidelines does not recommend testing of cephalosporins. This interpretation is deduced from Beta-lactam/penicillin results. Performed By: #### M100.1600 #### [facility] [address] [place], [address] HIDE BUYER OFFICE VISIT Observed: 04/21/2018 Status: F Source: [place] REPORT 2:27 PM [facility] REPOSITORY [facility] [address] [place] [address] OFFICE VISIT Date of Service: 04/21/18 MR#: [id number] Acct: [id number] Name: KAYCE CHAND Rep #: [id number] : 2000 Provider: TANNER Pedersen Age/Sex: 18/F [place] [facility] Status: Signed Intake Vital Signs04/21/18 Height 5 ft 2 in 04/21/18 Weight: 107 lb 6 oz 04/21/18 Body Mass Index (BMI) 19.6 04/21/18 Blood Pressure 101/71 Intake Visit Reasons: YEAST INFECTION? Bandsaw Operator Required: No Is patient in pain?: Yes Pain scale (1-10): 7 Allergies No Known Allergies Allergy (Verified 04/21/18 13:47) Medications medroxyprogesterone 150 mg/mL intramuscular syringe 150 mg IM [id number] 09/28/17 [History Confirmed 04/21/18] tizanidine 4 mg [...] additional social history: Single- [employer] and [employer] at [employer] HPI YEAST INFECTION?: Details: KAYCE CHAND is a [...] Off vis,est,level 3 Diagnoses Vulvovaginitis N76.0 04/21/18 1277 <Electronically signed by Corina NORIEGA> Date Corina DUNCANC Cosigner Signature: Date (if applicable) CC: FINAL SURGICAL Observed: 03/08/2018 Status: F Source: [facility] PATHOLOGY REPORT 11:58 AM [facility] REPOSITORY . Pathology Reports Accession: Collected Date/Time: Received Date/Time: Pathologist: [id number] 03/08/2018 11:58 EDT 03/09/2018 08:10 EDT MD [...] FOR H. PYLORI ORGANISMS IS NEGATIVE COMMENT: [facility]# [id number] CLINICAL INFORMATION: Procedure: EGD WITH GASTRIC [...] cm. TS -1 Dictated by Michelle RUCKER ([facility]) MICROSCOPIC DESCRIPTION: A&B) Slides reviewed. Electronically Signed by Pathology Report verified by [facility] Electronically signed by SOPHY GRACE MD Sign out Date: 03/10/2018 16:19 Performing Lab: [facility], [address] [place] [address] Performed By: #### SPFR #### [place] [address] XR SPINE CERVICAL 2 Observed: 03/02/2018 Status: F Source: [facility] OR 3 VIEWS 11:37 AM [facility] REPOSITORY ORIGINAL XR SPINE CERVICAL 2 OR [...] PM CMP Collected: 2018 Status: F Source: [facility] 11:29 AM [facility] REPOSITORY TYPE CODE TESTS RESULT OUT OF [...] 19 Performed By: #### CMP, GFR #### [place] [address] [place], [place] [address] #### ENDO, CRP, GLIAD #### [address] [address] .GFR Collected: 2018 Status: F Source: [facility] 11:29 AM [facility] REPOSITORY TYPE CODE TESTS RESULT OUT OF REFERENCE UNITS RANGE LAB GFRAA(LOINC ml/min/1.73 ) sqm GFR >60 [employer] Result Comment: GFR Population mean for , [...] meters Performed By: #### CMP, GFR #### [place] [address] [place], [place] [address] #### ENDO, CRP, GLIAD #### [address] [address] ENDO Collected: 2018 Status: F Source: [facility] 11:29 [facility] REPOSITORY TYPE CODE TESTS RESULT OUT [...] These test results were obtained with the [employer] Lite h-tTG IgA OSCAR. h-tTG IgA values obtained with different manufacturers' assay methods may not be used interchangeably. Performed By: #### CMP, GFR #### [place] [address] #### ENDO, CRP, GLIAD #### [place] [address] CRP Collected: 2018 Status: F Source: [facility] 11:29 [facility] REPOSITORY TYPE CODE TESTS RESULT OUT OF REFERENCE UNITS RANGE LAB CRP(LOINC) <=0.80 mg/dL C-Reactive 0.11 Protein Performed By: #### CMP, GFR #### [place] [address] #### ENDO, CRP, GLIAD #### [place] [address] GLIAD Collected: 2018 Status: F Source: [facility] 11:29 [facility] REPOSITORY TYPE CODE TESTS RESULT OUT [...] interchangeably. Performed By: #### CMP, GFR #### [facility] [address] [address] #### ENDO, CRP, GLIAD #### [facility] [address] [place] [address] DOWNTIME REPORT Observed: 02/04/2018 Status: F Source: [place] 1:12 PM [facility] REPOSITORY [facility] Medical Records Department [facility] [place] [address] Downtime Report MR#: [id number] Acct: [id number] Name: KAYCE CHAND Rep #: [id number] : 2000 17 From: Ronnie Nicholas PCP: Status: REG CLI This patient was seen during an EMR downtime January 18, 2018 - January 25, 2018. This patient may have a combination of paper and electronic documentation or all paper documentation. All documentation is viewable within the e-chart portion of [employer] for each patient visit. CT/NG [facility] BY PCR Collected: 01/20/2018 Status: F Source: [place] 12:48 PM [facility] REPOSITORY TYPE CODE TESTS RESULT OUT OF RANGE REFERENCE UNITS LAB L8200.2100 Negative Normal Chlam Negative Trac PCR LAB L8200.2200 Negative Normal NG by Negative PCR Performed By: #### L8200.2000 #### [facility] [address] [place] [address] Observed: 01/20/2018 Status: F Source: [place] CULTURE, URINE 12:48 PM [facility] REPOSITORY Urine Culture Culture exhibits no growth. Performed By: #### M100.0650 #### [facility] [address] [place] [address], [address] Observed: 01/20/2018 Status: F Source: [place] CULTURE, GENITAL 12:47 PM [facility] COMPREHENSIVE REPOSITORY Gram Stain Score = 8 Interpretation: 0-3 Normal, 4-6 Intermediate, 7-10 Positive BV Gram Stain 3+ Epithelial cells 2+ Clue Cells 4+ Gram variable teena No Gram negative diplococci Gent Cult Comp No yeast, Neisseria or beta-hemolytic Streptococcus isolated. ORGANISM 1: G. vaginalis (Presumptive) Amount Growth 2+ Performed By: #### M100.1600 #### [facility] [address] [place] [address] CBC Collected: 12/28/2017 Status: F Source: [facility] 12:34 [facility] REPOSITORY TYPE [...] ADIFF, ANEU, GFR, TSH, FT4, CMP #### [address] [place], [place] [address] .AUTO DIFF Collected: 12/28/2017 Status: F Source: [facility] 12:[address] [place] [address] REPOSITORY TYPE CODE TESTS RESULT OUT OF [...] ADIFF, ANEU, GFR, TSH, FT4, CMP #### [address] [address] .NEUABS Collected: 12/28/2017 Status: F Source: [facility] 12:34 PM [facility] REPOSITORY TYPE CODE TESTS RESULT OUT OF REFERENCE UNITS RANGE LAB ANEU(LOINC) 2.85-6.16 10 3/mcL Neutrophil, 4.90 Absolute Performed By: #### CBC, ADIFF, ANEU, GFR, TSH, FT4, CMP #### [address] [place], [place] [address] .GFR Collected: 12/28/2017 Status: F Source: [facility] 12:34 [facility] REPOSITORY TYPE CODE TESTS RESULT OUT OF REFERENCE UNITS RANGE LAB GFRAA(LOINC ml/min/1.73 ) sqm GFR 116 Cymraes Result Comment: GFR Population mean for , [...] ADIFF, ANEU, GFR, TSH, FT4, CMP #### [address] [place], [place] [address] TSH Collected: 12/28/2017 Status: F Source: [facility] 12:34 [facility] REPOSITORY TYPE CODE TESTS RESULT OUT OF RANGE REFERENCE UNITS LAB TSH(LOINC) 0.27-4.20 mcIU/mL TSH 1.28 Performed By: #### CBC, ADIFF, ANEU, GFR, TSH, FT4, CMP #### [address] [address] FT4 Collected: 12/28/2017 Status: F Source: [facility] 12:34 [facility] REPOSITORY TYPE CODE TESTS RESULT OUT OF RANGE REFERENCE UNITS LAB FT4(LOINC) 0.6-1.7 ng/mL Free T4 1.5 Performed By: #### CBC, ADIFF, ANEU, GFR, TSH, FT4, CMP #### [address] [address] CMP Collected: 12/28/2017 Status: F Source: [facility] 12:34 [facility] REPOSITORY TYPE [...] ANEU, GFR, TSH, FT4, CMP #### Yvette [address] [address] Observed: 09/28/2017 Status: F Source: [place] CULTURE, GENITAL 9:49 PM [facility] COMPREHENSIVE REPOSITORY NO COLLECTION INFORMATION GIVEN Gram Stain Score = 0 Interpretation: 0-3 Normal, 4-6 Intermediate, 7-10 Positive BV Gram Stain 4+ Gram positive rods 2+ White Blood Cells No Gram negative diplococci No Yeast Like Organisms Gent Cult Comp No yeast, Gardnerella, Neisseria or beta-hemolytic Streptococcus isolated. Performed By: #### M100.1600 #### [facility] [address] [place], [address] HIDE BUYER OFFICE VISIT Observed: 09/28/2017 Status: F Source: [place] REPORT 10:55 AM [facility] REPOSITORY [facility] [address] [place] [address] OFFICE VISIT Date of Service: 09/28/17 MR#: [id number] Acct: [id number] Name: KAYCE CHAND Rep #: [id number] : 2000 Provider: Magdalena Quintanilla MD Age/Sex: 17/F [place] [facility] [place]: Signed with Addenda ADDENDUM by Kallie Crowder on 09/28/17 at 1055 OFFICE PROCEDURES Office Procedure Documentation entered by Kallie Crowder 09/28/17 10:55: Office Meds Depo-Provera Performing Provider: Magdalena Quintanilla MD Administered by: Kallie Crwoder on 09/28/17 10:54 Dose Route Admin Location Lot Number Expiration Date NDC Supervisor Finishing 150 mg IM left gluteal [id number] 11/16/19 [address]-5 LOCATED WITHIN [facility] 09/28/17 1055 <Electronically signed by Kallie Crowder [...] 150 mg/mL intramuscular syringe 150 mg IM [id number] 09/28/17 [History Confirmed 09/28/17] Is last menstrual [...] at home: Yes additional social history: Single- [employer] in [place] HPI skin tag: Details: KAYCE CHAND is [...] Nutritional Appearance: average body habitus Orientation: alert [facility] Head: normal to inspection, normocephalic Neck Neck: [...] Drug erythromycin stomach pain, [place] Allergy/416 base/[id number](RXN vomiting Community 339913([facility] ED CT) Repository 07/29/2018 Drug No Known Unknown [place] Allergy/416 Allergies/[id number] Community 873768([facility] ED CT) Repository ENCOUNTERS ENCOUNTERS ADMIT/DISCHARGE ACCOUNT NUMBER ADMITTING ENCOUNTER LOCATION SOURCE CLASS 09/10/2018/09/10/19 [id number] Ambulatory BBuilding:RA Yvette [address] [place] [address] Repository 09/02/2018/09/02/19 [id number] [facility] ding:ED Repository 08/30/2018 [id number] Ambulatory [facility] ding:CT Repository 08/24/2018/08/24/19 [id number] Ambulatory BMSBuilding: [place] 19 BMS.[facility] Repository 08/23/2018 [id number] Ambulatory [facility] ding:CT Repository 08/18/2018 [id number] Ambulatory [facility] ding:PAVLAB Repository 08/18/2018/08/18/19 [id number] Ambulatory BMSBuilding: Kadeem 19 BMS.[facility] Repository 08/16/2018 [id number] Ambulatory [facility] ding:CT Repository 08/04/2018 [id number] Ambulatory BMSBuilding: Kadeem BMS.CF.[facility] Repository 08/04/2018 [id number] Ambulatory [facility] ding:US Repository 08/02/2018/08/02/20 [id number] Ambulatory Kadeem Kadeem 18 [facility] ding:ENRoom: Repository AC04 08/02/2018/08/02/20 [id number] Ambulatory BMSBuilding: Kadeem 18 BMS.CF.[facility] Repository 07/26/2018 [id number] Ambulatory [facility] ding:US Repository 07/23/2018/07/23/20 [id number] Ambulatory BMSBuilding: Kadeem 18 BMS.[facility] Repository 07/20/2018 [id number] Ambulatory [facility] ding:PAVLAB Repository 07/20/2018/07/20/20 [id number] Ambulatory BMSBuilding: [place] 18 BMS.[facility] Repository 07/15/2018 [id number] Ambulatory [facility] ding:LABSPEC Repository 07/06/2018 [id number] Ambulatory [facility] ding:LABSPEC Repository 04/29/2018/04/29/20 [id number] Ambulatory BMSBuilding: [place] [address] Repository 04/21/2018 [id number] Ambulatory [facility] ding:LABSPEC Repository 04/21/2018/04/21/20 [id number] Ambulatory BMSBuilding: Kadeem 18 BMS.[facility] Repository 03/29/2018/06/09/20 [id number] Ambulatory BBuilding:PH Yvette [address] [place] [address] Repository 03/08/2018/03/08/20 [id number] Ambulatory BBuilding:SC Yvette [address] [place] [address] Repository 03/02/2018/03/02/20 [id number] Ambulatory YVETTE Yvette [address] [place] [address] ding:[facility] Repository 02/26/2018/02/27/20 [id number] Ambulatory YVETTE [address] ding:[facility] Repository 01/20/2018 [id number] Ambulatory [facility] ding:LABSPEC Repository 01/20/2018/01/21/20 [id number] Ambulatory BMSBuilding: Kadeem 18 BMS.[facility] Repository 12/28/2017/12/29/19 [id number] Ambulatory YVETTE Yvette [address] [place] [address] ding:[facility] Repository 09/28/2017 [id number] Ambulatory [facility] ding:LABSPEC Repository 09/28/2017/09/28/19 [id number] Ambulatory BMSBuilding: [place] 18 BMS.[facility] Repository PAYERS PAYERS ENCOUNTER GUARANTOR PAYER SUBSCRIBER SOURCE 09/10/[address] [facility] Insurance:ERIC SALAS: [facility] [id number] [employer] [id number] Repository [facility] Number: [place], [place] [id number] [place], [place] [address]Ppi: (330) Date:2018-09-10 [address]Ovo: [id number] [phone] ()Tel: (330) Name:[facility] BOX () (WP) [address] [place] [address] [place] 000[address] (WP) 617[address]GF: 09/02/2018 KAYCE F Primary NABIL M [place] [id number] N Insurance:ANTHEMPolicy HUEBNERDOB: [facility] Number: [id number] [id number] Repository [address]Alq: (330) Date:1985-99-89CS [phone] () [address] [place] [address] [place] [address]SS: 09/02/2018 Secondary NOT GIVENUNK [place] Insurance:SELF PAY [facility] Number: Effective Repository Date:2018-09-02 08/30/2018 KAYCE F Primary NABIL M [place] [id number] N Insurance:ANTHEMPolicy HUEBNERDOB: [facility] Number: [id number] [place], [place] [id number] Repository [address]Aai: (330) Date:2013-00-24WE [phone] () [address] [place] [address]CN: 08/30/2018 Secondary NOT GIVENUNK [place] Insurance:SELF PAY [facility] Number: Effective Repository Date:2018-08-24 08/24/2018 KAYCE F Primary NABIL M [place] [id number] N Insurance:ANTHEMPolicy HUEBNERDOB: [facility] Number: [id number] [place], [place] [id number] Repository [address]Mgm: (330) Date:4514-73-07CH [phone] () 109345XXVKNKEHALEY [place]AMILTON [address]YJ: 08/24/2018 Secondary NOT GIVENUNK [place] Insurance:SELF PAY [facility] Number: Effective Repository Date:2018-08-20 08/23/2018 KAYCE F Primary NABIL M [place] [id number] N Insurance:ANTHEMPolicy HUEBNERDOB: [facility] Number: [id number] [place], [place] [id number] Repository [address]Fpe: (330) Date:3546-14-10BT [phone] () 082273TQKCXZFHALEY HAMILTON [address]74[address]ZQ: 08/23/2018 Secondary NOT GIVENUNK [place]em Insurance:SELF PAY [facility] Number: Effective Repository Date:2018-08-16 08/18/2018 KAYCE F Primary NABIL M [place] [id number] Insurance:ANTHEMPolicy HUEBNERDOB: [facility] Number: [id number] [place], [place] [id number] Repository [address]Gxd: (330) Date:0889-29-69QW [phone] () 885754ICSSGUWHALEY HAMILTON [address]DQ: 08/18/2018 Secondary NOT GIVENUNK [place] Insurance:SELF PAY [facility] Number: Effective Repository Date:2018-08-18 08/18/2018 KAYCE F Primary NABIL M [place] [id number] Insurance:ANTHEMPolicy HUEBNERDOB: [facility] Number: [id number] [place], [place] [id number] Repository [address]Lle: (330) Date:8612-68-22QQ [phone] () 559555FSZWICEHALEY HAMILTON [address]XY: 08/18/2018 Secondary NOT GIVENUNK [place] Insurance:SELF PAY [facility] Number: Effective Repository Date:2018-08-18 08/16/2018 KAYCE F Primary NABIL M [place] [id number] Insurance:ANTHEMPolicy HUEBNERDOB: Community [facility] Number: [id number] [place], [place] [id number] Repository [address]Eae: (330) Date:9373-59-76SX [phone] () 417873BDYQWXTHALEY HAMILTON [address]VQ: 08/16/2018 Secondary NOT GIVENUNK Kadeem Insurance:SELF PAY [facility]: Effective Repository Date:2018-08-12 08/04/2018 KAYCE F Primary NABIL M [place] [id number] Insurance:ANTHEMPolicy HUEBNERDOB: [facility] Number: [id number] [place], [place] [id number] Repository [address]Aok: (330) Date:8549-47-03ZG [phone] () HALEY WARNER [address]12[address]ER: 08/04/2018 Secondary NOT GIVENUNK [place] Insurance:SELF PAY [facility] Hospital Number: Effective Repository Date:2018-08-04 08/04/2018 KAYCE F Primary NABIL M K[place]em [id number] Insurance:ANTHEMPolicy HUEBNERDOB: [facility] SON Number: [id number] [place], [place] [id number] Repository [address]Tvx: (330) Date:8307-50-25RD [phone] () 238743CEHVNVU, [place] [address]CG: 08/04/2018 Secondary NOT GIVENUNK [place] Insurance:SELF PAY [facility] Hospital Number: Effective Repository Date:2018-07-30 08/02/2018 KAYCE F Primary NABIL M [place] [id number] Insurance:ANTHEMPolicy HUEBNERDOB: [facility] SON Number: [id number] [place], [place] [id number] Repository [address]Lkf: (330) Date:6311-27-67HM [phone] () 269633FRCQOOVHALEY HAMILTON [address]ON: 08/02/2018 Secondary NOT GIVENUNK Kadeem Insurance[facility] Number: Effective Repository Date:2018-07-27 08/02/2018 KAYCE F Primary NABIL M [place] [id number] Insurance:ANTHEMPolicy HUEBNERDOB: Community SON Number: [id number] [place] [id number] Repository [address]Umf: (330) Date:1607-87-07FD [phone] () [address] [place] [address] [place] [address]TO: 08/02/2018 Secondary NOT GIVENUNK K[place]em Insurance:SELF PAY [facility] Number: Effective Repository Date:2018-08-02 07/26/2018 KAYCE Primary NABIL M K[place]em [id number] Insurance:ANTHEMPolicy HUEBNERDOB: Community [facility] Number: [id number] [place], [place] [id number] Repository [address]Jna: (330) Date:6308-37-53LJ [phone] () [address] [place] [address] 197[address]AK: 07/26/2018 Secondary NOT GIVENUNK [place] Insurance:SELF PAY [facility] Number: Effective Repository Date:2018-07-23 07/23/2018 KAYCE Primary NABIL M [place] [id number] Insurance:ANTHEMPolicy HUEBNERDOB: [facility] Number: [id number] [place], [place] [id number] Repository [address]Wji: (330) Date:8543-90-36LW [phone] () [address] [place] [address] 188[address]HJ: 07/23/2018 Secondary NOT GIVENUNK [place] Insurance:SELF PAY [facility] Number: Effective Repository Date:2018-07-23 07/20/2018 KAYCE F Primary NABIL M [place] [id number] Insurance:ANTHEMPolicy HUEBNERDOB: [facility] Number: [id number] [place], [place] [id number] Repository [address]Lyg: (330) Date:6205-84-91KX [phone] () 359688TBYLGFXHALEY HAMILTON [address]IT: 07/20/2018 Secondary NOT GIVENUNK Kadeem Insurance:SELF PAY [facility]: Effective Repository Date:2018-07-20 07/20/2018 KAYCE F Primary NABIL M [place] [id number] N Insurance:ANTHEMPolicy HUEBNERDOB: Community [facility] Number: [id number], [place] [id number] Repository [address]Qnf: (330) Date:9072-24-31JB [phone] () 472204WYEWNLB, [place] [address]CD: 07/20/2018 Secondary NOT GIVENUNK [place] Insurance:SELF PAY [facility] Number: Effective Repository Date:2018-07-20 07/15/2018 KAYCE F Primary NABIL M Kadeem [id number] N Insurance:ANTHEMPolicy HUEBNERDOB: Community [facility] Number: [id number], [place] [id number] Repository [address]Ezi: (330) Date:3574-14-78SP [phone] () 989685UVLXHKY, [place] [address]RK: 07/15/2018 Secondary NOT GIVENUNK K[place]em Insurance:SELF PAY [facility] Number: Effective Repository Date:2018-07-15 07/06/2018 KAYCE F Primary NABIL M [place] [id number] Insurance:ANTHEMPolicy HUEBNERDOB: Community [facility] Number: [id number] [place], [place] [id number] Repository [address]Trr: (330) Date:9132-98-39YM [phone] () 153700TMVYDVFHALEY HAMILTON [address]RT: 07/06/2018 Secondary NOT GIVENUNK [place] Insurance:SELF PAY [facility] Number: Effective Repository Date:2018-07-06 04/29/2018 KAYCE F Primary NABIL M [place] [id number] Insurance:ANTHEMPolicy HUEBNERDOB: [facility] Number: [id number] [place] [id number] Repository [address]Mmg: (330) Date:8715-74-85DW [phone] () 974613WSTPFZP, [place] [address]GM: 04/29/2018 Secondary NOT GIVENUNK Kadeem Insurance:SELF PAY [facility] Number: Effective Repository Date:2018-04-29 04/21/2018 [facility] Primary NABIL M [place] [id number] Insurance:ANTHEMPolicy HUEBNERDOB: [facility] Number: [id number] [place], [place] [id number] Repository [address]Vrf: (330) Date:2944-26-55JC [phone] () 085040OXZHRDF, [place] [address]GS: 04/21/2018 Secondary NOT GIVENUNK Kadeem Insurance:SELF PAY [facility] Number: Effective Repository Date:2018-04-21 04/21/2018 [facility] Primary [facility] Insurance:ANTHEMPolicy HUEBNERDOB: [facility] Number: [id number] [place], [place] [id number] Repository [address]Qwv: (330) Date:0633-58-38YS [phone] () 395158GEVLMRH, [place] [address]DL: 04/21/2018 Secondary NOT GIVENUNK [place] Insurance:SELF PAY [facility] Number: Effective Repository Date:2018-04-21 03/29/2018 [facility] Primary Critical access hospitalEBNERDOB: Insurance:ANTHEM BLUE VERÓNICAEBNERDOB: [facility] [id number] [employer] [id number] Repository SON Number: SON [place], [place] [id number] [place], [place] [address]Lkw: (330) Date:2018-03-22 42679Ckv: 4834-50-56Odgj [phone] (HP)Tel: (330) Name:[address] BOX (HP) (WP) 341[address]od[place], [place] 000-0000 (WP) [address]QD: 03/08/2018 [facility]: [facility]:ANTHEM BLUE [facility]ERDOB: [facility] [employer] [id number] Repository SON Number: PAULINE BILLS [id number] [place] [address]Sxs: (330) Date:2018 [address]Nyy: 2865-54-15Ttwm [phone] (HP)Tel: (330) Name:[address]OX (HP) (WP) [id number], [place] 000[address]0000 (WP) [address]UE: 03/02/2018 [facility]: Insurance:ANTHEM BLUE EBNERDOB: [facility] [employer] [id number] Repository SON Number: PAULINE BILLS [id number] [place], [place] [address]Ifg: (330) Date:2018-03-02 53[address]Zwd: [id number] [phone] (HP)Tel: (330) Name:[address]OX (HP) (WP) 228[address]Wyxozzy, [place] 000[address]0000 (WP) [address]JN: 2018 [facility] Insurance:ANTHEM BLUE HUEBNERDOB: [facility] [employer] [id number] Repository SON Number: PAULINE BILLS [id number] [place], [place] [address]Hyx: (330) Date:2018 [address]Pvq: [id number] [phone] (HP)Tel: (330) Name:[address] BOX (HP) (WP) 3265[address]Hjcmeyq [place] 000-0000 (WP) [address]QN: 01/20/2018 KAYCE Branch Primary NABIL M [place] [id number] Insurance:ANTHEMPolicy HUEBNERDOB: [facility] Number: [id number] [place] [id number] Repository [address]Yla: (330) Date:4581-47-83KH [phone] (HP) [address] [place] [address] 31487VD: 01/20/2018 Secondary NOT GIVENUNK [place] Insurance:SELF PAY [facility] Number: Effective Repository Date:2018-01-20 01/20/2018 KAYCE F Primary NABIL M [facility] Insurance:ANTHEMPolicy HUEBNERDOB: [facility] Number: [id number] [place], [place] [id number] Repository [address]Xhj: (330) Date:4818-43-81ZH [phone] (HP) [address] [place] [address] 24[address]YG: 01/20/2018 Secondary NOT GIVENUNK Kadeem Insurance:SELF PAY [facility] Hospital Number: Effective Repository Date:2018-01-29 12/28/2017 KAYCE [facility]:ANTHEM BLUE EBNERDOB: [facility] [id number] [employer]CIAL[employer] [id number] Repository SON Number: SON [place], [place] [id number] [place], [place] [address]Htv: (330) Date:2017-12-28 47000Cfp: 1969-33-53Gxfk [phone] (HP)Tel: (330) Name:[address]PO BOX (HP) (WP) 600505Fhuynaf, [place] 000[address]0000 () [address]JE: 09/28/2017 KAYCE Branch Primary NABIL M [place] [id number] Insurance:ANTHEMPolicy HUEBNERDOB: Community SON Number: [id number] [place] [id number] Repository [address]Tje: (330) Date:5681-99-11NX [phone] () 055366ZJMHSUN, [place] [address]CV: 09/28/2017 Secondary NOT GIVENUNK [place] Insurance:SELF PAY [facility] Number: Effective Repository Date:2017-09-28 09/28/2017 KAYCE Branch Primary NABIL M Kadeem [id number] Insurance:ANTHEMPolicy HUEBNERDOB: [facility] Number: [id number] [place] [id number] Repository [address]Cmk: (330) Date:7048-41-00CA [phone] () 494786OXOFOIZ, [place] [address]EG: 09/28/2017 Secondary NOT GIVENUNK Kadeem Insurance:SELF PAY [facility] Number: Effective Repository Date:2017-09-28
== END 2018-09-02 16:58 | disposition home or self-care (01) ==
LOC: ED 13:27
PROVIDERS: Emergency Provider Emergency Medicine; Family Provider Internal Medicine; PCP Internal Medicine
DX: R10.84 Generalized abdominal pain (principal); M54.5 Low back pain; M54.6 Pain in thoracic spine; Z98.890 Other specified postprocedural states; Z72.0 Tobacco use
CPT/HCPCS: 71045; 74177; 80053; 80307; 81001; 83690; 84443; 84703; 85025; 93005; 96361; 96374; 96375; 96376; 99283; J7030; Q9967; J2405

== ENCOUNTER 2019-02-14 15:20 | Emergency (ER) | payer BC, SELFPAY ==
[2019-02-14 15:21] VITALS: BP 116/67; PULSE 127; RESP 17; TEMP 36.7; O2SAT 99; BMI 26.6
--- NOTE | 2019-02-14 15:34 | CT_ITS ---
STUDY: CT ABDOMEN AND PELVIS WITH CONTRAST REASON FOR EXAM: Female, 18 years old. Abdominal pain beginning at 10:00 AM today. History of steroid treatment for adrenal issue. RADIATION DOSAGE (If Supplied By Facility): CTDIvol = ( 12.9 ) mGy, DLP = ( 637.47 ) mGycm TECHNIQUE: Transaxial images were obtained from the dome of the diaphragm to the symphysis pubis with oral contrast. 100 IV/Oral Isovue 300 was administered. Sagittal and coronal images were reconstructed. Individualized dose optimization techniques were used for this CT. COMPARISON: CT of the abdomen and pelvis, September 02, 2018. FINDINGS: There is a low attenuation soft tissue mass in the anterior right hemithorax just above the diaphragm which measures approximately 7.5 x 6.4 x 2.7 cm. Fluid attenuation 7 Hounsfield units may represent a loculated fluid collection. The visualized lung bases are otherwise unremarkable. The visualized portions of the heart are within normal limits. Normal liver. Normal gallbladder and extrahepatic biliary system. Normal spleen. Normal pancreas. Normal bilateral adrenal glands. Normal right kidney. There is an extrarenal pelvis extending from an otherwise normal left kidney. Normal visualized stomach. Normal small intestine. Normal colon. The appendix is visualized and appears normal. Normal abdominal aorta. Normal inferior vena cava. Normal retroperitoneum. Normal urinary bladder. Normal uterus. Normal ovaries. There is no pelvic lymphadenopathy. No free air or free fluid is seen within the peritoneal cavity. Normal abdominal wall. Normal osseous structures. CT/Abdomen/Pelvis WITH Contrast IMPRESSION: 1. Interval increase in the fluid collection along the anterior right lung base when compared to the prior study. 2. No acute intra-abdominal or pelvic abnormality or other interval change. Electronically Signed: Cruzito Jaime DO at 17:21 EDT Tel [phone], Service support ,
[2019-02-14] MEDS: 0.9% Normal Saline 1,000 ML 125 ML IV (15:48)
[2019-02-14] MEDS: Ondansetron 4 MG/2 ML Vial IV (15:48)
[2019-02-14 15:49] LABS: Absolute Lymphocyte Count 0.61 X10^3/ul (0.83-4.51); Absolute Neutrophil Count 7.3 X10^3/uL (2.0-7.7); Basophil# 0.01 X10^3/uL; Basophil% 0.1 % (0-1); Eosinophil# 0.06 X10^3/uL; Eosinophils% 0.7 % (0-5); Hematocrit 47.2 % (37-47); Hemoglobin 15.4 g/dl (12.0-15.0); Lymphocyte # 0.61 X10^3/ul (4.0); Lymphocyte % 7.2 % (19-41); Mean Corp Hgb Conc 32.6 g/gl (32-36); Mean Corpuscular Volume 88.9 fL (81-99); Mean Platelet Vol. 8.8 fl (6.2-12.0); Monocyte# 0.47 X10^3/uL; Monocyte% 5.6 % (0-10); Neutrophil # 7.27 X10^3/uL (2.7-7.7); Neutrophil % 86.4 % (47-70); Platelet Count 202 K/mm3 (150-450); RBC Distribution Width CV 13.4 % (11.6-14.6); RBC Distribution Width SD 43.2 fl (35.1-43.9); Red Blood Count 5.31 M/mm3 (4.2-5.4); White Blood Count 8.4 K/mm3 (4.4-11.0)
[2019-02-14] MEDS: HYDROmorphone 1 MG/ML Syringe IV ×2 (15:50→16:18)
[2019-02-14 15:53] LABS: POSITIVE COUNT NO; POSITIVE DIFFERENTIAL NO; POSITIVE MORPHOLOGY NO
[2019-02-14 16:06] LABS: ALB/GLOB Ratio 1.2 RATIO (0.9-2.4); AST(SGOT) 13 U/L (15-37); Alanine Aminotransfer ALT/SGPT 28 U/L (13-56); Alkaline Phosphatase 67 U/L (45-117); Anion Gap 7 (5-15); BUN 16 mg/dL (7-18); BUN/Creat Ratio 20.4 RATIO (10-20); Chloride 109 mmol/L (98-107); Creatinine, Serum 0.78 mg/dL (0.55-1.02); EST Glomerular Filtration Rate 98 mL/min (>60); Est Glom Filt Rate - Afr Amer 119 mL/min (>60); Estimated Creatinine Clearance 90.99 ml/min; Globulin 3.2 g/dL (2.2-4.2); Glucose 89 mg/dL (74-106); Lipase 89 U/L (73-393); Potassium 3.9 mmol/L (3.5-5.1); Protein, Total 7.2 g/dL (6.4-8.2); Sodium Level 139 mmol/L (136-145)
--- NOTE | 2019-02-14 16:22 | ED.VISSUMM ---
- ER Visit Summary Date of Service: 02/14/19 Chief Complaint: [Abdominal pain] History of Present Illness: The patient is a 18 F [resents to the ER with abdominal pain that started around 10 AM. Patient states that she had some mild discomfort initially that progressively worsened. Initially started in the upper abdomen and then started to radiate into her chest and around to her back. Patient has not had pain like this before. Patient has vomited times twice with this. Patient denies any fevers. She denies urinary symptoms. She does not have periods currently as she is on the Depakote shot. Prior surgeries include left groin lymph node resection. Patient has had 22 ear surgeries. Patient has had tonsils and adenoids removed. Patient recently admitted to [facility] for some abdominal pain issues which etiology has not been ascertained. She was admitted for 14 days to the fact that she developed adrenal insufficiency and patient had been on steroids up until 2 days ago.] Physical Examination: [HEENT-PERRLA, EOMI. Cranial nerves II through XII grossly intact. TMs clear. Mucous membranes moist. No adenopathy. Cardiovascular-regular rate and rhythm without murmur or ectopy Lungs-clear to auscultation, chest wall stable without crepitus or subcu emphysema Abdomen-normoactive bowel sounds, soft area patient has diffuse tenderness to palpation over the upper abdomen and just diffusely. There is guarding. There is no rebound, rigidity, cranial signs. Extremities-intact ?4, normal range of motion, normal pulses, atraumatic] Test Results: [CBC with differential and a white count of 8.4, hemoglobin 15, hematocrit 47, placed CO2. Chemistries unremarkable. LFTs unremarkable. Lactate was normal 0.8. Cortisol level was 27.8. Urinalysis showed 500 leukocyte esterase as well as greater than 100 WBCs and +[address] scan of the abdomen pelvis showed a fluid collection along the anterior right lung otherwise nothing really significant.] Emergency Department Course and Treatment: [Patient was not given Dilaudid and Zofran initially followed by second dose of Dilaudid. Patient was given Bactrim DS 1 p.o. as well as Pyridium. Patient denied anything more for pain. She does not want to be admitted. She does not want to be transferred back to the [facility]. Etiology of her pain is unclear. Patient does have frequent urinary tract infections and I will send off a urine culture.] Treatment Plan: [Advised to follow-up with her primary care physician or specialist within the next 3 to 5 days. Patient advised to push fluids. I will treat her with Bactrim and Pyridium. She has pain medicine at home in the form of hydrocodone. Advised to return if fever chills, vomiting, dehydration, worsening pain, or conditions worsen anyway.] Disposition: [Discharged home stable condition.] Impression: [Abdominal pain UTI] This note was generated with [employer] dictation software. It may contain incorrect words, spelling, and punctuation that were not noted in review of the chart prior to signing ED Disposition - Plan for ED Patient: Referrals: Mala Sanders MD [Primary Care Provider] -
[2019-02-14 16:29] LABS: Lactic Acid 0.8 mmol/L (0.4-2.0)
[2019-02-14 16:33] LABS: Internal QC Validated? YES +Cl - CLEAR BKGD; Pregnancy, Serum, hCG Quali. NEGATIVE Negative
[2019-02-14] MEDS: Mag Hydrox/Al Hydrox/Simeth 30 ML UDC PO (17:56)
[2019-02-14 17:59] VITALS: BP 122/78; PULSE 112; RESP 16; O2SAT 98
[2019-02-14 17:59] LABS: Mucous, Urine 0 SEEN /hpf (<or=2+); Red Blood Cells-Urine 0 SEEN /hpf (0-5)
[2019-02-14 18:27] LABS: Color, Urine Yellow (Yellow); Glucose, Dipstick Normal (Normal); Ketone-Dipstick 50 mg/dl (Negative); Leukocyte Esterase-Dipstick 500 /ul (Negative); Nitrite-Dipstick Negative (Negative); Occult Blood-Urine Negative /ul (Negative); Protein-Dipstick Negative (Negative); Urine Bilirubin Dipstick Negative (Negative); Urine Clarity Sl. Cloudy (Clear); Urine Urobilinogen Normal (Normal)
[2019-02-14 18:46] LABS: Bacteria 1+ /hpf (None Seen); Squamous Epithelial Cells - UA 0-5 SEEN /hpf (5-10); White Blood Cells >100 SEEN /hpf (0-5)
[2019-02-14 19:07] VITALS: BP 118/76; PULSE 108; RESP 18; TEMP 36.8; O2SAT 99
--- NOTE | 2019-02-14 19:10 | ED.DEP ---
ED Disposition - Plan for ED Patient: Instructions: ABDOMINAL PAIN, Unknown Cause, (Female), Bladder Infection, Female (Adult) Prescriptions: Smz/Tmp Ds [Bactrim Ds] 1 tab PO BID #10 tab Prescription Printed Phenazopyridine HCl [Pyridium] 200 mg PO BID PRN PRN #10 tab PRN Reason: Pain Prescription Printed Referrals: Mala Sanders MD [Primary Care Provider] - 3-5 Days
[2019-02-14] MEDS: Phenazopyridine 95 MG Tablet 190 MG PO (19:24)
[2019-02-14] MEDS: Smz/Tmp Ds Tablet 1 TABLET PO (19:24)
== END 2019-02-14 19:29 | disposition home or self-care (01) ==
PROVIDERS: Emergency Provider Emergency Medicine; Family Provider Family Medicine; PCP Family Medicine
DX: N39.0 Urinary tract infection, site not specified (principal); R10.84 Generalized abdominal pain
CPT/HCPCS: 74177; 80053; 81001; 82533; 83605; 83690; 84703; 85025; 87086; 87088; 96361; 96374; 96375; 96376; 99284; J7030; Q9967; A4216; J2405

== ENCOUNTER → 2019-08-11 16:58 | Outpatient (CLI) | payer BC, SELFPAY ==
[2019-08-11 16:27] VITALS: BMI 26.6
[2019-08-11 19:43] LABS: Chlamydia Trachomatis by PCR Negative (Negative); Neisserai gonorrhoeae by PCR Negative (Negative); Probe Check PASS; Sample Adequacy Control PASS; Specimen Processing Control PASS
[2019-08-15 13:09] LABS: HSV 1 IgG < 0.91 index (0.00-0.90); HSV 2 IgG 8.14 index (0.00-0.90)
== END ==
PROVIDERS: Obstetrics & Gynecology; Family Provider Family Medicine; PCP Family Medicine; Referring Provider Nurse Practitioner Women's Health; Visit Provider Nurse Practitioner Women's Health
DX: N89.8 Other specified noninflammatory disorders of vagina (principal)
CPT/HCPCS: 36415; 86695; 86696; 87070; 87205; 87491; 87591

== ENCOUNTER → 2020-03-15 17:16 | Outpatient (CLI) | payer BC, SELFPAY ==
[2020-03-15 14:25] VITALS: BMI 26.6
[2020-03-15 22:35] LABS: Chlamydia Trachomatis by PCR Negative (Negative); Neisserai gonorrhoeae by PCR Negative (Negative); Probe Check PASS; Sample Adequacy Control PASS; Specimen Processing Control PASS
[2020-03-20 16:55] LABS: HPV Reflexed? NOT INDICATED
== END ==
PROVIDERS: PCP Family Medicine; Referring Provider Nurse Practitioner Women's Health; Visit Provider Nurse Practitioner Women's Health
DX: Z12.4 Encounter for screening for malignant neoplasm of cervix (principal)
CPT/HCPCS: 87491; 87591; 88175; G0145

== ENCOUNTER 2021-02-16 11:49 | Emergency (ER) | payer BC, SELFPAY ==
[2021-01-25 16:13] VITALS: BMI 24.2
[2021-02-16 11:49] VITALS: BP 121/74; PULSE 85; RESP 16; TEMP 36.1; O2SAT 99; BMI 23.8
--- NOTE | 2021-02-16 12:12 | US_ITS ---
HISTORY: pelvic pain EXAMINATION: US Transvaginal Non-OB TECHNIQUE: Transvaginal (for optimal evaluation of the adnexa) pelvic ultrasound was performed. Grayscale, spectral waveform, and color flow Doppler evaluation of the adnexa. COMPARISON: None FINDINGS: UTERUS: anteverted. The uterus measures 6.5 x 3.4 x 2.3 cm. There is no uterine mass. The endometrial stripe measures 2 mm in AP diameter which is within normal limits. RIGHT OVARY: 3.7 x 2.5 x 2.0 cm. Dominant follicle 1.5 cm. There is normal arterial inflow and venous outflow present in the right ovary. LEFT OVARY: 2.1 x 1.8 x 1.5 cm. Non-enlarged, normal echogenicity. There is normal arterial inflow and venous outflow present in the left ovary. FREE FLUID: None. US/Transvaginal Non- IMPRESSION: Unremarkable pelvic ultrasound. at 1411 Reported and signed by: Delvin Delgado MD Electronically Signed: Delvin Delgado MD at 14:10 EDT Tel , Service support ,
--- NOTE | 2021-02-16 12:18 | EDS_ITS ---
HPI HPI - GI History of Present Illness Chief Complaint: Abd Pain Informant: patient and parent Abdominal Pain/Flank Pain Onset: Days Context: Gradual Onset Timing: Continuous and Waxes and wanes Current Severity: Mild Maximum Severity: Moderate Diarrhea/Melena/Hematochezia GI Symptom: Negative for Diarrhea Associated Symptoms Associated Symptoms: Negative for Dysuria and Frequency Narrative Narrative: 20-year-old female history of adrenal insufficiency. Previously was on control but is been off her control for about 6 months. History of a prior ovarian cyst. Has been having lower pelvic pain for the last 3 to 4 days. It waxes and wanes at times severe. No vaginal bleeding or discharge. Has not had a menstrual period for 4 to 5 years. No prior female or abdominal surgery. No vaginal discharge. No dysuria or fever. Prior similar symptoms: Yes Recent Illness/Hospitalization: No PFSH PFS Medical History (Updated 02/16/21 @ 14:[address] Nicholas Cancino MD) Anxiety and depression Depression with anxiety Primary adrenal deficiency secondary adrenal deficiency Home Medications hydrocortisone 20 mg tablet 25 mg PO DAILY tab 07/19/20 [History Last Taken Unknown] Allergy/AdvReac Type Severity Reaction Status Date / Time erythromycin base AdvReac Intermediate stomach Verified 02/16/21 11:49 pain, vomiting Surgical History history orif right orbital fracture history right ear reconstruction history right myringotomy with tubes Social History Smoking Status: Never smoker alcohol intake: never substance use type: does not use caffeine: Yes what type of physical activity do you participate in: aerobics frequency: 1-2 times per week seatbelt use: always do you feel safe at home: Yes 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 Review of Systems ROS Unobtainable: Denies due to encephalopathy Constitutional Constitutional ED: Denies chills or fever(s) ENT ENT ED: Denies ear pain or sore throat Cardiovascular Cardiovascular: Denies chest pain Respiratory/Chest Respiratory/Chest: Denies cough or dyspnea Gastrointestinal Gastrointestinal: Reports abdominal pain; Denies constipation, diarrhea, melena, nausea or vomiting Genitourinary Genitourinary ED: Denies dysuria or hematuria Musculoskeletal Musculoskeletal: Denies arthralgias or myalgias Integumentary Denies rash Neurologic Neurologic: Denies headache(s) Psychiatric Psychiatric: Denies depression Endocrine Endocrinology: Denies polyuria Hematologic/Lymphatic Hematologic/Lymphatic: Denies easy bruising Allergic/Immunologic Allergic/Immunologic ED: Denies urticaria EXAM Physical Exam Narrative Exam Narrative: Young female no distress. Vital signs stable afebrile. Lungs are clear. Heart regular rhythm. Abdomen soft nondistended normal bowel sounds no peritoneal signs. Very mild tenderness in the suprapubic bilateral lower quadrant area. Nonspecific to McBurney's point. No right upper abdominal tenderness. Otherwise exam unremarkable. Const Vital Signs: 02/16/21 11:49 02/16/21 14:07 Temperature 96.9 F L Temperature Source Temporal Pulse Rate 85 Respiratory Rate 16 16 Blood Pressure 121/74 H Blood Pressure Mean 89 Pulse Ox 99 Oxygen Delivery Method Room Air HEENT Reports moist mucous membranes normocephalic and atraumatic; Negative for trauma Eyes PERRL and EOMs intact bilaterally Neck no lymphadenopathy, supple and no JVD General: Negative for tenderness Resp normal respiratory effort and clear to auscultation bilaterally Cardio regular rate, regular rhythm, S1 normal heart sound, S2 normal heart sound and no murmurs GI non-distended and no masses Inspection: Negative for abdominal distention Auscultation: normoactive bowel sounds; Negative for hyperactive bowel sounds or hypoactive bowel sounds Palpation: soft and tender; Negative for guarding, rigid or rebound tenderness present Back/Spine no CVA tenderness General Back: Negative for CVA tenderness Cervical Spine: Negative for cervical spine tenderness Extremity full ROM General Extremety ED: Negative for edema or tenderness General Extremity: Negative for edema Neuro CN's II-XII intact bilaterally Sensorium / Orientation: alert, oriented to person, oriented to place, oriented to time and orientation impaired Psych mental status grossly normal Skin Lesions: no lesions Rashes: no rashes MDM MDM MDM Narrative Medical decision making narrative: Female with pelvic pain. Ultrasound being obtained along with a urinalysis and a test. She does not currently want anything for pain. Lab Data Attestation: I reviewed the patient's lab results. Lab results narrative: Urine negative. Urine test negative. Ultrasound read as unremarkable by the radiologist. Repeat exam patient was given Toradol for pain. IM. Then to p.o. [place]. I went over test results with her and her mom. They deferred on pelvic at this time. She will follow up with her [employer] PANELBOARD OPERATOR. Labs: Laboratory Results - last 24 hr 02/16/21 12:35 Urine Color Yellow Urine Clarity Sl. Cloudy Urine pH 6.5 Ur Specific Hall 1.010 Urine Protein Negative Urine Glucose (UA) Normal Urine Ketones Negative Urine Occult Blood Negative Urine Nitrite Negative Urine Bilirubin Negative Urine Urobilinogen Normal Ur Leukocyte Esterase 500 H Urine RBC 0 SEEN Urine WBC 0-5 SEEN Ur Squamous Epith Cells 5-10 SEEN Urine Bacteria 0 SEEN Urine Mucus 0 SEEN Urine Test Negative Radiography Diagnostic Testing: Radiology Impression Transvaginal US 02/16/21 12:12 IMPRESSION: Unremarkable pelvic ultrasound. at 1411 Reported and signed by: Delvin Delgado MD Electronically Signed: Delvin Delgado MD at 14:10 EDT Tel , Service support , Discharge Plan Triage Chief Complaint: Abd Pain ED Provider: Nicholas Cancino Dx/Rx/DC Orders Clinical Impression: Pelvic pain Instructions: ED Pelvic Pain, Unknown Cause Prescriptions: No Action hydrocortisone 20 mg tablet 25 mg PO DAILY RF: 0 Referrals: MAHIN RIZO [Other] Magdalena Quintanilla MD [STAFF PHYSICIAN] - As soon as possible Activity Restrictions/Additional Instructions: Call follow-up the [employer] PANEL[employer]ARD OPERATOR is soon as possible. Tylenol and Motrin for pain. Your urinalysis, urine test and ultrasound today were all normal. If you develop a fever or feeling a lot worse return. But we do not have a specific cause for the pain today. Disposition Disposition: Home, Self Care
[2021-02-16 12:44] LABS: Bacteria 0 SEEN /hpf (None Seen); Mucous, Urine 0 SEEN /hpf (<or=2+); Red Blood Cells-Urine 0 SEEN /hpf (0-5)
[2021-02-16 12:45] LABS: Color, Urine Yellow (Yellow); Glucose, Dipstick Normal (Normal); Ketone-Dipstick Negative (Negative); Leukocyte Esterase-Dipstick 500 /ul (Negative); Nitrite-Dipstick Negative (Negative); Occult Blood-Urine Negative /ul (Negative); Protein-Dipstick Negative (Negative); Urine Bilirubin Dipstick Negative (Negative); Urine Clarity Sl. Cloudy (Clear); Urine Urobilinogen Normal (Normal); Urine pH 6.5 (5.0 - 8.0)
--- NOTE | 2021-02-16 12:47 | ED.RN ---
Patient in US and changed her mind and wants pain med -- aware and waiting on reg reults
[2021-02-16 12:52] LABS: Squamous Epithelial Cells - UA 5-10 SEEN /hpf (5-10); White Blood Cells 0-5 SEEN /hpf (0-5)
[2021-02-16 12:53] LABS: Internal QC Validated? YES +Cl - CLEAR BKGD; Pregnancy, Urine Negative Negative
[2021-02-16] MEDS: Ketorolac 30 MG/ML Syringe IM (13:23)
[2021-02-16 14:07] VITALS: RESP 16
[2021-02-16] MEDS: HYDROcodone Bitartrate/Apap 5/325 Tablet PO (14:26)
== END 2021-02-16 14:38 | disposition home or self-care (01) ==
PROVIDERS: Emergency Provider Emergency Medicine
DX: R10.2 Pelvic and perineal pain (principal); R19.7 Diarrhea, unspecified; K92.1 Melena
CPT/HCPCS: 76830; 81001; 81025; 93976; 96372; 99283

== ENCOUNTER → 2021-02-19 14:40 | Outpatient (CLI) | payer BC, SELFPAY ==
[2021-02-19 14:00] VITALS: BMI 23.8
[2021-02-19 15:09] LABS: Absolute Lymphocyte Count 1.88 X10^3/uL (0.83-4.51); Absolute Neutrophil Count 3.7 X10^3/uL (2.0-7.7); Basophil# 0.04 X10^3/uL; Basophil% 0.6 % (0-1); Eosinophil# 0.13 X10^3/uL; Eosinophils% 2.1 % (0-5); Hemoglobin 15.2 g/dL (12.0-15.0); Lymphocyte # 1.88 X10^3/ul (0.83-4.51); Lymphocyte % 30.3 % (19-41); Mean Corp Hgb Conc 32.3 g/dL (32-36); Mean Corpuscular Hgb 29.6 pg (27.0-32.0); Mean Corpuscular Volume 91.4 fL (81-99); Mean Platelet Vol. 9.9 fl (6.2-12.0); Monocyte# 0.39 X10^3/uL; Monocyte% 6.3 % (0-10); NRBC Flagged by Analyzer 0 % (0-5); Neutrophil # 3.74 X10^3/uL (2.7-7.7); Neutrophil % 60.4 % (47-70); Platelet Count 281 K/mm3 (150-450); RBC Distribution Width SD 40.6 fl (35.1-43.9); Red Blood Count 5.14 M/mm3 (4.2-5.4); White Blood Count 6.2 K/mm3 (4.4-11.0)
[2021-02-19 16:01] LABS: Thyroid Stim Hormone (TSH) 1.09 uIU/mL (0.358-3.74)
[2021-02-24 20:48] LABS: Testosterone Free 0.8 pg/mL (0.0-4.2)
== END ==
PROVIDERS: Referring Provider Obstetrics & Gynecology; Visit Provider Obstetrics & Gynecology
DX: N94.6 Dysmenorrhea, unspecified (principal); N91.1 Secondary amenorrhea
CPT/HCPCS: 36415; 82627; 84146; 84402; 84443; 85025; 82626

== ENCOUNTER → 2021-05-09 10:58 | Outpatient (CLI) | payer BC, SELFPAY ==
[2021-05-09 12:10] LABS: Absolute Lymphocyte Count 2.21 X10^3/uL (0.83-4.51); Absolute Neutrophil Count 2.3 X10^3/uL (2.0-7.7); Basophil# 0.03 X10^3/uL; Basophil% 0.6 % (0-1); Eosinophil# 0.06 X10^3/uL; Eosinophils% 1.2 % (0-5); Hematocrit 43.4 % (37-47); Hemoglobin 13.6 g/dL (12.0-15.0); Lymphocyte # 2.21 X10^3/ul (0.83-4.51); Lymphocyte % 44.2 % (19-41); Mean Corp Hgb Conc 31.3 g/dL (32-36); Mean Corpuscular Hgb 29.2 pg (27.0-32.0); Mean Corpuscular Volume 93.1 fL (81-99); Monocyte# 0.36 X10^3/uL; Monocyte% 7.2 % (0-10); NRBC Flagged by Analyzer 0 % (0-5); Neutrophil # 2.33 X10^3/uL (2.7-7.7); Neutrophil % 46.6 % (47-70); Platelet Count 232 K/mm3 (150-450); RBC Distribution Width CV 13.5 % (11.6-14.6); RBC Distribution Width SD 46.1 fl (35.1-43.9); Red Blood Count 4.66 M/mm3 (4.2-5.4)
[2021-05-09 12:26] LABS: ALB/GLOB Ratio 1.2 RATIO (0.9-2.4); AST(SGOT) 11 U/L (15-37); Alanine Aminotransfer ALT/SGPT 31 U/L (13-56); Albumin, Serum 3.9 g/dL (3.2-5.0); Alkaline Phosphatase 34 U/L (45-117); Anion Gap 4 (5-15); BUN 17 mg/dL (7-18); Calcium,Total 9.3 mg/dL (8.5-10.1); Chloride 115 mmol/L (98-107); Creatinine, Serum 0.89 mg/dL (0.55-1.02); EST Glomerular Filtration Rate 83 mL/min (>60); Est Glom Filt Rate - Afr Amer 101 mL/min (>60); Globulin 3.3 g/dL (2.2-4.2); Glucose 89 mg/dL (74-106); Potassium 3.7 mmol/L (3.5-5.1); Protein, Total 7.2 g/dL (6.4-8.2); Sodium Level 142 mmol/L (136-145)
[2021-05-13 16:33] LABS: EBV Acute VCA IgM < 36.0 U/mL (0.0-35.9); EBV Early Antigen IgG <9.0 U/mL (0.0-8.9); EBV-VCA IgG > 600.0 U/mL (0.0-17.9)
== END ==
PROVIDERS: Referring Provider Family Medicine; Visit Provider Family Medicine
DX: R10.9 Unspecified abdominal pain (principal); B34.9 Viral infection, unspecified
CPT/HCPCS: 36415; 80053; 85025; 86663; 86664; 86665; 87633; 87635; U0005; U0003

== ENCOUNTER 2021-06-07 16:03 | Emergency (ER) | payer BC, SELFPAY ==
[2021-06-07 16:04] VITALS: BP 93/77; PULSE 89; RESP 16; TEMP 36.4; O2SAT 97; BMI 23.8
--- NOTE | 2021-06-07 16:27 | RAD_ITS ---
STUDY: X-RAY CHEST REASON FOR EXAM: Female, 21 years old. chest pain TECHNIQUE: Single AP portable view of the chest. COMPARISON: September 02, 2018 FINDINGS: The lungs are clear and expanded. There is no demonstrated pleural abnormality. Normal size heart. Normal mediastinum and marisol. Normal visualized pulmonary arteries. Normal visualized aortic arch and descending thoracic aorta. Normal visualized thoracic spine. Normal visualized ribs, clavicles, and shoulders. There is no demonstrated abnormality of the visualized soft tissue structures of the upper abdomen. RAD/Chest 1 View (Portable) IMPRESSION: Normal x-ray examination of the chest. Electronically Signed: Tc Washington MD at 18:03 EDT , Service support ,
--- NOTE | 2021-06-07 16:27 | EDS_ITS ---
HPI History of Present Illness Chief Complaint: Palpitations Informant: patient and parent Narrative Narrative: Patient presents with mother referred here from urgent care reporting frequent PVCs starting yesterday. She is noted early beats, and every 2 minutes. Today more frequently. She is at work she was referred to get an EKG at her job with a noted PVC. She was sent to urgent care who also seen this. She states to me after these episodes she did have a few minutes of chest pain that would resolve. She denies dyspnea or cough. History of a pericardial cyst in the past that was being monitored by [facility] cardiology. Last evaluation was 2 years ago. They state it was stable. Report not to worry about unless he starts having symptoms. She is concerned with these PVC symptoms. Patient does have history of primary and secondary adrenal insufficiency on steroids of hydrocortisone 25 mg daily. Her last echocardiogram was 2 years ago. Has not had a Holter monitor in the past. Denies tobacco history. Prior Similar Symptoms: Yes [facility] Medical History (Updated 06/07/21 @ 19:[address] Neftaly Diaz DO) Anxiety and depression Depression with anxiety Primary adrenal deficiency secondary adrenal deficiency Home Medications hydrocortisone 20 mg tablet 25 mg PO DAILY tab 07/19/20 [History Last Taken Unknown] drospirenone (contraceptive) 4 mg (28) tablet 1 tab PO DAILY 24 Days #24 tab 02/19/21 [Rx Last Taken Unknown] nabumetone 500 mg tablet 500 mg PO BID #30 tab 02/19/21 [Rx Last Taken Unknown] topiramate [Topamax] 100 mg PO DAILY 06/07/21 [History Last Taken Unknown] Allergy/AdvReac Type Severity Reaction Status Date / Time erythromycin base AdvReac Intermediate stomach Verified 06/07/21 16:06 pain, vomiting Surgical History history orif right orbital fracture history right ear reconstruction history right myringotomy with tubes Social History Smoking Status: Never smoker alcohol intake: never substance use type: does not use caffeine: Yes what type of physical activity do you participate in: aerobics frequency: 1-2 times per week seatbelt use: always do you feel safe at home: Yes 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 ROS ROS ED Constitutional Constitutional ED: Denies chills, fever(s) or sweats Eyes Eyes: Denies change in vision ENT ENT ED: Denies dysphagia or sore throat Cardiovascular Cardiovascular: Reports chest pain; Denies leg edema, palpitations or racing heartbeat Respiratory/Chest Respiratory/Chest: Denies cough, dyspnea or dyspnea on exertion Gastrointestinal Gastrointestinal: Denies abdominal pain, diarrhea, nausea or vomiting Genitourinary Genitourinary ED: Denies dysuria, hematuria or urinary frequency Musculoskeletal Musculoskeletal: Denies back pain, extremity pain or neck pain Integumentary Denies rash or wounds Neurologic Neurologic: Denies headache(s), paresthesias or weakness EXAM Physical Exam Const Vital Signs: 06/07/21 16:04 06/07/21 16:38 06/07/21 17:00 Temperature 97.6 F L Temperature Source Temporal Pulse Rate 89 70 Respiratory Rate 16 16 Respiratory Effort Normal Non-Labored Respiratory Pattern Normal Blood Pressure 93/77 122/76 H Blood Pressure Mean 82 91 Pulse Ox 97 100 98 Oxygen Delivery Method Room Air Room Air Room Air 06/07/21 18:00 Temperature Temperature Source Pulse Rate 72 Respiratory Rate 25 H Respiratory Effort Respiratory Pattern Blood Pressure Blood Pressure Mean Pulse Ox 97 Oxygen Delivery Method Room Air Positive well nourished and well developed General Appearance ED: well developed and NAD HEENT Reports moist mucous membranes normocephalic and atraumatic Eyes PERRL, EOMs intact bilaterally and conjunctivae normal General Eye ED: Yes normal appearance of both eyes Neck no lymphadenopathy and supple General: Negative for tenderness Chest Wall Chest: Negative for tenderness Resp normal respiratory effort and normal air movement Effort and Inspection: symmetric chest movement; Negative for respiratory distress Cardio regular rate, regular rhythm and no murmurs Peripheral Pulses: pulses 2+ throughout GI normal to inspection, nondistended, normoactive bowel sounds and non-tender Palpation: Negative for guarding or rebound tenderness present Back/Spine no CVA tenderness and no thoracic nor lumbar tenderness Extremity normal to inspection General Extremety ED: Negative for edema or tenderness General Extremity: Negative for edema Neuro oriented x3 and no sensory deficits noted Sensorium / Orientation: awake and alert Skin no rashes or lesions noted and no wounds Heart Score History: Slightly/Non-Suspicious ECG: Normal Age: </= 45 years Risk Factors: 1 or 2 Risk Factors Troponin: </= Normal Limit Score: 1 MDM MDM MDM Narrative Medical decision making narrative: Patient EKG normal. On the monitor would have infrequent PVCs that she have symptoms from. She did report intermittent chest pains lasting minutes after these episodes. Cardiac work-up initiated with normal. Electrolytes all normal. With her pericardial cyst history and symptomatic PVCs I did speak with student officer on-call Dr. Gaitan, heart rate initially nearly 90 however on recheck it was high 60s low 70s. He recommended reassurance that these are not life-threatening. He recommended Holter monitor. He will see as an outpatient for follow-up. Currently Holter monitors were unavailable through the ED, this was written for outpatient to be obtained after the weekend. Lab Data Attestation: I reviewed the patient's lab results. Labs: Laboratory Results - last 24 hr 06/07/21 06/07/21 06/07/21 16:30 16:30 18:30 WBC 7.3 RBC 4.68 Hgb 14.1 Hct 42.6 MCV 91.0 MCH 30.1 MCHC 33.1 RDW Std Deviation 44.3 H RDW Coeff of Shivam 13.2 Plt Count 245 MPV 9.6 Immature Gran % (Auto) 0.100 Neut % (Auto) 53.5 Lymph % (Auto) 37.7 [place] % (Auto) 7.5 Eos % (Auto) 0.7 Baso % (Auto) 0.5 Absolute Neuts (auto) 3.9 Absolute Lymphs (auto) 2.76 Nucleated RBC % 0 Sodium 142 Potassium 3.8 Chloride 113 H Carbon Dioxide 23.0 Anion Gap 6 BUN 21 H Creatinine 0.97 Estim Creat Clear Calc 71.34 Est GFR (MDRD) Af Amer 91 Est GFR (MDRD) Non-Af 75 BUN/Creatinine Ratio 21.6 H Glucose 137 H Calcium 8.9 Magnesium 2.4 Troponin I High Sens < 3 L 4 TSH 0.75 Radiography Chest X-Ray - ED: 1 View, Read by ED Physician and Read by Radiologist Diagnostic Testing: Clinical Impression(s) from Imaging Studies Chest X-Ray 06/07/21 16:27 IMPRESSION: Normal x-ray examination of the chest. Electronically Signed: Tc Washington MD at 18:03 EDT , Service support , EKG Initial EKG: Attestation: I personally reviewed and interpreted this EKG as follows: Comments: Sinus rhythm 86, no ST or T wave changes. QTc 461. Discharge Plan Triage Chief Complaint: Palpitations ED Provider: Neftaly Diaz Dx/Rx/DC Orders Clinical Impression: Symptomatic PVCs, Chest pain Instructions: PVCs, ED Chest Pain, Uncertain Cause Prescriptions: No Action hydrocortisone 20 mg tablet 25 mg PO DAILY RF: 0 drospirenone (contraceptive) 4 mg (28) tablet 1 tab PO DAILY 24 Days Qty: 24 RF: 12 nabumetone 500 mg tablet 500 mg PO BID Qty: 30 RF: 5 topiramate [Topamax] 100 mg tablet 100 mg PO DAILY RF: 0 Referrals: MAHIN RIZO [Other] Denton Gaitan MD [STAFF PHYSICIAN] - 1-2 Weeks Activity Restrictions/Additional Instructions: Return for the Holter monitor. Monitor symptoms. Follow-up with Dr. Gaitan Disposition Disposition: Home, Self Care Discharge Date/Time: 06/07/21 19:15
--- NOTE | 2021-06-07 16:27 | EKG12_ITS ---
Test Reason : CP Blood Pressure : / mmHG Vent. Rate : 086 BPM Atrial Rate : 086 BPM P-R Int : 134 ms QRS Dur : 078 ms QT Int : 386 ms P-R-T Axes : 074 091 063 degrees QTc Int : 461 ms Normal sinus rhythm Normal ECG Confirmed by BRIAN LO, JANINA ([id number]), photograph editor TAI MAHONEY ([id number]) on 06/11/2021 10:41:52 AM Referred By: HANG/VIDAL Confirmed By:JANINA TORRES MD
[2021-06-07 16:38] VITALS: O2SAT 100
[2021-06-07 16:50] LABS: Absolute Lymphocyte Count 2.76 X10^3/uL (0.83-4.51); Absolute Neutrophil Count 3.9 X10^3/uL (2.0-7.7); Basophil# 0.04 X10^3/uL; Basophil% 0.5 % (0-1); Eosinophil# 0.05 X10^3/uL; Eosinophils% 0.7 % (0-5); Hematocrit 42.6 % (37-47); Hemoglobin 14.1 g/dL (12.0-15.0); Lymphocyte # 2.76 X10^3/ul (0.83-4.51); Lymphocyte % 37.7 % (19-41); Mean Corp Hgb Conc 33.1 g/dL (32-36); Mean Corpuscular Hgb 30.1 pg (27.0-32.0); Mean Platelet Vol. 9.6 fl (6.2-12.0); Monocyte# 0.55 X10^3/uL; Monocyte% 7.5 % (0-10); NRBC Flagged by Analyzer 0 % (0-5); Neutrophil # 3.91 X10^3/uL (2.7-7.7); Neutrophil % 53.5 % (47-70); Platelet Count 245 K/mm3 (150-450); RBC Distribution Width CV 13.2 % (11.6-14.6); RBC Distribution Width SD 44.3 fl (35.1-43.9); Red Blood Count 4.68 M/mm3 (4.2-5.4); White Blood Count 7.3 K/mm3 (4.4-11.0)
[2021-06-07 17:00] VITALS: BP 122/76; PULSE 70; RESP 16; O2SAT 98
[2021-06-07 17:09] LABS: Anion Gap 6 (5-15); BUN 21 mg/dL (7-18); BUN/Creat Ratio 21.6 RATIO (10-20); Calcium,Total 8.9 mg/dL (8.5-10.1); Chloride 113 mmol/L (98-107); Creatinine, Serum 0.97 mg/dL (0.55-1.02); EST Glomerular Filtration Rate 75 mL/min (>60); Est Glom Filt Rate - Afr Amer 91 mL/min (>60); Estimated Creatinine Clearance 71.34 ml/min; Glucose 137 mg/dL (74-106); Magnesium 2.4 mg/dL (1.6-2.6); Potassium 3.8 mmol/L (3.5-5.1); Sodium Level 142 mmol/L (136-145); Thyroid Stim Hormone (TSH) 0.75 uIU/mL (0.358-3.74); Troponin-I HS < 3 pg/mL (3.0-54.0)
[2021-06-07 18:00] VITALS: PULSE 72; RESP 25; O2SAT 97
[2021-06-07 18:52] LABS: Troponin-I HS 4 pg/mL (3.0-54.0)
== END 2021-06-07 19:15 | disposition home or self-care (01) ==
PROVIDERS: Emergency Provider Emergency Medicine
DX: I49.3 Ventricular premature depolarization (principal); R07.9 Chest pain, unspecified; Z79.899 Other long term (current) drug therapy
CPT/HCPCS: 71045; 80048; 83735; 84443; 84484; 85025; 93005; 99284; A4216

== ENCOUNTER → 2021-06-12 08:18 | Outpatient (CLI) | payer BC, SELFPAY | PROVIDERS: Referring Provider Internal Medicine Cardiovascular Disease; Visit Provider Emergency Medicine | DX: I49.3 Ventricular premature depolarization (principal); R00.2 Palpitations | CPT/HCPCS: 93225; 93226 ==

== ENCOUNTER 2022-03-17 12:18 | Emergency (ER) | payer BC, SELFPAY ==
[2022-03-17 12:18] VITALS: RESP 16
[2022-03-17 12:19] VITALS: BP 137/97; PULSE 126; RESP 18; TEMP 36.4; O2SAT 99; BMI 22.1
--- NOTE | 2022-03-17 12:50 | US_ITS ---
STUDY: ULTRASOUND OF THE FEMALE PELVIS - COMPLETE REASON FOR EXAM: Female, 22 years old. pelvic pain -- r/out torsion -- LEFT PELVIC PAIN X 3 DAYS TECHNIQUE: Endovaginal. Transvaginal US was obtained to better visualized the ovaries. COMPARISON: 7.3.21 FINDINGS: The uterus is anteverted and is in a midline position. The uterus measures 4.2 x 2.9 cm. Normal uterine cervix. The endometrium measures 4.4 mm in thickness, and is heterogeneous (striated). There is no demonstrated endometrial mass. There is no demonstrated myometrial mass. I.U.D. - The patient does not have an I.U.D. The right ovary is visualized. The right ovary measures 3.2 x 2.9 cm. There is no right ovarian cyst or ovarian mass. There is no visualized right adnexal mass or complex lesion. There is normal arterial and normal venous vascularity. The left ovary is visualized. The left ovary measures 3.3 x 2.9 cm. There is no left ovarian cyst or ovarian mass. There is no visualized left adnexal mass or complex lesion. There is normal arterial and normal venous vascularity. There is no fluid in the cul-de-sac. US/Transvaginal Non- IMPRESSION: There are no acute findings of the bilateral testicles without evidence for torsion. Electronically Signed: Júnior Manning MD at 14:29 EDT ,
--- NOTE | 2022-03-17 12:52 | EX.ED.DYSGE1 ---
HPI History of Present Illness Chief Complaint: Abd Pain Narrative Narrative: Patient presents with pelvic pain. This is been ongoing for few days. She tells me it is getting worse. She she just finished her menstrual cycle few days ago, she had an abnormally long 1 since she just finished her continuous control. She is currently not on any kind of control. She has no urinary symptoms. She has no flank pain. She has no fever or chills. She has no current vaginal bleeding. [facility] Medical History [place] disease Anxiety and depression Chest pain at rest Deafness in left ear Depression with anxiety Dysautonomia-like disorder Migraine without aura and without status migrainosus, not intractable Pericardial cyst Primary adrenal deficiency Home Medications cholecalciferol (vitamin D3) 25 mcg (1,000 unit) capsule 25 mcg PO DAILY 07/05/21 [History Last Taken Unknown] cyanocobalamin (vitamin B-12) 1,000 mcg capsule 1,000 mcg PO DAILY 07/05/21 [History Last Taken Unknown] ascorbate calcium (vitamin C) 500 mg tablet 500 mg PO DAILY 12/20/21 [History Last Taken Unknown] hydroxyzine HCl 50 mg tablet 1 ea PO DAILY 12/20/21 [History Last Taken Unknown] sertraline 50 mg tablet 50 mg PO DAILY 12/20/21 [History Last Taken Unknown] naproxen 500 mg tablet 500 mg PO BID-TID PRN pain #30 tabs 01/07/22 [Rx Last Taken Unknown] valacyclovir 500 mg tablet (Valtrex) 500 mg PO BID 5 days #10 tabs 03/13/22 [Rx Last Taken Unknown] hydrocortisone 5 mg tablet 25 mg PO .COMPLEX #150 tabs 03/17/22 [Rx Last Taken Unknown] naproxen 500 mg tablet (Naprosyn) 500 mg PO BID #20 tabs 03/17/22 [Rx Last Taken Unknown] Allergy/AdvReac Type Severity Reaction Status Date / Time clonazepam [From Klonopin] AdvReac Severe drooling, Verified 03/17/22 12:20 shaking erythromycin base AdvReac Intermediate stomach Verified 03/17/22 12:20 pain, vomiting Family History Other Anxiety Autoimmune disorder Celiac disease Skin cancer Surgical History History of colonoscopy History of esophagogastroduodenoscopy (EGD) History of lymph node biopsy History of myringotomy Social History Smoking Status: Never smoker alcohol intake: never substance use type: does not use caffeine: Yes what type of physical activity do you participate in: aerobics frequency: 1-2 times per week seatbelt use: always do you feel safe at home: Yes 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 No nausea vomiting or diarrhea Genitourinary: No dysuria, no current vaginal bleeding Musculoskeletal: Denies myalgias no difficulty with ambulation Skin: No rash Neurological: No memory loss, confusion or any focal weakness Psych: No recent behavioral changes Hematologic: No easy bleeding or easy bruising EXAM Physical Exam Narrative Exam Narrative: Physical exam General: Well nourished, she appears in slight distress Head: Normocephalic, Atraumatic Eyes: Conjunctiva not pale ENT: Moist mucous membranes Neck: Supple, Nontender, No lymphadenopathy Cardiovascular: Regular rate, Regular rhythm Respiratory: No distress, CTA bilaterally Abdomen: Soft, there is left lower abdominal pain in the pelvic region. No guarding or rebound. : Deferred Back: Nontender, Normal Inspection. Negative for: CVA tenderness Extremities: Nontender, No edema Skin: Normal color, No rash Neurological: Alert, Normal Strength, Normal Sensation Psychological: Normal affect Const Vital Signs: 03/17/22 12:19 Temperature 97.6 F L Temperature Source Temporal Pulse Rate 126 H Respiratory Rate 18 Blood Pressure 137/97 H Blood Pressure Mean 110 Pulse Ox 99 Oxygen Delivery Method Room Air MDM MDM MDM Narrative Medical decision making narrative: Patient has a normal work-up. She appears well. 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 Otherwise I believe she can be safely discharged in stable condition Lab Data Labs: Laboratory Results - last 24 hr 03/17/22 03/17/22 13:05 13:10 WBC 6.3 RBC 4.95 Hgb 14.8 Hct 45.2 MCV 91.3 MCH 29.9 MCHC 32.7 RDW Std Deviation 43.1 RDW Coeff of Shivam 13.0 Plt Count 293 MPV 9.1 Immature Gran % (Auto) 0.200 Neut % (Auto) 44.3 L Lymph % (Auto) 46.3 H [place] % (Auto) 6.7 Eos % (Auto) 1.9 Baso % (Auto) 0.6 Absolute Neuts (auto) 2.8 Absolute Lymphs (auto) 2.91 Nucleated RBC % 0 Urine Color Yellow Urine Clarity Clear Urine pH 6.5 Ur Specific [place] 1.010 Urine Protein Negative Urine Glucose (UA) Normal Urine Ketones Negative Urine Occult Blood 10 H Urine Nitrite Negative Urine Bilirubin Negative Urine Urobilinogen Normal Ur Leukocyte Esterase 25 H Urine RBC 0 SEEN Urine WBC 0-5 SEEN Ur Squamous Epith Cells 0-5 SEEN Urine Bacteria 0 SEEN Urine Mucus 0 SEEN Urine Test Negative Radiography Diagnostic Testing: Clinical Impression(s) from Imaging Studies Transvaginal US 03/17/22 12:50 IMPRESSION: There are no acute findings of the bilateral testicles without evidence for torsion. Electronically Signed: Júnior Manning MD at 14:29 EDT Reading Location ID and State: [address] [place] [address] , Service support , Discharge Plan Triage Chief Complaint: Abd Pain ED Provider: Orlando Adkins Dx/Rx/DC Orders Clinical Impression: Pelvic pain, Abnormal menses Instructions: Normal Menstrual Cycle, ED Abdominal Pain Unkn Cause Fem Prescriptions: New naproxen [Naprosyn] 500 mg tablet 500 mg PO BID Qty: 20 0RF No Action cholecalciferol (vitamin D3) 25 mcg (1,000 unit) capsule 25 mcg PO DAILY cyanocobalamin (vitamin B-12) 1,000 mcg capsule 1,000 mcg PO DAILY hydroxyzine HCl 50 mg tablet 1 ea PO DAILY Label Comments: TAKE 1 TABLET BY MOUTH EVERYDAY AT BEDTIME ascorbate calcium (vitamin C) 500 mg tablet 500 mg PO DAILY sertraline 50 mg tablet 50 mg PO DAILY Label Comments: TAKE 1 TABLET BY MOUTH EVERY DAY naproxen 500 mg tablet 500 mg PO BID-TID PRN (Reason: pain) Qty: 30 2RF Rx Instructions: administer with food or milk hydrocortisone 5 mg tablet 25 mg PO .COMPLEX Qty: 150 6RF Rx Instructions: 15 mg AM; 10 mg PM; valacyclovir [Valtrex] 500 mg tablet 500 mg PO BID 5 Days Qty: 10 7RF Primary Care Provider: Orlando Ortiz Referrals: Orlando Ortiz MD [Primary Care Provider] - 3-5 Days Magdalena Quintanilla MD [Med Staff - Active Staff] - 3-5 Days Disposition Disposition: Home, Self Care
[2022-03-17] MEDS: Ketorolac 15 MG/ML Vial IV (13:14)
[2022-03-17 13:20] LABS: Bacteria 0 SEEN /hpf (None Seen); Mucous, Urine 0 SEEN /hpf (<or=2+); Red Blood Cells-Urine 0 SEEN /hpf (0-5)
[2022-03-17 13:23] LABS: Absolute Lymphocyte Count 2.91 X10^3/uL (0.83-4.51); Absolute Neutrophil Count 2.8 X10^3/uL (2.0-7.7); Basophil# 0.04 X10^3/uL; Basophil% 0.6 % (0-1); Eosinophil# 0.12 X10^3/uL; Eosinophils% 1.9 % (0-5); Hematocrit 45.2 % (37-47); Hemoglobin 14.8 g/dL (12.0-15.0); Lymphocyte # 2.91 X10^3/ul (0.83-4.51); Lymphocyte % 46.3 % (19-41); Mean Corp Hgb Conc 32.7 g/dL (32-36); Mean Corpuscular Hgb 29.9 pg (27.0-32.0); Mean Corpuscular Volume 91.3 fL (81-99); Mean Platelet Vol. 9.1 fl (6.2-12.0); Monocyte# 0.42 X10^3/uL; Monocyte% 6.7 % (0-10); NRBC Flagged by Analyzer 0 % (0-5); Neutrophil # 2.78 X10^3/uL (2.7-7.7); Neutrophil % 44.3 % (47-70); Platelet Count 293 K/mm3 (150-450); RBC Distribution Width SD 43.1 fl (35.1-43.9); Red Blood Count 4.95 M/mm3 (4.2-5.4); White Blood Count 6.3 K/mm3 (4.4-11.0)
[2022-03-17 13:26] LABS: Color, Urine Yellow (Yellow); Glucose, Dipstick Normal (Normal); Ketone-Dipstick Negative (Negative); Leukocyte Esterase-Dipstick 25 /ul (Negative); Nitrite-Dipstick Negative (Negative); Occult Blood-Urine 10 /ul (Negative); Protein-Dipstick Negative (Negative); Urine Bilirubin Dipstick Negative (Negative); Urine Clarity Clear (Clear); Urine Urobilinogen Normal (Normal); Urine pH 6.5 (5.0 - 8.0)
[2022-03-17 13:31] LABS: Squamous Epithelial Cells - UA 0-5 SEEN /hpf (5-10); White Blood Cells 0-5 SEEN /hpf (0-5)
[2022-03-17 13:32] LABS: Internal QC Validated? YES +Cl - CLEAR BKGD; Pregnancy, Urine Negative Negative
[2022-03-17 14:18] VITALS: RESP 16
[2022-03-17 14:39] VITALS: RESP 16
[2022-03-17] MEDS: Ondansetron 4 MG/2 ML Vial IV (14:55)
[2022-03-17] MEDS: Morphine 4 MG/ML Syringe IV (14:55)
== END 2022-03-17 15:40 | disposition home or self-care (01) ==
PROVIDERS: Emergency Provider Emergency Medicine; PCP Family Medicine; Visit Provider Emergency Medicine
DX: R10.2 Pelvic and perineal pain (principal); N92.6 Irregular menstruation, unspecified; F41.9 Anxiety disorder, unspecified; F32.A Depression, unspecified; Z79.899 Other long term (current) drug therapy
CPT/HCPCS: 76830; 81001; 81025; 85025; 93976; 96374; 96375; 99283; A4216; J2405

== ENCOUNTER → 2022-03-18 | Outpatient (CLI) | payer BC, SELFPAY ==
--- NOTE | 2022-03-18 12:11 | CT_ITS ---
INDICATION: PAIN EXAMINATION: CT ABDOMEN AND PELVIS WITH CONTRAST - CT Abdomen And Pelvis W/ Contrast Injection TECHNIQUE: Helically acquired images were obtained of the abdomen and pelvis following IV contrast. A radiation dose optimization technique was used for this scan. IV Contrast dosage and agent: 100 mL of ISOVUE 300 Oral contrast: None. COMPARISON: 02/14/2019. FINDINGS: LOWER CHEST: Lung bases are clear. No cardiomegaly or pericardial effusion. There is an area of low attenuation visualized along the right posterior lateral aspect of the mediastinum, this demonstrates different location in comparison to the prior study consistent suggestive of a fluid content. LIVER: Homogeneous. No focal mass. GALLBLADDER AND BILIARY TREE: No calcified gallstones. The gallbladder is distended, no evidence of gallstones, no evidence of filling defect is seen. No evidence of thickening of the wall of the gallbladder, no evidence of pericholecystic stranding is seen. No intra or extrahepatic biliary ductal dilation. PANCREAS: No focal cystic or solid mass. SPLEEN: Normal size without focal cystic or solid mass. ADRENAL GLANDS: No nodules. KIDNEYS AND URETERS: Normal renal size and position. No hydronephrosis. PERITONEUM: No ascites or free air. No other fluid collection. BOWEL: No evidence of acute appendicitis. No stomach or bowel distension. No focal inflammatory change. Abundance of stool is visualized in the large bowel. LYMPH NODES: No enlarged mesenteric or retroperitoneal lymph nodes. VESSELS: Aorta is non-dilated. URINARY BLADDER: Unremarkable. REPRODUCTIVE ORGANS: Anteverted uterus is visualized with fluid in the endometrial cavity, mild stranding of the pelvic fat planes is visualized ABDOMINAL WALL: No discrete abdominal or pelvic wall hernia. BONES: No lytic or blastic abnormality. CT/Abdomen/Pelvis W IV Cont ONLY IMPRESSION: Abundance of stool in the large bowel. Mild stranding in the pelvis visualized surrounding the uterus, recommend clinical correlation for pelvic inflammatory disease. Otherwise no evidence of acute abdominal pathology is seen. Electronically Signed: Nikita Montanez MD at 12:40 EDT Reading Location ID and State: [facility] / [place] Tel , Service support ,
== END | disposition home or self-care (01) ==
PROVIDERS: PCP Family Medicine; Referring Provider Surgery; Visit Provider Surgery
DX: N73.9 Female pelvic inflammatory disease, unspecified (principal)
CPT/HCPCS: 74177; Q9967

== ENCOUNTER 2022-03-21 07:00 | Day surgery (SDC) | payer BC, SELFPAY ==
--- NOTE | 2022-03-20 16:07 | HP.PCM_ITS ---
History and Physical Date of Admission: 03/21/22 [facility] [address] [place] [address] OFFICE VISIT Date of Service:? 03/18/22 Acct: [id number] Name:EZE MOSS Rep #: [id number] : 2000 ? ? Provider: ?LEANN Pedersen Age/Sex:? 22/F Location: [facility] [place] Status: Signed with Addenda ADDENDUM by? LEANN Pedersen on 03/18/22 at 1312 Assessment and Plan Assessment and Plan (1) Abdominal pain: ?Status:?Acute ?Comment: ref gen surgery (2) Adrenal insufficiency: ?Status:?Chronic ?Comment: ref RGI (3) Dysmenorrhea: ?Status:?Acute ?Comment: acute severe, endometriosis.? lysteda and naproxen with bleeding. RGI referral Plan Patient returned to office after seeing general surgery and ruled out hernia, see CT results Significant pain, examine per Dr Goel and exploratory lap discussed and planned. 03/18/22 1312 <Electronically signed by Corina NORIEGA> Date Corina Pedersen NP cc:? Dr. Landy Goel, DO ~* Signed Intake Vital Signs ? 03/17/2212:19 03/18/2210:10 03/18/2210:11 Height 5 ft 3 in 5 ft 3 in 5 ft 3 in Weight: 125 lb 125 lb 8 oz ? BMI 22.1 22.2 ? BP 137/97 H 100/70 ? Respiration 18 ? ? Pulse 126 H ? ? Temp 97.6 F L ? ? Pulse Oximetry (%) 99 ? ? Intake Visit Reasons:?pelvic pain seen in ED 03/17 Allergies clonazepam [From Klonopin] Adverse Reaction (Severe, Verified 03/18/22 10:09) drooling, shakingerythromycin base Adverse Reaction (Intermediate, Verified 03/18/22 10:09) stomach pain, vomiting Medications cholecalciferol (vitamin D3) 25 mcg (1,000 unit) capsule 25 mcg PO DAILY 07/05/21 [History Confirmed 03/18/22] cyanocobalamin (vitamin B-12) 1,000 mcg capsule 1,000 mcg PO DAILY 07/05/21 [History Confirmed 03/18/22] ascorbate calcium (vitamin C) 500 mg tablet 500 mg PO DAILY 12/20/21 [History Confirmed 03/18/22] hydroxyzine HCl 50 mg tablet 1 ea PO DAILY 12/20/21 [History Confirmed 03/18/22] sertraline 50 mg tablet 50 mg PO DAILY 12/20/21 [History Confirmed 03/18/22] valacyclovir 500 mg tablet (Valtrex) 500 mg PO BID 5 days #10 tabs 03/13/22 [Rx Confirmed 03/18/22] hydrocortisone 5 mg tablet 25 mg PO .COMPLEX #150 tabs 03/17/22 [Rx Confirmed 03/18/22] naproxen 500 mg tablet (Naprosyn) 500 mg PO BID #20 tabs 03/17/22 [Rx] Is last menstrual period known: Yes Last Menstral Period: 03/09/22 [facility] Medical History? [place] disease Anxiety and depression Chest pain at rest Deafness in left ear Depression with anxiety Dysautonomia-like disorder Migraine without aura and without status migrainosus, not intractable Pericardial cyst Primary adrenal deficiency Surgical History? History of colonoscopy History of esophagogastroduodenoscopy (EGD) History of lymph node biopsy History of myringotomy Family History? Other Anxiety Autoimmune disorder Celiac disease Skin cancer Social History? Smoking Status:? Never smoker alcohol intake:? never substance use type:? does not use caffeine:? Yes what type of physical activity do you participate in:? aerobics frequency:? 1-2 times per week seatbelt use:? always do you feel safe at home:? 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 HPI pelvic pain seen in ED 03/17 Details: EZE HERNADEZ is a 22 year old who presents for ED follow up:seen yesterday for lower left abdominal pain. Had normal US.? She states she can feel a lump. Patient has also discussed RGI referral with Dr Quintanilla and like to proceed with that. Female Reproductive History Last Menstral Period: 03/09/22 Pregancy History ? ? ? 0 ? Elective abortions ? Hx Para ? Spontaneous abortions ? Hx # Term Pregnancies ? Ectopic pregnancies ? Hx # Pregnancies ? Multiple births ? # of living children ? ROS Const Constitutional: Reports system reviewed and no additional complaints, except as documented Eyes Eyes: Reports system reviewed and no additional complaints, except as documented GI GI: Denies abdominal pain or change in bowel habits : Reports as per HPI Exam Const General: cooperative and anxious Orientation: oriented x3 GI Palpation: mass (1cm tender palpable mass lower left abdomen. ) Coding Level of Care Code Off vis,est,level 2 Diagnoses Abdominal pain? R10.9 Adrenal insufficiency? E27.40 Dysmenorrhea? N94.6 Assessment and Plan Assessment and Plan (1) Abdominal pain: ?Status:?Acute ?Comment: ref gen surgery (2) Adrenal insufficiency: ?Status:?Chronic ?Comment: ref RGI (3) Dysmenorrhea: ?Status:?Acute ?Comment: acute severe, endometriosis.? lysteda and naproxen with bleeding. RGI referral Plan See problem list for management. After discussing the patient's diagnosis and treatment plan options, patient wishes to proceed with surgical management. I have discussed with the patient the risks, benefits, and alternatives of the procedure which include but are not limited to risks of anesthesia, bleeding, infection, possible damage to bowel, bladder, or surrounding vasculature which could lead to additional surgery to evaluate any complications. Patient agrees to procedure and wishes to proceed. ACOG/uptodate references given for additional information regarding procedure. plan for diagnostic laparoscopy, possible fulguration of endometriosis or lysis of adhesions
[2022-03-21] VITALS (9 sets, daily range): BP systolic 88–117; BP diastolic 56–79; PULSE 65–94; RESP 16–18; TEMP 36.4–36.8; O2SAT 95–100; BMI 22.0
[2022-03-21] MEDS: Lactated Ringers 1,000 ML 15 ML IV (07:49)
[2022-03-21 07:58] LABS: Hemoglobin 12.2 g/dL (12.0-15.0); Mean Corpuscular Hgb 30.1 pg (27.0-32.0); Mean Corpuscular Volume 91.4 fL (81-99); Mean Platelet Vol. 9.1 fl (6.2-12.0); Platelet Count 222 K/mm3 (150-450); RBC Distribution Width CV 12.9 % (11.6-14.6); RBC Distribution Width SD 43.4 fl (35.1-43.9); Red Blood Count 4.05 M/mm3 (4.2-5.4)
[2022-03-21 08:04] LABS: Internal QC Validated? YES +Cl - CLEAR BKGD; Pregnancy, Urine Negative Negative
--- NOTE | 2022-03-21 08:43 | DCINST_ITS ---
Discharge Instructions Diet Discharge Diet: No restrictions Activity Discharge Activity: Return to Normal Activity, May Not Drive (for two weeks or while taking narcotic pain medications.), May Shower and May Take a Tub Bath (in 7 days) May resume sexual activity in: 1 week Weight Bearing Status: Full weight bearing Dressing / Incision Call your doctor if you observe: Using more than 1 pad per hour, Shortness of breath, Chest pain and Uncontrolled pain Suture Line Care: Avoid Pulling/Pushing and Avoid Pinching/Bending Remove Dressing in: 1 week (if present) Cleanse incision/area with: Soap & Water and Keep Dressing Clean & Dry Follow Up Care Please Follow Up With: Landy Goel DO When: Call to make an appointment with your doctor for a follow up incision check in 1-2 weeks. Test Results: Test results from this visit will be discussed in further detail at your follow- up appointment, if applicable. Discharge Plan Admission Primary Reason for Your Visit: diagnostic laparoscopy Attending Provider: Landy Goel Primary Care Provider: Orlando Ortiz Discharge Orders/Prescriptions Prescriptions: New ibuprofen 800 mg tablet 800 mg PO Q8H PRN (Reason: pain) 7 Days Qty: 30 0RF oxycodone-acetaminophen [Percocet] 5-325 mg tablet 1 tab PO Q4H PRN (Reason: pain) 3 Days Qty: 10 0RF Continued cholecalciferol (vitamin D3) 25 mcg (1,000 unit) capsule 25 mcg PO DAILY cyanocobalamin (vitamin B-12) 1,000 mcg capsule 1,000 mcg PO DAILY hydroxyzine HCl 50 mg tablet 1 ea PO DAILY Label Comments: TAKE 1 TABLET BY MOUTH EVERYDAY AT BEDTIME ascorbate calcium (vitamin C) 500 mg tablet 500 mg PO DAILY sertraline 50 mg tablet 50 mg PO DAILY Label Comments: TAKE 1 TABLET BY MOUTH EVERY DAY oxycodone-acetaminophen [Percocet] 5-325 mg tablet 1 tab PO Q6H PRN (Reason: pain) 7 Days Qty: 28 0RF topiramate 100 mg tablet 1 tab PO DAILY hydrocortisone 5 mg tablet 20 mg PO DAILY Label Comments: HYDROCORTISONE 10MG AM, 5MG EVENING, 5MG EXTRA DUE TO ADDRENAL INSUFFICIENCY valacyclovir [Valtrex] 500 mg tablet 500 mg PO PRN PRN (Reason: Cold Sores) naproxen [Naprosyn] 500 mg tablet 500 mg PO BID PRN (Reason: Pain) Referrals / Follow Up: Orlando Ortiz MD [Primary Care Provider] - Disposition Disposition (needs filled in before D/C Order can be placed): Home, Self Care
[2022-03-21] MEDS: Bupivacaine 0.25% 30 ML Vial (08:59)
[2022-03-21] MEDS: Lactated Ringers 1,000 ML 100 ML IV (10:07)
--- NOTE | 2022-03-21 10:10 | OP.PCM_ITS ---
Operative Report Date of Procedure: 03/21/22 pre-operative diagnosis: pelvic pain postoperative diagnosis: pelvic pain and small right ovarian/uterine adhesion surgery: diagnostic laparoscopy, lysis of adhesion surgeon: Dr. Landy Goel DO Program Management Analyst: SEVEN Morales EBL: 20cc anesthesia: General procedure: Patient was taken in the operating room and was placed under general anesthesia was prepped and draped in normal sterile fashion in the dorsal lithotomy position. Bladder was drained of clear urine and SCDs were on preoperatively. Uterus was sounded and a uterine manipulator was placed after dilating. Attention was then paid to the abdominal portion of the procedure and the umbilicus was elevated and injected with Marcaine and after a 5 mm incision was made and a 5 mm optical trocar was placed under direct visualization into the abdomen. A left lower quadrant 5 mm port was placed under direct vi sualization. Uterus was well visualized and bilateral fallopian tubes, ovaries, cul-de-sac, IP ligaments were all found to be free of endometriosis. There was a small physiologic adhesion on the right ovary attaching her ovary to posterior asapect of uterus. This was cut with the laparoscopic scissors. This did not appear to be causing any tangling or compression on the ovary or bowel. Liver and upper abdomen were visualized notably within normal limits and no other gross abnormalities were seen in the abdomen. The appendix was identified and found to be normal. All instruments removed from the abdomen after gas was desufflated. Port sites were closed with 3-0 Monocryl Steri's and op sites were applied. All instruments removed from the vagina and patient was awoken and taken recovery in stable condition. Multi Select Codes Urinary/Genital Urinary/Genital CPT Codes: 74862 Lysis of adhesions, laproscopic
[2022-03-21] MEDS: HYDROcodone Bitartrate/Apap 5/325 Tablet PO (11:35)
== END 2022-03-21 12:21 | disposition home or self-care (01) ==
LOC: SDC 07:01 → AC 07:02
PROVIDERS: Anesthesiology; PCP Family Medicine; Referring Provider Obstetrics & Gynecology; Visit Provider Obstetrics & Gynecology
PROC: (CPT 49320; principal; 2022-03-21 08:10)
DX: N73.6 Female pelvic peritoneal adhesions (postinfective) (principal); F41.9 Anxiety disorder, unspecified; F32.A Depression, unspecified; K21.9 Gastro-esophageal reflux disease without esophagitis; Z79.899 Other long term (current) drug therapy
CPT/HCPCS: 58660; 00840; 81025; 85027; 86850; 86900; 86901; J7120; J2405

== ENCOUNTER 2022-06-02 13:11 | Emergency (ER) | payer BC, SELFPAY ==
[2022-06-02 13:13] VITALS: BP 91/63; PULSE 65; RESP 16; TEMP 36.2; O2SAT 100; BMI 22.8
--- NOTE | 2022-06-02 13:53 | EKG12_ITS ---
Test Reason : Blood Pressure : / mmHG Vent. Rate : 057 BPM Atrial Rate : 057 BPM P-R Int : 122 ms QRS Dur : 084 ms QT Int : 470 ms P-R-T Axes : 045 096 056 degrees QTc Int : 457 ms Sinus bradycardia Rightward axis Borderline ECG Confirmed by HUGH LO, MICHA ([id number]), editor managing director TAI MAHONEY ([id number]) on 06/04/2022 6:40:56 AM Referred By: BETH Confirmed By:MICHA REESE MD
--- NOTE | 2022-06-02 13:53 | RAD_ITS ---
STUDY: X-RAY CHEST REASON FOR EXAM: Female, 22 years old. Sob TECHNIQUE: Single AP portable view of the chest. COMPARISON: Comparison is made with prior study 06/07/2021. FINDINGS: The lungs are clear and expanded. There is no demonstrated pleural abnormality. Normal size heart. Normal mediastinum and marisol. Normal visualized pulmonary arteries. Normal visualized aortic arch and descending thoracic aorta. Normal visualized thoracic spine. Normal visualized ribs, clavicles, and shoulders. There is no demonstrated abnormality of the visualized soft tissue structures of the upper abdomen. RAD/Chest 1 View (Portable) IMPRESSION: Normal x-ray examination of the chest. Electronically Signed: Marshall Vázquez MD at 14:50 EDT ,
--- NOTE | 2022-06-02 14:24 | EX.ED.DYSGE1 ---
HPI History of Present Illness Chief Complaint: Chest Pain Informant: patient Narrative Narrative: 22-year-old female presenting with epigastric pain and chest pain. Patient states this started this morning. She complains of epigastric pain that radiates to her chest. She complains of pain with deep inspiration. She has had nausea with no vomiting. She denies diarrhea or constipation. Denies fever or cough. Denies back pain or urinary complaints. Prior similar symptoms: No Recent Illness/Hospitalization: No PFSH PFSH Medical History Abdominal pain Haralson disease Anxiety Anxiety and depression Cardiology follow-up encounter Chest pain at rest Deafness in right ear Depression with anxiety Dysautonomia-like disorder Gastric reflux History of echocardiogram History of eustachian tube dysfunction History of Holter monitoring History of steroid therapy Injury of back Loss of hearing Migraine headache Migraine without aura and without status migrainosus, not intractable Non-smoker Pericardial cyst Primary adrenal deficiency Wears glasses Home Medications cholecalciferol (vitamin D3) 25 mcg (1,000 unit) capsule 25 mcg PO DAILY 07/05/21 [History Last Taken Unknown] cyanocobalamin (vitamin B-12) 1,000 mcg capsule 1,000 mcg PO DAILY 07/05/21 [History Last Taken Unknown] ascorbate calcium (vitamin C) 500 mg tablet 500 mg PO DAILY 12/20/21 [History Last Taken Unknown] hydroxyzine HCl 50 mg tablet 1 ea PO DAILY 12/20/21 [History Last Taken Unknown] sertraline 50 mg tablet 50 mg PO DAILY 12/20/21 [History Last Taken Unknown] topiramate 100 mg tablet 1 tab PO DAILY 03/19/22 [History Last Taken Unknown] valacyclovir 500 mg tablet (Valtrex) 500 mg PO PRN PRN Cold Sores 03/19/22 [History Last Taken Unknown] duloxetine 30 mg capsule,delayed release 30 mg PO DAILY #30 caps 04/04/22 [Rx Last Taken Unknown] medroxyprogesterone 10 mg tablet 10 mg PO DAILY 30 days #30 tabs 04/04/22 [Rx Last Taken Unknown] hydrocortisone 5 mg tablet See Rx Instructions PO DAILY #120 tabs 04/14/22 [Rx Last Taken Unknown] progesterone micronized 100 mg capsule 100 mg PO QAM 21 days #21 caps 04/30/22 [Rx Last Taken Unknown] Allergy/AdvReac Type Severity Reaction Status Date / Time clonazepam [From Klonopin] AdvReac Severe drooling, Verified 06/02/22 13:12 shaking erythromycin base AdvReac Intermediate stomach Verified 06/02/22 13:12 pain, vomiting Family History Other Anxiety Autoimmune disorder Celiac disease Skin cancer Surgical History History of colonoscopy History of esophagogastroduodenoscopy (EGD) History of lymph node biopsy History of myringotomy Hx of colonoscopy Hx of eye surgery S/P laparoscopic procedure Status post laparoscopy Social History Smoking Status: Never smoker alcohol intake: never substance use type: does not use caffeine: Yes what type of physical activity do you participate in: aerobics frequency: 1-2 times per week seatbelt use: always do you feel safe at home: Yes 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 [employer] ED Constitutional Constitutional ED: Denies fever(s) Eyes Eyes: Denies change in vision ENT ENT ED: Denies rhinorrhea or sore throat Cardiovascular Cardiovascular: Reports chest pain; Denies palpitations Respiratory/Chest Respiratory/Chest: Denies cough or dyspnea Gastrointestinal Gastrointestinal: Reports abdominal pain and nausea; Denies diarrhea or vomiting Genitourinary Genitourinary ED: Denies dysuria Musculoskeletal Musculoskeletal: Denies myalgias Integumentary Denies rash Neurologic Neurologic: Denies headache(s) Psychiatric Psychiatric: Denies suicidal thoughts EXAM Physical Exam Const Vital Signs: 06/02/22 13:13 06/02/22 15:10 06/02/22 17:20 Temperature 97.2 F L Temperature Source Temporal Pulse Rate 65 52 L 62 Respiratory Rate 16 16 18 Blood Pressure 91/63 101/58 L 102/62 Blood Pressure Mean 72 72 75 Pulse Ox 100 100 62 Oxygen Delivery Method Room Air Room Air Room Air Positive well nourished and well developed General Appearance ED: well developed HEENT Reports normocephalic and head/scalp atraumatic Eyes PERRL and EOMs intact bilaterally Neck supple General: Negative for tenderness Chest Wall inspection of chest normal Resp normal respiratory effort and clear to auscultation bilaterally Cardio regular rate and regular rhythm GI non-distended Palpation: soft and tender epigastric; Negative for guarding or rebound tenderness present no CVA tenderness Extremity normal to inspection Neuro oriented x3 Sensorium / Orientation: alert Psych mental status grossly normal Skin no rashes or lesions noted MDM MDM MDM Narrative Medical decision making narrative: Patient was given IV fluids, morphine, Zofran. EKG is sinus rhythm rate of 57 with no acute ischemic changes. CBC, chemistries unremarkable. Lipase is normal. negative. D-dimer negative. Troponin is negative. Delta troponin negative. She was given Toradol IV and a GI cocktail. She has had these symptoms in the past with no known diagnosis. She is resting comfortably on reevaluation. She is advised to follow-up with GI and her PCP. Advised to return to the ED for worsening complaints. Lab Data Attestation: I reviewed the patient's lab results. Labs: Laboratory Results - last 24 hr 06/02/22 06/02/22 06/02/22 14:15 14:15 14:15 WBC 6.5 RBC 4.59 Hgb 13.3 Hct 41.1 MCV 89.5 MCH 29.0 MCHC 32.4 RDW Std Deviation 42.7 RDW Coeff of Shivam 13.0 Plt Count 234 MPV 9.5 Immature Gran % (Auto) 0.300 Neut % (Auto) 56.0 Lymph % (Auto) 35.4 [place] % (Auto) 7.0 Eos % (Auto) 0.8 Baso % (Auto) 0.5 Absolute Neuts (auto) 3.6 Absolute Lymphs (auto) 2.29 Nucleated RBC % 0 D-Dimer Quant (PE/DVT) < 0.27 L Sodium 141 Potassium 3.9 Chloride 109 H Carbon Dioxide 23.0 Anion Gap 9 BUN 20 H Creatinine 0.73 Estim Creat Clear Calc 93.99 Est GFR (MDRD) Af Amer 126 Est GFR (MDRD) Non-Af 104 BUN/Creatinine Ratio 27.5 H Glucose 81 Calcium 8.9 Total Bilirubin 0.40 AST 12 L ALT 24 Alkaline Phosphatase 62 Troponin I High Sens 4 Total Protein 7.1 Albumin 3.7 Globulin 3.4 Albumin/Globulin Ratio 1.1 Lipase 94 Serum , Qual 06/02/22 06/02/22 14:15 16:35 WBC RBC Hgb Hct MCV MCH MCHC RDW Std Deviation RDW Coeff of Shivam Plt Count MPV Immature Gran % (Auto) Neut % (Auto) Lymph % (Auto) [place] % (Auto) Eos % (Auto) Baso % (Auto) Absolute Neuts (auto) Absolute Lymphs (auto) Nucleated RBC % D-Dimer Quant (PE/DVT) Sodium Potassium Chloride Carbon Dioxide Anion Gap BUN Creatinine Estim Creat Clear Calc Est GFR (MDRD) Af Amer Est GFR (MDRD) Non-Af BUN/Creatinine Ratio Glucose Calcium Total Bilirubin AST ALT Alkaline Phosphatase Troponin I High Sens 4 Total Protein Albumin Globulin Albumin/Globulin Ratio Lipase Serum , Qual NEGATIVE Radiography Chest X-Ray - ED: 1 View, Read by ED Physician, Read by Radiologist and Normal Diagnostic Testing: Clinical Impression(s) from Imaging Studies Chest X-Ray 06/02/22 13:53 IMPRESSION: Normal x-ray examination of the chest. Electronically Signed: Marshall Vázquez MD at 14:50 EDT , EKG Initial EKG: Attestation: I personally reviewed and interpreted this EKG as follows: Interpretation: Sinus Rhythm and No Acute Injury Pattern Discharge Plan Triage Chief Complaint: Chest Pain ED Provider: Emma Bernal Dx/Rx/DC Orders Clinical Impression: Abdominal pain, Chest pain of uncertain etiology Instructions: ED Abdominal Pain Unkn Cause Fem, ED Chest Pain, Uncertain Cause Prescriptions: No Action cholecalciferol (vitamin D3) 25 mcg (1,000 unit) capsule 25 mcg PO DAILY cyanocobalamin (vitamin B-12) 1,000 mcg capsule 1,000 mcg PO DAILY hydroxyzine HCl 50 mg tablet 1 ea PO DAILY Label Comments: TAKE 1 TABLET BY MOUTH EVERYDAY AT BEDTIME ascorbate calcium (vitamin C) 500 mg tablet 500 mg PO DAILY sertraline 50 mg tablet 50 mg PO DAILY Label Comments: TAKE 1 TABLET BY MOUTH EVERY DAY duloxetine 30 mg capsule,delayed release(DR/EC) 30 mg PO DAILY Qty: 30 12RF medroxyprogesterone 10 mg tablet 10 mg PO DAILY 30 Days Qty: 30 4RF Rx Instructions: take during menses only progesterone micronized 100 mg capsule 100 mg PO QAM 21 Days Qty: 21 3RF Rx Instructions: off 7 days; repeat cycle as needed topiramate 100 mg tablet 1 tab PO DAILY valacyclovir [Valtrex] 500 mg tablet 500 mg PO PRN PRN (Reason: Cold Sores) hydrocortisone 5 mg tablet See Rx Instructions PO DAILY Qty: 120 6RF Rx Instructions: 10 mg am, 5 mg pm orally daily; Primary Care Provider: Orlando Ortiz Referrals: Orlando Ortiz MD [Primary Care Provider] - Shaun Fonseca MD [Med Staff - Courtesy Staff] - Disposition Disposition: Home, Self Care
[2022-06-02 14:26] LABS: Absolute Lymphocyte Count 2.29 X10^3/uL (0.83-4.51); Absolute Neutrophil Count 3.6 X10^3/uL (2.0-7.7); Basophil# 0.03 X10^3/uL; Basophil% 0.5 % (0-1); Eosinophil# 0.05 X10^3/uL; Eosinophils% 0.8 % (0-5); Hematocrit 41.1 % (37-47); Hemoglobin 13.3 g/dL (12.0-15.0); Lymphocyte # 2.29 X10^3/ul (0.83-4.51); Lymphocyte % 35.4 % (19-41); Mean Corp Hgb Conc 32.4 g/dL (32-36); Mean Corpuscular Volume 89.5 fL (81-99); Mean Platelet Vol. 9.5 fl (6.2-12.0); Monocyte# 0.45 X10^3/uL; NRBC Flagged by Analyzer 0 % (0-5); Neutrophil # 3.62 X10^3/uL (2.7-7.7); Platelet Count 234 K/mm3 (150-450); RBC Distribution Width SD 42.7 fl (35.1-43.9); Red Blood Count 4.59 M/mm3 (4.2-5.4); White Blood Count 6.5 K/mm3 (4.4-11.0)
[2022-06-02] MEDS: Ondansetron 4 MG/2 ML Vial IV (14:28)
[2022-06-02] MEDS: Morphine 4 MG/ML Syringe IV (14:28)
[2022-06-02 14:38] LABS: D-Dimer Quantitative (DVT/PE) < 0.27 FEU/ug/m (0.27-0.49)
[2022-06-02 14:45] LABS: ALB/GLOB Ratio 1.1 RATIO (0.9-2.4); AST(SGOT) 12 U/L (15-37); Alanine Aminotransfer ALT/SGPT 24 U/L (13-56); Albumin, Serum 3.7 g/dL (3.2-5.0); Alkaline Phosphatase 62 U/L (45-117); Anion Gap 9 (5-15); BUN 20 mg/dL (7-18); BUN/Creat Ratio 27.5 RATIO (10-20); Calcium,Total 8.9 mg/dL (8.5-10.1); Chloride 109 mmol/L (98-107); Creatinine, Serum 0.73 mg/dL (0.55-1.02); EST Glomerular Filtration Rate 104 mL/min (>60); Est Glom Filt Rate - Afr Amer 126 mL/min (>60); Estimated Creatinine Clearance 93.99 ml/min; Globulin 3.4 g/dL (2.2-4.2); Glucose 81 mg/dL (74-106); Lipase 94 U/L (73-393); Potassium 3.9 mmol/L (3.5-5.1); Protein, Total 7.1 g/dL (6.4-8.2); Sodium Level 141 mmol/L (136-145); Troponin-I HS (w/2H Reflex) 4 pg/mL (3.0-54.0)
[2022-06-02 15:10] VITALS: BP 101/58; PULSE 52; RESP 16; O2SAT 100
[2022-06-02 15:21] LABS: Internal QC Validated? YES +Cl - CLEAR BKGD; Pregnancy, Serum, hCG Quali. NEGATIVE Negative
[2022-06-02] MEDS: Ketorolac 15 MG/ML Vial IV (16:20)
[2022-06-02] MEDS: Mag Hydrox/Al Hydrox/Simeth 30 ML UDC PO (16:20)
[2022-06-02 16:24] LABS: Reflex Troponin-HS? (from REC) Y
[2022-06-02 17:18] LABS: Troponin-I HS 4 pg/mL (3.0-54.0)
[2022-06-02 17:20] VITALS: BP 102/62; PULSE 62; RESP 18; O2SAT 62
== END 2022-06-02 17:33 | disposition home or self-care (01) ==
PROVIDERS: Emergency Provider Emergency Medicine; PCP Family Medicine; Visit Provider Emergency Medicine
DX: R07.9 Chest pain, unspecified (principal); R11.0 Nausea; R10.13 Epigastric pain
CPT/HCPCS: 71045; 80053; 83690; 84484; 84703; 85025; 85379; 93005; 96361; 96374; 96375; 99284; J7040; A4216; J2405

== ENCOUNTER → 2022-08-14 | Outpatient (CLI) | payer BC, SELFPAY | END | disposition home or self-care (01) | LOC: LABSPEC 15:18 | PROVIDERS: PCP Family Medicine; Visit Provider Otolaryngology | DX: J03.90 Acute tonsillitis, unspecified (principal) | CPT/HCPCS: 87070; 87077; 87186 ==

== ENCOUNTER 2022-12-01 08:40 | Day surgery (SDC) | payer BC, SELFPAY ==
[2022-12-01] VITALS (8 sets, daily range): BP systolic 88–113; BP diastolic 61–79; PULSE 59–101; RESP 16–18; TEMP 36.8–37.2; O2SAT 95–100; BMI 29.0
--- NOTE | 2022-12-01 | TONS_PTH ---
PATIENT: EZE HERNADEZ LOC: [facility] [place] U#:[id number] AGE/SX: 22/F ROOM: RE12/01/[address]: Dr. Marck Rees MD : 2000 BED: DIS: 12/01/2022 SPEC #: [id number] RECD: 12/01/22 13:04 STATUS: KATIE LISA #: [id number] BRAULIO: 12/01/22 00:[address]: Marck Rees DEPT: SURGICAL PATHOLOGY RECD BY: Talat Rutherford ENTERED: 12/01/22 13:04 SP TYPE: TONSILS OTHR DR: Dr. Orlando Ortiz MD Tissues: Tonsil, NOS Procedures: Surgery Specimen Level III HEADER OPERATION: Tonsillectomy PRE-OP DIAGNOSIS: Right chronic tonsillitis TISSUE SUBMITTED: Right tonsil MICROSCOPIC DIAGNOSIS Right tonsil, tonsillectomy: Reactive lymphoid hyperplasia, consistent with chronic tonsillitis. SJ:amadeo 12/02/2022 MICROSCOPIC DESCRIPTION Slides are reviewed. GROSS DESCRIPTION Received in fixative is one container labeled with the patient's name and designated right tonsil. The specimen consists of a tonsil weighing 0.9 gm and measuring 1.7 x 1.0 x 0.8 cm. The external surface is pink-cordero, smooth, glistening and somewhat lobulated. Focally it is hemorrhagic, granular and bears cautery artifact. Serial cross sections through the tonsil reveals normal tonsillar architecture. The specimen is bisected and totally submitted in one cassette. / AM:amadeo 12/01/2022 TC:3 CPT: 32718
--- NOTE | 2022-12-01 08:21 | PCM.DC.SUM ---
Providers Primary Care Physician: Dr. Orlando Ortiz MD Reason For Visit: RT TONSILLECTOMY Medications at Discharge Home Medications cholecalciferol (vitamin D3) 25 mcg (1,000 unit) capsule 25 mcg PO DAILY 07/05/21 cyanocobalamin (vitamin B-12) 1,000 mcg capsule 1,000 mcg PO DAILY 07/05/21 ascorbate calcium (vitamin C) 500 mg tablet 500 mg PO DAILY 12/20/21 hydroxyzine HCl 50 mg tablet 1 ea PO DAILY 12/20/21 sertraline 50 mg tablet 50 mg PO DAILY 12/20/21 valacyclovir 500 mg tablet (Valtrex) 500 mg PO PRN PRN Cold Sores 03/19/22 hydrocortisone 10 mg tablet 5 mg PO QHS 11/27/22 hydrocortisone 5 mg tablet 10 mg PO DAILY 11/27/22 D/C Instructions Discharge Diet: Soft diet Discharge Activity: Return to Normal Activity Please Follow Up With: Marck Rees MD When: 2 weeks Meaningful Use Info Meaningful Use Diagnoses (Choose all that apply): None applicable Discharge Plan Admission Attending Provider: Marck Rees Primary Care Provider: Orlando Ortiz Discharge Orders/Prescriptions Prescriptions: No Action cholecalciferol (vitamin D3) 25 mcg (1,000 unit) capsule 25 mcg PO DAILY cyanocobalamin (vitamin B-12) 1,000 mcg capsule 1,000 mcg PO DAILY hydroxyzine HCl 50 mg tablet 1 ea PO DAILY Label Comments: TAKE 1 TABLET BY MOUTH EVERYDAY AT BEDTIME ascorbate calcium (vitamin C) 500 mg tablet 500 mg PO DAILY sertraline 50 mg tablet 50 mg PO DAILY Label Comments: TAKE 1 TABLET BY MOUTH EVERY DAY valacyclovir [Valtrex] 500 mg tablet 500 mg PO PRN PRN (Reason: Cold Sores) hydrocortisone 10 mg Tablet 5 mg PO QHS hydrocortisone 5 mg tablet 10 mg PO DAILY Referrals / Follow Up: Orlando Ortiz MD [Primary Care Provider] - Disposition Disposition (needs filled in before D/C Order can be placed): Home, Self Care
[2022-12-01 09:21] LABS: Internal QC Validated? YES +Cl - CLEAR BKGD; Pregnancy, Urine Negative Negative
[2022-12-01] MEDS: Lactated Ringers 1,000 ML 15 ML IV (09:39)
--- NOTE | 2022-12-01 09:52 | OP.PCM_ITS ---
Report of Operation Date of Procedure: 12/01/22 Pre-Operative Diagnosis: chronic right tonsillitis Post-Operative Diagnosis: same Surgery/Procedure Performed:: right tonsillectomy Surgeon: Marck Rees Type of Anesthesia: General Anesthesiologist: Vito Rodriguez Estimated Blood Loss (mL): minimal Description of Procedure: The patient was taken to the OR on 12/01/2022. The patient was placed in the supine position on the OR table. The patient was given sufficient general endotracheal anesthesia. The table was turned 90 degrees counter clockwise. A Gavin mouthgag was inserted into the patient's mouth. The patient was suspended on a Andres stand. The nasopharynx was inspected with a mirror. The adenoid was surgically absent as well as the left tonsil. The right tonsil was grasped with an Allis clamp and removed using a bovie cautery. Absolute hemostasis was achieved using suction cautery. .5% marcaine was placed on an adenoid sponge a nd placed in the right tonsillar fossa for one minute and then removed. The gag was closed. It was re opened to inspect for bleeding and there was none. The gag was then removed. The patient was then awoken and brought to the recovery room in stable condition. Blood loss minimal, replacement none. Sponge, needle and instrument count were correct at the end of the procedure.
[2022-12-01] MEDS: Bupivacaine Mpf 0.5% 30 ML VIAL (10:44)
[2022-12-01] MEDS: HYDROcodone Bitartrate/Apap 5/325 Tablet PO (13:03)
== END 2022-12-01 13:38 | disposition home or self-care (01) ==
LOC: SDC 08:41 → AC 08:44
PROVIDERS: Anesthesiology; PCP Family Medicine; Referring Provider Otolaryngology; Visit Provider Otolaryngology
PROC: (CPT 42826; principal; 2022-12-01 10:05)
DX: J35.01 Chronic tonsillitis (principal)
CPT/HCPCS: 42826; 00170; 81025; 88304; J7120; J2405

== ENCOUNTER → 2023-05-13 | Outpatient (CLI) | payer BC, SELFPAY ==
[2023-05-13 14:20] LABS: hCG Titer Quant., Serum < 1 mIU/mL (1-3)
== END | disposition home or self-care (01) ==
PROVIDERS: PCP Family Medicine; Referring Provider Obstetrics & Gynecology; Visit Provider Obstetrics & Gynecology
DX: N91.2 Amenorrhea, unspecified (principal)
CPT/HCPCS: 36415; 84702

== ENCOUNTER → 2023-06-23 | Outpatient (CLI) | payer BC, SELFPAY ==
[2023-06-23 08:20] LABS: hCG Titer Quant., Serum < 1 mIU/mL (1-3)
[2023-06-23 08:26] LABS: Follicle Stimulating Hormone 6.8 mIU/mL; Prolactin 8.9 ng/mL; T4 Free Direct 0.79 ng/dL (0.76-1.46); Thyroid Stim Hormone (TSH) 0.71 uIU/mL (0.358-3.74)
== END | disposition home or self-care (01) ==
LOC: PAVLAB 07:35
PROVIDERS: PCP Family Medicine; Referring Provider Obstetrics & Gynecology; Visit Provider Obstetrics & Gynecology
DX: N91.1 Secondary amenorrhea (principal)
CPT/HCPCS: 36415; 82627; 82670; 83001; 83002; 84146; 84439; 84443; 84702; 82626

== ENCOUNTER → 2023-06-26 | Outpatient (CLI) | payer BC, SELFPAY ==
[2023-07-03 19:27] LABS: HPV Reflexed? NOT INDICATED
== END | disposition home or self-care (01) ==
LOC: LABSPEC 16:43
PROVIDERS: PCP Family Medicine; Referring Provider Obstetrics & Gynecology; Visit Provider Obstetrics & Gynecology
DX: Z12.4 Encounter for screening for malignant neoplasm of cervix (principal)
CPT/HCPCS: 88175; G0145

== ENCOUNTER 2023-08-11 17:25 | Emergency (ER) | payer BC, SELFPAY ==
[2023-08-11 17:26] VITALS: BP 114/75; PULSE 75; RESP 18; TEMP 36.3; O2SAT 99; BMI 28.0
--- NOTE | 2023-08-11 17:55 | CT_ITS ---
STUDY: CT ABDOMEN AND PELVIS WITH CONTRAST REASON FOR EXAM: Female, 23 years old. RLQ abd pain RADIATION DOSAGE (If Supplied By Facility): CTDIvol = ( 17.46 ) mGy, DLP = ( 731.97 ) mGycm TECHNIQUE: Transaxial images were obtained from the dome of the diaphragm to the symphysis pubis without oral contrast. IV 100mL Isovue-370 was administered. Sagittal and coronal images were reconstructed. Individualized dose optimization techniques were used for this CT. COMPARISON: 03/18/2022 FINDINGS: The visualized lung bases are unremarkable. The visualized portions of the heart are within normal limits. There is no change in the 6 cm flat mass of water attenuation just superior to the right hemidiaphragm and believed to originate within the right epicardial fat pad felt to represent an epicardial cyst. Normal liver. Normal gallbladder and extrahepatic biliary system. Normal spleen. Normal pancreas. Normal bilateral adrenal glands. Normal right kidney. Normal left kidney. Normal visualized stomach. Normal small intestine. Normal colon. The appendix is visualized and appears normal. Normal abdominal aorta. Normal inferior vena cava. Normal retroperitoneum. Normal urinary bladder. Normal abdominal wall. Normal osseous structures. CT/Abdomen/Pelvis W IV Cont ONLY IMPRESSION: Normal enhanced CT of the abdomen and pelvis. Electronically Signed: Jarek Choi MD at 20:14 EST ,
[2023-08-11 18:19] LABS: Bacteria 0 SEEN /hpf (None Seen); Mucous, Urine 0 SEEN /hpf (<or=2+)
[2023-08-11 18:22] LABS: Color, Urine Yellow (Yellow); Glucose, Dipstick Normal (Normal); Leukocyte Esterase-Dipstick 500 /ul (Negative); Nitrite-Dipstick Negative (Negative); Occult Blood-Urine 250 /ul (Negative); Protein-Dipstick 30 mg/dl (Negative); Specific Gravity, Urine 1.015 (1.002-1.030); Urine Bilirubin Dipstick Negative (Negative); Urine Clarity Sl. Cloudy (Clear); Urine Urobilinogen Normal (Normal)
[2023-08-11 18:46] LABS: Red Blood Cells-Urine 10-25 SEEN /hpf (0-5); Squamous Epithelial Cells - UA 5-10 SEEN /hpf (5-10); White Blood Cells 25-50 SEEN /hpf (0-5)
[2023-08-11 18:47] LABS: Amorphous Sediment 1+ URATE
[2023-08-11 18:58] LABS: Absolute Lymphocyte Count 2.23 X10^3/uL (0.83-4.51); Absolute Neutrophil Count 6.1 X10^3/uL (2.0-7.7); Basophil# 0.04 X10^3/uL; Basophil% 0.4 % (0-1); Eosinophil# 0.03 X10^3/uL; Eosinophils% 0.3 % (0-5); Hemoglobin 14.4 g/dL (12.0-15.0); Lymphocyte # 2.23 X10^3/ul (0.83-4.51); Mean Corpuscular Volume 84.3 fL (81-99); Mean Platelet Vol. 9.9 fl (6.2-12.0); Monocyte# 0.48 X10^3/uL; Monocyte% 5.4 % (0-10); NRBC Flagged by Analyzer 0 % (0-5); Neutrophil # 6.13 X10^3/uL (2.7-7.7); Neutrophil % 68.7 % (47-70); Platelet Count 302 K/mm3 (150-450); RBC Distribution Width CV 14.6 % (11.6-14.6); RBC Distribution Width SD 44.5 fl (35.1-43.9); Red Blood Count 5.34 M/mm3 (4.2-5.4); White Blood Count 8.9 K/mm3 (4.4-11.0)
[2023-08-11 19:29] LABS: Internal QC Validated? YES +Cl - CLEAR BKGD; Pregnancy, Serum, hCG Quali. NEGATIVE Negative
[2023-08-11 19:35] LABS: ALB/GLOB Ratio 1.3 RATIO (0.9-2.4); AST(SGOT) 15 U/L (15-37); Alanine Aminotransfer ALT/SGPT 28 U/L (13-56); Albumin, Serum 4.6 g/dL (3.2-5.0); Alkaline Phosphatase 71 U/L (45-117); Anion Gap 9 (5-15); BUN 21 mg/dL (7-18); BUN/Creat Ratio 22.5 RATIO (10-20); Calcium,Total 9.8 mg/dL (8.5-10.1); Chloride 105 mmol/L (98-107); Creatinine, Serum 0.94 mg/dL (0.55-1.02); EST Glomerular Filtration Rate 77 mL/min (>60); Est Glom Filt Rate - Afr Amer 94 mL/min (>60); Estimated Creatinine Clearance 75.68 ml/min; Globulin 3.6 g/dL (2.2-4.2); Glucose 81 mg/dL (74-106); Potassium 3.9 mmol/L (3.5-5.1); Protein, Total 8.2 g/dL (6.4-8.2); Sodium Level 138 mmol/L (136-145)
--- NOTE | 2023-08-11 20:06 | ED.VIS.GI ---
HPI HPI - GI History of Present Illness Chief Complaint: Abd Pain Narrative Narrative: 23-year-old female past medical history of adrenal insufficiency, chronic bowel issues, has been worked up and seen by specialist at the [facility] in the past, presents from her primary care provider's office with right lower quadrant pain. She states she has had abdominal pain for the last 3 weeks. Over the last 5 days, she has not had a bowel movement. She states she takes MiraLAX on a daily basis because of her bowel issues, but still has not been able to have a bowel movement. She states whenever she eats she vomits. She had an ultrasound by her TEACHER ASSISTANT who told her that she was constipated and had a lot of stool. Her mother is at the bedside who confirms that usually whenever they do an ultrasound, there is a large amount of stool in the colon, and everyone always tells her she is constipated. While her mother has history of celiac, she was tested for this and this is negative. Patient states that she might be going into an adrenal crisis as well because she starts shaking then becomes flushed. She takes 25 mg of hydrocortisone daily, but only took 10 this morning. While she was at her primary care provider's office, they did an exam and she had tenderness in the right lower quadrant. Concern was for an acute appendicitis. She denies any exacerbating or alleviating factors to her pain. [facility] Medical History Abdominal pain Anxiety Anxiety and depression Cardiology follow-up encounter Chest pain at rest Deafness in right ear Depression with anxiety Dysautonomia-like disorder Gastric reflux History of echocardiogram History of eustachian tube dysfunction History of Holter monitoring History of steroid therapy Injury of back Loss of hearing Migraine headache Migraine without aura and without status migrainosus, not intractable Non-smoker Pericardial cyst Primary adrenal deficiency Wears glasses Home Medications sertraline 50 mg tablet 50 mg PO DAILY 12/20/21 [History Last Taken Unknown] valacyclovir 500 mg tablet (Valtrex) 500 mg PO PRN PRN Cold Sores 03/19/22 [History Last Taken Unknown] hydroxyzine HCl 50 mg tablet 50 mg PO DAILY 06/26/23 [History Last Taken Unknown] hydrocortisone 10 mg tablet 10 mg PO TID #270 tabs 07/16/23 [Rx Last Taken Unknown] ondansetron 4 mg disintegrating tablet 4 mg PO Q8H PRN nausea and vomiting #30 tabs 07/23/23 [Rx Last Taken Unknown] nitrofurantoin monohydrate/macrocrystals 100 mg capsule (Macrobid) 100 mg PO BID 7 days #14 caps 08/11/23 [Rx Last Taken Unknown] peg 3350-electrolytes 236 gram-22.74 gram-6.74 gram-5.86 gram solution (Golytely) 240 ml PO Q10M PRN #4,000 mL 08/11/23 [Rx Last Taken Unknown] Allergy/AdvReac Type Severity Reaction Status Date / Time clonazepam [From Klonopin] AdvReac Severe drooling, Verified 08/11/23 17:26 shaking erythromycin base AdvReac Intermediate stomach Verified 08/11/23 17:26 pain, vomiting Family History Other Anxiety Autoimmune disorder Celiac disease Skin cancer Surgical History History of colonoscopy History of esophagogastroduodenoscopy (EGD) History of lymph node biopsy History of myringotomy Hx of colonoscopy Hx of eye surgery Hx of surgical procedure S/P laparoscopic procedure Status post laparoscopy Social History Smoking Status: Never smoker alcohol intake: never substance use type: does not use caffeine: Yes what type of physical activity do you participate in: none seatbelt use: always do you feel safe at home: Yes additional social history: -[employer] 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 HEENT: No sore throat. No neck pain. No loss of vision. No rhinorrhea. Cardiovascular: No chest pain. No palpitations. No pedal edema. Respiratory: No cough, no shortness of breath. Abdominal: 3 weeks of abdominal pain, 5 days without bowel movement, positive nausea and vomiting. Right lower quadrant abdominal pain as well. Genitourinary: No dysuria. No hematuria. Musculoskeletal: No myalgias. No arthralgias. Neurologic: No headaches. No dizziness. No lightheadedness. Skin: No rash. No change in color. Psychiatric: No depression. Mild anxiety. EXAM Physical Exam Narrative Exam Narrative: Afebrile. Vital signs noted. HEENT: Normocephalic. Atraumatic. PERRL, EOMI. Neck soft and supple. No point tenderness or step off. Cardiovascular: Regular rate and rhythm. No murmurs, rubs, or gallops appreciated. Respiratory: No tachypnea. Lungs clear to auscultation bilaterally. Gastrointestinal: Abdomen soft, positive diffuse tenderness, with tenderness of right lower quadrant as well with normoactive bowel sounds. No rebound or guarding. Neurological: Awake. Alert. Nonfocal, nonlateralizing. Skin: No rash. Normal color. No pallor. Musculoskeletal: No pedal edema. Full range of motion extremities. Const Vital Signs: 08/11/23 17:26 08/11/23 21:24 Temperature 97.3 F L Temperature Source Temporal Pulse Rate 75 Respiratory Rate 18 22 H Blood Pressure 114/75 Blood Pressure Mean 88 Pulse Ox 99 Oxygen Delivery Method Room Air Room Air MDM MDM MDM Narrative Medical decision making narrative: The differential diagnosis is fecal impaction/constipation versus appendicitis versus ovarian cyst. I lengthy discussion with the patient and her mother. Patient is mildly anxious, and I think that she would benefit from Ativan 0.5 mg intravenously. Additionally, they would like her to have hydrocortisone so she will be administered 15 mg intravenously to help prevent her adrenal crisis. They state that with narcotic pain medication/analgesia, that is not effective. She had even been on a morphine drip in the past which did not help. She states Dilaudid is very transient as well so she is declining any narcotic pain medication currently. Protocol labs have been entered from triage. I reviewed her laboratory work from today and she has normal white count of 8.9, hemoglobin 14.4, hematocrit 45.0, platelet count normal 302. Her electrolyte panel is grossly unremarkable with a normal sodium of 138 and potassium 3.9, no evidence of an acute adrenal insufficiency on laboratory work. BUN is 21 with creatinine 0.94. Glucose is appropriately elevated at 81 with a normal anion gap of 9. AST normal at 15 with ALT 28 and alk phos 71. While urinalysis shows WBCs 25-50, there are squamous epithelial cells. No feel antibiotics are indicated, but I can always send her urine for culture as she is not having dysuria or hematuria. I reviewed the radiology report for the CT of the abdomen and pelvis with contrast which shows no evidence of appendicitis, no acute process. On her automobile detailer film that I reviewed independently, she does seem to have a large amount of stool throughout her colon with a paucity of air. While I do not feel she has a fecal impaction, I do feel that she may be having constipation. She already takes MiraLAX, and I discussed with her the use of GoLytely. She would like to try this as a remedy for the large amount of stool in her colon. She was told that she may experience increased cramping. She and her mother state that they have an appointment with Dr. Guerrero with gastroenterology in December. Given that she has no acute process on her CT and she has normal laboratory work, I do feel that she can be discharged to follow-up. Patient and mother are agreeable to the plan. Return instructions reviewed. Disposition is discharged home in stable condition. History & Record Review Discussion w/independent historian: Patient and Family (Mother) Additional record(s) reviewed:: Prior ED visit Lab Data Attestation: I reviewed the patient's lab results. Labs: Laboratory Results - last 24 hr 08/11/23 08/11/23 18:15 18:30 WBC 8.9 RBC 5.34 Hgb 14.4 Hct 45.0 MCV 84.3 MCH 27.0 MCHC 32.0 RDW Std Deviation 44.5 H RDW Coeff of Shivam 14.6 Plt Count 302 MPV 9.9 Immature Gran % (Auto) 0.200 Neut % (Auto) 68.7 Lymph % (Auto) 25.0 [place] % (Auto) 5.4 Eos % (Auto) 0.3 Baso % (Auto) 0.4 Absolute Neuts (auto) 6.1 Absolute Lymphs (auto) 2.23 Nucleated RBC % 0 Sodium 138 Potassium 3.9 Chloride 105 Carbon Dioxide 24.0 Anion Gap 9 BUN 21 H Creatinine 0.94 Estim Creat Clear Calc 75.68 Est GFR (MDRD) Af Amer 94 Est GFR (MDRD) Non-Af 77 BUN/Creatinine Ratio 22.5 H Glucose 81 Calcium 9.8 Total Bilirubin 0.60 AST 15 ALT 28 Alkaline Phosphatase 71 Total Protein 8.2 Albumin 4.6 Globulin 3.6 Albumin/Globulin Ratio 1.3 Serum , Qual NEGATIVE Urine Color Yellow Urine Clarity Sl. Cloudy Urine pH 6.0 Ur Specific [place] 1.015 Urine Protein 30 H Urine Glucose (UA) Normal Urine Ketones 150 A* Urine Occult Blood 250 H Urine Nitrite Negative Urine Bilirubin Negative Urine Urobilinogen Normal Ur Leukocyte Esterase 500 H Urine RBC 10-25 SEEN Urine WBC 25-50 SEEN Ur Squamous Epith Cells 5-10 SEEN Amorphous Sediment 1+ URATE Urine Bacteria 0 SEEN Urine Mucus 0 SEEN Radiography Diagnostic Testing: Clinical Impression(s) from Imaging Studies Abdomen/Pelvis CT 08/11/23 17:55 IMPRESSION: Normal enhanced CT of the abdomen and pelvis. Electronically Signed: Jarek Choi MD at 20:14 EST , Discharge Plan Triage Chief Complaint: Abd Pain ED Provider: Neptali Yousif Dx/Rx/DC Orders Clinical Impression: Abdominal pain, Adrenal insufficiency, Constipation Instructions: ED Abdominal Pain Unkn Cause Fem, ED Constipation (Adult) Prescriptions: New peg 3350-electrolytes [Golytely] 236-22.74-6.74 -5.86 gram recon soln 240 ml PO Q10M PRN Qty: 4000 0RF Rx Instructions: until fecal effluent is clear No Action sertraline 50 mg tablet 50 mg PO DAILY Patient Comments: TAKE 1 TABLET BY MOUTH EVERY DAY hydroxyzine HCl 50 mg tablet 50 mg PO DAILY Patient Comments: TAKE 1 TABLET BY MOUTH EVERYDAY AT BEDTIME hydrocortisone 10 mg tablet 10 mg PO TID Qty: 270 3RF valacyclovir [Valtrex] 500 mg tablet 500 mg PO PRN PRN (Reason: Cold Sores) ondansetron 4 mg tablet,disintegrating 4 mg PO Q8H PRN (Reason: nausea and vomiting) Qty: 30 0RF nitrofurantoin monohyd/m-cryst [Macrobid] 100 mg capsule 100 mg PO BID 7 Days Qty: 14 0RF Rx Instructions: must administer with a meal/food Primary Care Provider: Orlando Ortiz Referrals: Orlando Ortiz MD [Primary Care Provider] - As soon as possible Friend,DO Hever [Med Staff - Active Staff] - As soon as possible Disposition Disposition: Home, Self Care Discharge Date/Time: 08/11/23 21:27
[2023-08-11] MEDS: Hydrocortisone Sod Succinate 100 MG/2 ML Vial 15 MG IV (20:22)
[2023-08-11] MEDS: LORazepam 2 MG/ML Syringe 0.5 MG IV (20:22)
[2023-08-11 21:24] VITALS: RESP 22
[2023-08-12 01:06] LABS: Ketone-Dipstick 150 mg/dl (Negative)
== END 2023-08-11 21:27 | disposition home or self-care (01) ==
PROVIDERS: Emergency Provider Emergency Medicine; PCP Family Medicine; Visit Provider Emergency Medicine
DX: R10.813 Right lower quadrant abdominal tenderness (principal); E27.40 Unspecified adrenocortical insufficiency; K59.00 Constipation, unspecified
CPT/HCPCS: 74177; 80053; 81001; 84703; 85025; 96374; 96375; 99282; J7030; Q9967; A4216

== ENCOUNTER → 2023-08-11 | Outpatient (CLI) | payer BC, SELFPAY | END | disposition home or self-care (01) | LOC: LABSPEC 11:14 | PROVIDERS: PCP Family Medicine; Referring Provider Advanced Practice Midwife; Visit Provider Advanced Practice Midwife | DX: R30.0 Dysuria (principal) | CPT/HCPCS: 87086 ==

== ENCOUNTER → 2023-08-11 | Outpatient (CLI) | payer BC, SELFPAY ==
--- NOTE | 2023-08-11 14:00 | BD_ITS ---
STUDY: DUAL ENERGY X-RAY ABSORPTIOMETRY / DXA REASON FOR EXAM: Female, 23 years old. Possible premature ovarian failure TECHNIQUE: Bone Mineral Density (BMD) measurements of lumbar spine and bilateral hips were obtained. COMPARISON: None. FINDINGS: Lumbar Spine (L1-L4): g/cm2 (0.778) / T-score (-2.4) / Z-score (-2.4) Findings are suggestive of osteopenia with a high fracture risk. Left Femur Total: g/cm2 (0.715) / T-score (-1.9) / Z-score (-1.9) Left Femoral Neck: g/cm2 (0.634) / T-score (-1.9) / Z-score (-1.9) Right Femur Total: g/cm2 (0.701) / T-score (-2.0) / Z-score (-2.0) Right Femoral Neck: g/cm2 (0.637) / T-score (-1.9) / Z-score (-1.9) BD/Dexa Bone Density Study IMPRESSION: The patient is considered osteopenic as outlined below according to World [employer] Organization (WHO) criteria with a high fracture risk. Reference Information: The T-score is the number of standard deviations above or below the standard which is normal for young adults at their peak bone mineral density. The World Health Organization (WHO) interprets the T-scores as follows: Above -1 Normal bone density Between -1 and -2.5 Osteopenia Equal to / or below -2.5 Osteoporosis As a practical clinical guideline, osteopenia may be graded as follows: Mild -1 through -1.5 Moderate -1.6 through -2.0 Severe -2.1 through -2.4 The Z-score is the number of standard deviations above or below age-matched controls. A Z-score of less than -1.5 would be considered abnormal. References: 1. NIH Osteoporosis and Related Bone Diseases www osteo.org 2. International Society for Clinical Densitometry www iscd.org 3. National Osteoporosis Foundation www nof.org Electronically Signed: Marshall Vázquez MD at 14:38 EST ,
== END | disposition home or self-care (01) ==
LOC: OPBD 13:54
PROVIDERS: PCP Family Medicine; Referring Provider Obstetrics & Gynecology; Visit Provider Obstetrics & Gynecology
DX: E28.39 Other primary ovarian failure (principal)
CPT/HCPCS: 77080

== ENCOUNTER → 2023-08-19 | Outpatient (CLI) | payer BC, OTHER, SELFPAY ==
[2023-08-19 15:02] LABS: Absolute Lymphocyte Count 1.74 X10^3/uL (0.83-4.51); Basophil# 0.03 X10^3/uL; Basophil% 0.4 % (0-1); Eosinophil# 0.04 X10^3/uL; Eosinophils% 0.5 % (0-5); Hematocrit 41.6 % (37-47); Hemoglobin 13.1 g/dL (12.0-15.0); Lymphocyte # 1.74 X10^3/ul (0.83-4.51); Lymphocyte % 20.6 % (19-41); Mean Corp Hgb Conc 31.5 g/dL (32-36); Mean Corpuscular Hgb 26.6 pg (27.0-32.0); Mean Corpuscular Volume 84.6 fL (81-99); Mean Platelet Vol. 9.5 fl (6.2-12.0); Monocyte# 0.62 X10^3/uL; Monocyte% 7.3 % (0-10); NRBC Flagged by Analyzer 0 % (0-5); Neutrophil # 5.99 X10^3/uL (2.7-7.7); Platelet Count 256 K/mm3 (150-450); RBC Distribution Width CV 15.3 % (11.6-14.6); RBC Distribution Width SD 47.5 fl (35.1-43.9); Red Blood Count 4.92 M/mm3 (4.2-5.4); White Blood Count 8.4 K/mm3 (4.4-11.0)
[2023-08-19 15:29] LABS: Vitamin B12 359 pg/mL (211-911)
[2023-08-19 15:50] LABS: CRP < 2.90 mg/L (0.0-3.0); Free T3 2.5 pg/mL (2.18-3.98); LDH 210 U/L (84-246); T4 Free Direct 0.88 ng/dL (0.76-1.46); Thyroid Stim Hormone (TSH) 0.94 uIU/mL (0.358-3.74)
[2023-08-19 16:04] LABS: Erythrocyte Sedimentation Rate 10 mm/hr (0-30)
[2023-08-22 15:32] LABS: Anti-Centromere B Ab <0.2 AI (0.0-0.9); Anti-Chromatin <0.2 AI (0.0-0.9); Anti-Jo <0.2 AI (0.0-0.9); Anti-Scleroderma-70 AB <0.2 AI (0.0-0.9); Anti-dsDNA Ab <1 IU/mL (0-9); RNP Ab <0.2 AI (0.0-0.9); SJOGREN'S Anti-SS-A test < 0.2 AI (0.0-0.9); SJOGREN'S Anti-SS-B test < 0.2 AI (0.0-0.9); Smith Ab <0.2 AI (0.0-0.9); Vitamin D 1,25-Dihydroxy 68.4 pg/mL (24.8-81.5)
[2023-08-23 20:08] LABS: Albumin 4.3 g/dL (2.9-4.4); Alpha-1-Globulins 0.2 g/dL (0.0-0.4); Alpha-2-Globulins 0.8 g/dL (0.4-1.0); Cytoplasmic Ab (C-ANCA) <1:20 titer (Neg:<1:20); Endomysial Antibody IgA Negative (Negative); Gamma Globulin 0.7 g/dL (0.4-1.8); IgG, Quant 702 mg/dL (586-1602); Immunoglobulin A 136 mg/dL (87-352); Immunoglobulin E 17 IU/mL (6-495); Immunoglobulin G, Subclass 1 466 mg/dL (248-810); Immunoglobulin G, Subclass 2 86 mg/dL (130-555); Immunoglobulin G, Subclass 3 18 mg/dL (15-102); Immunoglobulin G, Subclass 4 23 mg/dL (2-96); Immunoglobulin M 150 mg/dL (26-217); PROEL- TOTAL PROTEIN 6.9 g/dL (6.0-8.5); Perinuclear Ab (P-ANCA) <1:20 titer (Neg:<1:20); t-Transglutaminase IgA <2 U/mL (0-3)
== END | disposition home or self-care (01) ==
LOC: PAVLAB 14:41
PROVIDERS: PCP Family Medicine; Referring Provider Internal Medicine Gastroenterology; Visit Provider Internal Medicine Gastroenterology
DX: K59.09 Other constipation (principal)
CPT/HCPCS: 36415; 82306; 82607; 82652; 82784; 82785; 82787; 83516; 83615; 84165; 84439; 84443; 84481; 85025; 85652; 86140; 86225; 86235; 86255; 86256; 86334

== ENCOUNTER → 2023-08-24 | Outpatient (CLI) | payer BC, OTHER, SELFPAY ==
--- NOTE | 2023-08-24 07:50 | RAD_ITS ---
INDICATION: Sitz marker #1 EXAMINATION/TECHNIQUE: X-RAY - XR Abdomen 1 View COMPARISON: No relevant prior comparison study available FINDINGS: BOWEL GAS PATTERN: Non-obstructive. No bowel or stomach distention. There are 24 Sitz markers within the expected region of the ascending and transverse colon. FREE AIR: Not assessed on a single supine view. ORGANOMEGALY: Not seen. CALCIFICATIONS: No abnormal calcifications observed. LOWER CHEST: No acute pathology. BONES AND SOFT TISSUES: No acute pathology. RAD/Abdomen Single View IMPRESSION: Non-obstructive bowel gas pattern. 24 Sitz markers within the expected region of the ascending and transverse colon. Electronically Signed: Stephania Martin MD at 8:32 EST ,
== END | disposition home or self-care (01) ==
PROVIDERS: PCP Family Medicine; Referring Provider Internal Medicine Gastroenterology; Visit Provider Internal Medicine Gastroenterology
DX: K59.09 Other constipation (principal)
CPT/HCPCS: 74018

== ENCOUNTER → 2023-08-26 | Outpatient (CLI) | payer BC, OTHER, SELFPAY ==
--- NOTE | 2023-08-26 07:40 | RAD_ITS ---
INDICATION: Sitz marker #2 EXAMINATION/TECHNIQUE: X-RAY - XR Abdomen 1 View COMPARISON: August 24, 2023 FINDINGS: BOWEL GAS PATTERN: There is a moderate amount of stool throughout the colon. Non-obstructive. No bowel or stomach distention. There are persistent 24 Sitz markers retained within the colon that have migrated in the interim. The Sitz markers markers predominantly visualized within the descending colon as well as within the hepatic flexure of the colon and the expected region of the sigmoid colon. FREE AIR: Not assessed on a single supine view. ORGANOMEGALY: Not seen. CALCIFICATIONS: No abnormal calcifications observed. LOWER CHEST: No acute pathology. BONES AND SOFT TISSUES: No acute pathology. RAD/Abdomen Single View IMPRESSION: Interval migration of persistent retained 24 Sitz markers that remain predominantly within the descending colon. Moderate amount of stool throughout the colon. Electronically Signed: Stephania Martin MD at 8:28 EST ,
== END | disposition home or self-care (01) ==
LOC: RAD 07:38
PROVIDERS: PCP Family Medicine; Referring Provider Internal Medicine Gastroenterology; Visit Provider Internal Medicine Gastroenterology
DX: K59.09 Other constipation (principal)
CPT/HCPCS: 74018

== ENCOUNTER → 2023-09-01 | Outpatient (CLI) | payer OTHER, BC, SELFPAY ==
[2023-09-01 08:43] LABS: PTHIN 100.7 pg/mL (18.4-80.1)
[2023-09-01 08:46] LABS: Vitamin D,25 Hydroxy 38.4 ng/mL
[2023-09-01 08:59] LABS: ALB/GLOB Ratio 1.1 RATIO (0.9-2.4); AST(SGOT) 12 U/L (15-37); Alanine Aminotransfer ALT/SGPT 26 U/L (13-56); Albumin, Serum 3.6 g/dL (3.2-5.0); Alkaline Phosphatase 69 U/L (45-117); Anion Gap 5 (5-15); BUN 15 mg/dL (7-18); BUN/Creat Ratio 18.8 RATIO (10-20); Chloride 114 mmol/L (98-107); Cholesterol 199 mg/dL (200); EST Glomerular Filtration Rate 93 mL/min (>60); Est Glom Filt Rate - Afr Amer 112 mL/min (>60); Globulin 3.4 g/dL (2.2-4.2); Glucose 88 mg/dL (74-106); High Density Lipoprotein 45 mg/dL; Magnesium 2.4 mg/dL (1.6-2.6); Potassium 4.1 mmol/L (3.5-5.1); Sodium Level 142 mmol/L (136-145); T4 Free Direct 0.94 ng/dL (0.76-1.46); Thyroid Stim Hormone (TSH) 0.86 uIU/mL (0.358-3.74); Triglycerides 60 mg/dL; Very Low Density Lipoprotein 12 mg/dL (5-40)
== END | disposition home or self-care (01) ==
PROVIDERS: PCP Family Medicine; Referring Provider Internal Medicine Endocrinology, Diabetes & Metabolism; Visit Provider Internal Medicine Endocrinology, Diabetes & Metabolism
DX: E27.49 Other adrenocortical insufficiency (principal); E21.5 Disorder of parathyroid gland, unspecified; E04.0 Nontoxic diffuse goiter; E55.9 Vitamin D deficiency, unspecified; E78.2 Mixed hyperlipidemia
CPT/HCPCS: 36415; 80053; 80061; 82024; 82306; 83735; 83970; 84439; 84443

== ENCOUNTER 2023-09-07 11:47 | Outpatient (CLI) | payer BC, OTHER, SELFPAY ==
[2023-09-07] MEDS: Dextrose 5%-Lactated Ringers 1,000 ML 999 ML IV (12:03)
[2023-09-07] MEDS: 0.9% NaCl Peripheral Flush Adult/Peds IV (12:03)
[2023-09-07] MEDS: Metoclopramide 10 MG/2 ML Vial IV (12:09)
[2023-09-07 12:12] VITALS: BP 103/73; PULSE 114; RESP 16; TEMP 36.9; O2SAT 96; BMI 26.5
[2023-09-07 13:01] VITALS: BP 96/61; PULSE 79; RESP 20; O2SAT 99
[2023-09-07] MEDS: DiphenhydrAMINE 50 MG/ML Syringe 25 MG IV (13:05)
[2023-09-07 13:28] VITALS: BP 93/59; PULSE 63; RESP 16; TEMP 36.7; O2SAT 100
== END 2023-09-07 11:48 | disposition home or self-care (01) ==
PROVIDERS: PCP Family Medicine; Visit Provider Obstetrics & Gynecology
DX: E86.0 Dehydration (principal)
CPT/HCPCS: 96365; 96366; 96375; A4216

== ENCOUNTER → 2023-09-07 | Outpatient (CLI) | payer BC, OTHER, SELFPAY ==
--- NOTE | 2023-09-07 10:10 | NM_ITS ---
CLINICAL: 23-year-old female with history of chronic nausea, clinical gastroparesis. SEMI-SOLID PHASE 99m Tc SULFUR COLLOID GASTRIC EMPTYING STUDY COMPARISON: None available FINDINGS: The patient was administered 1.1 mCi of 99m Tc sulfur colloid mixed with oatmeal and consumed per os. Image acquisitions in the anterior-posterior projections were obtained for 60 minutes. There is prompt visualization of the stomach. There is no gastroesophageal reflux identified. First order kinetics are maintained throughout the duration of the acquisitions. The T ? linear fit was calculated to be 61.10 minutes, (Normal: 12-56 minutes). NM/Gastric Emptying Study IMPRESSION: 1. ABNORMAL 99m Tc sulfur colloid semi-solid phase (oatmeal) gastric emptying imaging examination. A. There is mild delayed semi-solid phase gastric emptying compared to normal controls with maintained first order kinetics throughout all components of the examination. (Jayde et al, J Nucl Med Tech 38: 186, 2010). Electronically Signed: Jarek Valentino DO at 9:13 EST ,
== END | disposition home or self-care (01) ==
LOC: NM 10:07
PROVIDERS: PCP Family Medicine; Referring Provider Internal Medicine Gastroenterology; Visit Provider Internal Medicine Gastroenterology
DX: K59.09 Other constipation (principal); K31.84 Gastroparesis
CPT/HCPCS: 78264; A9541

== ENCOUNTER → 2023-09-24 | Outpatient (CLI) | payer OTHER, BC, SELFPAY ==
[2023-09-28 15:08] LABS: Chromogranin A 36.1 ng/mL (0.0-101.8)
[2023-09-30 12:09] LABS: Beef <0.10 kU/L (Class 0); Chocolate <0.10 kU/L (Class 0); Codfish <0.10 kU/L (Class 0); Corn <0.10 kU/L (Class 0); Egg, Whole <0.10 kU/L (Class 0); Milk (Cow) <0.10 kU/L (Class 0); Mussels <0.10 kU/L (Class 0); Peanut <0.10 kU/L (Class 0); Pork <0.10 kU/L (Class 0); Salmon <0.10 kU/L (Class 0); Shrimp <0.10 kU/L (Class 0); Soybean <0.10 kU/L (Class 0); Tuna <0.10 kU/L (Class 0); Wheat <0.10 kU/L (Class 0)
== END | disposition home or self-care (01) ==
LOC: PAVLAB 07:36
PROVIDERS: Internal Medicine Gastroenterology; PCP Family Medicine; Referring Provider Obstetrics & Gynecology; Visit Provider Obstetrics & Gynecology
DX: K59.09 Other constipation (principal); E27.40 Unspecified adrenocortical insufficiency
CPT/HCPCS: 36415; 86003; 86005; 86316

== ENCOUNTER → 2023-09-28 | Outpatient (CLI) | payer BC, OTHER, SELFPAY ==
[2023-09-28 10:45] LABS: Absolute Lymphocyte Count 2.11 X10^3/uL (0.83-4.51); Absolute Neutrophil Count 2.9 X10^3/uL (2.0-7.7); Basophil# 0.02 X10^3/uL; Basophil% 0.4 % (0-1); Eosinophil# 0.09 X10^3/uL; Eosinophils% 1.6 % (0-5); Hematocrit 40.3 % (37-47); Hemoglobin 12.4 g/dL (12.0-15.0); Lymphocyte # 2.11 X10^3/ul (0.83-4.51); Mean Corp Hgb Conc 30.8 g/dL (32-36); Mean Corpuscular Hgb 26.3 pg (27.0-32.0); Mean Corpuscular Volume 85.4 fL (81-99); Mean Platelet Vol. 9.4 fl (6.2-12.0); Monocyte# 0.38 X10^3/uL; Monocyte% 6.8 % (0-10); NRBC Flagged by Analyzer 0 % (0-5); Neutrophil # 2.93 X10^3/uL (2.7-7.7); Neutrophil % 52.8 % (47-70); Platelet Count 252 K/mm3 (150-450); RBC Distribution Width CV 15.6 % (11.6-14.6); RBC Distribution Width SD 48.7 fl (35.1-43.9); Red Blood Count 4.72 M/mm3 (4.2-5.4); White Blood Count 5.6 K/mm3 (4.4-11.0)
[2023-09-28 11:02] LABS: Vitamin B12 308 pg/mL (211-911)
[2023-09-28 11:11] LABS: Ferritin 5 ng/mL (8-252); Iron 37 ug/dL (50-170)
[2023-09-30 15:08] LABS: Endomysial Antibody IgA Negative (Negative); Immunoglobulin A 156 mg/dL (87-352); t-Transglutaminase IgA <2 U/mL (0-3)
== END | disposition home or self-care (01) ==
PROVIDERS: PCP Family Medicine; Referring Provider Nurse Practitioner Adult Health; Visit Provider Nurse Practitioner Adult Health
DX: K90.0 Celiac disease (principal); D50.9 Iron deficiency anemia, unspecified; D51.3 Other dietary vitamin B12 deficiency anemia
CPT/HCPCS: 36415; 82607; 82728; 82746; 82784; 83516; 83540; 85025; 86255

== ENCOUNTER → 2023-10-02 | Outpatient (CLI) | payer BC, OTHER, SELFPAY ==
--- NOTE | 2023-10-02 14:20 | US_ITS ---
STUDY: ULTRASOUND BREAST - RIGHT REASON FOR EXAM: Female, 23 years old. Right breast lump at the 9:00 position of the breast. TECHNIQUE: Axial and longitudinal images of the RIGHT breast were performed with a high resolution ultrasound transducer. # OF IMAGES: 61 COMPARISON: Comparison is made with prior mammogram done earlier today. FINDINGS: RIGHT Breast: The lateral half of the right breast was examined with ultrasound. There is dense fibroglandular tissue. Incidental note is made of a 6 mm x 5 mm x 4 mm cyst at the 10:00 position of the breast at 6 cm from the nipple US/Breast Limited Unilateral IMPRESSION: Dense fibroglandular tissue. Incidental note is made of a 6 mm x 5 mm x 4 mm cyst at the 10:00 position of the breast 6 cm from the nipple. ASSESSMENT CATEGORY: BIRADS Category 2: Benign. A letter regarding these results will be sent to the patient by the facility within 30 days. Electronically Signed: Marshall Vázquez MD at 9:23 EST ,
--- NOTE | 2023-10-02 14:20 | BI_ITS ---
MAMMOGRAPHY - BILATERAL DIAGNOSTIC REASON FOR EXAM: Female, 23 years old. Right breast lump at the 9:00 position. Painful. PERTINENT HISTORY: Non-contributory. TECHNIQUE: Digital bilateral breast darwin (3D mammographic acquisition) in the CC and MLO projections. 2-D mediolateral oblique (MLO) and craniocaudad (CC) views of both breasts were obtained. CAD: Full Field Digital Mammography with Computer Added Detection was performed. COMPARISON: None. Baseline examination. FINDINGS: Breast Composition: The breasts are extremely dense, which lowers the sensitivity of mammography. There are no dominant masses or suspicious calcifications. No other significant abnormalities are identified. BI/DIAG MAMM W/CAD, BILAT IMPRESSION: Negative diagnostic mammogram. With the patient''s history of a palpable lump in the right breast, correlation with ultrasound is recommended. ASSESSMENT CATEGORY: BIRADS Category 0: Incomplete. Need additional imaging evaluation. A letter regarding these results will be sent to the patient by the facility within 30 days. Approximately 10% of breast cancers are not detected by mammography. A normal mammogram should not delay biopsy of a clinically suspicious abnormality. Electronically Signed: Marshall Vázquez MD at 14:59 EST ,
== END | disposition home or self-care (01) ==
LOC: OPBI 14:18
PROVIDERS: PCP Family Medicine; Referring Provider Obstetrics & Gynecology; Visit Provider Obstetrics & Gynecology
DX: N63.10 Unspecified lump in the right breast, unspecified quadrant (principal); N64.4 Mastodynia
CPT/HCPCS: 76642; 77062; 77066; G0279

== ENCOUNTER 2023-10-21 07:40 | Day surgery (SDC) | payer OTHER, BC, SELFPAY ==
[2023-10-21 08:05] VITALS: BP 115/74; PULSE 85; RESP 12; TEMP 36.5; O2SAT 100; BMI 25.7
[2023-10-21 08:15] LABS: Internal QC Validated? YES +Cl - CLEAR BKGD; Pregnancy, Urine Negative Negative; Record Kit Lot#,Urine Preg HCG0000718086
[2023-10-21] MEDS: Lactated Ringers 1,000 ML 15 ML IV (08:19)
--- NOTE | 2023-10-21 08:22 | HP.PCM_ITS ---
History and Physical Date of Admission: 10/21/23 EZE HERNADEZ, is a 23 F who presents to the office today for [facility] ED 08.11.23 with RLQ abdominal pain and constipation with concern for adrenal crisis r/t adrenal insufficiency. Has been established with [facility] specialist for workup. FH mother celiac disease. Currently taking MiraLAX daily for constipation; start golytely for cleansing. ? Biochemical CBC, CMP without pertinent abnormality. ? CT abd/pel stable 6cm flat mass of water attenuation superior to right hemidiaphragm believed to originate in right epicardial fat pad, epicardial cyst. *BGI established .11.07 for the last two months been having severe N/V and BRBPR with constipation that can last up to 18 days; she has been avoiding food intake because of symptoms and reports she has been having weight loss. MiraLAX BID has been ineffective; Golytely was partially effective. Mother reports hospitalization several years ago for 8 days for adrenal insufficiency and did not have a BM during this period. Surgery for endometriosis previously during which scar tissue was found, no previous abdominal surgery; this was cut during surgery and she had positive BM for several weeks. ? Biochemical CBC, ESR, LDH, CRP, B12, D25, D1,25, TSH, T3, T4, GAME, IgG1/3/4, LEVI, ANCA, KAREN comp, celiac without pertinent abnormality.? IgG2 L86 ? SITZ Day 3: R colon 15 rings, L colon 9 rings, RS colon zero rings. Day 5 R Colon 4 rings, L colon 17 rings, RS colon 3 rings. ? GET 09.08.23 61.10 minutes (12.56) Contact, VAMSHI 09.14.23 with results. Need to treat constipation, Start Linzess 145mcg OV 09/16/23 C/o generalized abdominal pain and low back pain rated 7 out of ten today, Not taking Linzess d/t prior authorization needed. Nausea constant. Will gag when attempting to swallowing food. NV and abdominal cramping after eating. Constipation continues unchanged, one small BM about every 7 days. Does not have loose stools. C/o weight loss of 7 lb since last visit. ROS Const Constitutional: Positive for fatigue, headache(s) and weight change; No fever(s), frequent falls or weakness ENT ENT: Positive for headache(s) and difficulty swallowing Cardio Cardiology: Positive for leg pain with exertion Gastro GI: Positive for abdominal pain, bloating, change in bowel habits, constipation, heartburn, difficulty swallowing, Blood in stool, nausea/dyspepsia and vomiting; No diarrhea, excessive flatus or Vomiting blood/hematemesis Musc Musculoskeletal: Positive for joint pain, back pain, joint swelling, muscle weakness, numbness, tingling, restless legs, leg pain at night and leg pain with exertion; No muscle cramps, stiffness, Arthritis or sciatica Skin Skin: No dry skin, lesions, itchy eyes or rash Neuro Neurology: Positive for headache(s), numbness, tingling and restless legs; No behavioral changes, unsteady gait/balance, weakness, frequent falls, tremor(s), Increased tone in limbs, paralysis or seizures Psych Psychiatric: Positive for anxiety, No behavioral changes, Positive for depression, No paranoia, No Compulsive Behavior, No hyperactivity, No inattent iveness, No obsessions/compulsions, No Temper Tantrums and No suicidal ideation Endo Endocrine: Positive for fatigue and weight change Aller/Imm Allergy/Immunologic: No itchy eyes Cory/Lymp Hematologic/Lymphatic: No easy bleeding or easy bruising Exam Const General: cooperative, healthy appearing, comfortable, no acute distress, well developed and not cushingoid (no steroid excess seen) Nutritional Appearance: well nourished Orientation: alert, awake and oriented x3 [facility] Head: normal to inspection Ears: hearing grossly normal bilaterally Nose: external nose normal Mouth: oral mucosae normal Eyes General: appearance normal, both eyes and all related structures Alignment and Position: alignment normal Periorbital: periorbital findings normal Eyelids: eyelids normal Conjunctivae: conjunctivae normal Neck Neck: normal visual inspection Neck mass: No Thyroid: thyroid normal Lymphatic: no lymphadenopathy noted Chest Chest palpation & inspection: normal inspection of the chest Resp Effort & Inspection: normal respiratory effort, able to speak in complete sentences, symmetric chest movement, no audible wheezes and no cough Auscultation: Bilateral: Clear to Auscultation Cardio Rate: regular rate Rhythm: regular rhythm Pulses: posterior tibial pulses present GI Inspection: normal to inspection Skin General: no rashes or lesions noted Neuro General: patient alert, patient awake and patient oriented x3 Cranial Nerves: CN's II-XI intact bilaterally Cognition: normal cognition Speech: speech normal Gait: normal gait Motor: muscle tone normal throughout Extrem General: no edema (no pitting edema) Psych Appearance: grossly normal Mental Status: mental status grossly normal Mood: congruent mood Affect: normal affect Speech and Movement: speech and movement normal Attitude: cooperative Thought Process: normal Thought Content: normal Judgment: judgment good Quality Reporting Tobacco Screening ([facility] 138) Smoking Status: Never smoker Assessment and Plan Assessment and Plan (1) Chronic constipation: Status: Chronic (2) Adrenal insufficiency: Status: Chronic Plan: 23-year-old with complicated medical history of primary adrenal insufficiency on chronic steroid therapy, possible endometriosis, pericardial cyst who presents for the evaluation of persistent nausea and worsening constipation. She complains of bloating associated with abdominal pain, abdominal cramping and nausea with vomiting on almost a daily basis. She takes Zofran twice a day because of persistent nausea. She denies any history of migraine disorders. She has tried multiple things in the past for constipation including MiraLAX and stool softeners. It is unknown if she has been on any prescription medicine for chronic constipation. She said that she had a colonoscopy in the past but it was normal. She does get a rash but it is Thursday associated with an adrenal crisis. Recently she underwent laparoscopic procedure and had lysis of adhesions. She is never had abdominal surgery. As per the patient and her mother she was at her worst about 95 pounds. She can go as long as 2 weeks without having a bowel movement. Her mother carries a diagnosis of celiac disease. Differential diagnosis for the collection of her symptoms is primary adrenal insufficiency induced gastrointestinal motility disorder. Also different diagnosis is gastroparesis, small bacterial overgrowth, IBS with constipation. She will undergo biochemical testing. We will also do a sits marker test, MRI of the abdomen pelvis and a gastric emptying study. If she does have severe delayed gastric emptying or abnormal imaging the neck carries a worse prognosis meaning that is likely secondary to her underlying [place]'s disease. I would not give her anything for constipation at this time as I would like to get more clarity regarding her previous work ups. I gave her a prescription for scopolamine patches and she had side effects. She underwent gastric emptying study and it was at 61 minutes which is prolonged. She also underwent a sits marker test which showed that almost all of the sits markers stayed in the left-sided colon. Current diagnosis is slow transit constipation. She will need to undergo biopsies of the rectum for Hirschsprung's disease. She will also be recommended to consume a gastroparesis diet. Further recommendations to follow. I have examined the patient and the H&P has been reviewed. There are no clinical changes since date of exam.
--- NOTE | 2023-10-21 09:00 | EGD_PTH ---
PATHOLOGY RESULTS PATIENT: EZE HERNADEZ LOC: EN U#:[id number] AGE/SX: 23/F ROOM: RE10/21/[address]: Dr. Hever Guerrero DO : 2000 BED: DIS: 10/21/2023 SPEC #: [id number] RECD: 10/21/23 13:03 STATUS: KATIE LISA #: [id number] BRAULIO: 10/21/23 09:[address]: Hever Guerrero DEPT: SURGICAL PATHOLOGY RECD BY: Shelli García ENTERED: 10/21/23 13:39 SP TYPE: EGD BIOPSY OT DR: Dr. Orlando Ortiz MD Tissues: Gastric mucous membrane Duodenum, NOS Ileum, NOS COLON BIOPSY Procedures: Surgery Specimen Level IV HEADER OPERATION: Colonoscopy, EGD, biopsy PRE-OP DIAGNOSIS: Chronic constipation, adrenal insufficiency TISSUE SUBMITTED: A - Gastric ulcer biopsy, B - Duodenal ulcer biopsy, C - Terminal ileum biopsy, D - Random colonic biopsy MICROSCOPIC DIAGNOSIS A. Gastric ulcer, biopsy: Mucosal ulceration. Chronic gastritis. See comment. B. Duodenal ulcer, biopsy: Mild nonspecific chronic inflammation. C. Terminal ileum, biopsy: No pathologic change. D. Colon, random biopsy: No pathologic change. AM:amadeo 10/22/2023 COMMENT A. The results of immunohistochemistry for Helicobacter pylori will be reported separately ([id number]). Immunohistochemistry ([id number]) supports the above diagnosis. MICROSCOPIC DESCRIPTION Slides are reviewed. GROSS DESCRIPTION A - Received in fixative is one container labeled with the patient's name and designated gastric ulcer biopsy. The specimen consists of multiple irregular fragments of light cordero soft tissue that in aggregate measure 1.2 x 0.3 x 0.1 cm. The specimen is totally submitted in one cassette. B - Received in fixative is one container labeled with the patient's name and designated duodenal biopsy. The specimen consists of one irregular fragment of light cordero soft tissue that measures 0.4 x 0.3 x 0.1 cm. The specimen is totally submitted in one cassette. C - Received in fixative is one container labeled with the patient's name and designated terminal ileum biopsy. The specimen consists of two irregular fragments of light cordero soft tissue that in aggregate measure 0.6 x 0.3 x 0.1 cm. The specimen is totally submitted in one cassette. D - Received in fixative is one container labeled with the patient's name and designated random colonic biopsy. The specimen consists of multiple irregular fragments of light cordero soft tissue that in aggregate measure 0.8 x 0.6 x 0.1 cm. The specimen is totally submitted in one cassette. / KAELYN:amadeo 10/21/2023 TC:3 CPT: 16350 x4
--- NOTE | 2023-10-21 09:00 | IMM_PTH ---
PATHOLOGY RESULTS PATIENT: EZE HERNADEZ LOC: EN U#:[id number] AGE/SX: 23/F ROOM: RE10/21/[address]: Dr. Hever Guerrero DO : 2000 BED: DIS: 10/21/2023 SPEC #: [id number] RECD: 10/21/23 14:23 STATUS: KATIE REQ #: [id number] BRAULIO: 10/21/23 09:[address]: Hever Guerrero DEPT: IMMUNOHISTOCHEMISTRY RECD BY: Katlyn Atkinson ENTERED: 10/21/23 14:23 SP TYPE: IMMUNO OTHR DR: Dr. Orlando Ortiz MD Tissues: Stomach, NOS Procedures: H Pylori (initial) CD20 (add) CD3 (add) CD45 (add) CD5 (add) CD79A (add) PHYSICIAN & INSTITUTION [place] [id number] SPECIMEN INFORMATION: Tissue Source: A - Gastric ulcer Clinical Info: Chronic constipation, adrenal insufficiency Specimen Number: [id number] CPT code: 73975, 93566 x5 METHODOLOGY: Deparaffinized sections of prefer/formalin-fixed tissue or PAP/DQ stained slides are incubated with monoclonal/polyclonal antibodies/oligonucleotide probes. Localization is made via biotin free immunoperoxidase method. Appropriate controls are performed and reacted as expected. Results on target cell population are indicated in the following table: RESULTS: ANTIBODY / CLONE RESULT Block A H Pylori (polyclonal) negative CD3 (PS1) positive CD5 (SP10) positive CD20 (L26) positive CD45 (RP2/18) positive CD79a (11E3) positive These tests were developed and their performance characteristics determined by [facility]. They may not have been cleared or approved by the U.S. Food and Drug Administration. The FDA has determined that such clearance or approval is not necessary. The above immunohistochemical/dualISH markers are ordered and reviewed by the Pathologist. INTERPRETATION: A. Gastric ulcer, biopsy: Negative for Helicobacter pylori organisms. Polytypic lymphoid aggregates present. AM:amadeo 10/23/2023
[2023-10-21 10:33] VITALS: BP 109/66; BP 115/74; PULSE 77; RESP 16; TEMP 36.2; O2SAT 100
[2023-10-21 10:35] VITALS: BP 105/67; BP 115/74; PULSE 78; RESP 16; O2SAT 100
--- NOTE | 2023-10-21 10:35 | OP.CCLET_ITS ---
10/21/2023 Orlando Ortiz MD [address] [id number] Re : Upper GI endoscopy procedure for Kayce Hernández Dear Dr. Ortiz This procedure was performed on Saturday, October 21, 2023. My impressions and recommendations are as follows: Impressions : - Normal esophagus. - Oozing gastric ulcers with pigmented material. Treated with a heater probe. Biopsied. - No gross lesions in the second portion of the duodenum. Biopsied. Recommendations : - Discharge patient to home. - Resume regular diet. - Use sucralfate suspension 1 gram PO BID for 3 weeks. - Continue present medications. My findings are described in the full procedure note, which is enclosed. If I can be of further assistance, please feel free to contact me at . Sincerely, Hever Guerrero, 10/21/2023 10:35:05 AM This report has been signed electronically.
--- NOTE | 2023-10-21 10:35 | OP.EGD_ITS ---
Patient Name: Kayce Hernández Procedure Date: 10/21/2023 10:04 AM Date of : 2000 Age: 23 Procedure: Upper GI endoscopy Indications: Epigastric abdominal pain Providers: DO Cydney Romano MD: Orlando Ortiz MD Medicines: Monitored Anesthesia Care Patient Profile: This is a 23 year old female. Refer to note in patient chart for documentation of history and physical. Patient has symptoms of chronic abdominal cramping, chronic epigastric abdominal pain, chronic dyspepsia and chronic nausea. Complications: No immediate complications. Procedure: Pre-Anesthesia Assessment: - Prior to the procedure, a History and Physical was performed, and patient medications and allergies were reviewed. The patient is competent. The risks and benefits of the procedure and the sedation options and risks were discussed with the patient. All questions were answered and informed consent was obtained. Patient identification and proposed procedure were verified by the physician in the pre-procedure area. Mental Status Examination: alert and oriented. Airway Examination: normal oropharyngeal airway and neck mobility. Respiratory Examination: clear to auscultation. CV Examination: normal. Prophylactic Antibiotics: The patient does not require prophylactic antibiotics. Prior Anticoagulants: The patient has taken no anticoagulant or antiplatelet agents. ASA Grade Assessment: II - A patient with mild systemic disease. After reviewing the risks and benefits, the patient was deemed in satisfactory condition to undergo the procedure. The anesthesia plan was to use monitored anesthesia care (MAC). Immediately prior to administration of medications, the patient was re-assessed for adequacy to receive sedatives. The heart rate, respiratory rate, oxygen saturations, blood pressure, adequacy of pulmonary ventilation, and response to care were monitored throughout the procedure. The physical status of the patient was re-assessed after the procedure. After obtaining informed consent, the endoscope was passed under direct vision. Throughout the procedure, the patient's blood pressure, pulse, and oxygen saturations were monitored continuously. The colonoscope was introduced through the mouth, and advanced to the second part of duodenum. The upper GI endoscopy was accomplished without difficulty. The patient tolerated the procedure well. Scope In: 10:13:43 AM Scope Out: 10:17:32 AM Total Procedure Duration Time 0 hours 3 minutes 49 seconds Findings: The examined esophagus was normal. Three oozing cratered gastric ulcers with pigmented material were found in the gastric body, on the lesser curvature of the stomach and in the gastric antrum. The largest lesion was 6 mm in largest dimension. Coagulation for hemostasis using heater probe was successful. Estimated blood loss was minimal. Biopsies were taken with a cold forceps for histology. Verification of patient identification for the specimen was done. Biopsies were taken with a cold forceps for Helicobacter pylori testing. Verification of patient identification for the specimen was done. Estimated blood loss was minimal. No gross lesions were noted in the second portion of the duodenum. Biopsies were taken with a cold forceps for histology. Verification of patient identification for the specimen was done. Estimated blood loss was minimal. Impression: - Normal esophagus. - Oozing gastric ulcers with pigmented material. Treated with a heater probe. Biopsied. - No gross lesions in the second portion of the duodenum. Biopsied. Recommendation: - Discharge patient to home. - Resume regular diet. - Use sucralfate suspension 1 gram PO BID for 3 weeks. - Continue present medications. Procedure Code(s): --- Professional --- 54626, 59, Esophagogastroduodenoscopy, flexible, transoral; with control of bleeding, any method 91520, 51, Esophagogastroduodenoscopy, flexible, transoral; with biopsy, single or multiple CPT copyright 2021 [employer]. All rights reserved. The codes documented in this report are preliminary and upon java scala developer review may be revised to meet current compliance requirements. Hever Guerrero DO 10/21/2023 10:35:05 AM This report has been signed electronically. Number of Addenda: 0 Note Initiated On: 10/21/2023 10:04 AM
--- NOTE | 2023-10-21 10:38 | OP.COLON_ITS ---
Patient Name: Kayce Hernández Procedure Date: 10/21/2023 10:17 AM Date of : 2000 Age: 23 Procedure: Colonoscopy Indications: Generalized abdominal pain Providers: Hever Guerrero DO Referring MD: Orlando Ortiz MD Medicines: Monitored Anesthesia Care Patient Profile: This is a 23 year old female. Refer to note in patient chart for documentation of history and physical. Patient has symptoms of chronic abdominal cramping, chronic epigastric abdominal pain, chronic dyspepsia and chronic nausea. Last Colonoscopy: none. The patient's first colonoscopy is today. Complications: No immediate complications. Procedure: Pre-Anesthesia Assessment: - Prior to the procedure, a History and Physical was performed, and patient medications and allergies were reviewed. The patient is competent. The risks and benefits of the procedure and the sedation options and risks were discussed with the patient. All questions were answered and informed consent was obtained. Patient identification and proposed procedure were verified by the physician in the pre-procedure area. Mental Status Examination: alert and oriented. Airway Examination: normal oropharyngeal airway and neck mobility. Respiratory Examination: clear to auscultation. CV Examination: normal. Prophylactic Antibiotics: The patient does not require prophylactic antibiotics. Prior Anticoagulants: The patient has taken no anticoagulant or antiplatelet agents. ASA Grade Assessment: II - A patient with mild systemic disease. After reviewing the risks and benefits, the patient was deemed in satisfactory condition to undergo the procedure. The anesthesia plan was to use monitored anesthesia care (MAC). Immediately prior to administration of medications, the patient was re-assessed for adequacy to receive sedatives. The heart rate, respiratory rate, oxygen saturations, blood pressure, adequacy of pulmonary ventilation, and response to care were monitored throughout the procedure. The physical status of the patient was re-assessed after the procedure. After I obtained informed consent, the scope was passed under direct vision. Throughout the procedure, the patient's blood pressure, pulse, and oxygen saturations were monitored continuously. The colonoscope was introduced through the anus and advanced to the cecum, identified by appendiceal orifice and ileocecal valve. The colonoscopy was performed without difficulty. The patient tolerated the procedure well. The quality of the bowel preparation was adequate. The terminal ileum, ileocecal valve, appendiceal orifice, and rectum were photographed. Scope In: 10:19:21 AM Scope Withdrawal Time 0 hours 5 minutes 7 seconds Scope Out: 10:26:59 AM Total Procedure Duration Time 0 hours 7 minutes 38 seconds Findings: The perianal and digital rectal examinations were normal. The colon (entire examined portion) appeared normal. Biopsies for histology were taken with a cold forceps from the entire colon for evaluation of microscopic colitis. Verification of patient identification for the specimen was done. Estimated blood loss was minimal. The terminal ileum appeared normal. Biopsies were taken with a cold forceps for histology. Verification of patient identification for the specimen was done. Estimated blood loss was minimal. Impression: - The entire examined colon is normal. Biopsied. - The examined portion of the ileum was normal. Biopsied. Recommendation: - Discharge patient to home. - Resume previous diet. - Continue present medications. - Await pathology results. - Repeat colonoscopy in 5 years for surveillance based on pathology results. Procedure Code(s): --- Professional --- 01837, Colonoscopy, flexible; with biopsy, single or multiple CPT copyright 2021 [employer]. All rights reserved. The codes documented in this report are preliminary and upon wastewater treatment engineer review may be revised to meet current compliance requirements. Hever Guerrero DO 10/21/2023 10:37:51 AM This report has been signed electronically. Number of Addenda: 0 Note Initiated On: 10/21/2023 10:17 AM
--- NOTE | 2023-10-21 10:38 | OP.CCLET_ITS ---
10/21/2023 Orlando Ortiz MD [address] [place] [address] Re : Colonoscopy procedure for Kayce Hernández Dear Dr. Ortiz This procedure was performed on Saturday, October 21, 2023. My impressions and recommendations are as follows: Impressions : - The entire examined colon is normal. Biopsied. - The examined portion of the ileum was normal. Biopsied. Recommendations : - Discharge patient to home. - Resume previous diet. - Continue present medications. - Await pathology results. - Repeat colonoscopy in 5 years for surveillance based on pathology results. My findings are described in the full procedure note, which is enclosed. If I can be of further assistance, please feel free to contact me at . Sincerely, Hever Guerrero, 10/21/2023 10:37:51 AM This report has been signed electronically.
[2023-10-21 10:40] VITALS: BP 101/53; BP 115/74; PULSE 73; RESP 16; O2SAT 100
[2023-10-21 10:45] VITALS: BP 101/54; BP 115/74; PULSE 75; RESP 16; O2SAT 100
[2023-10-21 10:50] VITALS: BP 115/74; BP 96/67; PULSE 73; RESP 16; TEMP 36.2; O2SAT 98
== END 2023-10-21 11:47 | disposition home or self-care (01) ==
LOC: EN 07:41 → AC 07:42
PROVIDERS: Anesthesiology; PCP Family Medicine; Referring Provider Family Medicine; Visit Provider Internal Medicine Gastroenterology
PROC: 0DJD8ZZ Inspection of Lower Intestinal Tract, Via Natural or Artificial Opening Endoscopic (ICD-10-PCS; CPT 45378; principal; 2023-10-21 08:55)
DX: K25.9 Gastric ulcer, unspecified as acute or chronic, without hemorrhage or perforation (principal); E27.40 Unspecified adrenocortical insufficiency; K59.09 Other constipation; K29.80 Duodenitis without bleeding; K21.9 Gastro-esophageal reflux disease without esophagitis; Z92.241 Personal history of systemic steroid therapy; Z79.899 Other long term (current) drug therapy; K25.4 Chronic or unspecified gastric ulcer with hemorrhage
CPT/HCPCS: 43255; 45380; 43239; 81025; 88305; 88341; 88342; J7120; J2405

== ENCOUNTER 2023-11-16 14:26 | Outpatient (CLI) | payer OTHER, BC, SELFPAY ==
[2023-11-16] MEDS: 0.9% NaCl Peripheral Flush Adult/Peds IV (14:55)
[2023-11-16] MEDS: Dextrose 5%-Lactated Ringers 1,000 ML 999 ML IV (14:55)
[2023-11-16] MEDS: Metoclopramide 10 MG/2 ML Vial 5 MG IV (14:56)
[2023-11-16 15:01] VITALS: BP 89/61; PULSE 57; RESP 16; TEMP 36.7; O2SAT 96; BMI 25.4
[2023-11-16 16:05] VITALS: BP 96/60; PULSE 61; RESP 16; TEMP 36.9; O2SAT 99
== END 2023-11-16 14:27 | disposition home or self-care (01) ==
LOC: MEDOUTP 14:26
PROVIDERS: PCP Family Medicine; Referring Provider Obstetrics & Gynecology; Visit Provider Obstetrics & Gynecology
DX: E86.0 Dehydration (principal)
CPT/HCPCS: 96374; 96361; A4216

== ENCOUNTER → 2023-11-26 | Outpatient (CLI) | payer OTHER, BC, SELFPAY ==
--- NOTE | 2023-11-26 08:38 | NM_ITS ---
CLINICAL: 23-year-old female with history of clinical gastroparesis. SOLID PHASE 99m Tc SULFUR COLLOID GASTRIC EMPTYING STUDY COMPARISON: Semisolid phase gastric emptying study report 09/07/2023 FINDINGS: The patient was administered 1.2 mCi of 99m Tc sulfur colloid mixed with egg and consumed per os. Image acquisitions in the anterior-posterior projections were obtained for 227 minutes following meal consumption. There is prompt visualization of the stomach. There is no gastroesophageal reflux identified. First order kinetics are maintained throughout the duration of the acquisitions. The T ? raw data emptying was calculated to be 143.25 minutes, (Normal 65-110 minutes). 84 % emptying and 16 % retention are defined at 4 hours post meal ingestion. NM/Gastric Emptying Study - 4 HR IMPRESSION: 1. ABNORMAL 99m Tc sulfur colloid solid phase gastric emptying imaging examination. A. There is abnormal solid phase gastric emptying compared to normal controls with maintained first order kinetics throughout all components of the examination. (Raymundo et al, Gastroenterology 77: 75, 1979 Margie et al, Semin Nucl Med 12: 116, 1981 Steven et al, SNM Procedure Guidelines Adult Solid Meal Gastric Emptying Study 3.0 [email or web address]). B. Greater than 10% retention of the initial gastric contents at 4 hours post dose is consistent with abnormal solid phase gastric emptying which correlates with the results of the T ? emptying calculation. (Christiano et al, J Nucl Med 48: 568, 2007). C. Overall compared to the semisolid gastric emptying examination dated 09/07/2023, there is current delayed solid phase gastric emptying as defined above. Electronically Signed: Jarek Valentino DO at 8:21 EDT ,
[2023-11-26 12:21] LABS: PTHIN 79.4 pg/mL (18.4-80.1)
[2023-11-26 12:27] LABS: Vitamin D,25 Hydroxy 39.6 ng/mL
[2023-11-26 12:29] LABS: ALB/GLOB Ratio 1.5 RATIO (0.9-2.4); AST(SGOT) 12 U/L (15-37); Alanine Aminotransfer ALT/SGPT 23 U/L (13-56); Albumin, Serum 4.5 g/dL (3.2-5.0); Alkaline Phosphatase 67 U/L (45-117); Anion Gap 6 (5-15); BUN 16 mg/dL (7-18); BUN/Creat Ratio 20.5 RATIO (10-20); Calcium,Total 9.2 mg/dL (8.5-10.1); Chloride 107 mmol/L (98-107); Creatinine, Serum 0.78 mg/dL (0.55-1.02); EST Glomerular Filtration Rate 95 mL/min (>60); Est Glom Filt Rate - Afr Amer 115 mL/min (>60); Globulin 3.1 g/dL (2.2-4.2); Glucose 95 mg/dL (74-106); Potassium 3.5 mmol/L (3.5-5.1); Protein, Total 7.6 g/dL (6.4-8.2); Sodium Level 139 mmol/L (136-145)
== END | disposition home or self-care (01) ==
PROVIDERS: Internal Medicine Endocrinology, Diabetes & Metabolism; PCP Family Medicine; Referring Provider Internal Medicine Gastroenterology; Visit Provider Internal Medicine Gastroenterology
DX: E21.1 Secondary hyperparathyroidism, not elsewhere classified (principal); E27.49 Other adrenocortical insufficiency; E55.9 Vitamin D deficiency, unspecified
CPT/HCPCS: 36415; 78264; 80053; 82024; 82306; 82533; 83970; A9541

== ENCOUNTER 2023-11-27 08:00 | Outpatient (CLI) | payer OTHER, BC, SELFPAY ==
[2023-11-27 08:15] VITALS: BP 134/75; PULSE 94; RESP 16; TEMP 36.6; O2SAT 99
[2023-11-27] MEDS: 0.9% NaCl Peripheral Flush Adult/Peds IV (08:17)
[2023-11-27] MEDS: 0.9% Normal Saline (1000mL) 1,000 ML 999 ML IV (08:17)
[2023-11-27 09:31] VITALS: BP 107/63; PULSE 63; RESP 16; O2SAT 100
== END 2023-11-27 08:01 | disposition home or self-care (01) ==
LOC: MEDOUTP 08:00
PROVIDERS: PCP Family Medicine; Referring Provider Internal Medicine Gastroenterology; Visit Provider Internal Medicine Gastroenterology
DX: R63.8 Other symptoms and signs concerning food and fluid intake (principal)
CPT/HCPCS: 96360; J7030; A4216

== ENCOUNTER 2023-12-08 11:18 | Day surgery (SDC) | payer OTHER, BC, SELFPAY ==
[2023-12-08] VITALS (8 sets, daily range): BP systolic 92–102; BP diastolic 49–74; PULSE 47–83; RESP 16; TEMP 36.1–36.8; O2SAT 96–100; BMI 25.8
--- NOTE | 2023-12-08 | COLBX_PTH ---
PATIENT: EZE HERNADEZ LOC: EN U#:[id number] AGE/SX: 23/F ROOM: RE12/08/[address]: Dr. Hever Guerrero DO : 2000 BED: DIS: 12/08/2023 SPEC #: [id number] RECD: 12/09/23 10:20 STATUS: KATIE LISA #: [id number] BRAULIO: 12/08/23 00:[address]: Hever Guerrero DEPT: SURGICAL PATHOLOGY RECD BY: Talat Rutherford ENTERED: 12/09/23 10:21 SP TYPE: COLON BX OTHR DR: Dr. Orlando Ortiz MD Tissues: Duodenum, NOS Procedures: Surgery Specimen Level IV HEADER OPERATION: EGD with biopsies PRE-OP DIAGNOSIS: Gastroparesis TISSUE SUBMITTED: Duodenum biopsy MICROSCOPIC DIAGNOSIS Duodenum, biopsy: Fragments of duodenal mucosa with focal villous blunting and non-specific chronic inflammation. SJ/mr 12/10/2023 MICROSCOPIC DESCRIPTION Slides are reviewed. GROSS DESCRIPTION Received in fixative is one container labeled with the patient's name and designated Duodenum biopsy. The specimen consists of multiple irregular fragments of light cordero soft tissue that in aggregate measure 1.0 x 0.3 x 0.1 cm. The specimen is totally submitted in one cassette. KAELYN/ 12/09/2023 TC:3 CPT:29506
[2023-12-08 11:40] LABS: Internal QC Validated? YES +Cl - CLEAR BKGD; Pregnancy, Urine Negative Negative
[2023-12-08] MEDS: Lactated Ringers 1,000 ML 15 ML IV (11:43)
--- NOTE | 2023-12-08 13:01 | HP.PCM_ITS ---
History and Physical Date of Admission: 12/08/23 Chief Complaint: Adrenal insufficiency Details: EZE HERNADEZ, is a 23 F who presents to the office today for a follow up visit. [facility] ED 08.11.23 with RLQ abdominal pain and constipation with concern for adrenal crisis r/t adrenal insufficiency. Has been established with [facility] specialist for workup. FH mother celiac disease. Currently taking MiraLAX daily for constipation; start golytely for cleansing. ? Biochemical CBC, CMP without pertinent abnormality. ? CT abd/pel stable 6cm flat mass of water attenuation superior to right hemidiaphragm believed to originate in right epicardial fat pad, epicardial cyst. *[facility] established 08.19.23 for the last two months been having severe N/V and BRBPR with constipation that can last up to 18 days; she has been avoiding food intake because of symptoms and reports she has been having weight loss. MiraLAX BID has been ineffective; Golytely was partially effective. Mother reports hosp italization several years ago for 8 days for adrenal insufficiency and did not have a BM during this period. Surgery for endometriosis previously during which scar tissue was found, no previous abdominal surgery; this was cut during surgery and she had positive BM for several weeks. ? Biochemical CBC, ESR, LDH, CRP, B12, D25, D1,25, TSH, T3, T4, GAME, IgG1/3/4, LEVI, ANCA, KAREN comp, celiac without pertinent abnormality.? IgG2 L86 ? SITZ Day 3: R colon 15 rings, L colon 9 rings, RS colon zero rings. Day 5 R Colon 4 rings, L colon 17 rings, RS colon 3 rings. ? GET 09.08.23 61.10 minutes (12.56) Contact, 09.14.23 with results. Need to treat constipation, Start Linzess 145mcg OV 09/16/23 C/o generalized abdominal pain and low back pain rated 7 out of ten today, Not taking Linzess d/t prior authorization needed. Nausea constant. Will gag when attempting to swallowing food. NV and abdominal cramping after eating. Constipation continues unchanged, one small BM about every 7 days. Does not have loose stools. C/o weight loss of 7 lb since last visit. ROS Const Constitutional: Positive for fatigue, headache(s) and weight change; No fever(s), frequent falls or weakness ENT ENT: Positive for headache(s) and difficulty swallowing Cardio Cardiology: Positive for leg pain with exertion Gastro GI: Positive for abdominal pain, bloating, change in bowel habits, constipation, heartburn, difficulty swallowing, Blood in stool, nausea/dyspepsia and vomiting; No diarrhea, excessive flatus or Vomiting blood/hematemesis Musc Musculoskeletal: Positive for joint pain, back pain, joint swelling, muscle weakness, numbness, tingling, restless legs, leg pain at night and leg pain with exertion; No muscle cramps, stiffness, Arthritis or sciatica Skin Skin: No dry skin, lesions, itchy eyes or rash Neuro Neurology: Positive for headache(s), numbness, tingling and restless legs; No behavioral changes, unsteady gait/balance, weakness, frequent falls, tremor(s), Increased tone in limbs, paralysis or seizures Psych Psychiatric: Positive for anxiety, No behavioral changes, Positive for depression, No paranoia, No Compulsive Behavior, No hyperactivity, No inattentiveness, No obsessions/compulsions, No Temper Tantrums and No suicidal ideation Endo Endocrine: Positive for fatigue and weight change Aller/Imm Allergy/Immunologic: No itchy eyes Cory/Lymp Hematologic/Lymphatic: No easy bleeding or easy bruising Exam Const General: cooperative, healthy appearing, comfortable, no acute distress, well developed and not cushingoid (no steroid excess seen) Nutritional Appearance: well nourished Orientation: alert, awake and oriented x3 HENMT Head: normal to inspection Ears: hearing grossly normal bilaterally Nose: external nose normal Mouth: oral mucosae normal Eyes General: appearance normal, both eyes and all related structures Alignment and Position: alignment normal Periorbital: periorbital findings normal Eyelids: eyelids normal Conjunctivae: conjunctivae normal Neck Neck: normal visual inspection Neck mass: No Thyroid: thyroid normal Lymphatic: no lymphadenopathy noted Chest Chest palpation & inspection: normal inspection of the chest Resp Effort & Inspection: normal respiratory effort, able to speak in complete sentences, symmetric chest movement, no audible wheezes and no cough Auscultation: Bilateral: Clear to Auscultation Cardio Rate: regular rate Rhythm: regular rhythm Pulses: posterior tibial pulses present GI Inspection: normal to inspection Skin General: no rashes or lesions noted Neuro General: patient alert, patient awake and patient oriented x3 Cranial Nerves: CN's II-XI intact bilaterally Cognition: normal cognition Speech: speech normal Gait: normal gait Motor: muscle tone normal throughout Extrem General: no edema (no pitting edema) Psych Appearance: grossly normal Mental Status: mental status grossly normal Mood: congruent mood Affect: normal affect Speech and Movement: speech and movement normal Attitude: cooperative Thought Process: normal Thought Content: normal Judgment: judgment good Quality Reporting Tobacco Screening ([facility] 138) Smoking Status: Never smoker Assessment and Plan Assessment and Plan (1) Chronic constipation: Status: Chronic Plan: We will give her Trulance to take once a day. If this helps then we will give her refills. I think she is having worsening constipation secondary to inability to eat. (2) Adrenal insufficiency: Status: Chronic Plan: 23-year-old with complicated medical history of primary adrenal insufficiency on chronic steroid therapy, possible endometriosis, pericardial cyst who presents for the evaluation of persistent nausea and worsening constipation. She complains of bloating associated with abdominal pain, abdominal cramping and na usea with vomiting on almost a daily basis. She takes Zofran twice a day because of persistent nausea. She denies any history of migraine disorders. She has tried multiple things in the past for constipation including MiraLAX and stool softeners. It is unknown if she has been on any prescription medicine for chronic constipation. She said that she had a colonoscopy in the past but it was normal. She does get a rash but it is Thursday associated with an adrenal crisis. Recently she underwent laparoscopic procedure and had lysis of adhesions. She is never had abdominal surgery. As per the patient and her mother she was at her worst about 95 pounds. She can go as long as 2 weeks without having a bowel movement. Her mother carries a diagnosis of celiac disease. Differential diagnosis for the collection of her symptoms is primary adrenal insufficiency induced gastrointestinal motility disorder. Also different diagnosis is gastroparesis, small bacterial overgrowth, IBS with constipation. She will undergo biochemical testing. We will also do a sits marker test, MRI of the abdomen pelvis and a gastric emptying study. If she does have severe delayed gastric emptying or abnormal imaging the neck carries a worse prognosis meaning that is likely secondary to her underlying [place]'s disease. I would not give her anything for constipation at this time as I would like to get more clarity regarding her previous work ups. I gave her a prescription for scopolamine patches and she had side effects. She underwent gastric emptying study and it was at 61 minutes which is prolo nged. She also underwent a sits marker test which showed that almost all of the sits markers stayed in the left-sided colon. Current diagnosis is slow transit constipation. She will need to undergo biopsies of the rectum for Hirschsprung's disease. She will also be recommended to consume a gastroparesis diet. Further recommendations to follow. (3) Non-celiac gluten sensitivity: Status: Acute Plan: Her mother has celiac disease so she is with her today and we will call her to her regarding a gluten-free diet. (4) Constipation: Status: Inactive (5) Gastroparesis: Status: Acute Plan: She is taking Reglan as it does help somewhat. She has not taken with every meal. I gave her low-dose alprazolam in order to help her nausea and abdominal pain but that did not work it just made her very sleepy. I am considering buspirone 5 mg p.o. twice daily and increasing to 3 times daily. But we will get an official 4-hour gastric emptying study. (6) Abdominal pain: Status: Chronic Plan: She did have some ulcerations that were seen in the gastric body and gastric antrum along with in the duodenum. I thought there were medication induced. Biopsies as shown pleomorphic lymphocyte aggregates. She will need to complete PPI and Carafate therapy and repeat her upper endoscopy. After long discussion I told her that she should try a low-dose pain medicine to see if it makes her feel better. I think mentally it would really help her to feel better at this time. I will have to give her window glass cutter off to call the phone number that was given was [phone] in order to see if there is a plan regarding her steroids because I think a lot of her symptoms are secondary to chronic steroid usage.- Coding I have examined the patient and the H&P has been reviewed. There are no clinical changes since date of exam.
--- NOTE | 2023-12-08 13:24 | OP.EGD_ITS ---
Patient Name: Kayce Hernández Procedure Date: 12/08/2023 12:46 PM Date of : 2000 Age: 23 Procedure: Upper GI endoscopy Indications: Epigastric abdominal pain Providers: Hever Guerrero DO Referring MD: Orlando Ortiz MD Medicines: Monitored Anesthesia Care Patient Profile: This is a 23 year old female. Refer to note in patient chart for documentation of history and physical. Patient has symptoms of chronic epigastric abdominal pain. Complications: No immediate complications. Procedure: Pre-Anesthesia Assessment: - Prior to the procedure, a History and Physical was performed, and patient medications and allergies were reviewed. The patient is competent. The risks and benefits of the procedure and the sedation options and risks were discussed with the patient. All questions were answered and informed consent was obtained. Patient identification and proposed procedure were verified by the physician in the pre-procedure area. Mental Status Examination: alert and oriented. Airway Examination: normal oropharyngeal airway and neck mobility. Respiratory Examination: clear to auscultation. CV Examination: normal. Prophylactic Antibiotics: The patient does not require prophylactic antibiotics. Prior Anticoagulants: The patient has taken no anticoagulant or antiplatelet agents. ASA Grade Assessment: II - A patient with mild systemic disease. After reviewing the risks and benefits, the patient was deemed in satisfactory condition to undergo the procedure. The anesthesia plan was to use monitored anesthesia care (MAC). Immediately prior to administration of medications, the patient was re-assessed for adequacy to receive sedatives. The heart rate, respiratory rate, oxygen saturations, blood pressure, adequacy of pulmonary ventilation, and response to care were monitored throughout the procedure. The physical status of the patient was re-assessed after the procedure. After obtaining informed consent, the endoscope was passed under direct vision. Throughout the procedure, the patient's blood pressure, pulse, and oxygen saturations were monitored continuously. The Endoscope was introduced through the mouth, and advanced to the second part of duodenum. The upper GI endoscopy was accomplished without difficulty. The patient tolerated the procedure well. Scope In: 1:05:45 PM Scope Out: 1:11:29 PM Total Procedure Duration Time 0 hours 5 minutes 44 seconds Findings: The examined esophagus was normal. The entire examined stomach was normal. Mild inflammation characterized by erythema was found in the duodenal bulb. Biopsies were taken with a cold forceps for histology. Verification of patient identification for the specimen was done. Estimated blood loss was minimal. Impression: - Normal esophagus. - Normal stomach. - Chronic duodenitis. Biopsied. Recommendation: - Discharge patient to home. - Resume previous diet. - Continue present medications. - Await pathology results. Procedure Code(s): --- Professional --- 80838, Esophagogastroduodenoscopy, flexible, transoral; with biopsy, single or multiple CPT copyright 2021 [employer]. All rights reserved. The codes documented in this report are preliminary and upon auditing coder review may be revised to meet current compliance requirements. Hever Guerrero DO 12/08/2023 1:23:51 PM This report has been signed electronically. Number of Addenda: 0 Note Initiated On: 12/08/2023 12:46 PM
--- NOTE | 2023-12-08 13:24 | OP.CCLET_ITS ---
12/08/2023 Orlando Ortiz MD [address] [id number] Re : Upper GI endoscopy procedure for Kayce Hernández Dear Dr. Ortiz This procedure was performed on Friday, December 08, 2023. My impressions and recommendations are as follows: Impressions : - Normal esophagus. - Normal stomach. - Chronic duodenitis. Biopsied. Recommendations : - Discharge patient to home. - Resume previous diet. - Continue present medications. - Await pathology results. My findings are described in the full procedure note, which is enclosed. If I can be of further assistance, please feel free to contact me at . Sincerely, Hever Guerrero, 12/08/2023 1:23:51 PM This report has been signed electronically.
== END 2023-12-08 14:26 | disposition home or self-care (01) ==
LOC: EN 11:20 → AC 11:21
PROVIDERS: Anesthesiology; PCP Family Medicine; Referring Provider Family Medicine; Visit Provider Internal Medicine Gastroenterology
PROC: 0DJ08ZZ Inspection of Upper Intestinal Tract, Via Natural or Artificial Opening Endoscopic (ICD-10-PCS; CPT 43235; principal; 2023-12-08 12:25)
DX: K29.80 Duodenitis without bleeding (principal); E27.40 Unspecified adrenocortical insufficiency; R51.9 Headache, unspecified; K90.41 Non-celiac gluten sensitivity; K31.84 Gastroparesis; Z79.899 Other long term (current) drug therapy; Z92.241 Personal history of systemic steroid therapy
CPT/HCPCS: 43239; 81025; 88305; J2405

== ENCOUNTER → 2023-12-15 | Outpatient (CLI) | payer OTHER, BC, SELFPAY | END | disposition home or self-care (01) | PROVIDERS: Nurse Practitioner Family; PCP Family Medicine; Visit Provider Internal Medicine Gastroenterology | DX: R19.5 Other fecal abnormalities (principal) | CPT/HCPCS: 82274; 87177; 87209; 87506 ==

== ENCOUNTER → 2024-01-13 | Outpatient (CLI) | payer OTHER, BC, SELFPAY ==
[2024-01-13 18:11] LABS: Absolute Lymphocyte Count 2.56 X10^3/uL (0.83-4.51); Absolute Neutrophil Count 4.7 X10^3/uL (2.0-7.7); Basophil# 0.05 X10^3/uL; Basophil% 0.6 % (0-1); Eosinophil# 0.02 X10^3/uL; Eosinophils% 0.3 % (0-5); Hematocrit 42.9 % (37-47); Hemoglobin 13.4 g/dL (12.0-15.0); Lymphocyte # 2.56 X10^3/ul (0.83-4.51); Lymphocyte % 32.3 % (19-41); Mean Corp Hgb Conc 31.2 g/dL (32-36); Mean Corpuscular Hgb 26.3 pg (27.0-32.0); Mean Corpuscular Volume 84.3 fL (81-99); Monocyte# 0.56 X10^3/uL; Monocyte% 7.1 % (0-10); NRBC Flagged by Analyzer 0 % (0-5); Neutrophil # 4.71 X10^3/uL (2.7-7.7); Neutrophil % 59.4 % (47-70); Platelet Count 286 K/mm3 (150-450); RBC Distribution Width SD 46.3 fl (35.1-43.9); Red Blood Count 5.09 M/mm3 (4.2-5.4); White Blood Count 7.9 K/mm3 (4.4-11.0)
[2024-01-13 18:30] LABS: ALB/GLOB Ratio 1.4 RATIO (0.9-2.4); AST(SGOT) 9 U/L (15-37); Alanine Aminotransfer ALT/SGPT 20 U/L (13-56); Albumin, Serum 4.2 g/dL (3.2-5.0); Alkaline Phosphatase 58 U/L (45-117); Anion Gap 6 (5-15); BUN 9 mg/dL (7-18); BUN/Creat Ratio 12.3 RATIO (10-20); Calcium,Total 9.4 mg/dL (8.5-10.1); Chloride 112 mmol/L (98-107); Creatinine, Serum 0.73 mg/dL (0.55-1.02); EST Glomerular Filtration Rate 102 mL/min (>60); Est Glom Filt Rate - Afr Amer 123 mL/min (>60); Globulin 3.1 g/dL (2.2-4.2); Glucose 97 mg/dL (74-106); Potassium 3.6 mmol/L (3.5-5.1); Protein, Total 7.3 g/dL (6.4-8.2); Sodium Level 141 mmol/L (136-145)
== END | disposition home or self-care (01) ==
LOC: MFPLAB 16:58
PROVIDERS: PCP Family Medicine; Visit Provider Family Medicine
DX: G90.9 Disorder of the autonomic nervous system, unspecified (principal); F32.A Depression, unspecified
CPT/HCPCS: 36415; 80053; 82533; 85025

== ENCOUNTER → 2024-01-25 | Outpatient (CLI) | payer OTHER, SELFPAY ==
--- NOTE | 2024-01-25 17:25 | RAD_ITS ---
STUDY: X-RAY - ABDOMEN/PELVIS REASON FOR EXAM: Female, 23 years old. CONSTIPATION TECHNIQUE: AP supine and upright views of the abdomen and pelvis. COMPARISON: Comparison is made with prior study dated August 26, 2023. FINDINGS: Normal visualized lung bases. There is an abundance of fecal material throughout the colon. There is no demonstrated free abdominal air. The visualized liver, spleen and kidneys are grossly normal in size and morphology. Normal soft tissue structures. Normal visualized osseous structures. RAD/Abd Inc Decub and/or Erect IMPRESSION: Large amount of fecal material is seen in the colon. Electronically Signed: Marshall Vázquez MD at 10:12 EDT ,
== END | disposition home or self-care (01) ==
LOC: MTLAB 17:19 → MTRAD 17:20
PROVIDERS: PCP Family Medicine; Referring Provider Internal Medicine Gastroenterology; Visit Provider Internal Medicine Gastroenterology
DX: R10.9 Unspecified abdominal pain (principal); K59.00 Constipation, unspecified
CPT/HCPCS: 74019

== ENCOUNTER 2024-03-07 09:33 | Emergency (ER) | payer OTHER, SELFPAY ==
[2024-03-07 09:34] VITALS: BP 115/68; PULSE 133; RESP 18; TEMP 36.7; O2SAT 98; BMI 24.1
--- NOTE | 2024-03-07 09:55 | ED.VIS.GI ---
HPI HPI - GI History of Present Illness Chief Complaint: Abd Pain Narrative Narrative: 24-year-old female with history of chronic abdominal pain, gastroparesis, adrenal insufficiency presenting with abdominal pain. She states she has not had a bowel movement in 11 days. She states she typically can go up to 19 days. She is on Trulance which is provided to her by Dr. Guerrero that she also gets Reglan to help with nausea and bowel movements.She states she was sweating and chills but she states she did not check her temperature. Patient also recently states she was treated for UTI and has been on Macrobid for 5 days and is still having a lot of urinary frequency and dysuria. She is scared that it is not working and she now has bilateral flank pain which is concerned for a kidney infection. She reports that she was referred by Dr. Guerrero to specialist at [facility] and GI because she states that she was too complex for him to care for here, however the date is months out. She also states that they consider giving a feeding tube to help her get nutrition but they decided to wait until after they had the second consult. Patient states last night she was vomiting and noted some speckles of blood in the vomit. She was able to hold on her meds last night. [facility] Medical History History of ulceration Gastroparesis Malrotation of kidney Gastroparesis Back pain Osteopenia Wears glasses Loss of hearing Migraine headache Gastric reflux Non-smoker History of Holter monitoring History of echocardiogram Cardiology follow-up encounter History of eustachian tube dysfunction Deafness in right ear Abdominal pain Dysautonomia-like disorder Chest pain at rest Pericardial cyst Migraine without aura and without status migrainosus, not intractable Primary adrenal deficiency Anxiety and depression Home Medications ?Medication ?Instructions ?Recorded ?Last Taken ?Type sertraline 50 mg tablet 50 mg PO DAILY 12/20/21 12/07/23 History valacyclovir 500 mg tablet 500 mg PO PRN PRN Cold Sores 03/19/22 Unknown History (Valtrex) hydrocortisone 10 mg tablet 10 mg PO TID #270 tabs 07/16/23 Unknown Rx pantoprazole 40 mg tablet,delayed 40 mg PO Q12H 3 months #180 tabs 10/21/23 12/07/23 Rx release sucralfate 100 mg/mL oral 1 g (10 mL) PO Q6H 4 weeks #1,120 10/21/23 12/07/23 Rx suspension mL buspirone 5 mg tablet 5 mg PO BID #60 tabs 11/02/23 12/07/23 Rx prochlorperazine 25 mg rectal 25 mg GA BID PRN nausea and 01/01/24 Unknown Rx suppository vomiting #12 ea promethazine 25 mg rectal 25 mg GA Q4-6H PRN nausea and 01/04/24 Unknown Rx suppository vomiting #12 ea metoclopramide HCl 10 mg tablet 10 mg PO Q6H PRN nausea and 01/25/24 Unknown Rx (Reglan) vomiting #30 tabs plecanatide 3 mg tablet (Trulance) 3 mg PO DAILY #30 tabs 01/25/24 Unknown Rx lubiprostone 24 mcg capsule 24 mcg PO BID 02/15/24 Unknown History (Amitiza) vibrating device, constipation #1 ea 02/17/24 Unknown Rx (Vibrant Starter Kit combo pack) zolpidem 12.5 mg tablet,extended 12.5 mg PO QHS PRN insomnia #30 02/18/24 Unknown Rx release,multiphase (Ambien CR) tabs fluconazole 150 mg tablet 150 mg PO Q3D 2 doses #2 tabs 03/03/24 Unknown Rx nitrofurantoin 100 mg PO BID 7 days #14 caps 03/03/24 Unknown Rx monohydrate/macrocrystals 100 mg capsule (Macrobid) cephalexin 500 mg capsule 500 mg PO Q12 #14 CAPSULES 03/07/24 Unknown Rx metoclopramide HCl 5 mg tablet 5 mg PO Q8H PRN PRN nausea and 03/07/24 Unknown Rx (Reglan) vomiting #20 tabs Allergy/AdvReac Type Severity Reaction Status Date / Time clonazepam (From Klonopin) AdvReac Severe drooling, Verified 02/16/24 09:33 shaking erythromycin base AdvReac Intermediate stomach Verified 02/16/24 09:33 pain, vomiting scopolamine AdvReac Intermediate Blurred Verified 02/16/24 09:33 Vision Family History Other Anxiety Autoimmune disorder Celiac disease Skin cancer Surgical History Hx of colonoscopy Hx of surgical procedure S/P laparoscopic procedure Status post laparoscopy Hx of colonoscopy Hx of eye surgery History of lymph node biopsy History of esophagogastroduodenoscopy (EGD) History of myringotomy Social History Smoking Status: Never smoker alcohol intake: never substance use type: does not use caffeine: Yes what type of physical activity do you participate in: none seatbelt use: always do you feel safe at home: Yes 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 ROS ROS ED Review of Systems ROS Unobtainable: due to mental condition and due to mental status Constitutional Constitutional ED: Reports chills, fever(s) and sweats ENT ENT ED: Denies rhinorrhea or sore throat Cardiovascular Cardiovascular: Denies chest pain or palpitations Respiratory/Chest Respiratory/Chest: Denies cough, dyspnea or dyspnea on exertion Gastrointestinal Gastrointestinal: Reports abdominal pain, constipation, nausea and vomiting Genitourinary Genitourinary ED: Denies dysuria Musculoskeletal Musculoskeletal: Reports back pain Integumentary Denies abscess or Abrasions Neurologic Neurologic: Denies headache(s) or paresthesias Psychiatric Psychiatric: Reports anxiety; Denies depression EXAM Physical Exam Const Vital Signs: 03/07/24 09:34 03/07/24 11:34 Temperature 98.1 F Temperature Source Temporal Pulse Rate 133 H 128 H Respiratory Rate 18 18 Blood Pressure 115/68 96/67 Blood Pressure Mean 83 76 Pulse Ox 98 98 Oxygen Delivery Method Room Air Room Air Positive well nourished General Appearance ED: NAD; Negative for pallor HEENT Reports moist mucous membranes normocephalic and atraumatic Eyes PERRL and EOMs intact bilaterally Resp normal respiratory effort and clear to auscultation bilaterally Cardio regular rhythm Rate: tachycardic GI non-distended and no masses Palpation: soft Back/Spine General Back: CVA tenderness bilateral Neuro CN's II-XII intact bilaterally Sensorium / Orientation: alert Motor Exam: strength 5/5 throughout Psych mental status grossly normal Mood & Affect: anxious Skin General Skin Exam: Negative for jaundice or pallor MDM MDM MDM Narrative Medical decision making narrative: Patient presenting with worsening abdominal pain, constipation, urinary symptoms, vomiting with small amounts of blood noted. She states she is concerned as she has a history of gastric ulcers. Patient presenting with right flank pain. Differential includes colitis, diverticulitis, gastritis, pancreatitis, acute cholecystitis, constipation, appendicitis, UTI, pyelonephritis, calculi, ureteral calculi, obstruction, malignancy, dehydration, electrolyte abnormalities, ovarian torsion, ovarian cyst, ectopic , upper GI bleed, [place]. CBC will be obtained to assess white blood cell count, hemoglobin, platelets. CMP to assess renal function, electrolytes, liver function, glucose. Lipase to assess for pancreatitis. Urinalysis to assess for UTI. IV line was established. We gave Reglan 10 mg. Patient wants to hold off on pain medication due to her constipation issues. CBC shows normal white blood cell count of 7.8. Hemoglobin 14.3. Platelets are normal 310. Renal function electrolytes as well as LFTs are all normal. Lipase is negative at 31. Urinalysis shows positive nitrites. Noted to be 10-25 white blood cells however contaminated specimen with 25-50 squamous epithelial cells and 2+ bacteria. Since patient is symptomatic reportedly so I will switch her to Keflex and she is amenable to this. Urine is sent for culture. Discussed the case with Dr. Guerrero and reviewed her CT together which was read as colitis although patient is not having diarrhea. He felt this is most likely due to constipation and recommended magnesium citrate. I discussed this with the patient and she is amenable to this. She has magnesium citrate at home. She requested a refill of Reglan which was provided. I recommend she follow-up with a specialist at [facility]. Return precautions discussed. Impression: 1. [place]andra-[place] tear 2. Nausea/vomiting 3. Constipation 4. Abdominal pain 5. UTI Lab Data Attestation: I reviewed the patient's lab results. Labs: Laboratory Results - last 24 hr 03/07/24 03/07/24 10:00 10:02 WBC 7.8 RBC 5.35 Hgb 14.3 Hct 46.4 MCV 86.7 MCH 26.7 L MCHC 30.8 L RDW Std Deviation 47.8 H RDW Coeff of Shivam 15.1 H Plt Count 310 MPV 9.0 Immature Gran % (Auto) 0.300 Neut % (Auto) 71.3 H Lymph % (Auto) 21.9 [place] % (Auto) 5.8 Eos % (Auto) 0.3 Baso % (Auto) 0.4 Absolute Neuts (auto) 5.6 Absolute Lymphs (auto) 1.71 Nucleated RBC % 0 Sodium 137 Potassium 3.8 Chloride 103 Carbon Dioxide 25.0 Anion Gap 9 BUN 14 Creatinine 0.85 Estim Creat Clear Calc 83.07 Est GFR (MDRD) Af Amer 104 Est GFR (MDRD) Non-Af 86 BUN/Creatinine Ratio 16.4 Glucose 144 H Calcium 9.1 Total Bilirubin 0.60 AST 16 ALT 32 Alkaline Phosphatase 81 Total Protein 7.7 Albumin 4.0 Globulin 3.7 Albumin/Globulin Ratio 1.1 Lipase 31 Urine Color SEE COMMENT BELOW Urine Clarity Cloudy Urine pH 5.0 Ur Specific [place] 1.020 Urine Protein 30 H Urine Glucose (UA) Normal Urine Ketones 50 H Urine Occult Blood 10 H Urine Nitrite Positive H Urine Bilirubin 6 H Urine Urobilinogen 8 H Ur Leukocyte Esterase 100 H Urine RBC 0-5 SEEN Urine WBC 10-25 SEEN Ur Squamous Epith Cells 25-50 SEEN Urine Bacteria 2+ Urine Mucus 0 SEEN Radiography Diagnostic Testing: Clinical Impression(s) from Imaging Studies Abdomen/Pelvis CT 03/07/24 10:01 IMPRESSION: Findings suggestive of colitis involving the right hemicolon with large amount of fecal material. Stable cystic fluid collection at the right lung base abutting the right lobe of the liver. Electronically Signed: Marshall Vázquez MD at 11:04 EDT , Discharge Plan Triage Chief Complaint: Abd Pain ED Provider: Luis Angel Royal Dx/Rx/DC Orders Instructions: ED Constipation (Adult), ED Cystitis Female Adult Prescriptions: New cephalexin 500 mg capsule 500 mg PO Q12 Qty: 14 0RF metoclopramide HCl [Reglan] 5 mg tablet 5 mg PO Q8H PRN PRN (Reason: nausea and vomiting) Qty: 20 0RF No Action sertraline 50 mg tablet 50 mg PO DAILY Patient Comments: TAKE 1 TABLET BY MOUTH EVERY DAY hydrocortisone 10 mg tablet 10 mg PO TID Qty: 270 3RF lubiprostone [Amitiza] 24 mcg capsule 24 mcg PO BID buspirone 5 mg tablet 5 mg PO BID Qty: 60 1RF valacyclovir [Valtrex] 500 mg tablet 500 mg PO PRN PRN (Reason: Cold Sores) sucralfate 100 mg/mL suspension 1 g PO Q6H 28 Days Qty: 1120 0RF pantoprazole 40 mg tablet,delayed release (DR/EC) 40 mg PO Q12H 90 Days Qty: 180 0RF prochlorperazine 25 mg suppository 25 mg GA BID PRN (Reason: nausea and vomiting) Qty: 12 0RF promethazine 25 mg suppository 25 mg GA Q4-6H PRN (Reason: nausea and vomiting) Qty: 12 6RF metoclopramide HCl [Reglan] 10 mg tablet 10 mg PO Q6H PRN (Reason: nausea and vomiting) Qty: 30 5RF Trulance 3 mg tablet 3 mg PO DAILY Qty: 30 0RF Rx Instructions: take every am (DME) Vibrant Starter Kit Combo Pack See Rx Instructions .Route Qty: 1 0RF Rx Instructions: As directed zolpidem [Ambien CR] 12.5 mg tablet,ext release multiphase 12.5 mg PO QHS PRN (Reason: insomnia) Qty: 30 3RF nitrofurantoin monohyd/m-cryst [Macrobid] 100 mg capsule 100 mg PO BID 7 Days Qty: 14 0RF Rx Instructions: must administer with a meal/food fluconazole 150 mg tablet 150 mg PO Q3D 0 Days Qty: 2 0RF Rx Instructions: may repeat second dose 72 hrs after first dose if symptoms persist Primary Care Provider: Orlando Ortiz Referrals: Orlando Ortiz MD [Primary Care Provider] - Print Language: Ecuadorean Disposition Disposition: Home, Self Care
--- NOTE | 2024-03-07 10:01 | CT_ITS ---
STUDY: CT ABDOMEN AND PELVIS WITH CONTRAST REASON FOR EXAM: Female, 24 years old. Chronic abdominal pain. Gastroparesis and constipation. Recent UTI. RADIATION DOSAGE (If Supplied By Facility): CTDIvol = ( 11.28 ) mGy, DLP = ( 481.54 ) mGycm TECHNIQUE: Transaxial images were obtained from the dome of the diaphragm to the symphysis pubis without oral contrast. IV 100mL Isovue-300 was administered. Sagittal and coronal images were reconstructed. Individualized dose optimization techniques were used for this CT. COMPARISON: Comparison is made with prior study dated August 11, 2023. FINDINGS: Stable 6 cm cystic density at the base of the right right hemithorax abutting the posterior aspect of the liver. This may represent either an epicardial cyst or bronchogenic cyst arising from the right lower lobe. This is unchanged. The visualized portions of the heart are within normal limits. Normal liver. Normal gallbladder and extrahepatic biliary system. Normal spleen. Normal pancreas. Normal bilateral adrenal glands. Normal right kidney. Normal left kidney. Normal visualized stomach. Normal small intestine. Large amount of fecal material is seen in the colon. At this time however, there is thickening of the haustral pattern of the right hemicolon and transverse colon. This is suggestive of a superimposed colitis. The appendix is visualized and appears normal. Normal abdominal aorta. Normal inferior vena cava. Normal retroperitoneum. Normal urinary bladder. Normal abdominal wall. Normal osseous structures. CT/Abdomen/Pelvis W IV Cont ONLY IMPRESSION: Findings suggestive of colitis involving the right hemicolon with large amount of fecal material. Stable cystic fluid collection at the right lung base abutting the right lobe of the liver. Electronically Signed: Marshall Vázquez MD at 11:04 EDT ,
[2024-03-07] MEDS: 0.9% Normal Saline (1000mL) 1,000 ML 999 ML IV (10:07)
[2024-03-07 10:08] LABS: Mucous, Urine 0 SEEN /hpf (<or=2+)
[2024-03-07] MEDS: Pantoprazole Sodium 40 MG in 0.9% Normal Saline (100mL MB+) 100 ML 330 MG IV (10:08)
[2024-03-07] MEDS: Metoclopramide 10 MG/2 ML Vial IV (10:08)
[2024-03-07 10:11] LABS: Absolute Lymphocyte Count 1.71 X10^3/uL (0.83-4.51); Absolute Neutrophil Count 5.6 X10^3/uL (2.0-7.7); Basophil# 0.03 X10^3/uL; Basophil% 0.4 % (0-1); Eosinophil# 0.02 X10^3/uL; Eosinophils% 0.3 % (0-5); Hematocrit 46.4 % (37-47); Hemoglobin 14.3 g/dL (12.0-15.0); Lymphocyte # 1.71 X10^3/ul (0.83-4.51); Lymphocyte % 21.9 % (19-41); Mean Corp Hgb Conc 30.8 g/dL (32-36); Mean Corpuscular Hgb 26.7 pg (27.0-32.0); Mean Corpuscular Volume 86.7 fL (81-99); Monocyte# 0.45 X10^3/uL; Monocyte% 5.8 % (0-10); NRBC Flagged by Analyzer 0 % (0-5); Neutrophil # 5.57 X10^3/uL (2.7-7.7); Neutrophil % 71.3 % (47-70); Platelet Count 310 K/mm3 (150-450); RBC Distribution Width CV 15.1 % (11.6-14.6); RBC Distribution Width SD 47.8 fl (35.1-43.9); Red Blood Count 5.35 M/mm3 (4.2-5.4); White Blood Count 7.8 K/mm3 (4.4-11.0)
[2024-03-07 10:14] LABS: Glucose, Dipstick Normal (Normal); Ketone-Dipstick 50 mg/dl (Negative); Leukocyte Esterase-Dipstick 100 /ul (Negative); Nitrite-Dipstick Positive (Negative); Occult Blood-Urine 10 /ul (Negative); Protein-Dipstick 30 mg/dl (Negative); Urine Clarity Cloudy (Clear); Urine Urobilinogen 8 mg/dl (Normal)
[2024-03-07 10:15] LABS: Color, Urine SEE COMMENT BELOW (Yellow); Urine Bilirubin Dipstick 6 mg/dL (Negative)
[2024-03-07] MEDS: Morphine 4 MG/ML Syringe IV (10:20)
[2024-03-07 10:25] LABS: Bacteria 2+ /hpf (None Seen); Red Blood Cells-Urine 0-5 SEEN /hpf (0-5); White Blood Cells 10-25 SEEN /hpf (0-5)
[2024-03-07 10:26] LABS: Squamous Epithelial Cells - UA 25-50 SEEN /hpf (5-10)
[2024-03-07 10:31] LABS: ALB/GLOB Ratio 1.1 RATIO (0.9-2.4); AST(SGOT) 16 U/L (15-37); Alanine Aminotransfer ALT/SGPT 32 U/L (13-56); Alkaline Phosphatase 81 U/L (45-117); Anion Gap 9 (5-15); BUN 14 mg/dL (7-18); BUN/Creat Ratio 16.4 RATIO (10-20); Calcium,Total 9.1 mg/dL (8.5-10.1); Chloride 103 mmol/L (98-107); Creatinine, Serum 0.85 mg/dL (0.55-1.02); EST Glomerular Filtration Rate 86 mL/min (>60); Est Glom Filt Rate - Afr Amer 104 mL/min (>60); Estimated Creatinine Clearance 83.07 ml/min; Globulin 3.7 g/dL (2.2-4.2); Glucose 144 mg/dL (74-106); Lipase 31 U/L (13-75); Potassium 3.8 mmol/L (3.5-5.1); Protein, Total 7.7 g/dL (6.4-8.2); Sodium Level 137 mmol/L (136-145)
[2024-03-07 11:34] VITALS: BP 96/67; PULSE 128; RESP 18; O2SAT 98
[2024-03-07] MEDS: Cephalexin 250 MG Capsule 500 MG PO (12:24)
[2024-03-07 13:00] VITALS: BP 94/53; PULSE 83; RESP 18; O2SAT 99
[2024-03-07 13:30] VITALS: BP 102/64; PULSE 83; RESP 18; TEMP 36.6; O2SAT 99
== END 2024-03-07 13:34 | disposition home or self-care (01) ==
PROVIDERS: Emergency Provider Student in an Organized Health Care Education/Training Program; PCP Family Medicine; Visit Provider Student in an Organized Health Care Education/Training Program
DX: K22.6 Gastro-esophageal laceration-hemorrhage syndrome (principal); K59.00 Constipation, unspecified; K52.9 Noninfective gastroenteritis and colitis, unspecified; G89.29 Other chronic pain; K21.9 Gastro-esophageal reflux disease without esophagitis; F41.9 Anxiety disorder, unspecified; N39.0 Urinary tract infection, site not specified; R10.9 Unspecified abdominal pain
CPT/HCPCS: 74177; 80053; 81001; 83690; 85025; 87086; 87088; 96365; 96375; 99284; J7030; Q9967

== ENCOUNTER → 2024-07-29 | Outpatient (CLI) | payer OTHER, SELFPAY ==
[2024-08-08 09:49] LABS: HPV Reflexed? NOT INDICATED
== END | disposition home or self-care (01) ==
PROVIDERS: PCP Family Medicine; Referring Provider Obstetrics & Gynecology; Visit Provider Obstetrics & Gynecology
DX: Z12.4 Encounter for screening for malignant neoplasm of cervix (principal)
CPT/HCPCS: 88175; G0145

== ENCOUNTER → 2024-10-13 | Outpatient (CLI) | payer OTHER, SELFPAY ==
[2024-10-13 13:53] LABS: hCG Titer Quant., Serum 4799 mIU/mL (<9 non-preg)
== END | disposition home or self-care (01) ==
PROVIDERS: PCP Family Medicine; Referring Provider Obstetrics & Gynecology; Visit Provider Obstetrics & Gynecology
DX: Z34.90 Encounter for supervision of normal pregnancy, unspecified, unspecified trimester (principal)
CPT/HCPCS: 36415; 84702

== ENCOUNTER → 2024-10-15 | Outpatient (CLI) | payer OTHER, SELFPAY ==
[2024-10-15 10:38] LABS: hCG Titer Quant., Serum 7569 mIU/mL (<9 non-preg)
== END | disposition home or self-care (01) ==
LOC: LAB 09:50
PROVIDERS: PCP Family Medicine; Referring Provider Obstetrics & Gynecology; Visit Provider Obstetrics & Gynecology
DX: Z34.90 Encounter for supervision of normal pregnancy, unspecified, unspecified trimester (principal)
CPT/HCPCS: 36415; 84702

== ENCOUNTER → 2024-11-03 | Outpatient (CLI) | payer OTHER, SELFPAY ==
[2024-11-03 12:22] LABS: Absolute Lymphocyte Count 1.91 X10^3/uL (0.83-4.51); Absolute Neutrophil Count 4.3 X10^3/uL (2.0-7.7); Basophil# 0.04 X10^3/uL; Basophil% 0.6 % (0-1); Eosinophil# 0.03 X10^3/uL; Eosinophils% 0.4 % (0-5); Hematocrit 39.5 % (37-47); Hemoglobin 12.4 g/dL (12.0-15.0); Lymphocyte # 1.91 X10^3/ul (0.83-4.51); Lymphocyte % 27.9 % (19-41); Mean Corp Hgb Conc 31.4 g/dL (32-36); Mean Corpuscular Hgb 25.8 pg (27.0-32.0); Mean Corpuscular Volume 82.3 fL (81-99); Monocyte# 0.53 X10^3/uL; Monocyte% 7.7 % (0-10); NRBC Flagged by Analyzer 0 % (0-5); Neutrophil # 4.32 X10^3/uL (2.7-7.7); Neutrophil % 63.3 % (47-70); Platelet Count 340 K/mm3 (150-450); RBC Distribution Width SD 47.6 fl (35.1-43.9); White Blood Count 6.8 K/mm3 (4.4-11.0)
[2024-11-03 13:35] LABS: Hepatitis B Surface Antigen Nonreactive (Nonreactive); Hepatitis C Antibody Nonreactive (Nonreactive); Rubella IgG REAC (Nonreactive); Syphilis Antibodies Nonreactive (Nonreactive)
[2024-11-03 14:41] LABS: HIV Nonreactive (Nonreactive)
[2024-11-03 15:17] LABS: Vitamin B12 406 pg/mL (180-914); Vitamin D,25 Hydroxy 38.2 ng/mL (30-100)
[2024-11-04 20:08] LABS: Chlamydia By Nucleic Acid AMP Negative (Negative); Gonococcus By Nucleic Acid AMP Negative (Negative)
[2024-11-08 04:07] LABS: Vitamin B1, Thiamine 103.5 nmol/L (66.5-200.0)
== END | disposition home or self-care (01) ==
PROVIDERS: PCP Family Medicine; Referring Provider Obstetrics & Gynecology; Visit Provider Obstetrics & Gynecology
DX: O09.90 Supervision of high risk pregnancy, unspecified, unspecified trimester (principal); O99.619 Diseases of the digestive system complicating pregnancy, unspecified trimester; K31.84 Gastroparesis; Z31.430 Encounter of female for testing for genetic disease carrier status for procreative management; Z3A.00 Weeks of gestation of pregnancy not specified
CPT/HCPCS: 36415; 82306; 82607; 84425; 85025; 86703; 86762; 86780; 86803; 86850; 86900; 86901; 87086; 87088; 87340; 87491; 87591

== ENCOUNTER → 2024-12-28 | Outpatient (CLI) | payer OTHER, SELFPAY | END | disposition home or self-care (01) | LOC: LABSPEC 11:44 | PROVIDERS: PCP Family Medicine; Referring Provider Obstetrics & Gynecology; Visit Provider Obstetrics & Gynecology | DX: O26.899 Other specified pregnancy related conditions, unspecified trimester (principal); R10.2 Pelvic and perineal pain; Z3A.00 Weeks of gestation of pregnancy not specified | CPT/HCPCS: 87086; 87088 ==

== ENCOUNTER → 2025-01-10 | Outpatient (CLI) | payer OTHER, SELFPAY ==
[2025-01-10 16:59] LABS: ALB/GLOB Ratio 1.3 RATIO (0.9-2.4); AST(SGOT) 17 U/L (<=31); Alanine Aminotransfer ALT/SGPT 20 U/L (<=34); Albumin, Serum 3.7 g/dL (3.5-5.0); Alkaline Phosphatase 44 U/L (35-104); Anion Gap 12 (5-15); BUN 11 mg/dL (4-19); BUN/Creat Ratio 15.8 RATIO (10-20); Carbon Dioxide 22.2 mmol/L (21.0-32.0); Chloride 103 mmol/L (98-108); Creatinine, Serum 0.68 mg/dL (0.70-1.20); EST Glomerular Filtration Rate 123 (>60); Globulin 2.9 g/dL (2.2-4.2); Glucose 77 mg/dL (70-99); Potassium 3.9 mmol/L (3.3-5.1); Protein, Total 6.6 g/dL (5.9-8.4); Sodium Level 137 mmol/L (133-145); Total Bilirubin < 0.15 mg/dL (0.00-1.30)
== END | disposition home or self-care (01) ==
LOC: BWCLAB 14:38
PROVIDERS: PCP Family Medicine; Visit Provider Obstetrics & Gynecology
DX: E16.2 Hypoglycemia, unspecified (principal)
CPT/HCPCS: 36415; 80053

== ENCOUNTER → 2025-01-12 | Outpatient (CLI) | payer OTHER, SELFPAY ==
[2025-01-12 11:13] LABS: PTHIN 71 pg/mL (11-61)
[2025-01-12 11:33] LABS: ALB/GLOB Ratio 1.2 RATIO (0.9-2.4); AST(SGOT) 17 U/L (<=31); Alanine Aminotransfer ALT/SGPT 14 U/L (<=34); Albumin, Serum 3.8 g/dL (3.5-5.0); Alkaline Phosphatase 52 U/L (35-104); Anion Gap 12 (5-15); BUN 13 mg/dL (4-19); BUN/Creat Ratio 20.9 RATIO (10-20); Calcium,Total 9.1 mg/dL (7.6-11.0); Carbon Dioxide 20.7 mmol/L (21.0-32.0); Chloride 104 mmol/L (98-108); EST Glomerular Filtration Rate 127 (>60); Globulin 3.1 g/dL (2.2-4.2); Glucose 79 mg/dL (70-99); Magnesium 1.9 mg/dL (1.5-2.2); Potassium 4.1 mmol/L (3.3-5.1); Protein, Total 6.9 g/dL (5.9-8.4); Sodium Level 137 mmol/L (133-145); Total Bilirubin 0.18 mg/dL (0.00-1.30); Vitamin D,25 Hydroxy 46.5 ng/mL (30-100)
== END | disposition home or self-care (01) ==
PROVIDERS: PCP Family Medicine; Referring Provider Internal Medicine Endocrinology, Diabetes & Metabolism; Visit Provider Internal Medicine Endocrinology, Diabetes & Metabolism
DX: E04.0 Nontoxic diffuse goiter (principal); E21.1 Secondary hyperparathyroidism, not elsewhere classified; E55.9 Vitamin D deficiency, unspecified
CPT/HCPCS: 36415; 80053; 82306; 82533; 83735; 83970; 84439; 84443

== ENCOUNTER 2025-07-17 07:56 | Emergency (ER) | payer OTHER, SELFPAY ==
[2025-07-17 07:57] VITALS: BP 130/85; PULSE 87; RESP 18; TEMP 36.5; O2SAT 97; BMI 33.5
--- NOTE | 2025-07-17 08:24 | EKG12_ITS ---
Test Reason : Blood Pressure : */* mmHG Vent. Rate : 85 BPM Atrial Rate : 85 BPM P-R Int : 152 ms QRS Dur : 78 ms QT Int : 380 ms P-R-T Axes : 34 76 46 degrees QTcB Int : 452 ms Normal sinus rhythm Normal ECG Confirmed by Jude De La Garza ([id number]), dictionary editor ANN CHRISTIAN ([id number]) on 07/19/2025 8:36:10 AM Referred By: Confirmed By: Jude De La Garza
--- NOTE | 2025-07-17 08:33 | ED.VIS.CHEST ---
HPI History of Present Illness Chief Complaint: Shortness of Breath Narrative Narrative: Chief complaint and HPI: 25-year-old female with past medical history of Kidder's disease, GERD, depression/anxiety presents for evaluation of left-sided pain. Patient states for the past 3 days she has been having left lower rib pain that radiates into the chest/back. Pain is mostly lateral. She denies any trauma or lifting anything heavy although she does have a recent 2-month-old. She denies any breast pain. She is breast-feeding/pumping. Pain is worse with certain movements and deep inspiration. She denies any fever, chills, abdominal pain, nausea, vomiting, URI symptoms. Review of systems: See HPI Medications: As listed on the chart Allergies: As listed on the chart PFSH: Per chart Vital signs: As listed on the chart. Reviewed. Physical exam: Gen: A&O x3, NAD Head: Normocephalic, atraumatic Eyes: No sclera icterus, conjunctiva clear ENT: Moist mucous membranes Neck: Trachea midline, full range of motion CV: RRR, no murmurs, chest pain reproducible with palpation of left rib 10, 11, 12. Also has reproducible chest pain to the costochondral angles of the anterior left ribs. No rash. Large bilateral breast without cellulitis or mass. Radial pulses +2 Resp: Lungs CTA BL, no w/r/c GI: Abd soft, non-distended, non-tender, no r/r/g Musc: Full ROM, no deformity, mild tenderness to palpation of the paraspinal musculature of the thoracic spine on the left Skin: Warm, dry Neuro: Alert, oriented, grossly intact, sensation intact Psych: Cooperative, appropriate mood and affect [facility] Medical History Recurrent UTI Anxiety and depression Chronic constipation Decreased rectal sphincter tone Dysmenorrhea Secondary amenorrhea Breast pain, right History of ulceration Malrotation of kidney Osteopenia Gastric reflux History of Holter monitoring History of echocardiogram History of eustachian tube dysfunction Deafness in right ear Pericardial cyst Migraine without aura and without status migrainosus, not intractable Primary adrenal deficiency Home Medications ?Medication ?Instructions ?Recorded ?Last Taken ?Type vibrating device, constipation #1 ea 02/17/24 Unknown Rx (Vibrant Starter Kit combo pack) nortriptyline 50 mg capsule 50 mg PO QDAY 10/21/24 07/16/25 History acetaminophen 500 mg capsule 1,000 mg PO Q6H PRN fever or pain 07/17/25 07/17/25 History ibuprofen 200 mg tablet (Advil) 400 mg PO Q6H PRN fever or pain 07/17/25 07/16/25 History lorazepam 0.5 mg tablet 0.5 mg PO BID PRN PRN panic attack 07/17/25 Unknown History prednisone 5 mg tablet 5 mg PO DAILY 07/17/25 07/16/25 History quetiapine 50 mg tablet 50 mg PO QHS 07/17/25 07/16/25 History sertraline 100 mg tablet 100 mg PO DAILY 07/17/25 07/16/25 History Allergy/AdvReac Type Severity Reaction Status Date / Time clonazepam (From Klonopin) AdvReac Severe drooling, Verified 07/17/25 08:00 shaking erythromycin base AdvReac Intermediate stomach Verified 07/17/25 08:00 pain, vomiting scopolamine AdvReac Intermediate Blurred Verified 07/17/25 08:00 Vision Family History Mother No problems noted. 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 @ [employer] current occupational exposures/hazards: No pets and animals: Yes (Not managing litterbox ) pets and animals: cat(s), dog(s) and farm animals history of recent travel: Yes ([place] & [place] ) out of state: No out of country: Yes sexually active: Yes Smoking Status: Never smoker alcohol intake: never substance use type: does not use well-balanced diet: daily or most days caffeine: Yes eating out: 1-3 times/week during the past year weight has: decreased > 10 lbs what type of physical activity do you participate in: none fernandez/roman catholic: Yazidi seatbelt use: always do you feel safe at home: Yes additional 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 Patient states for the past 3 days she has been having left lower rib pain that radiates into the chest/back. Pain is mostly lateral. She denies any trauma or lifting anything heavy although she does have a recent 2-month-old. Pain is worse with certain movements and deep inspiration. On presentation, patient no acute distress. Mildly hypertensive. Differential diagnosis includes but is not limited to myofascial spasm, costochondritis, pleurisy, PE, rib fracture. Suspect less likely ACS or intra-abdominal pathology. Toradol ordered for pain. Laboratory workup ordered including x-ray. CBC unremarkable without leukocytosis or anemia. Platelets unremarkable. D-dimer unremarkable. CMP unremarkable except mild ALT elevation at 49. Patient not endorsing any abdominal pain. Abdominal exam is benign. Lipase unremarkable. Troponin unremarkable. On reevaluation, patient's pain has improved although is still present. I suspect musculoskeletal etiology. She is updated of all the results. Follow-up for her mild ALT elevation. Return precautions explained. Patient was offered lidocaine patches and muscle relaxers for home however declined. Recommend ibuprofen and Tylenol. Gentle stretching. Heating pad and IcyHot as needed. Follow-up with primary care physician. Return precautions explained. She confirmed understand the plan. Be stable to discharge home. EKG: Interpreted by me/EM physician: EKG shows normal sinus rhythm without any acute ischemic changes. There is artifact. Heart rate 85 Diagnostic: Interpreted by me/EM physician: Chest x-ray without pneumonia, effusion, rib fracture, pneumothorax, cardiomegaly. Radiology in agreement. Impression: 1. Left-sided chest wall pain 2. Mild ALT elevation Lab Data Labs: Laboratory Results - last 24 hr 07/17/25 08:29 WBC 5.6 RBC 4.73 Hgb 13.3 Hct 43.0 MCV 90.9 MCH 28.1 MCHC 30.9 L RDW Std Deviation 47.6 H RDW Coeff of Shivam 14.6 Plt Count 282 MPV 8.9 Immature Gran % (Auto) 0.200 Neut % (Auto) 50.8 Lymph % (Auto) 36.9 [place] % (Auto) 10.1 H Eos % (Auto) 1.6 Baso % (Auto) 0.4 Absolute Neuts (auto) 2.9 Absolute Lymphs (auto) 2.08 Nucleated RBC % 0 D-Dimer Quant (PE/DVT) 0.32 Sodium 138 Potassium 4.0 Chloride 103 Carbon Dioxide 24.5 Anion Gap 11 BUN 17 Creatinine 0.77 Estim Creat Clear Calc 109.60 Est GFR (MDRD) Non-Af 108 BUN/Creatinine Ratio 22.2 H Glucose 87 Calcium 8.9 Total Bilirubin < 0.15 AST 23 ALT 49 H Alkaline Phosphatase 65 Troponin T High Sens < 6 Total Protein 6.6 Albumin 4.0 Globulin 2.6 Albumin/Globulin Ratio 1.5 Lipase 25 Radiography Diagnostic Testing: Clinical Impression(s) from Imaging Studies Ribs w/Chest X-Ray 07/17/25 08:40 IMPRESSION: No acute rib fractures. No pneumothorax. Reading Location: [facility] Discharge Plan Triage Chief Complaint: Shortness of Breath Other Complaint: Chest Other ED Provider: Jayden Hernández Dx/Rx/DC Orders Prescriptions: No Action nortriptyline 50 mg capsule 50 mg PO QDAY sertraline 100 mg tablet 100 mg PO DAILY prednisone 5 mg tablet 5 mg PO DAILY lorazepam 0.5 mg tablet 0.5 mg PO BID PRN PRN (Reason: panic attack) quetiapine 50 mg tablet 50 mg PO QHS acetaminophen 500 mg capsule 1,000 mg PO Q6H PRN (Reason: fever or pain) ibuprofen [Advil] 200 mg tablet 400 mg PO Q6H PRN (Reason: fever or pain) (DME) Vibrant Starter Kit Combo Pack See Rx Instructions .Route Qty: 1 0RF Rx Instructions: As directed Primary Care Provider: Orlando Ortiz Referrals: Orlando Ortiz MD [Primary Care Provider, Family Practice] Print Language: Vincentian
[2025-07-17 08:36] LABS: Hematocrit 43.0 % (37-47); Hemoglobin 13.3 g/dL (12.0-15.0); Immature Granulocytes Count 0.010 X10^3/uL (0.0-0.0); Mean Corp Hgb Conc 30.9 g/dL (32-36); Mean Corpuscular Volume 90.9 fL (81-99); Mean Platelet Vol. 8.9 fl (6.2-12.0); NRBC Flagged by Analyzer 0 % (0-5); Platelet Count 282 K/mm3 (150-450); RBC Distribution Width CV 14.6 % (11.6-14.6); RBC Distribution Width SD 47.6 fl (35.1-43.9); Red Blood Count 4.73 M/mm3 (4.2-5.4); White Blood Count 5.6 K/mm3 (4.4-11.0)
[2025-07-17 08:39] VITALS: O2SAT 97
--- NOTE | 2025-07-17 08:40 | RAD_ITS ---
PROCEDURE: RIBS CHRIS MIN 4V W/PA CHEST 07/17/2025 REASON FOR EXAM: LEFT RIB PAIN TECHNIQUE: Procedure Code: RADRIBB Modality: DX Procedure: RIBS CHRIS MIN 4V W/PA CHEST COMPARISON: Chest x-ray 06/02/2022. FINDINGS: Dependent changes in the lower lungs. No pleural effusion. No pneumothorax. No acute bony abnormalities. No acute fractures. No free air under the diaphragm. RAD/Ribs Chris Min 4V w/PA Chest IMPRESSION: No acute rib fractures. No pneumothorax. Reading Location: [id number]
[2025-07-17 08:53] LABS: Troponin T High Sensitivity < 6 ng/L (<=14)
[2025-07-17 08:54] LABS: Lipase 25 U/L (13-75)
[2025-07-17 08:55] LABS: AST(SGOT) 23 U/L (<=31); Alanine Aminotransfer ALT/SGPT 49 U/L (<=34); Albumin, Serum 4.0 g/dL (3.5-5.0); Alkaline Phosphatase 65 U/L (35-104); Anion Gap 11 (5-15); BUN 17 mg/dL (4-19); BUN/Creat Ratio 22.2 RATIO (10-20); Calcium,Total 8.9 mg/dL (7.6-11.0); Carbon Dioxide 24.5 mmol/L (21.0-32.0); Chloride 103 mmol/L (98-108); Estimated Creatinine Clearance 109.60 ml/min (50-250); Globulin 2.6 g/dL (2.2-4.2); Glucose 87 mg/dL (70-99); Potassium 4.0 mmol/L (3.3-5.1)
[2025-07-17 09:08] LABS: D-Dimer Quantitative (DVT/PE) 0.32 FEU/ug/m (0.27-0.49)
[2025-07-17 09:53] VITALS: BP 103/67; PULSE 78; RESP 16; TEMP 36.7; O2SAT 100
== END 2025-07-17 09:54 | disposition home or self-care (01) ==
PROVIDERS: Emergency Provider Surgery; PCP Family Medicine; Visit Provider Surgery
DX: R07.81 Pleurodynia (principal); E27.1 Primary adrenocortical insufficiency; R07.89 Other chest pain; R74.8 Abnormal levels of other serum enzymes; K21.9 Gastro-esophageal reflux disease without esophagitis; F41.9 Anxiety disorder, unspecified; F32.A Depression, unspecified; K59.09 Other constipation; Z79.899 Other long term (current) drug therapy
CPT/HCPCS: 71111; 80053; 83690; 84484; 85025; 85379; 93005; 96374; 99285; A4216